=== PATIENT | female | born 1955 | race Caucasian/White ===

== ENCOUNTER 2020-05-06 18:07 | Inpatient (IN) | payer MEDICARE ==
[2020-05-06 19:34] LABS: Anisocytosis Slight; Basophils % (A) 1 %; Eosinophils # (A) 0.3 k/uL (0-0.7); Eosinophils % (A) 3 %; HCT 46.3 % (34.0-46.0); HGB 15.3 gm/dL (11.4-16.0); Hypochromasia Slight; Lymphocytes % (A) 12 %; MCH 27.1 pg (25.0-35.0); MCV 82.2 fL (80.0-100.0); Mean Platelet Volume 7.5; Monocytes # (A) 0.4 k/uL (0-1.0); Monocytes % (A) 4 %; Neutrophils # (A) 6.3 k/uL (1.3-7.7); Neutrophils % (A) 79 %; Platelet Count 266 k/uL (150-450); RBC 5.63 m/uL (3.80-5.40); RDW 16.5 % (11.5-15.5)
[2020-05-06 19:49] LABS: ALT 23 U/L (4-34); AST 33 U/L (14-36); African American GFR (CKD) >90 (>60 ml/min/1.73 sqM); Albumin 3.9 g/dL (3.5-5.0); Alkaline Phosphatase 77 U/L (38-126); Anion Gap 9 mmol/L; Blood Urea Nitrogen 16 mg/dL (7-17); Calcium 9.1 mg/dL (8.4-10.2); Carbon Dioxide 21 mmol/L (22-30); Chloride 108 mmol/L (98-107); Glucose 106 mg/dL (74-99); Non-African American GFR(CKD) 83 (>60 ml/min/1.73 sqM); Potassium 4.7 mmol/L (3.5-5.1); Sodium 138 mmol/L (137-145); Total Bilirubin 0.7 mg/dL (0.2-1.3); Total Protein 7.3 g/dL (6.3-8.2)
--- NOTE | 2020-05-06 19:50 | ED ---
General Adult HPI - General Chief complaint: Shortness of Breath Stated complaint: abn EKG Time Seen by Provider: 05/06/20 18:17 Source: patient, RN notes reviewed, old records reviewed Mode of arrival: ambulatory Limitations: no limitations - History of Present Illness Initial comments: 65-year-old female presenting for evaluation of abnormal EKG. Patient was sent from the cardiology office with abnormal EKG. She states she's had dyspnea for the past 9 months. She has history of factor V Leiden and is currently on Coumadin. Additionally she is on allopurinol for chronic lower extremity swelling. She has no history of arrhythmia, no history of CAD. Denies central chest pain. Denies abdominal pain nausea vomiting. - Related Data Home Medications Medication Instructions Recorded Confirmed Furosemide [Lasix] 20 mg PO DAILY 05/06/20 05/06/20 Warfarin [Coumadin] 2 mg PO DAILY 05/06/20 05/06/20 Warfarin [Coumadin] 5 mg PO DAILY 05/06/20 05/06/20 Allergies Allergy/AdvReac Type Severity Reaction Status Date / Time No Known Allergies Allergy Verified 05/06/20 20:11 Review of Systems ROS Statement: Those systems with pertinent positive or pertinent negative responses have been documented in the HPI. ROS Other: All systems not noted in ROS Statement are negative. Past Medical History Additional Past Medical History / Comment(s): factor 5 History of Any Multi-Drug Resistant Organisms: None Reported Past Surgical History: Appendectomy, Cholecystectomy, Tonsillectomy Additional Past Surgical History / Comment(s): hysterctomy, orthopedic, Past Psychological History: No Psychological Hx Reported Smoking Status: Never smoker Past Alcohol Use History: None Reported Past Drug Use History: None Reported General Exam Limitations: no limitations General appearance: alert, in no apparent distress Head exam: Present: atraumatic, normocephalic Eye exam: Present: normal appearance, PERRL Respiratory exam: Present: normal lung sounds bilaterally. Absent: respiratory distress, wheezes Cardiovascular Exam: Present: normal rhythm, bradycardia GI/Abdominal exam: Present: soft. Absent: distended, tenderness, guarding Extremities exam: Present: normal capillary refill, pedal edema. Absent: calf tenderness Neurological exam: Present: alert, oriented X3, CN II-XII intact. 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 Ventricular rate of 52, [place] interval 184, QRS duration 88, QTC 45, no ST segment elevation. Medical Decision Making - Medical Decision Making 65-year-old female sent for abnormal EKG. Patient is in a second-degree type II heart block. Initial blood pressure is hypertensive, she does remain somewhat hypertensive while in the emergency department. She is perfusing well with this rhythm. She is not on any calcium channel tomasz or beta tomasz. She is on Coumadin with history of factor V Leiden. Her INR is supratherapeutic at 6. Coumadin will be held. Patient has normal CBC, stable hemoglobin, normal electrolytes negative initial troponin. Case discussed with Dr. Aguilar, pacer pads will be placed on the patient bUT are not required at this time. Patient will be admitted to the ICU for pacemaker placement tomorrow. I did discuss case with the admitting team Majo Putnam covering for Dr. Shetty and Dr. Carlisle for ICU management. - Lab Data Result diagrams: 05/06/20 19:20 05/06/20 19:20 Lab Results 05/06/20 05/06/20 05/06/20 Range/Units 19:20 19:20 19:20 WBC 8.0 (3.8-10.6) k/uL RBC 5.63 H (3.80-5.40) m/uL Hgb 15.3 (11.4-16.0) gm/dL Hct 46.3 H (34.0-46.0) % MCV 82.2 (80.0-100.0) fL MCH 27.1 (25.0-35.0) pg MCHC 33.0 (31.0-37.0) g/dL RDW 16.5 H (11.5-15.5) % Plt Count 266 (150-450) k/uL Neutrophils % 79 % Lymphocytes % 12 % Monocytes % 4 % Eosinophils % 3 % Basophils % 1 % Neutrophils # 6.3 (1.3-7.7) k/uL Lymphocytes # 1.0 (1.0-4.8) k/uL Monocytes # 0.4 (0-1.0) k/uL Eosinophils # 0.3 (0-0.7) k/uL Basophils # 0.0 (0-0.2) k/uL Hypochromasia Slight Anisocytosis Slight PT 60.4 H (9.0-12.0) sec INR 6.0 H* (<1.2) APTT 42.6 H (22.0-30.0) sec Sodium 138 (137-145) mmol/L Potassium 4.7 (3.5-5.1) mmol/L Chloride 108 H (98-107) mmol/L Carbon Dioxide 21 L (22-30) mmol/L Anion Gap 9 mmol/L BUN 16 (7-17) mg/dL Creatinine 0.76 (0.52-1.04) mg/dL Est GFR (CKD-EPI)AfAm >90 (>60 ml/min/1.73 sqM) Est GFR (CKD-EPI)NonAf 83 (>60 ml/min/1.73 sqM) Glucose 106 H (74-99) mg/dL Plasma Lactic Acid Aristides (0.7-2.0) mmol/L Calcium 9.1 (8.4-10.2) mg/dL Total Bilirubin 0.7 (0.2-1.3) mg/dL AST 33 (14-36) U/L ALT 23 (4-34) U/L Alkaline Phosphatase 77 (38-126) U/L Troponin I (0.000-0.034) ng/mL Total Protein 7.3 (6.3-8.2) g/dL Albumin 3.9 (3.5-5.0) g/dL 05/06/20 05/06/20 Range/Units 19:20 19:20 WBC (3.8-10.6) k/uL RBC (3.80-5.40) m/uL Hgb (11.4-16.0) gm/dL Hct (34.0-46.0) % MCV (80.0-100.0) fL MCH (25.0-35.0) pg MCHC (31.0-37.0) g/dL RDW (11.5-15.5) % Plt Count (150-450) k/uL Neutrophils % % Lymphocytes % % Monocytes % % Eosinophils % % Basophils % % Neutrophils # (1.3-7.7) k/uL Lymphocytes # (1.0-4.8) k/uL Monocytes # (0-1.0) k/uL Eosinophils # (0-0.7) k/uL Basophils # (0-0.2) k/uL Hypochromasia Anisocytosis PT (9.0-12.0) sec INR (<1.2) APTT (22.0-30.0) sec Sodium (137-145) mmol/L Potassium (3.5-5.1) mmol/L Chloride (98-107) mmol/L Carbon Dioxide (22-30) mmol/L Anion Gap mmol/L BUN (7-17) mg/dL Creatinine (0.52-1.04) mg/dL Est GFR (CKD-EPI)AfAm (>60 ml/min/1.73 sqM) Est GFR (CKD-EPI)NonAf (>60 ml/min/1.73 sqM) Glucose (74-99) mg/dL Plasma Lactic Acid Aristides 1.5 (0.7-2.0) mmol/L Calcium (8.4-10.2) mg/dL Total Bilirubin (0.2-1.3) mg/dL AST (14-36) U/L ALT (4-34) U/L Alkaline Phosphatase (38-126) U/L Troponin I 0.025 (0.000-0.034) ng/mL Total Protein (6.3-8.2) g/dL Albumin (3.5-5.0) g/dL Critical Care Time Critical Care Time: Yes Total Critical Care Time: 35 Disposition Clinical Impression: Second degree heart block Disposition: ADMITTED IP TO THIS [facility] Condition: Serious Is patient prescribed a controlled substance at d/c from ED?: No Referrals: Mike Garcia MD [Primary Care Provider] - 1-2 days Decision to Admit Reason: Admit from [facility] Decision Date: 05/06/20 Decision Time: 20:16
[2020-05-06 19:53] LABS: Partial Thromboplastin Time 42.6 sec (22.0-30.0); Prothrombin Time 60.4 sec (9.0-12.0)
[2020-05-06] MEDS ORDERED: NALOXONE 0.4 MG/ML 1 ML VIAL IV PRN (20:12)
[2020-05-06] MEDS ORDERED: ACETAMINOPHEN TAB 325 MG TAB PO PRN (20:12)
--- NOTE | 2020-05-06 20:34 | XR ---
EXAMINATION TYPE: XR chest 2V DATE OF EXAM: 05/06/2020 COMPARISON: NONE HISTORY: Guillain-[place] breathing TECHNIQUE: 3 views FINDINGS: There is some patchy linear density in both lungs consistent with patchy subsegmental atele ctasis. Thoracic aorta is atheromatous. There is no heart failure. There is no pleural effusion. Bony thorax is intact.. IMPRESSION: Bilateral patchy subsegmental atelectasis. No heart failure seen. No pulmonary consolidat ion.
[2020-05-06 21:33] LABS: Glucose,Whole Blood 103 mg/dL (75-99)
[2020-05-06] MEDS: SODIUM CHLORIDE 0.9% 1,000 ML IV SCH (23:00)
[2020-05-07 05:30] LABS: Anisocytosis Slight; Basophils # (A) 0.1 k/uL (0-0.2); Basophils % (A) 1 %; Eosinophils # (A) 0.2 k/uL (0-0.7); Eosinophils % (A) 3 %; Hypochromasia Slight; Lymphocytes # (A) 1.3 k/uL (1.0-4.8); Lymphocytes % (A) 18 %; MCH 26.4 pg (25.0-35.0); MCHC 31.9 g/dL (31.0-37.0); MCV 82.8 fL (80.0-100.0); Monocytes # (A) 0.4 k/uL (0-1.0); Monocytes % (A) 6 %; Neutrophils # (A) 5.1 k/uL (1.3-7.7); Neutrophils % (A) 71 %; Platelet Count 266 k/uL (150-450); RBC 5.67 m/uL (3.80-5.40); RDW 16.7 % (11.5-15.5); WBC 7.3 k/uL (3.8-10.6)
[2020-05-07 05:37] LABS: INR 4.5 (<1.2); Prothrombin Time 44.6 sec (9.0-12.0)
[2020-05-07 05:42] LABS: African American GFR (CKD) >90 (>60 ml/min/1.73 sqM); Anion Gap 10 mmol/L; Blood Urea Nitrogen 14 mg/dL (7-17); Calcium 8.9 mg/dL (8.4-10.2); Carbon Dioxide 20 mmol/L (22-30); Chloride 108 mmol/L (98-107); Glucose 103 mg/dL (74-99); Non-African American GFR(CKD) 87 (>60 ml/min/1.73 sqM); Potassium 4.5 mmol/L (3.5-5.1); Sodium 138 mmol/L (137-145)
--- NOTE | 2020-05-07 07:46 | P.HPIM ---
History of Present Illness This is a pleasant 65 years old female with no significant past medical history except for factor V blade and insufficiency , presents because of dyspnea since August which get worse over the last 2 months, she recently got insurance and went to see Dr. Lopez at [place] who found her in type 2 second degree heart block, so he referred her to the hospital. She denies chest pain however she feels a little dizzy She also been hypertensive on admission. Vitals and labs are reviewed, blood pressure 163/81.INR is elevated 6.0 at 4.5, trending down. EKG shows sinus bradycardia at 52 Chest x-ray: Atelectasis, no consolidation per radiologist Review of Systems CONSTITUTIONAL: No fever, no malaise, no fatigue. HEENT: No recent visual problems or hearing problems. Denied any sore throat. CARDIOVASCULAR: No orthopnea, PND, no palpitations, no syncope. PULMONARY: No shortness of breath, no cough, no hemoptysis. GASTROINTESTINAL: No diarrhea, no nausea, no vomiting, no abdominal pain. Normoactive bowel sounds. NEUROLOGICAL: No headaches, no weakness, no numbness. HEMATOLOGICAL: Denies any bleeding or petechiae. GENITOURINARY: Denies any burning micturition, frequency, or urgency. MUSCULOSKELETAL/RHEUMATOLOGICAL: Denies any joint pain, swelling, or any muscle pain. ENDOCRINE: Denies any polyuria or polydipsia. Past Medical History Additional Past Medical History / Comment(s): factor 5 Leiden insufficiency History of Any Multi-Drug Resistant Organisms: None Reported Past Surgical History: Appendectomy, Cholecystectomy, Tonsillectomy Additional Past Surgical History / Comment(s): hysterctomy, orthopedic (ankle fracture) Past Psychological History: No Psychological Hx Reported Smoking Status: Former smoker Past Alcohol Use History: None Reported Past Drug Use History: None Reported - Past Family History Father Family Medical History: Congestive Heart Failure (CHF) Additional Family Medical History / Comment(s): congenital Mother Family Medical History: Cancer Additional Family Medical History / Comment(s): lung cancer Medications and Allergies Home Medications Medication Instructions Recorded Confirmed Type Furosemide [Lasix] 20 mg PO DAILY 05/06/20 05/06/20 History Warfarin [Coumadin] 2 mg PO DAILY 05/06/20 05/06/20 History Warfarin [Coumadin] 5 mg PO DAILY 05/06/20 05/06/20 History Allergies Allergy/AdvReac Type Severity Reaction Status Date / Time No Known Allergies Allergy Verified 05/06/20 20:11 Physical Exam Vitals: Vital Signs Temp Pulse Pulse Resp BP Pulse Ox 05/07/20 07:00 42 L 18 163/81 95 05/07/20 06:30 41 L 16 163/93 96 05/07/20 06:00 41 L 21 145/77 92 L 05/07/20 05:30 41 L 24 156/74 94 L 05/07/20 05:00 41 L 19 146/60 95 05/07/20 04:30 42 L 15 150/70 95 05/07/20 04:00 97.9 F 41 L 42 L 24 167/84 94 L 05/07/20 03:30 42 L 32 H 157/99 95 05/07/20 03:00 42 L 23 144/73 92 L 05/07/20 02:30 42 L 20 131/70 94 L 05/07/20 02:00 42 L 24 156/64 92 L 05/07/20 01:30 42 L 24 159/74 93 L 05/07/20 01:00 43 L 18 159/66 94 L 05/07/20 00:30 43 L 18 161/72 93 L 05/07/20 00:00 98 F 43 L 20 164/72 94 L 05/06/20 23:36 44 L 15 93 L 05/06/20 23:30 44 L 18 164/72 93 L 05/06/20 23:00 45 L 44 L 24 151/86 95 05/06/20 22:30 45 L 13 177/100 94 L 05/06/20 22:10 46 L 17 177/100 96 05/06/20 22:00 46 L 12 96 05/06/20 21:50 46 L 19 194/78 95 05/06/20 21:40 98.2 F 47 L 20 95 05/06/20 21:32 91 L 05/06/20 20:29 45 L 05/06/20 20:26 20 05/06/20 20:24 44 L 18 178/94 92 L 05/06/20 18:12 98.2 F 50 L 18 213/73 92 L Intake and Output 05/06/20 05/07/20 05/07/20 22:59 06:59 14:59 Intake Total 0 350 50 Output Total 0 300 0 Balance 0 50 50 Intake: IV 0 350 50 Sodium Chloride 0.9% 1, 0 350 50 000 ml @ 50 mls/hr IV . Q20H [facility] Rx#:[id number] Output: Urine 0 300 0 Other: # Voids 0 0 0 Weight 129.9 kg 129.2 kg -GENERAL: The patient is alert and oriented x3, not in any acute distress. Obese HEENT: Pupils are round and equally reacting to light. EOMI. No scleral icterus. No conjunctival pallor. Normocephalic, atraumatic. No pharyngeal erythema. No thyromegaly. CARDIOVASCULAR: S1 and S2 present. No murmurs, rubs, or gallops. PULMONARY: Chest is clear to auscultation, no wheezing or crackles. ABDOMEN: Soft, nontender, nondistended, normoactive bowel sounds. No palpable organomegaly. MUSCULOSKELETAL: No joint swelling or deformity. EXTREMITIES: No cyanosis, clubbing, or pedal edema. NEUROLOGICAL: Gross neurological examination did not reveal any focal deficits. SKIN: No rashes. No petechiae Results CBC & Chem 7: 05/07/20 04:33 05/07/20 04:33 Labs: Abnormal Lab Results - Last 24 Hours (Table) 05/06/20 05/06/20 05/06/20 Range/Units 19:20 19:20 19:20 RBC 5.63 H (3.80-5.40) m/uL Hct 46.3 H (34.0-46.0) % RDW 16.5 H (11.5-15.5) % PT 60.4 H (9.0-12.0) sec INR 6.0 H* (<1.2) APTT 42.6 H (22.0-30.0) sec Chloride 108 H (98-107) mmol/L Carbon Dioxide 21 L (22-30) mmol/L Glucose 106 H (74-99) mg/dL POC Glucose (mg/dL) (75-99) mg/dL 05/06/20 05/07/20 05/07/20 Range/Units 21:32 04:33 04:33 RBC (3.80-5.40) m/uL Hct (34.0-46.0) % RDW (11.5-15.5) % PT 44.6 H (9.0-12.0) sec INR 4.5 H (<1.2) APTT (22.0-30.0) sec Chloride 108 H (98-107) mmol/L Carbon Dioxide 20 L (22-30) mmol/L Glucose 103 H (74-99) mg/dL POC Glucose (mg/dL) 103 H (75-99) mg/dL // Range/Units 04:33 RBC 5.67 H (3.80-5.40) m/uL Hct 47.0 H (34.0-46.0) % RDW 16.7 H (11.5-15.5) % PT (9.0-12.0) sec INR (<1.2) APTT (22.0-30.0) sec Chloride (98-107) mmol/L Carbon Dioxide (22-30) mmol/L Glucose (74-99) mg/dL POC Glucose (mg/dL) (75-99) mg/dL Thrombosis Risk Factor Assmnt - Choose All That Apply Each Factor Represents 1 point: Medical pt on bed rest, Obesity (BMI >25), Swollen legs (current) Other Risk Factors: Yes Each Risk Factor Represents 2 Points: Age 61-74 years Each Risk Factor Represents 3 Points: Positive Factor V Leiden, Family history of DVT/PE, History of DVT/PE Other congenital or acquired thrombophilia - If yes, enter type in comment: No Thrombosis Risk Factor Assessment Total Risk Factor Score: 14 Thrombosis Risk Factor Assessment Level: High Risk Assessment and Plan Assessment: Arrhythmia with second-degree heart block Hypertension, essential factor V blade and insufficiency on Coumadin Coagulopathy secondary to Coumadin Obesity, BMI is 50 Plan: This is a pleasant 65 years old female who presents with second-degree heart block, keep the patient on telemetry in the ICU, cardiology consult. Hold Coumadin and follow up INR Labs and medication were reviewed.. Continue same treatment. Continue with symptomatic treatment. Resume home medication. Monitor lytes and vitals. DVT and GI prophylaxis. Further recommendations of the clinical course of the patient DVT prophylaxis: On Coumadinrin GI Prophylaxis: Pepcid
[2020-05-07] MEDS ORDERED: FAMOTIDINE 20 MG/2 ML VIAL IV SCH (09:00)
[2020-05-07] MEDS: PANTOPRAZOLE 40 MG/10 ML VIAL IV SCH (09:55)
[2020-05-07] MEDS: amLODIPine 5 MG TAB PO SCH (09:55)
[2020-05-07] MEDS: HEPARIN SODIUM,PORCINE 5,000 UNIT/ML 1 ML VIAL SQ SCH ×2 (09:56→20:04)
[2020-05-07 10:58] LABS: Appearance,Urine Cloudy (Clear); Bilirubin,Urine Negative (Negative); Blood,Urine Small (Negative); Color,Urine Yellow; Glucose,Urine (UA) Negative (Negative); Ketones,Urine Negative (Negative); Leukocyte Esterase,Urine Small (Negative); Mucus,Urine Rare /hpf; Nitrite,Urine Negative (Negative); Protein,Urine Trace (Negative); RBC,Urine 4 /hpf (0-5); Specific Gravity,Urine 1.014 (1.001-1.035); Squamous Epithelial Cell,Urine 3 /hpf (0-4); WBC,Urine 7 /hpf (0-5)
--- NOTE | 2020-05-07 11:17 | P.CNPUL ---
History of Present Illness Consult date: 05/07/20 Reason for consult: other (Second-degree AV block, patient was admitted to the ICU.) Chief complaint: Chronic shortness of breath since August. History of present illness: This is a 65-year-old female, with history of factor V Leyden deficiency. History of obesity. Possible obstructive sleep apnea syndrome based on her symptoms, patient has been complaining of shortness of breath for the last 6 months, and her shortness of breath has become more pronounced in the last 2 months. Patient was referred to see Dr. Menchaca in [place], and he saw yesterday were and she was found to have abnormal EKG with second degree AV block, and the patient was noted to be bradycardic with heart rate in the low 40s. Considering her symptoms and considering her abnormal EKG, patient was advised to go to the ER and she was admitted to the ICU for further evaluation by cardiology, and possibly pacemaker implantation. Patient is normally on Coumadin for previous history of thromboembolic disease/DVT, and her Coumadin was supratherapeutic with INR at 6.0 on admission. Considering the patient was admitted to the ICU, I was asked to see her on consultation. Patient denies any cough, denies any wheezing, denies any shortness of breath at rest, denies any chest pain, no nausea no vomiting no palpitations. Denies any dysuria frequency or urgency. Again her shortness of breath is rather chronic, patient describes symptoms of snoring, and excessive daytime sleepiness. But she never had a sleep study in the past. This should be addressed possibly on outpatient basis after discharge. Review of Systems CONSTITUTIONAL: Mostly symptoms of obstructive sleep apnea syndrome. HEENT: Denies sore throat headache blurred vision dizziness. No nasal discharge. CARDIOVASCULAR: As noted in HPI. PULMONARY: As noted in HPI. GASTROINTESTINAL: Negative NEUROLOGICAL: Negative HEMATOLOGICAL: History of factor V Leyden deficiency, maintained on Coumadin. And history of DVT. GENITOURINARY: Negative. MUSCULOSKELETAL/RHEUMATOLOGICAL: Negative. ENDOCRINE: Denies any polyuria or polydipsia. Past Medical History Additional Past Medical History / Comment(s): factor 5 Leiden insufficiency History of Any Multi-Drug Resistant Organisms: None Reported Past Surgical History: Appendectomy, Cholecystectomy, Tonsillectomy Additional Past Surgical History / Comment(s): hysterctomy, orthopedic (ankle fracture) Past Psychological History: No Psychological Hx Reported Smoking Status: Former smoker Past Alcohol Use History: None Reported Past Drug Use History: None Reported - Past Family History Father Family Medical History: Congestive Heart Failure (CHF) Additional Family Medical History / Comment(s): congenital Mother Family Medical History: Cancer Additional Family Medical History / Comment(s): lung cancer Medications and Allergies Home Medications Medication Instructions Recorded Confirmed Type Furosemide [Lasix] 20 mg PO DAILY 05/06/20 05/06/20 History Warfarin [Coumadin] 2 mg PO DAILY 05/06/20 05/06/20 History Warfarin [Coumadin] 5 mg PO DAILY 05/06/20 05/06/20 History Allergies Allergy/AdvReac Type Severity Reaction Status Date / Time No Known Allergies Allergy Verified 05/06/20 20:11 Physical Exam Vitals: Vital Signs Temp Pulse Pulse Resp BP Pulse Ox 05/07/20 10:00 44 L 11 L 174/57 94 L 05/07/20 09:00 43 L 20 179/94 96 05/07/20 08:30 43 L 14 170/85 95 05/07/20 08:00 97.8 F 43 L 16 162/83 94 L 05/07/20 07:30 42 L 22 161/82 93 L 05/07/20 07:00 42 L 18 163/81 95 05/07/20 06:30 41 L 16 163/93 96 05/07/20 06:00 41 L 21 145/77 92 L 05/07/20 05:30 41 L 24 156/74 94 L 05/07/20 05:00 41 L 19 146/60 95 05/07/20 04:30 42 L 15 150/70 95 05/07/20 04:00 97.9 F 41 L 42 L 24 167/84 94 L 05/07/20 03:30 42 L 32 H 157/99 95 05/07/20 03:00 42 L 23 144/73 92 L 05/07/20 02:30 42 L 20 131/70 94 L 05/07/20 02:00 42 L 24 156/64 92 L 05/07/20 01:30 42 L 24 159/74 93 L 05/07/20 01:00 43 L 18 159/66 94 L 05/07/20 00:30 43 L 18 161/72 93 L 05/07/20 00:00 98 F 43 L 20 164/72 94 L 05/06/20 23:36 44 L 15 93 L 05/06/20 23:30 44 L 18 164/72 93 L 05/06/20 23:00 45 L 44 L 24 151/86 95 05/06/20 22:30 45 L 13 177/100 94 L 05/06/20 22:10 46 L 17 177/100 96 05/06/20 22:00 46 L 12 96 05/06/20 21:50 46 L 19 194/78 95 05/06/20 21:40 98.2 F 47 L 20 95 05/06/20 21:32 91 L 05/06/20 20:29 45 L 05/06/20 20:26 20 05/06/20 20:24 44 L 18 178/94 92 L 05/06/20 18:12 98.2 F 50 L 18 213/73 92 L Intake and Output 05/06/20 05/07/20 05/07/20 22:59 06:59 14:59 Intake Total 0 350 200 Output Total 0 300 0 Balance 0 50 200 Intake: IV 0 350 200 Sodium Chloride 0.9% 1, 0 350 200 000 ml @ 50 mls/hr IV . Q20H [facility] Rx#:[id number] Output: Urine 0 300 0 Other: Voiding Method Toilet # Voids 0 0 1 Weight 129.9 kg 129.2 kg Physical Exam: Revealed a 65-year-old female, obese, in no distress, extremely pleasant. Head: Atraumatic, normocephalic. HEENT:[Neck is supple.] [No neck masses.] [No thyromegaly.] [No JVD.] PERRLA, EOMI, Mallampati class III. Chest: [Clear throughout, no crackles, no rhonchi, no wheezes.] Cardiac Exam: Bradycardic, [Normal S1 and S2, no S3 gallop, no murmur.] Abdomen: Obese, [Soft, nontender, no megaly, no rebound, no guarding, normal bowel sounds.] Extremities: [No clubbing, no edema, no cyanosis.] Good pulses bilaterally. Neurological Exam: [No focal neurologic deficit.] Alert oriented 3. Psychiatric: Normal mood affect and normal mental status examination. Skin: No rashes. Results - Laboratory Findings CBC and BMP: 05/07/20 04:33 05/07/20 04:33 PT/INR, D-dimer PT 44.6 sec (9.0-12.0) H 05/07/20 04:33 INR 4.5 (<1.2) H 05/07/20 04:33 Abnormal lab findings: Abnormal Labs 05/06/20 05/06/20 05/06/20 19:20 19:20 19:20 RBC 5.63 H Hct 46.3 H RDW 16.5 H PT 60.4 H INR 6.0 H* APTT 42.6 H Chloride 108 H Carbon Dioxide 21 L Glucose 106 H POC Glucose (mg/dL) Urine Appearance Urine Protein Urine Blood Ur Leukocyte Esterase Urine WBC Urine Mucus 05/06/20 05/07/20 05/07/20 21:32 04:33 04:33 RBC Hct RDW PT 44.6 H INR 4.5 H APTT Chloride 108 H Carbon Dioxide 20 L Glucose 103 H POC Glucose (mg/dL) 103 H Urine Appearance Urine Protein Urine Blood Ur Leukocyte Esterase Urine WBC Urine Mucus 05/07/20 05/07/20 04:33 10:15 RBC 5.67 H Hct 47.0 H RDW 16.7 H PT INR APTT Chloride Carbon Dioxide Glucose POC Glucose (mg/dL) Urine Appearance Cloudy H Urine Protein Trace H Urine Blood Small H Ur Leukocyte Esterase Small H Urine WBC 7 H Urine Mucus Rare H - Diagnostic Findings Chest x-ray: image reviewed (Chest x-ray showed mostly bibasilar atelectasis otherwise unremarkable) Assessment and Plan Assessment: Impression: Second-degree AV block Chronic dyspnea on exertion most likely secondary to second-degree AV block. Suspect obstructive sleep apnea syndrome. Factor V Leyden deficiency. Maintained chronically on Coumadin. Recommendation: Agree with the present treatment plan, Continue Coumadin and adjust dose accordingly based on INR. Patient to be seen by cardiology and address the a shoulder second-degree AV b lock. Patient should have a sleep study on outpatient basis. We will continue to follow while in the ICU. Time with Patient: Greater than 30
--- NOTE | 2020-05-07 15:53 | P.CRDCN ---
History of Present Illness History of present illness: This is Dr. Ma dictating a consult on this patient The patient was interviewed and examined IMPRESSION / ASSESSMENT: Third degree heart block with an escape rate in the 40s Factor V Leyden deficiency Morbid obesity Symptoms began in August but worse for the last few months Father has a history of cardio myopathy in his 50s On Coumadin, INR 6.0 initially now 4.5 PLAN: 2-D echo and Doppler study Biventricular pacemaker implantation if LV function is normal, to avoid RV pacing Hold Coumadin for now Later on workup for complete heart block, evaluate for sarcoidosis in the future HPI Since August the patient has had intermittent episodes of lightheadedness and dizziness and shortness of breath but these symptoms have been fleeting. She was treated with oral antibiotics For the last few months she's been complaining of shortness of breath and tiredness fatigue and weakness. Occasionally she does get very dizzy but she has not lost consciousness nor has she fallen or had a 2 syncopal spell ROS: No fever chills or rigors, no cough, phlegm or expectoration, no nausea, vomiting or diarrhea, no hematuria, dysuria, no musculoskeletal complaints, no strokes or seizures, no skin lesions. EXAMINATION: Ulcer rate 42, normal respirations, blood pressure 124/86. His mercury Breath sounds are clear no rhonchi no crackles Heart sounds 1 stress soft no murmurs Abdomen soft No lower extremity edema REVIEW OF LABS, ECG & MEDICAL DATA White count 7.3, hemoglobin 15, sodium 138, potassium 4.5, BUN 14, creatinine 0.73 Past Medical History Additional Past Medical History / Comment(s): factor 5 Leiden insufficiency History of Any Multi-Drug Resistant Organisms: None Reported Past Surgical History: Appendectomy, Cholecystectomy, Tonsillectomy Additional Past Surgical History / Comment(s): hysterctomy, orthopedic (ankle fracture) Past Psychological History: No Psychological Hx Reported Smoking Status: Former smoker Past Alcohol Use History: None Reported Past Drug Use History: None Reported - Past Family History Father Family Medical History: Congestive Heart Failure (CHF) Additional Family Medical History / Comment(s): congenital Mother Family Medical History: Cancer Additional Family Medical History / Comment(s): lung cancer Medications and Allergies Home Medications Medication Instructions Recorded Confirmed Type Furosemide [Lasix] 20 mg PO DAILY 07/24/20 07/24/20 History Warfarin [Coumadin] 2 mg PO DAILY 05/06/20 05/06/20 History Warfarin [Coumadin] 5 mg PO DAILY 05/06/20 05/06/20 History Allergies Allergy/AdvReac Type Severity Reaction Status Date / Time No Known Allergies Allergy Verified 05/06/20 20:11 Physical Exam Vitals: Vital Signs Temp Pulse Pulse Resp BP Pulse Ox 05/07/20 15:00 46 L 20 136/61 94 L 05/07/20 14:00 42 L 20 138/60 97 05/07/20 13:00 42 L 12 133/58 97 05/07/20 12:00 42 L 19 124/86 96 05/07/20 11:00 43 L 23 177/82 96 05/07/20 10:00 44 L 11 L 174/57 94 L 05/07/20 09:00 43 L 20 179/94 96 05/07/20 08:30 43 L 14 170/85 95 05/07/20 08:00 97.8 F 43 L 16 162/83 94 L 05/07/20 07:30 42 L 22 161/82 93 L 05/07/20 07:00 42 L 18 163/81 95 05/07/20 06:30 41 L 16 163/93 96 05/07/20 06:00 41 L 21 145/77 92 L 05/07/20 05:30 41 L 24 156/74 94 L 05/07/20 05:00 41 L 19 146/60 95 05/07/20 04:30 42 L 15 150/70 95 05/07/20 04:00 97.9 F 41 L 42 L 24 167/84 94 L 05/07/20 03:30 42 L 32 H 157/99 95 05/07/20 03:00 42 L 23 144/73 92 L 05/07/20 02:30 42 L 20 131/70 94 L 05/07/20 02:00 42 L 24 156/64 92 L 05/07/20 01:30 42 L 24 159/74 93 L 05/07/20 01:00 43 L 18 159/66 94 L 05/07/20 00:30 43 L 18 161/72 93 L 05/07/20 00:00 98 F 43 L 20 164/72 94 L 05/06/20 23:36 44 L 15 93 L 05/06/20 23:30 44 L 18 164/72 93 L 05/06/20 23:00 45 L 44 L 24 151/86 95 05/06/20 22:30 45 L 13 177/100 94 L 05/06/20 22:10 46 L 17 177/100 96 05/06/20 22:00 46 L 12 96 05/06/20 21:50 46 L 19 194/78 95 05/06/20 21:40 98.2 F 47 L 20 95 05/06/20 21:32 91 L 05/06/20 20:29 45 L 05/06/20 20:26 20 05/06/20 20:24 44 L 18 178/94 92 L 05/06/20 18:12 98.2 F 50 L 18 213/73 92 L Intake and Output 05/07/20 05/07/20 05/07/20 06:59 14:59 22:59 Intake Total 350 400 50 Output Total 300 0 600 Balance 50 400 -550 Intake: IV 350 400 50 Sodium Chloride 0.9% 1, 350 400 50 000 ml @ 50 mls/hr IV . Q20H [facility] Rx#:[id number] Output: Urine 300 0 600 Other: Voiding Method Bedside Commode Bedside Commode # Voids 0 1 Weight 129.2 kg Results 05/07/20 04:33 05/07/20 04:33 Cardiac Enzymes 05/06/20 05/06/20 Range/Units 19:20 19:20 AST 33 (14-36) U/L Troponin I 0.025 (0.000-0.034) ng/mL Coagulation 05/06/20 05/07/20 Range/Units 19:20 04:33 PT 60.4 H 44.6 H (9.0-12.0) sec APTT 42.6 H (22.0-30.0) sec CBC 05/06/20 05/07/20 Range/Units 19:20 04:33 WBC 8.0 7.3 (3.8-10.6) k/uL RBC 5.63 H 5.67 H (3.80-5.40) m/uL Hgb 15.3 15.0 (11.4-16.0) gm/dL Hct 46.3 H 47.0 H (34.0-46.0) % Plt Count 266 266 (150-450) k/uL Comprehensive Metabolic Panel 05/06/20 05/07/20 Range/Units 19:20 04:33 Sodium 138 138 (137-145) mmol/L Potassium 4.7 4.5 (3.5-5.1) mmol/L Chloride 108 H 108 H (98-107) mmol/L Carbon Dioxide 21 L 20 L (22-30) mmol/L BUN 16 14 (7-17) mg/dL Creatinine 0.76 0.73 (0.52-1.04) mg/dL Glucose 106 H 103 H (74-99) mg/dL Calcium 9.1 8.9 (8.4-10.2) mg/dL AST 33 (14-36) U/L ALT 23 (4-34) U/L Alkaline Phosphatase 77 (38-126) U/L Total Protein 7.3 (6.3-8.2) g/dL Albumin 3.9 (3.5-5.0) g/dL Current Medications Generic Name Dose Route Start Last Admin Trade Name Freq PRN Reason Stop Dose Admin Acetaminophen 650 mg 05/06/20 20:12 Tylenol Tab PO Q4HR PRN Fever and/or Mild Pain Amlodipine Besylate 5 mg 05/07/20 09:00 05/07/20 09:55 Norvasc PO 5 mg DAILY [facility] Administration Heparin Sodium (Porcine) 5,000 unit 05/07/20 09:00 05/07/20 09:56 Heparin SQ 5,000 unit Q12HR [facility]SE[facility] Administration Sodium Chloride 1,000 mls @ 50 mls/hr 05/06/20 20:15 05/06/20 23:00 Saline 0.9% IV 50 mls/hr .Q20H [facility] Administration Naloxone HCl 0.2 mg 05/06/20 20:12 Narcan IV Q2M PRN Opioid Reversal Pantoprazole Sodium 40 mg 05/07/20 09:00 05/07/20 09:55 Protonix IV 40 mg DAILY ROSELYN Administration Intake and Output 05/07/20 05/07/20 05/07/20 06:59 14:59 22:59 Intake Total 350 400 50 Output Total 300 0 600 Balance 50 400 -550 Intake: IV 350 400 50 Sodium Chloride 0.9% 1, 350 400 50 000 ml @ 50 mls/hr IV . Q20H [facility] Rx#:[id number] Output: Urine 300 0 600 Other: Voiding Method Bedside Commode Bedside Commode # Voids 0 1 Weight 129.2 kg 05/07/20 04:33 05/07/20 04:33
[2020-05-07] MEDS: SODIUM CHLORIDE 0.9% 1,000 ML IV SCH ×2 (16:20→18:36)
[2020-05-08 05:19] LABS: Anisocytosis Slight; Basophils # (A) 0.1 k/uL (0-0.2); Basophils % (A) 1 %; Eosinophils # (A) 0.2 k/uL (0-0.7); Eosinophils % (A) 2 %; HCT 46.3 % (34.0-46.0); HGB 14.2 gm/dL (11.4-16.0); Hypochromasia Moderate; Lymphocytes % (A) 12 %; MCH 25.9 pg (25.0-35.0); MCHC 30.8 g/dL (31.0-37.0); Mean Platelet Volume 7.6; Monocytes # (A) 0.5 k/uL (0-1.0); Monocytes % (A) 7 %; Neutrophils % (A) 77 %; Platelet Count 207 k/uL (150-450); RBC 5.51 m/uL (3.80-5.40); RDW 16.7 % (11.5-15.5); WBC 7.9 k/uL (3.8-10.6)
[2020-05-08 05:27] LABS: INR 3.6 (<1.2); Prothrombin Time 35.7 sec (9.0-12.0)
[2020-05-08 05:42] LABS: African American GFR (CKD) >90 (>60 ml/min/1.73 sqM); Anion Gap 8 mmol/L; Blood Urea Nitrogen 16 mg/dL (7-17); Calcium 8.3 mg/dL (8.4-10.2); Carbon Dioxide 19 mmol/L (22-30); Chloride 109 mmol/L (98-107); Glucose 99 mg/dL (74-99); Non-African American GFR(CKD) 83 (>60 ml/min/1.73 sqM); Potassium 4.5 mmol/L (3.5-5.1); Sodium 136 mmol/L (137-145)
[2020-05-08] MEDS: PANTOPRAZOLE 40 MG/10 ML VIAL IV SCH (08:21)
[2020-05-08] MEDS: amLODIPine 5 MG TAB PO SCH (08:21)
[2020-05-08] MEDS: HEPARIN SODIUM,PORCINE 5,000 UNIT/ML 1 ML VIAL SQ SCH ×2 (08:21→21:12)
--- NOTE | 2020-05-08 12:37 | P.PN ---
Subjective Progress Note Date: 05/08/20 Principal diagnosis: Third-degree AV block with escape rate in the 40s. This is a 65-year-old female, with history of factor V Leyden deficiency. History of obesity. Possible obstructive sleep apnea syndrome based on her symptoms, patient has been complaining of shortness of breath for the last 6 months, and her shortness of breath has become more pronounced in the last 2 m onths. Patient was referred to see Dr. Menchaca in [place], and he saw yesterday were and she was found to have abnormal EKG with second degree AV block, and the patient was noted to be bradycardic with heart rate in the low 40s. Considering her symptoms and considering her abnormal EKG, patient was advised to go to the ER and she was admitted to the ICU for further evaluation by cardiology, and possibly pacemaker implantation. Patient is normally on Coumadin for previous history of thromboembolic disease/DVT, and her Coumadin was supratherapeutic with INR at 6.0 on admission. Considering the patient was admitted to the ICU, I was asked to see her on consultation. Patient denies any cough, denies any wheezing, denies any shortness of breath at rest, denies any chest pain, no nausea no vomiting no palpitations. Denies any dysuria frequency or urgency. Again her shortness of breath is rather chronic, patient describes symptoms of snoring, and excessive daytime sleepiness. But she never had a sleep study in the past. This should be addressed possibly on outpatient basis after discharge. Patient was reevaluated today on 05/08/20, remains in the ICU, and now she seems what looks like a third-degree AV block with escape rate in the low 40s. Patient has no hemodynamic instability with her third-degree AV block. Denies any shortness of breath at rest, she feels generally weak, denies any chest pain, no palpitations, she is likely scheduled to undergo pacemaker implantation tomorrow. CBC is relatively normal electrolytes are normal renal profile is normal INR is 3.60 Objective - Vital Signs Vital signs: Vital Signs Temp 97.7 F 05/08/20 08:00 Pulse 42 L 05/08/20 11:00 Resp 28 H 05/08/20 11:00 BP 130/66 05/08/20 11:00 Pulse Ox 95 05/08/20 11:00 Intake & Output 05/07/20 05/08/20 05/08/20 18:59 06:59 18:59 Intake Total 600 600 250 Output Total 600 550 0 Balance 0 50 250 Weight 98.2 kg Intake: IV 600 600 250 Sodium Chloride 0.9% 1, 600 600 250 000 ml @ 50 mls/hr IV . Q20H [facility] Rx#:[id number] Output: Urine 600 550 0 Other: Voiding Method Bedside Commode Bedside Commode Bedside Commode # Voids 1 0 1 - Exam Physical Exam: Revealed a 65-year-old female, obese, in no distress, extremely pleasant. Head: Atraumatic, normocephalic. HEENT:[Neck is supple.] [No neck masses.] [No thyromegaly.] [No JVD.] PERRLA, EOMI, Mallampati class III. Chest: [Clear throughout, no crackles, no rhonchi, no wheezes.] Cardiac Exam: Bradycardic, [Normal S1 and S2, no S3 gallop, no murmur.] Abdomen: Obese, [Soft, nontender, no megaly, no rebound, no guarding, normal bowel sounds.] Extremities: [No clubbing, no edema, no cyanosis.] Good pulses bilaterally. Neurological Exam: [No focal neurologic deficit.] Alert oriented 3. Psychiatric: Normal mood affect and normal mental status examination. Skin: No rashes. - Labs CBC & Chem 7: 05/08/20 04:17 05/08/20 04:17 Labs: Abnormal Lab Results - Last 24 Hours (Table) 05/08/20 05/08/20 05/08/20 Range/Units 04:17 04:17 04:17 RBC 5.51 H (3.80-5.40) m/uL Hct 46.3 H (34.0-46.0) % MCHC 30.8 L (31.0-37.0) g/dL RDW 16.7 H (11.5-15.5) % PT 35.7 H (9.0-12.0) sec INR 3.6 H (<1.2) Sodium 136 L (137-145) mmol/L Chloride 109 H (98-107) mmol/L Carbon Dioxide 19 L (22-30) mmol/L Calcium 8.3 L (8.4-10.2) mg/dL Assessment and Plan Assessment: Impression: Third degree AV block Chronic dyspnea on exertion most likely secondary to above. Suspect obstructive sleep apnea syndrome. Factor V Leyden deficiency. Maintained chronically on Coumadin. Recommendation: Agree with the present treatment plan, Continue Coumadin and adjust dose accordingly based on INR. Possible pacemaker implantation tomorrow We will continue to follow while in the ICU. Time with Patient: Less than 30
--- NOTE | 2020-05-08 13:37 | P.PN ---
Subjective Patient is doing well. She is sitting comfortably in bed. Heart rates remained in the 40s She has third degree heart block Respirations normal Blood pressure 136/59 mmHg Breath sounds are equal lateral no rhonchi no crackles Number heart sounds no murmurs or gallops no rub Extremity is warm no edema Labs reviewed, hemoglobin 14.2 Sodium 136, potassium 4.6, BUN 16 and creatinine 0.76 Impression Third degree heart block without any incriminating factors Further workup for third degree heart block as an outpatient Permanent pacemaker implantation of biventricular pacing to avoid 100% RV pacing 2-D echo and Doppler study prior to that Procedures scheduled possibly for tomorrow late afternoon with anesthesia Orders entered Objective - Vital Signs Vital signs: Vital Signs Temp 97.6 F 05/08/20 12:00 Pulse 43 L 05/08/20 13:00 Resp 25 H 05/08/20 13:00 BP 127/112 05/08/20 13:00 Pulse Ox 95 05/08/20 13:00 Intake & Output 05/07/20 05/08/20 05/08/20 18:59 06:59 18:59 Intake Total 600 600 350 Output Total 600 550 0 Balance 0 50 350 Weight 98.2 kg Intake: IV 600 600 350 Sodium Chloride 0.9% 1, 600 600 350 000 ml @ 50 mls/hr IV . Q20H [facility] Rx#:[id number] Output: Urine 600 550 0 Other: Voiding Method Bedside Commode Bedside Commode Bedside Commode # Voids 1 0 0 - Labs CBC & Chem 7: 05/08/20 04:17 05/08/20 04:17 Labs: Abnormal Lab Results - Last 24 Hours (Table) 05/08/20 05/08/20 05/08/20 Range/Units 04:17 04:17 04:17 RBC 5.51 H (3.80-5.40) m/uL Hct 46.3 H (34.0-46.0) % MCHC 30.8 L (31.0-37.0) g/dL RDW 16.7 H (11.5-15.5) % PT 35.7 H (9.0-12.0) sec INR 3.6 H (<1.2) Sodium 136 L (137-145) mmol/L Chloride 109 H (98-107) mmol/L Carbon Dioxide 19 L (22-30) mmol/L Calcium 8.3 L (8.4-10.2) mg/dL
--- NOTE | 2020-05-09 00:02 | P.PN ---
Subjective This is a pleasant 65 years old female with no significant past medical history except for factor V blade and insufficiency , presents because of dyspnea since August which get worse over the last 2 months, she recently got insurance and went to see Dr. Lopez at [place] who found her in type 2 second degree heart block, so he referred her to the hospital. She denies chest pain however she feels a little dizzy She also been hypertensive on admission. Vitals and labs are reviewed, blood pressure 163/81.INR is elevated 6.0 at 4.5, trending down. EKG shows sinus bradycardia at 52 Chest x-ray: Atelectasis, no consolidation per radiologist 05/08/2020 Patient remains in the ICU, she is asymptomatic while she is lying in bed but she has exertional dyspnea, her heart rate is TO 40s at times Blood pressure is a stable CBC and BMP are stable INR is trending down to 3.6 Cardiology are planning for permanent pacemaker implantation an echocardiogram tomorrow Objective - Vital Signs Vital signs: Vital Signs Temp 97.6 F 05/08/20 12:00 Pulse 44 L 05/08/20 15:00 Resp 23 05/08/20 15:00 BP 152/84 05/08/20 15:00 Pulse Ox 95 05/08/20 15:00 Intake & Output 05/07/20 05/08/20 05/08/20 18:59 06:59 18:59 Intake Total 600 600 450 Output Total 600 550 0 Balance 0 50 450 Weight 98.2 kg Intake: IV 600 600 450 Sodium Chloride 0.9% 1, 600 600 450 000 ml @ 50 mls/hr IV . Q20H [facility] Rx#:[id number] Output: Urine 600 550 0 Other: Voiding Method Bedside Commode Bedside Commode Bedside Commode # Voids 1 0 0 - Exam GENERAL: The patient is alert and oriented x3, not in any acute distress. Well developed, well nourished. HEENT: Pupils are round and equally reacting to light. EOMI. No scleral icterus. No conjunctival pallor. Normocephalic, atraumatic. No pharyngeal erythema. No thyromegaly. CARDIOVASCULAR: S1 and S2 present. No murmurs, rubs, or gallops. PULMONARY: Chest is clear to auscultation, no wheezing or crackles. ABDOMEN: Soft, nontender, nondistended, normoactive bowel sounds. No palpable organomegaly. MUSCULOSKELETAL: No joint swelling or deformity. EXTREMITIES: No cyanosis, clubbing, or pedal edema. NEUROLOGICAL: Gross neurological examination did not reveal any focal deficits. SKIN: No rashes. no petechiae. 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 Hold Coumadin and follow up INR Planned for permanent pacemaker and echocardiogram on 05/09 Labs and medication were reviewed.. Continue same treatment. Continue with symptomatic treatment. Resume home medication. Monitor lytes and vitals. DVT and GI prophylaxis. Further recommendations of the clinical course of the patient DVT prophylaxis: On Coumadinrin GI Prophylaxis: Pepcid
[2020-05-09 05:05] LABS: Anisocytosis Slight; HCT 45.8 % (34.0-46.0); HGB 14.9 gm/dL (11.4-16.0); Hypochromasia Slight; MCH 26.9 pg (25.0-35.0); MCHC 32.6 g/dL (31.0-37.0); MCV 82.4 fL (80.0-100.0); Mean Platelet Volume 8.9; Platelet Count 168 k/uL (150-450); RBC 5.56 m/uL (3.80-5.40); RDW 16.3 % (11.5-15.5); WBC 7.5 k/uL (3.8-10.6)
[2020-05-09 05:36] LABS: INR 2.5 (<1.2); Prothrombin Time 24.8 sec (9.0-12.0)
[2020-05-09 05:37] LABS: African American GFR (CKD) >90 (>60 ml/min/1.73 sqM); Anion Gap 5 mmol/L; Blood Urea Nitrogen 16 mg/dL (7-17); Calcium 8.6 mg/dL (8.4-10.2); Carbon Dioxide 26 mmol/L (22-30); Chloride 108 mmol/L (98-107); Glucose 99 mg/dL (74-99); Non-African American GFR(CKD) 81 (>60 ml/min/1.73 sqM); Sodium 139 mmol/L (137-145)
[2020-05-09] MEDS ORDERED: ceFAZolin 1,000 MG in SODIUM CHLORIDE 0.9% IRRIGATIO 250 ML IRRIGATION ONE (06:00)
[2020-05-09 06:55] LABS: Potassium 4.3 mmol/L (3.5-5.1)
[2020-05-09] MEDS: HEPARIN SODIUM,PORCINE 5,000 UNIT/ML 1 ML VIAL SQ SCH ×2 (09:51→22:57)
[2020-05-09] MEDS: amLODIPine 5 MG TAB PO SCH (09:51)
[2020-05-09] MEDS: SODIUM CHLORIDE 0.9% 1,000 ML IV SCH ×3 (09:51→22:25)
[2020-05-09] MEDS: PANTOPRAZOLE 40 MG/10 ML VIAL IV SCH (09:51)
--- NOTE | 2020-05-09 10:31 | ECHOF ---
Referral Reason:heart block MEASUREMENTS -------- HEIGHT: 160.0 cm WEIGHT: 98.0 kg BP: 139/113 RVIDd: 3.5 cm (< 3.3) IVSd: 1.1 cm (0.6 - 1.1) LVIDd: 4.4 cm (3.9 - 5.3) LVPWd: 1.1 cm (0.6 - 1.1) IVSs: 1.8 cm LVIDs: 2.7 cm LVPWs: 1.8 cm LA Diam: 4.3 cm (2.7 - 3.8) LAESV Index (A-L): 27.70 ml/m Ao Diam: 3.2 cm (2.0 - 3.7) AV Cusp: 1.5 cm (1.5 - 2.6) MV EXCURSION: 6.919 mm (> 18.000) MV EF SLOPE: 30 mm/s (70 - 150) EPSS: 1.2 cm MV E Yuri: 1.70 m/s MV DecT: 276 ms MV A Yuri: 1.88 m/s MV E/A Ratio: 0.90 AV maxP.73 mmHg AV meanP.32 mmHg RAP: 5.00 mmHg RVSP: 65.90 mmHg FINDINGS -------- Resting bradycardia (HR<60bpm). This was a technically adequate study. The left ventricular size is normal. There is borderline concentric left ventricular hypertrophy. There is normal global left ventricular contractility. Overall left ventricular systolic function is normal with, an EF between 55 - 60 %. The right ventricle is mildly enlarged. Normal LA size by volume 22+/-6 ml/m2. Interatrial and interventricular septum intact. Aortic valve is trileaflet and is mildly thickened. Peak/mean gradient across the Aortic Valve is 1 5.73mmHg / 6.32mmHg. The mitral valve leaflets are moderate to severely thickened. Severe mitral annular calcification p resent. Mild mitral regurgitation is present. The peak and mean MV gradients are 40.11mmHg 7.25m mHg as measured by doppler. Moderate mitral stenosis. Mild tricuspid regurgitation present. There is severe pulmonary hypertension. The right ventricul ar systolic pressure, as measured by Doppler, is 65.90mmHg. Trace/mild (physiologic) pulmonic regurgitation. The aortic root size is normal. Normal inferior vena cava with normal inspiratory collapse consistent with estimated right atrial pre ssure of 5 mmHg. There is no pericardial effusion. CONCLUSIONS -------- 1. Resting bradycardia (HR<60bpm). 2. This was a technically adequate study. 3. The left ventricular size is normal. 4. There is borderline concentric left ventricular hypertrophy. 5. There is normal global left ventricular contractility. 6. Overall left ventricular systolic function is normal with, an EF between 55 - 60 %. 7. The right ventricle is mildly enlarged. 8. Normal LA size by volume 22+/-6 ml/m2. 9. Aortic valve is trileaflet and is mildly thickened. 10. Peak/mean gradient across the Aortic Valve is 15.73mmHg / 6.32mmHg. 11. The mitral valve leaflets are moderate to severely thickened. 12. Severe mitral annular calcification present. 13. Mild mitral regurgitation is present. 14. The peak and mean MV gradients are 40.11mmHg 7.25mmHg as measured by doppler. 15. Moderate mitral stenosis. 16. Mild tricuspid regurgitation present. 17. There is severe pulmonary hypertension. 18. The right ventricular systolic pressure, as measured by Doppler, is 65.90mmHg. 19. Trace/mild (physiologic) pulmonic regurgitation. 20. There is no pericardial effusion. CONTROL TOWER RADIO OPERATOR: SHAWNEE Alston
[2020-05-09] MEDS ORDERED: SODIUM CHLORIDE 0.9% 1,000 ML IV SCH (10:45)
--- NOTE | 2020-05-09 11:40 | PN ---
PROGRESS NOTE PULMONARY/CRITICAL CARE PROGRESS NOTE: DATE OF SERVICE: 05/09/2020 This is a lady who was admitted to the hospital on May 06. The patient has a history of factor 5 deficiency, obesity, and possible sleep apnea syndrome. Apparently for the last 6 months or so, she has been complaining of shortness of breath. It was more so in the last 2 months. She saw the engineering production worker in [place] and was found to have an abnormal EKG showing type 2 second-degree AV block. The patient was seen in the emergency room with actual third-degree heart block. The patient is going to have a permanent pacemaker placed by one of the engineering production worker today. Currently, she is on 2 L. She is getting saline at 50 mL an hour. She is doing well. She has no new complaints. She denies any pain. Denies any shortness of breath. No nausea, vomiting, diarrhea. No other complaints for that matter. Current vital signs are reviewed, and include a temperature 97.7 heart rate 45, respiratory rate 16, blood pressure 140/76 mean 97, saturations are 93% on 2 L. Appears in no acute distress. HEENT: Examination is grossly unremarkable. Nasal O2 in place. NECK: Supple, full range of motion. No adenopathy. Neck veins are flat. CARDIOVASCULAR: Examination reveals regular rhythm and rate. Heart rate about 50 beats per minute. S1, S2 normal. No S3, S4, or murmur. LUNGS: Reveal clear breath sounds. No wheezes, rhonchi, or crackles. Breath sounds equal bilaterally. ABDOMEN: Soft, bowel sounds are heard. EXTREMITIES: Intact. No cyanosis, clubbing, or edema. SKIN: Without rash. NEUROLOGIC: Examination is brief but nonfocal. LABS: Reviewed. White count 7.5, hemoglobin 14.9, hematocrit 45.8, platelet count 168,000, PT 24.8, INR 2.5. Sodium 139, potassium 4.3 chloride is 108, CO2 is 26, anion gap is 5. BUN and creatinine were 16 and 0.77. Urine shows it to be yellow and cloudy, trace protein, small blood, small leukocyte esterase, 7 WBCs. Microbiology is pending or negative. No recent x-rays to report. Medications are reviewed. She is currently on Tylenol, amlodipine, heparin subcu, Narcan, Protonix, and saline. ASSESSMENT: 1. Third-degree heart block. 2. Progressive shortness of breath, secondary to conduction disturbances including type 2 second-degree heart block as well as third-degree heart block. 3. History of factor 5 deficiency. 4. History of obesity. 5. History of possible sleep apnea syndrome. PLAN: Currently, the patient is doing reasonably well. She is very stable. There is some discussion as to her getting a permanent pacemaker today, but I do noticed that she has a PET of 24.8 and an INR 2.5. It may cause a delay. Additional recommendations and suggestions are forthcoming. Will continue to follow. MMODL / IJN: [id number] /
[2020-05-09] MEDS ORDERED: DOPamine DRIP 800 MG in DEXTROSE/WATER 1 250ML.BAG IV SCH (12:00)
[2020-05-09] MEDS ORDERED: ONDANSETRON 4 MG/2 ML VIAL IVP STA (14:31)
[2020-05-09] MEDS ORDERED: GLYCOPYRROLATE 0.2 MG/ML 2 ML VIAL ONE ×2 (16:38)
[2020-05-09] MEDS ORDERED: fentaNYL (PF) 50 MCG/ML 2 ML AMP ONE ×2 (16:38)
[2020-05-09] MEDS ORDERED: ROCURONIUM BROMIDE 10 MG/ML 5 ML VIAL IV ONE ×2 (16:38)
[2020-05-09] MEDS ORDERED: NEOSTIGMINE 1 MG/ML 10 ML VIAL ONE ×2 (16:38)
[2020-05-09] MEDS ORDERED: HYDROCORTISONE SUCCINATE 100 MG/2 ML VIAL ONE (16:38)
[2020-05-09] MEDS ORDERED: PHENYLEPHRINE-0.9% NACL SYG 1 MG/10 ML SYRINGE ONE (16:38)
[2020-05-09] MEDS ORDERED: PROPOFOL 10 MG/ML 20 ML VIAL IV ONE (16:38)
[2020-05-09] MEDS ORDERED: ETOMIDATE 2 MG/ML 10 ML VIAL ONE (16:38)
[2020-05-09] MEDS ORDERED: LIDOCAINE 1% INJ 10MG/ML (20 ML MDV) ONE ×3 (16:38→17:11)
[2020-05-09] MEDS ORDERED: hydrALAZINE HCL 20 MG/ML 1 ML VIAL ONE (16:38)
[2020-05-09] MEDS ORDERED: SUCCINYLCHOLINE CHLORIDE 100 MG/5 ML SYR IV ONE ×2 (16:38)
[2020-05-09] MEDS ORDERED: METOPROLOL TARTRATE 5 MG/5 ML VIAL IVP ONE (16:38)
[2020-05-09] MEDS ORDERED: MIDAZOLAM 2 MG/2 ML VIAL ONE ×2 (16:38)
[2020-05-09] MEDS ORDERED: IV FLUID CONTINUATION 900 ML IV ONE (16:38)
[2020-05-09] MEDS ORDERED: ONDANSETRON 4 MG/2 ML VIAL ONE (16:38)
[2020-05-09] MEDS ORDERED: HYDROmorphone (PF) 1 MG/ML ONE (16:38)
[2020-05-09] MEDS ORDERED: IOPAMIDOL-370 50ML BTL INJ ONE ×2 (17:11→19:24)
[2020-05-09] MEDS ORDERED: LIDOCAINE 1% INJ 10MG/ML (20 ML MDV) SQ ONE ×2 (17:24→17:58)
[2020-05-09] MEDS ORDERED: VANCOMYCIN 1,000 MG in SODIUM CHLORIDE 0.9% 250 ML IVPB STA (17:34)
[2020-05-09] MEDS ORDERED: LACTATED RINGERS 1,000 ML IV ONE (19:47)
--- NOTE | 2020-05-09 20:16 | P.PCN ---
Preoperative Diagnosis: Transvenous temporary pacing procedure Indication for the procedure: Severe underlying bradycardia Patient was brought to the EP lab in a fasting state. Written informed consent was obtained prior to the procedure. The right groin was prepped and draped as a protocol. A 6-Swedish sheath was placed in the right femoral vein. Via this, a temporary pacing catheter was placed in the right ventricle. Thresholds were interrogated. Temporary pacing was performed through the rest of the procedure. At the end of the entire procedure, the TVP was removed. The sheath was removed and hemostasis was assured. Patient tolerated the procedure well without any acute complications. Procedure performed Transvenous temporary pacing
--- NOTE | 2020-05-09 20:18 | P.PCN ---
Preoperative Diagnosis: Extended procedure This is a long procedure took over's Patient of complete heart block severe bradycardia First the TVP was placed Next is ALLERGIC septal pacing was attempted and despite obtaining good in clinic on his bundle signals as well as current of injury in the His bundle, the His bundle lead was not stable However fever able to get stable position on several occasions with selective capture, sometimes nonselective capture but gradually the thresholds would begin to rise Therefore this was abandoned and and LV lead was placed anterolaterally in a stable position
[2020-05-09] MEDS ORDERED: ACETAMINOPHEN TAB 325 MG TAB PO PRN (20:31)
--- NOTE | 2020-05-09 20:34 | P.PN ---
Progress Note - Text Successful biventricular pacemaker implantation Coumadin started at 2.5 mg by mouth daily Intraoperatively placed TVP removed
[2020-05-09] MEDS ORDERED: ACETAMINOPHEN IV (For NPO) 1,000 MG in EMPTY BAG 1 BAG IVPB ONE (21:00)
--- NOTE | 2020-05-09 22:06 | P.PN ---
Subjective Progress Note Date: 05/09/20 Principal diagnosis: Third-degree heart block This is a pleasant 65 years old female with no significant past medical history except for factor V blade and insufficiency , presents because of dyspnea since August which get worse over the last 2 months, she recently got insurance and went to see Dr. Lopez at [place] who found her in type 2 second degree heart block, so he referred her to the hospital. She denies chest pain however she feels a little dizzy She also been hypertensive on admission. Vitals and labs are reviewed, blood pressure 163/81.INR is elevated 6.0 at 4.5, trending down. EKG shows sinus bradycardia at 52 Chest x-ray: Atelectasis, no consolidation per radiologist 05/08/2020 Patient remains in the ICU, she is asymptomatic while she is lying in bed but she has exertional dyspnea, her heart rate is TO 40s at times Blood pressure is a stable CBC and BMP are stable INR is trending down to 3.6 Cardiology are planning for permanent pacemaker implantation an echocardiogram tomorrow 05/09/2020 Patient is currently in the ICU. Patient has been having occasional pauses in the rhythm. Patient felt dizzy and nauseous when she did have 5-second pause today. Heart rate is around 45. Cardiology is planning to place permanent pacemaker today. Patient denied any complaints of chest pain. No shortness of breath. No headache. No cough or sputum production. Current medications reviewed. Objective - Vital Signs Vital signs: Vital Signs Temp 97.6 F 05/09/20 20:47 Pulse 93 05/09/20 21:46 Resp 18 05/09/20 21:46 BP 113/57 05/09/20 21:46 Pulse Ox 94 L 05/09/20 21:46 Intake & Output 05/09/20 05/09/20 05/10/20 06:59 18:59 06:59 Intake Total 550 1700 0 Output Total 2250 1500 Balance -1700 200 0 Weight 128.8 kg Intake: IV 550 1700 0 Sodium Chloride 0.9% 1, 550 500 000 ml @ 50 mls/hr IV . Q20H [facility] Rx#:[id number] Output: Urine 2250 1500 Other: Voiding Method Bedside Commode Bedside Commode # Voids 0 1 - Exam GENERAL: The patient is alert and oriented x3, not in any acute distress. Well developed, well nourished. HEENT: Pupils are round and equally reacting to light. EOMI. No scleral icterus. No conjunctival pallor. Normocephalic, atraumatic. No pharyngeal erythema. No thyromegaly. CARDIOVASCULAR: S1 and S2 present. No murmurs, rubs, or gallops. PULMONARY: Chest is clear to auscultation, no wheezing or crackles. ABDOMEN: Soft, nontender, nondistended, normoactive bowel sounds. No palpable organomegaly. MUSCULOSKELETAL: No joint swelling or deformity. EXTREMITIES: No cyanosis, clubbing, or pedal edema. NEUROLOGICAL: Gross neurological examination did not reveal any focal deficits. SKIN: No rashes. no petechiae. 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 Hold Coumadin and follow up INR Planned for permanent pacemaker and echocardiogram on 05/09 Labs and medication were reviewed.. Continue same treatment. Continue with symptomatic treatment. Resume home medication. Monitor lytes and vitals. DVT and GI prophylaxis. Further recommendations of the clinical course of the patient DVT prophylaxis: On Coumadinrin GI Prophylaxis: Pepcid Time with Patient: Greater than 30
--- NOTE | 2020-05-10 01:10 | CE ---
CARDIAC ELECTROPHYSIOLOGY REPORT This is a 65-year-old female who has been experiencing dizzy spells since August. Her symptoms have become considerably worse in the last few months. She is tired, fatigued, short of breath. She was found to be in third-degree heart block with a narrow escape rhythm at 45 beats a minute. She was monitored in the ICU without temporary pacing, but this morning she had an episode of asystole secondary to complete heart block which was brief. IV dopamine was instituted by Dr. Lopez. She has a normal potassium. She is not on any drugs and later as an outpatient sarcoidosis should be considered in the differential and she should be evaluated for the same. She is brought in for a biventricular pacemaker implantation. The LV function is normal. No wall motion abnormalities are noted. First, a TVP was placed. Please see the dictation separately. Following that, the left pectoral area was prepped and draped as per protocol. IV antibiotics were administered. Local anesthesia was administered. An incision was made parallel to the deltopectoral groove, about 1.5 cm medial to it the incision was carried down to the level of the pectoralis muscle. A subfascial pocket was made. Hemostasis was assured. The left axillary vein was accessed at 3 separate points under fluoroscopy and via appropriately-sized introducer sheaths 3 leads were positioned. The pressure in the RV was elevated and therefore a single coil ICD lead was placed finally in the septum. It was not stable in the RV apex. This was screwed in the RV septum. R-waves were 12 mV, pacing impedance 513 ohms, pacing threshold 0.3 V at 0.4 milliseconds. Ten volt test was negative. The RV lead was a Medtronic model #6935, 58 cm length and serial #[id number]. The atrial lead was a passive lead Medtronic model #4574, 53 cm length and serial #[id number]. The pacing threshold 0.3 V at 0.4 milliseconds, pacing impedance 684 ohms, pacing threshold and P waves 3.9 mV. Ten volt test was negative. Initially physiologic septal pacing was attempted and the His lead was positioned in the His bundle area. The His signals were consistently obtained and on some occasions current of injury results were noted in association with the His signal. Stability of the His lead seemed to be an issue, but ultimately on 2 separate occasions were able to get a very stable His position with good thresholds. However, there was a delayed rise in the thresholds, rising above 3 V at 1 millisecond. Therefore, finally this approach was completely abandoned despite the fact that we had selective capture as well as non- selective capture. A 9-Azeri sheath was then placed in place of the 8-Azeri sheath and the coronary sinus catheter was placed in the coronary sinus. Coronary sinus sheath was placed. Venogram was performed. A large anterolateral vein with multiple tributaries was noted and a screw-in LV lead Medtronic, octoScopetronic was placed in a very stable position. This was a Medtronic model #4798, 88 cm in length and serial #[id number]. The pacing impedance was 665 ohms, pacing threshold was 1 V at 0.4 milliseconds. Ten volt test was negative. Excellent thresholds are noted in between leads III, IV as well as II, III. All sheaths were then removed. Leads were secured to the underlying pectoralis fascia. The leads were connected to the generator ([employer] DENTAL [employer]ER-P MRI model #W4TR02, serial #[id number]. The leads and the generator were then placed in a subfascial pocket. The wound was closed in 3 layers and dressed per protocol. The DF pin was capped and then secured to the underlying pectoralis muscle. The device was programmed to DDD mode with normal AV delay and LV, RV pacing. The patient tolerated the procedure well without any acute complications. This was a long extended procedure on account of the difficulties encountered after placement of the physiologic septal pacing lead. This has been dictated separately. MMODL / IJN: [id number] /
[2020-05-10] MEDS: HYDROcodone/APAP 5-325MG 1 EACH TAB PO PRN (02:48)
[2020-05-10 04:32] LABS: Anisocytosis Slight; Basophils % (A) 0 %; Eosinophils # (A) 0.1 k/uL (0-0.7); Eosinophils % (A) 1 %; HCT 43.4 % (34.0-46.0); HGB 14.3 gm/dL (11.4-16.0); Hypochromasia Slight; Lymphocytes # (A) 0.6 k/uL (1.0-4.8); Lymphocytes % (A) 7 %; MCH 27.1 pg (25.0-35.0); Mean Platelet Volume 8.4; Monocytes # (A) 0.5 k/uL (0-1.0); Monocytes % (A) 6 %; Neutrophils % (A) 86 %; Platelet Count 183 k/uL (150-450); RDW 16.4 % (11.5-15.5); WBC 8.2 k/uL (3.8-10.6)
[2020-05-10 04:35] LABS: Prothrombin Time 19.2 sec (9.0-12.0)
[2020-05-10 04:59] LABS: African American GFR (CKD) >90 (>60 ml/min/1.73 sqM); Anion Gap 4 mmol/L; Blood Urea Nitrogen 13 mg/dL (7-17); Calcium 7.9 mg/dL (8.4-10.2); Carbon Dioxide 22 mmol/L (22-30); Chloride 111 mmol/L (98-107); Glucose 103 mg/dL (74-99); Non-African American GFR(CKD) >90 (>60 ml/min/1.73 sqM); Potassium 4.9 mmol/L (3.5-5.1); Sodium 137 mmol/L (137-145)
--- NOTE | 2020-05-10 07:06 | PN ---
PROGRESS NOTE PULMONARY/CRITICAL CARE PROGRESS NOTE: DATE OF SERVICE: May 10, 2020 This is a 65-year-old female who was admitted back on May 06 with various rhythm disturbances including complete heart block and type 2 second-degree heart block. The patient is status post permanent pacemaker insertion yesterday by Dr. Ma. That took place on May 09. Currently, she is on 3 L nasal cannula and saline at 50 mL an hour. She has had a pretty uneventful night according to the nurses. No shortness of breath or difficulty breathing. No chest pain or chest discomfort. No pain anywhere else in her body. PHYSICAL EXAMINATION: VITAL SIGNS: Current vital signs are reviewed. Her temperature is 97.9, heart rate 90, respiratory rate 19, blood pressure 119/71, mean 87 and 3 L saturation 97%. GENERAL: She appears in no acute distress. HEENT: Examination is grossly unremarkable. Mucous membranes are moist. No oral lesions. NECK: Supple. Full range of motion. No adenopathy, thyromegaly or neck vein distention. CARDIOVASCULAR: Examination reveals regular rhythm and rate. S1, S2 normal. No S3, S4, or murmur. LUNGS: Reveal clear breath sounds. No wheezes, rhonchi, or crackles. ABDOMEN: Soft. Bowel sounds are heard. EXTREMITIES: Are intact. No cyanosis, clubbing, or edema. SKIN: Without rash. NEUROLOGIC: Examination is brief but nonfocal. LABS: Labs are reviewed. White count 8.2, hemoglobin 14.3, hematocrit 43.4, platelet count 183,000. PT, INR were 19.2 and 2.0 respectively. Sodium 137, potassium 4.9, chloride 111, CO2 of 22. Anion gap is 4. BUN and creatinine were 13 and 0.64. The rest of the labs are reviewed. Microbiology is currently negative or pending. No chest x-ray to review. ASSESSMENT: 1. Postoperative day #1, status post permanent pacemaker insertion for third-degree heart block as well as type 2 second-degree heart block. 2. Shortness of breath, progressive, secondary to heart block. 3. History of factor 5 deficiency. 4. History of obesity. 5. History of possible sleep apnea syndrome. PLAN: Currently, the patient is doing well. She appears stable. Pacemaker was placed yesterday on May 09. She remains on 3 L nasal cannula and saline at 50 mL an hour. We will continue to follow. Prognosis is guarded. MMODL / IJN: [id number] /
--- NOTE | 2020-05-10 08:27 | XR ---
EXAMINATION TYPE: XR chest 2V DATE OF EXAM: 05/10/2020 COMPARISON: 05/06/2020 HISTORY: Shortness of breath TECHNIQUE: Frontal and lateral views of the chest are obtained. FINDINGS: Scattered senescent parenchymal changes noted. Hyperinflation compatible with COPD. Dual-lead pacer is in place with distal leads within the right atrium and right ventricle respectivel y. No evidence for pneumothorax. Patchy basilar infiltrates right greater than left persists. Heart size is stable. Mediastinal structures are stable and grossly unremarkable. No evidence for hilar prominence. Degenerative changes dorsal spine. IMPRESSION: Dual-lead pacer is in place with distal leads within the right atrium and right ventricle respectivel y. No evidence for pneumothorax. Patchy basilar infiltrates right greater than left persists.
[2020-05-10] MEDS: HEPARIN SODIUM,PORCINE 5,000 UNIT/ML 1 ML VIAL SQ SCH ×2 (08:49→20:50)
[2020-05-10] MEDS: PANTOPRAZOLE 40 MG/10 ML VIAL IV SCH (08:49)
[2020-05-10] MEDS: amLODIPine 5 MG TAB PO SCH (08:49)
[2020-05-10] MEDS ORDERED: FUROSEMIDE 10 MG/ML 2 ML VIAL IV ONE (15:13)
--- NOTE | 2020-05-10 16:30 | PN ---
PROGRESS NOTE FOLLOW-UP NOTE: Sarah is a 65-year-old lady who is admitted to hospital with second-degree heart block. She developed intermittent episodes of complete heart block. She underwent pacemaker yesterday. She is doing well, had a chest x-ray that appears normal. She is on Norvasc 5 mg daily and Coumadin for factor V Leiden deficiency. Her pacemaker is functioning normally. She is short of breath with activity and has hypoxia with oxygen saturation of 92% on 3 L. Her chest exam is free of crackles or rhonchi. Heart exam reveals first and second heart sounds. No gallop. Abdomen is soft. Examination of extremities did not reveal any edema. There is no jugular venous distention. Her chest x-ray did not reveal any pulmonary congestion. Her echocardiogram on this admission revealed normal LV function. ASSESSMENT: 1. High-grade AV block, status post permanent pacemaker. 2. Moderate to severe mitral stenosis with severe pulmonary hypertension. PLAN: The patient will need evaluation for the underlying valvular heart disease. I am going to do a MARU on her when she is able to lie on her side safely. This may be done on this admission or we may discharge her home and bring her back if she is able to get around on her without becoming short of breath or hypoxic. MMODL / IJN: [id number] /
[2020-05-10] MEDS ORDERED: WARFARIN 2.5 MG TAB PO SCH (18:00)
[2020-05-10] MEDS: WARFARIN 5 MG TAB PO SCH (19:21)
--- NOTE | 2020-05-11 00:29 | P.PN ---
Subjective Progress Note Date: 05/10/20 Principal diagnosis: Third-degree heart block This is a pleasant 65 years old female with no significant past medical history except for factor V blade and insufficiency , presents because of dyspnea since August which get worse over the last 2 months, she recently got insurance and went to see Dr. Lopez at [place] who found her in type 2 second degree heart block, so he referred her to the hospital. She denies chest pain however she feels a little dizzy She also been hypertensive on admission. Vitals and labs are reviewed, blood pressure 163/81.INR is elevated 6.0 at 4.5, trending down. EKG shows sinus bradycardia at 52 Chest x-ray: Atelectasis, no consolidation per radiologist 05/08/2020 Patient remains in the ICU, she is asymptomatic while she is lying in bed but she has exertional dyspnea, her heart rate is TO 40s at times Blood pressure is a stable CBC and BMP are stable INR is trending down to 3.6 Cardiology are planning for permanent pacemaker implantation an echocardiogram tomorrow 05/09/2020 Patient is currently in the ICU. Patient has been having occasional pauses in the rhythm. Patient felt dizzy and nauseous when she did have 5-second pause today. Heart rate is around 45. Cardiology is planning to place permanent pacemaker today. Patient denied any complaints of chest pain. No shortness of breath. No headache. No cough or sputum production. 05/10/2020 Patient is status post biventricular pacemaker placement. Patient is currently sitting on the side comfortably. Denied any complaints of dizziness. No nausea vomiting. Otherwise patient is still requiring oxygen at 4 L via nasal cannula. Patient is not on home oxygen. Started back on her home dose of Lasix. Titrate down to room air. Patient has been afebrile. No chest pain. Continued on telemetry monitoring. Current medications reviewed. Objective - Vital Signs Vital signs: Vital Signs Temp 97.9 F 05/10/20 08:00 Pulse 83 05/10/20 17:00 Resp 22 05/10/20 17:00 BP 126/88 05/10/20 17:00 Pulse Ox 95 05/10/20 17:00 Intake & Output 05/10/20 05/10/20 05/11/20 06:59 18:59 06:59 Intake Total 800 300 Output Total 1200 Balance 800 -900 Weight 129 kg Intake: IV 600 50 ACETAMINOPHEN IV (For NPO 100 ) 1,000 mg In Empty Bag 1 bag @ 400 mls/hr IVPB ONCE ONE Rx#:[id number] Sodium Chloride 0.9% 1, 450 50 000 ml @ 50 mls/hr IV . Q20H [facility] Rx#:[id number] ceFAZolin 2 gm In Sodium 50 Chloride 0.9% 50 ml @ 100 mls/hr IVPB Q6HR [facility] Rx# :[id number] Oral 200 250 Output: Urine 1200 Other: # Voids 0 - Exam GENERAL: The patient is alert and oriented x3, not in any acute distress. Well developed, well nourished. HEENT: Pupils are round and equally reacting to light. EOMI. No scleral icterus. No conjunctival pallor. Normocephalic, atraumatic. No pharyngeal erythema. No thyromegaly. CARDIOVASCULAR: S1 and S2 present. No murmurs, rubs, or gallops. PULMONARY: Chest is clear to auscultation, no wheezing or crackles. ABDOMEN: Soft, nontender, nondistended, normoactive bowel sounds. No palpable organomegaly. MUSCULOSKELETAL: No joint swelling or deformity. EXTREMITIES: No cyanosis, clubbing, or pedal edema. NEUROLOGICAL: Gross neurological examination did not reveal any focal deficits. SKIN: No rashes. no petechiae. - Labs CBC & Chem 7: 05/10/20 04:14 05/10/20 04:14 Labs: Abnormal Lab Results - Last 24 Hours (Table) 05/10/20 05/10/20 05/10/20 Range/Units 04:14 04:14 04:14 RDW 16.4 H (11.5-15.5) % Lymphocytes # 0.6 L (1.0-4.8) k/uL PT 19.2 H (9.0-12.0) sec INR 2.0 H (<1.2) Chloride 111 H (98-107) mmol/L Glucose 103 H (74-99) mg/dL Calcium 7.9 L (8.4-10.2) mg/dL Assessment and Plan Assessment: Arrhythmia with Third-degree heart block and Type II second-degree AV block. 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 Status post permanent pacemaker and echocardiogram on 05/09, Labs and medication were reviewed.. Continue same treatment. Continue with symptomatic treatment. Resume home medication. Monitor lytes and vitals. DVT and GI prophylaxis. Further recommendations of the clinical course of the patient DVT prophylaxis: On Coumadinrin GI Prophylaxis: Pepcid Time with Patient: Greater than 30
[2020-05-11 04:08] LABS: Anisocytosis Slight; Basophils % (A) 1 %; Eosinophils # (A) 0.2 k/uL (0-0.7); Eosinophils % (A) 3 %; HCT 44.1 % (34.0-46.0); HGB 13.7 gm/dL (11.4-16.0); Hypochromasia Slight; Lymphocytes # (A) 0.7 k/uL (1.0-4.8); Lymphocytes % (A) 9 %; MCH 25.9 pg (25.0-35.0); MCHC 31.1 g/dL (31.0-37.0); MCV 83.3 fL (80.0-100.0); Mean Platelet Volume 7.7; Monocytes # (A) 0.4 k/uL (0-1.0); Monocytes % (A) 5 %; Neutrophils # (A) 6.2 k/uL (1.3-7.7); Neutrophils % (A) 80 %; Platelet Count 163 k/uL (150-450); RBC 5.29 m/uL (3.80-5.40); RDW 16.6 % (11.5-15.5); WBC 7.7 k/uL (3.8-10.6)
[2020-05-11 04:12] LABS: INR 1.7 (<1.2); Prothrombin Time 16.7 sec (9.0-12.0)
[2020-05-11 04:19] LABS: African American GFR (CKD) >90 (>60 ml/min/1.73 sqM); Anion Gap 8 mmol/L; Blood Urea Nitrogen 16 mg/dL (7-17); Calcium 8.1 mg/dL (8.4-10.2); Carbon Dioxide 22 mmol/L (22-30); Chloride 106 mmol/L (98-107); Glucose 99 mg/dL (74-99); Non-African American GFR(CKD) >90 (>60 ml/min/1.73 sqM); Potassium 4.1 mmol/L (3.5-5.1); Sodium 136 mmol/L (137-145)
[2020-05-11] MEDS: PANTOPRAZOLE 40 MG TABLET PO SCH (06:40)
[2020-05-11] MEDS: amLODIPine 5 MG TAB PO SCH (08:08)
[2020-05-11] MEDS: FUROSEMIDE 20 MG TAB PO SCH (08:08)
[2020-05-11] MEDS: HEPARIN SODIUM,PORCINE 5,000 UNIT/ML 1 ML VIAL SQ SCH ×2 (08:08→20:46)
--- NOTE | 2020-05-11 11:38 | PN ---
PROGRESS NOTE PULMONARY/CRITICAL CARE PROGRESS NOTE: DATE OF SERVICE: 05/11/2020 This is a very pleasant 65-year-old female who was admitted back on May 06 with a number of different rhythm disturbances including third-degree heart block and type 2 second-degree heart block. The patient is status post permanent pacemaker insertion, postop day #[address] Ma. Currently, she is on 2 L nasal cannula and no IV fluids. The patient may have underlying sleep apnea syndrome and/or Pickwickian syndrome. This should be evaluated. In addition, prior to discharge, will check a room-air resting saturation. Will also walk her up and down the hallway to see if she requires oxygen therapy on discharge. Currently, the patient is resting comfortably. She has no major complaints. Current vital signs are reviewed, temperature 98.2, heart rate 90, respiratory rate 16, blood pressure 133/80, mean 97, 2 L saturation 97%. Appears in no acute distress. HEENT: Examination is grossly unremarkable. NECK: Supple. Full range of motion. No adenopathy. Neck veins are flat. CARDIOVASCULAR: Examination reveals regular rhythm and rate. S1, S2 normal. Heart rate 90. No murmur. LUNGS: Reveal clear breath sounds. No wheezes, rhonchi, or crackles. Breath sounds equal bilaterally. ABDOMEN: Soft, bowel sounds are heard. EXTREMITIES: Intact. No cyanosis, clubbing, or edema. SKIN: Without rash. NEUROLOGIC: Examination is brief but nonfocal. CURRENT LABS: Reviewed. White count 7.7, hemoglobin 13.7, hematocrit 44.1, platelet count 163,000 PT, INR is 16.7 and 1.7. Sodium 136, potassium 4.1, chloride is 106, CO2 is 22, anion gap is 8. BUN and creatinine were 16 and 0.71. Microbiology is negative. No recent chest x-ray to report. The chest x-ray from 05/07 shows patchy bibasilar infiltrates. Medications are reviewed. ASSESSMENT: 1. Postoperative day #2 status post permanent pacemaker insertion for third-degree heart block as well as type 2 second-degree heart block. 2. Shortness of breath, progressive, secondary to heart block. 3. History of factor 5 deficiency. 4. History of obesity. 5. History of possible sleep apnea syndrome. 6. Rule out Pickwickian syndrome. PLAN: The patient is doing well. She may be discharged home today. Before that happens, though, she will need a resting room air saturation and saturation walking up and down the hallway. She should follow up with my partner. She will eventually need a sleep study as an outpatient. Additional recommendations and suggestions are forthcoming. Prognosis is guarded. ANNEL / BABSN: [id number] /
--- NOTE | 2020-05-11 15:43 | PN ---
PROGRESS NOTE A 65-year-old lady that is admitted to hospital with high-grade AV block, has had a permanent pacemaker, feeling better, she is oxygenating better, not short of breath. Patient is on Coumadin right now. INR is 1.7. I am told patient pacer lead has moved and it needs to be adjusted for which patient is here still. An echo showed significant mitral stenosis and pulmonary hypertension. She will need a MARU and the mitral valve needs to be addressed once her pacer issues have resolved. PHYSICAL EXAM: Heart rate is 90 beats per minute. Blood pressure is 133/80, respiratory rate is 18. Chest exam reveals good air entry bilaterally. Heart exam reveals first and second heart sounds. First heart sound is loud. I do not hear any diastolic murmur. Abdomen is soft. Exam of the extremities did not reveal any edema. ASSESSMENT: 1. Second-degree heart block status post permanent pacemaker. 2. Mitral stenosis. PLAN: Patient will continue current medications. Hopefully home on Saturday. MMODL / IJN: [id number] /
[2020-05-11] MEDS: WARFARIN 5 MG TAB PO SCH (17:04)
[2020-05-12 04:27] LABS: Anisocytosis Slight; Basophils % (A) 1 %; Eosinophils # (A) 0.2 k/uL (0-0.7); Eosinophils % (A) 3 %; HGB 13.2 gm/dL (11.4-16.0); Hypochromasia Slight; Lymphocytes # (A) 0.9 k/uL (1.0-4.8); Lymphocytes % (A) 13 %; MCH 25.9 pg (25.0-35.0); MCHC 31.5 g/dL (31.0-37.0); MCV 82.3 fL (80.0-100.0); Mean Platelet Volume 7.5; Monocytes # (A) 0.4 k/uL (0-1.0); Monocytes % (A) 6 %; Neutrophils # (A) 5.1 k/uL (1.3-7.7); Neutrophils % (A) 76 %; Platelet Count 160 k/uL (150-450); RDW 16.7 % (11.5-15.5); WBC 6.8 k/uL (3.8-10.6)
[2020-05-12 04:43] LABS: INR 1.3 (<1.2); Prothrombin Time 13.3 sec (9.0-12.0)
[2020-05-12 04:57] LABS: African American GFR (CKD) >90 (>60 ml/min/1.73 sqM); Anion Gap 5 mmol/L; Blood Urea Nitrogen 15 mg/dL (7-17); Calcium 8.1 mg/dL (8.4-10.2); Carbon Dioxide 25 mmol/L (22-30); Chloride 106 mmol/L (98-107); Glucose 108 mg/dL (74-99); Non-African American GFR(CKD) >90 (>60 ml/min/1.73 sqM); Potassium 4.2 mmol/L (3.5-5.1); Sodium 136 mmol/L (137-145)
[2020-05-12] MEDS: PANTOPRAZOLE 40 MG TABLET PO SCH (07:07)
[2020-05-12] MEDS: amLODIPine 5 MG TAB PO SCH (07:07)
[2020-05-12] MEDS ORDERED: ceFAZolin 1,000 MG in SODIUM CHLORIDE 0.9% IRRIGATIO 250 ML IRRIGATION ONE (08:02)
[2020-05-12] MEDS ORDERED: amLODIPine 5 MG TAB PO STA (08:40)
[2020-05-12] MEDS: HYDROcodone/APAP 5-325MG 1 EACH TAB PO PRN (09:29)
--- NOTE | 2020-05-12 09:33 | PN ---
PROGRESS NOTE Sarah is a 65-year-old lady who is admitted to the hospital with high-grade AV block and underwent a permanent pacemaker. She is on Coumadin. INR is subtherapeutic today at 1.3. The left ventricular lead needs to be reposition. On exam, heart rate is 90 beats per minute. Blood pressure is 150/90. There is no jugular venous distention. Carotid upstroke is normal. Chest exam reveals diminished air entry at the bases. Heart exam reveals first and second heart sounds. No gallop. No murmur. No rub. Abdomen is soft. Exam of the extremities did not reveal any edema. Peripheral pulses are felt. LABS: Show a hemoglobin of 13.2, platelet count is 160. Potassium is 4.2, creatinine is 0.6. INR is 1.3. ASSESSMENT: 1. High-grade AV block, status post permanent pacemaker. 2. Mitral stenosis. 3. Pulmonary hypertension. PLAN: Pacer lead will be repositioned today. Hopefully home tomorrow and evaluation for mitral stenosis down the road. MMYASHIRAL / BABSN: [id number] /
[2020-05-12] MEDS: FUROSEMIDE 20 MG TAB PO SCH (09:44)
[2020-05-12] MEDS: SODIUM CHLORIDE 0.9% 1,000 ML IV SCH ×2 (09:44→09:55)
[2020-05-12 09:49] VITALS: BMI 50.4
[2020-05-12] MEDS ORDERED: VANCOMYCIN 1,000 MG in SODIUM CHLORIDE 0.9% 250 ML IVPB ONE (11:00)
[2020-05-12] MEDS ORDERED: IV FLUID CONTINUATION 900 ML IV ONE (11:10)
[2020-05-12] MEDS ORDERED: LIDOCAINE 1% INJ 10MG/ML (20 ML MDV) ONE ×2 (11:10→11:58)
[2020-05-12] MEDS ORDERED: MIDAZOLAM 2 MG/2 ML VIAL ONE (11:10)
[2020-05-12] MEDS ORDERED: fentaNYL (PF) 50 MCG/ML 2 ML AMP ONE (11:10)
[2020-05-12] MEDS ORDERED: IV FLUID CONTINUATION 450 ML IV ONE (11:10)
[2020-05-12] MEDS ORDERED: PROPOFOL 10 MG/ML 20 ML VIAL IV ONE (11:10)
[2020-05-12] MEDS ORDERED: HYDROmorphone (PF) 1 MG/ML ONE (11:10)
[2020-05-12] MEDS ORDERED: SUCCINYLCHOLINE CHLORIDE 100 MG/5 ML SYR IV ONE (11:10)
--- NOTE | 2020-05-12 11:51 | PN ---
PROGRESS NOTE PULMONARY/CRITICAL CARE PROGRESS NOTE: DATE OF SERVICE: 05/12/2020 This is a pleasant 65-year-old female who was admitted back on May 06 with a rhythm disturbance including third-degree heart block and type 2 second-degree heart block. The patient underwent pacemaker insertion. It was done by Dr. Ma. Today is postop day #3. Unfortunately, one of her pacemaker wires have migrated and that is going to be repaired today. Currently, she otherwise is doing well. She is sitting up at the bedside. She is on 2 L nasal cannula. Most of the time though she is on room air. She is getting no IV fluids. The patient does snore loudly at night at nighttime. She stops breathing at nighttime and likely has underlying sleep apnea syndrome. Will make sure she is scheduled for a sleep study when she gets discharged from the hospital. Anyway, the patient otherwise is doing well. Current vital signs are reviewed. Temperature is 98, heart rate 100, respiratory rate 16, blood pressure 151/93 mean 112, room air saturation 94%. Appears in no acute distress. HEENT: Examination is grossly unremarkable. Mucous membranes are moist. No oral lesions. No nasal O2. NECK: Supple, full range of motion. No adenopathy, thyromegaly or neck vein distention. CARDIOVASCULAR: Examination reveals regular rhythm and rate. Heart rate about 90 beats per minute. It is regular. No murmur. Heart sounds are distant. LUNGS: Relatively clear. No wheezes, rhonchi, or crackles. Breath sounds equal. ABDOMEN: Obese. Bowel sounds are heard. EXTREMITIES: Intact. Minimal edema. SKIN: Without rash. NEUROLOGIC: Examination is brief but nonfocal. White count 6.8, hemoglobin 13.2, hematocrit 42, platelet count 160,000. PT, INR were 13.3 and 1.3 respectively. Sodium 136, potassium 4.2, chloride is 106, CO2 is 25, anion gap is 5. BUN and creatinine were 15 and 0.62. Microbiology is negative. No recent chest x-ray. Medications are reviewed. ASSESSMENT: 1. Postoperative day #3, status post permanent pacemaker insertion for third-degree heart block as well as type 2 second-degree heart block. 2. Anticipated relocalization of migrated pacemaker wire. 3. Shortness of breath, progressive, likely secondary to heart block, stable. 4. History of factor 5 deficiency. 5. History of obesity. 6. Probable sleep apnea syndrome. 7. Rule out Pickwickian syndrome. PLAN: Currently, the patient is doing well. Currently, she is not receiving any supplemental oxygen. She is not on any IV fluids. The patient will have a procedure today to properly locate and reposition the migrated pacemaker wire. This will be done by Dr. Ma. No additional recommendations are made. Will continue to follow. Prognosis is guarded. MMODL / IJN: [id number] /
[2020-05-12] MEDS ORDERED: LIDOCAINE 1% INJ 10MG/ML (20 ML MDV) SQ ONE (12:18)
[2020-05-12] MEDS ORDERED: IOPAMIDOL-370 50ML BTL INJ ONE (13:50)
[2020-05-12] MEDS ORDERED: HYDROcodone/APAP 5-325MG 1 EACH TAB PO PRN (14:24)
[2020-05-12] MEDS ORDERED: ACETAMINOPHEN IV (For NPO) 1,000 MG in EMPTY BAG 1 BAG IVPB ONE (14:24)
[2020-05-12] MEDS ORDERED: ACETAMINOPHEN TAB 325 MG TAB PO PRN (14:24)
--- NOTE | 2020-05-12 14:39 | P.PCN ---
Preoperative Diagnosis: Procedure Extraction of the current LV lead from the lateral vein (via coronary sinus body) Reimplantation of the LV lead into the lateral vein but via middle cardiac vein connection, to avoid looping of the lead heel within the right atrium Repositioning of the right atrial lead Indication Dislodgment of the well-placed LV lead from the lateral vein The heel of the lead within the right atrium was sucked into the right ventricle resulting in a pullback force on the LV lead, resulting in dislodgment Procedure details Issues brought to the EP lab in a fasting state. IV vancomycin was administered prior to the procedure General anesthesia was used Under sterile precautions an incision was made directly over the previous surg ical site and carried down to the level of the generator The generator was explanted the LV lead was disconnected and extracted completely Axillary vein access was obtained and a sheath was placed. Via this sheath a coronary sinus sheath and catheter were positioned in the coronary sinus Care was taken to avoid positioning the lead within the loop of the RA and RV This resulted in a micro-dislodgment of the right atrial lead which was later repositioned The RV lead remained stable The Tree sinus was accessed and the lead was positioned via the coronary sinus body into the anterior/lateral vein and its original position However even though we achieved a far more distal and more stable position diaphragmatic stimulation was noted at this time from multiple poles. In addition this route, where the lead entered the coronary sinuses body first would result in large heel and a loop that could potentially be sucked back into the right ventricle resulting in repeat dislodgment We also checked for positioning in the anterior vein the patient did not have an anterior vein just an anteroseptal/ greater cardiac vein Therefore using subselective sheath the middle cardiac vein was accessed. This was confirmed with venography. The lead was placed in the middle cardiac vein and then routed via a connection, into the lateral vein. This was then screwed into the vein and without test was performed and the lead was found to be very stable The subselective sheath was removed Additional done of the screw was made The lead was once again interrogated for stability and was found to be stable The main CS body sheath was then removed The lead remained stable Very careful adjustment of the lead heel in the right atrium was performed and the subclavian sheath was removed and the lead was sewn to the muscle and secured The right atrial lead was freed and repositioned in the right atrial appendage. Sensing was about 2.8 mV pacing threshold was 0.25 V at 0.4 ms The RV lead was interrogated pacing impedance 418 ohms pacing threshold 0.5 V at 0.4 ms The LV lead was interrogated impedances were stable 570 ohms pacing threshold 0.7 V at 0.4 ms distal pole No diaphragmatic stimulation This was a long procedure requiring extraction of the existing LV lead implantation of the LV lead once again. Multiple positions multiple veins and multiple routes were attempted to obtain the final excellent result. Multiple sheaths including subselective sheath was used to cannulate the various branches/tributaries of the coronary sinus Repositioning of the right atrial lead was performed The same generator was used as before Soo quadripolar model number W4 DR 0 to and serial number [id number]
[2020-05-12] MEDS: HEPARIN SODIUM,PORCINE 5,000 UNIT/ML 1 ML VIAL SQ SCH ×2 (17:25→20:55)
[2020-05-12] MEDS: ceFAZolin 3 GM in SODIUM CHLORIDE 0.9% 100 ML IVPB SCH ×2 (18:18→23:15)
[2020-05-12] MEDS: WARFARIN 5 MG TAB PO SCH (18:18)
--- NOTE | 2020-05-12 23:03 | P.PN ---
Subjective Progress Note Date: 05/11/20 Principal diagnosis: Third-degree heart block This is a pleasant 65 years old female with no significant past medical history except for factor V blade and insufficiency , presents because of dyspnea since August which get worse over the last 2 months, she recently got insurance and went to see Dr. Lopez at [facility] who found her in type 2 second degree heart block, so he referred her to the hospital. She denies chest pain however she feels a little dizzy She also been hypertensive on admission. Vitals and labs are reviewed, blood pressure 163/81.INR is elevated 6.0 at 4.5, trending down. EKG shows sinus bradycardia at 52 Chest x-ray: Atelectasis, no consolidation per radiologist 05/08/2020 Patient remains in the ICU, she is asymptomatic while she is lying in bed but she has exertional dyspnea, her heart rate is TO 40s at times Blood pressure is a stable CBC and BMP are stable INR is trending down to 3.6 Cardiology are planning for permanent pacemaker implantation an echocardiogram tomorrow 05/09/2020 Patient is currently in the ICU. Patient has been having occasional pauses in the rhythm. Patient felt dizzy and nauseous when she did have 5-second pause today. Heart rate is around 45. Cardiology is planning to place permanent pacemaker today. Patient denied any complaints of chest pain. No shortness of breath. No headache. No cough or sputum production. 05/10/2020 Patient is status post biventricular pacemaker placement. Patient is currently sitting on the side comfortably. Denied any complaints of dizziness. No nausea vomiting. Otherwise patient is still requiring oxygen at 4 L via nasal cannula. Patient is not on home oxygen. Started back on her home dose of Lasix. Titrate down to room air. Patient has been afebrile. No chest pain. Continued on telemetry monitoring. 05/11/2020 Patient is currently lying in the bed comfortably. Denied any complaints of dizziness or lightheadedness. Still requiring oxygen at 2 L via nasal cannula. Possible obesity hypoventilation and restrictive lung disease suspected. No chest pain or shortness of breath. No leg swelling. Patient is scheduled for procedure tomorrow due to discharge ventricular lead. Cardiology and pulmonary is following. Current medications reviewed. Objective - Vital Signs Vital signs: Vital Signs Temp 98.4 F 05/11/20 16:00 Pulse 91 05/11/20 16:00 Resp 16 05/11/20 16:00 BP 133/86 05/11/20 16:00 Pulse Ox 93 L 05/11/20 16:00 Intake & Output 05/11/20 05/11/20 05/12/20 06:59 18:59 06:59 Intake Total 240 600 Output Total 2049 1550 400 Balance -1810 -950 -400 Weight 129 kg Intake: Oral 240 600 Output: Urine 2049 155 400 Other: Voiding Method Toilet # Voids 1 # Bowel Movements 1 - Exam GENERAL: The patient is alert and oriented x3, not in any acute distress. Well developed, well nourished. HEENT: Pupils are round and equally reacting to light. EOMI. No scleral icterus. No conjunctival pallor. Normocephalic, atraumatic. No pharyngeal erythema. No thyromegaly. CARDIOVASCULAR: S1 and S2 present. No murmurs, rubs, or gallops. PULMONARY: Chest is clear to auscultation, no wheezing or crackles. ABDOMEN: Soft, nontender, nondistended, normoactive bowel sounds. No palpable organomegaly. MUSCULOSKELETAL: No joint swelling or deformity. EXTREMITIES: No cyanosis, clubbing, or pedal edema. NEUROLOGICAL: Gross neurological examination did not reveal any focal deficits. SKIN: No rashes. no petechiae. - Labs CBC & Chem 7: 05/12/20 04:17 05/12/20 04:17 Labs: Abnormal Lab Results - Last 24 Hours (Table) 05/11/20 05/11/20 05/11/20 Range/Units 03:53 03:53 03:53 RDW 16.6 H (11.5-15.5) % Lymphocytes # 0.7 L (1.0-4.8) k/uL PT 16.7 H (9.0-12.0) sec INR 1.7 H (<1.2) Sodium 136 L (137-145) mmol/L Calcium 8.1 L (8.4-10.2) mg/dL Assessment and Plan Assessment: Arrhythmia with Third-degree heart block and Type II second-degree AV block. Hypertension, essential Possible obesity hypoventilation/pickwickian syndrome factor V blade and insufficiency on Coumadin Coagulopathy secondary to Coumadin Obesity, BMI is 50 Plan: Patient is currently being monitored in the MICU. Status post permanent pacemaker and echocardiogram on 05/09, Labs and medication were reviewed.. Continue same treatment. Continue with symptomatic treatment. Resume home medication. Monitor lytes and vitals. DVT and GI prophylaxis. Further recommendations of the clinical course of the patient DVT prophylaxis: On Coumadinrin GI Prophylaxis: Pepcid Time with Patient: Greater than 30
--- NOTE | 2020-05-12 23:05 | P.PN ---
Subjective Progress Note Date: 05/12/20 Principal diagnosis: Third-degree heart block This is a pleasant 65 years old female with no significant past medical history except for factor V blade and insufficiency , presents because of dyspnea since August which get worse over the last 2 months, she recently got insurance and went to see Dr. Lopez at [place] who found her in type 2 second degree heart block, so he referred her to the hospital. She denies chest pain however she feels a little dizzy She also been hypertensive on admission. Vitals and labs are reviewed, blood pressure 163/81.INR is elevated 6.0 at 4.5, trending down. EKG shows sinus bradycardia at 52 Chest x-ray: Atelectasis, no consolidation per radiologist 05/08/2020 Patient remains in the ICU, she is asymptomatic while she is lying in bed but she has exertional dyspnea, her heart rate is TO 40s at times Blood pressure is a stable CBC and BMP are stable INR is trending down to 3.6 Cardiology are planning for permanent pacemaker implantation an echocardiogram tomorrow 05/09/2020 Patient is currently in the ICU. Patient has been having occasional pauses in the rhythm. Patient felt dizzy and nauseous when she did have 5-second pause today. Heart rate is around 45. Cardiology is planning to place permanent pacemaker today. Patient denied any complaints of chest pain. No shortness of breath. No headache. No cough or sputum production. 05/10/2020 Patient is status post biventricular pacemaker placement. Patient is currently sitting on the side comfortably. Denied any complaints of dizziness. No nausea vomiting. Otherwise patient is still requiring oxygen at 4 L via nasal cannula. Patient is not on home oxygen. Started back on her home dose of Lasix. Titrate down to room air. Patient has been afebrile. No chest pain. Continued on telemetry monitoring. 05/11/2020 Patient is currently lying in the bed comfortably. Denied any complaints of dizziness or lightheadedness. Still requiring oxygen at 2 L via nasal cannula. Possible obesity hypoventilation and restrictive lung disease suspected. No chest pain or shortness of breath. No leg swelling. Patient is scheduled for procedure tomorrow due to discharge ventricular lead. Cardiology and pulmonary is following. 05/12/2020 Patient is currently lying in the bed comfortably. No complaints of dizziness or lightheadedness. Patient is scheduled for left ventricular lead replacement due to dislodgment. Currently saturating well on 2 L nasal cannula. No nausea vomiting or abdominal pain or diarrhea. Current medications reviewed. Objective - Vital Signs Vital signs: Vital Signs Temp 97.6 F 05/12/20 16:00 Pulse 98 05/12/20 16:00 Resp 20 05/12/20 16:00 BP 149/85 05/12/20 16:00 Pulse Ox 94 L 05/12/20 16:00 Intake & Output 05/12/20 05/12/20 05/13/20 06:59 18:59 06:59 Intake Total 700 Output Total 400 Balance -400 700 Weight 129.2 kg 129.2 kg Intake: IV 700 Output: Urine 400 Other: Voiding Method Toilet Toilet - Exam GENERAL: The patient is alert and oriented x3, not in any acute distress. Well developed, well nourished. HEENT: Pupils are round and equally reacting to light. EOMI. No scleral icterus. No conjunctival pallor. Normocephalic, atraumatic. No pharyngeal erythema. No thyromegaly. CARDIOVASCULAR: S1 and S2 present. No murmurs, rubs, or gallops. PULMONARY: Chest is clear to auscultation, no wheezing or crackles. ABDOMEN: Soft, nontender, nondistended, normoactive bowel sounds. No palpable organomegaly. MUSCULOSKELETAL: No joint swelling or deformity. EXTREMITIES: No cyanosis, clubbing, or pedal edema. NEUROLOGICAL: Gross neurological examination did not reveal any focal deficits. SKIN: No rashes. no petechiae. - Labs CBC & Chem 7: 05/12/20 04:17 05/12/20 04:17 Labs: Abnormal Lab Results - Last 24 Hours (Table) 05/12/20 05/12/20 05/12/20 Range/Units 04:17 04:17 04:17 RDW 16.7 H (11.5-15.5) % Lymphocytes # 0.9 L (1.0-4.8) k/uL PT 13.3 H (9.0-12.0) sec INR 1.3 H (<1.2) Sodium 136 L (137-145) mmol/L Glucose 108 H (74-99) mg/dL Calcium 8.1 L (8.4-10.2) mg/dL Assessment and Plan Assessment: Arrhythmia with Third-degree heart block and Type II second-degree AV block.Status post biventricular pacemaker placement Hypertension, essential Possible obesity hypoventilation/pickwickian syndrome factor V blade and insufficiency on Coumadin Coagulopathy secondary to Coumadin Obesity, BMI is 50 Plan: Patient is currently being monitored in the MICU. Status post permanent pacemaker and echocardiogram on 05/09, Labs and medication were reviewed.. Continue same treatment. Continue with sym ptomatic treatment. Resume home medication. Monitor lytes and vitals. DVT and GI prophylaxis. Further recommendations of the clinical course of the patient DVT prophylaxis: On Coumadinrin GI Prophylaxis: Pepcid Time with Patient: Greater than 30
[2020-05-13 06:30] LABS: Anisocytosis Slight; Basophils % (A) 0 %; Eosinophils # (A) 0.2 k/uL (0-0.7); Eosinophils % (A) 3 %; HCT 42.1 % (34.0-46.0); HGB 13.4 gm/dL (11.4-16.0); Hypochromasia Slight; Lymphocytes # (A) 0.7 k/uL (1.0-4.8); Lymphocytes % (A) 11 %; MCH 26.2 pg (25.0-35.0); MCHC 31.8 g/dL (31.0-37.0); MCV 82.3 fL (80.0-100.0); Mean Platelet Volume 8.2; Monocytes # (A) 0.4 k/uL (0-1.0); Monocytes % (A) 6 %; Neutrophils # (A) 5.1 k/uL (1.3-7.7); Neutrophils % (A) 79 %; Platelet Count 137 k/uL (150-450); RBC 5.11 m/uL (3.80-5.40); RDW 16.4 % (11.5-15.5); WBC 6.5 k/uL (3.8-10.6)
[2020-05-13 06:36] LABS: INR 1.4 (<1.2); Prothrombin Time 14.3 sec (9.0-12.0)
[2020-05-13 06:40] LABS: African American GFR (CKD) >90 (>60 ml/min/1.73 sqM); Anion Gap 5 mmol/L; Blood Urea Nitrogen 12 mg/dL (7-17); Carbon Dioxide 24 mmol/L (22-30); Chloride 107 mmol/L (98-107); Glucose 99 mg/dL (74-99); Non-African American GFR(CKD) >90 (>60 ml/min/1.73 sqM); Potassium 4.5 mmol/L (3.5-5.1); Sodium 136 mmol/L (137-145)
[2020-05-13] MEDS: SODIUM CHLORIDE 0.9% 1,000 ML IV SCH ×2 (06:46→07:00)
[2020-05-13] MEDS: ceFAZolin 3 GM in SODIUM CHLORIDE 0.9% 100 ML IVPB SCH (06:59)
[2020-05-13] MEDS: PANTOPRAZOLE 40 MG TABLET PO SCH (07:00)
--- NOTE | 2020-05-13 07:07 | XR ---
EXAMINATION TYPE: XR chest 2V DATE OF EXAM: 05/13/2020 COMPARISON: 05/10/2020 HISTORY: Shortness of breath TECHNIQUE: Frontal and lateral views of the chest are obtained. FINDINGS: Scattered senescent parenchymal changes noted. Hyperinflation compatible with COPD. Right infrahilar infiltrate is noted and appears to have progressed. Correlate for pneumonia. Pacer device is in place with distal leads in the right atrium and right ventricle respectively. Heart size is stable. Mediastinal structures are stable and grossly unremarkable. No evidence for hilar prominence. Degenerative changes dorsal spine. IMPRESSION: Right infrahilar infiltrate is noted and appears to have progressed. Correlate for pneumonia. Pacer device is in place with distal leads in the right atrium and right ventricle respectively.
[2020-05-13] MEDS: HEPARIN SODIUM,PORCINE 5,000 UNIT/ML 1 ML VIAL SQ SCH (08:44)
[2020-05-13] MEDS: FUROSEMIDE 20 MG TAB PO SCH (08:44)
[2020-05-13] MEDS ORDERED: amLODIPine 10 MG TAB PO SCH (09:00)
--- NOTE | 2020-05-13 10:27 | PN ---
PROGRESS NOTE PULMONARY/CRITICAL CARE PROGRESS NOTE: DATE OF SERVICE: 05/13/2020 A pleasant 65-year-old female who was admitted back on May 06 with a rhythm disturbance including third-degree heart block and type 2 second-degree heart block. The patient underwent pacemaker insertion a couple of days ago. One of the pacemaker wires has migrated and it was repaired yesterday by Dr. Ma. Currently, she is on room air. Though, her saturations when she exerts herself dropped down to 84%. She is getting saline at 50 mL an hour. This is a chance the patient could be discharged home today. If she does get discharged, the patient will need home O2. Also, it appears that she may have underlying Pickwickian syndrome as well as sleep apnea syndrome. Will need an outpatient sleep study. Currently, she is not complaining of any pain. Her followup chest x-ray shows good positions of the pacemaker wires. Current vital signs are reviewed. Temperature is 98.2, heart rate 82, respiratory rate 16, blood pressure 155/90 mean 111, 3 L saturation 94%. She appears in no acute distress. HEENT: Examination is grossly unremarkable. NECK: Supple. Full range of motion. CARDIOVASCULAR: Examination reveals regular rhythm and rate. S1, S2 normal. Heart rate about 90. S1, S2 normal. No murmur. LUNGS: Reveal mostly clear breath sounds. A few scattered crackles. No wheezes or rhonchi. ABDOMEN: Soft, but obese. EXTREMITIES: Intact. No cyanosis, clubbing, or edema. SKIN: Without rash. NEUROLOGIC: Examination is brief but nonfocal. LABS: Reviewed. White count 6.5, hemoglobin 13.4, hematocrit 42.1, platelet count 137,000, PT, INR was 14.3 and 1.4. Sodium 136, potassium 4.5, chloride 107, CO2 is 24, anion gap is 5. BUN and creatinine were 12 and 0.54. Microbiology is currently negative. ASSESSMENT: 1. Postoperative day #4, status post permanent pacemaker insertion for third-degree heart block as well as type 2 second-degree heart block. 2. Postoperative day #1, status post relocalization of migrated pacemaker wire. 3. Shortness of breath, secondary to heart block. 4. History of factor 5 deficiency. 5. Obesity. 6. Probable sleep apnea syndrome. 7. Rule out Pickwickian syndrome. PLAN: The patient potentially could be discharged today or tomorrow. I do not know for sure. The patient will need follow up in my office. She could see either myself or my partner. The patient will likely need a complete PFT, 6 minute walk distance and also a sleep study. Additional recommendations and suggestions are forthcoming. Prognosis is guarded. MMODL / BABSN: [id number] /
[2020-05-13 13:52] VITALS: BP 137/80; RESP 10; TEMP 98.7
[2020-05-13 15:14] VITALS: PULSE 109
--- NOTE | 2020-05-13 15:41 | PN ---
PROGRESS NOTE FOLLOW-UP NOTE: This patient is a 65-year-old lady who is admitted to hospital with second-degree heart block, status post permanent pacemaker. Her pacemaker lead was dislodged and had to be repositioned. She is doing better. Blood pressure is elevated. I am adding Toprol-XL 25 mg daily. She is on a small dose of Lasix. She is on Coumadin. INR is subtherapeutic. I am going to give her 7.5 mg of Coumadin today. On exam, comfortable at rest. Vital signs are stable. Chest exam reveals good air entry bilaterally. Heart exam reveals first and second heart sounds. No gallop. Examination of extremities did not reveal any edema. Peripheral pulses are felt. ASSESSMENT: 1. Second-degree heart block, status post permanent pacemaker. 2. Pulmonary hypertension. 3. Mitral stenosis. PLAN: Patient will be discharged home. Follow up with me in a week's time and, once pacemaker issues settle down, she will undergo transesophageal echo and cardiac catheterization. MMODL / IJN: [id number] /
[2020-05-13] MEDS ORDERED: WARFARIN 3 MG TAB PO ONE (18:00)
[2020-05-13] MEDS ORDERED: WARFARIN 7.5 MG TAB PO ONE (18:00)
[2020-05-14] MEDS ORDERED: METOPROLOL TARTRATE 25 MG TAB PO SCH (09:00)
--- NOTE | 2020-05-15 08:33 | CDI ---
Documentation Clarification Form Date: 05/15/20 From: Kellen Guy CCS Phone: If you have a question about this query, please contact Francesca Pritchard, Air Traffic Control Specialist at [phone] between 8am and 5pm. Admit Date: 05/06/20 Discharge Date:05/13/20 Patient Name: Sarah Bridges Visit Number: [id number] ATTENTION: The Clinical Documentation Specialists (CDI) and [facility] Coding Staff appreciate your assistance in clarifying documentation. Please respond to the clarification below the line at the bottom and electronically sign. The CDI & [facility] Coding staff will review the response and follow-up if needed. Please note: Queries are made part of the Legal Health Record. If you have any questions, please contact the author of this message via ITS. Dear Dr. Villa, ED Note documents: O2 Sat by Pulse 92 L 92 L PN 05/10 documents: She is short of breath with activity and has hypoxia with oxygen saturation of 92% on 3 L. Her chest exam is free of crackles or rhonchi. PN 05/12, 05/13 document: Possible COPD with hx of smoking. c/w Oxygen. eval home o2 CM discharge notes document: CM discussed with physician and note placed regarding home O2. Pt will dc on home O2 due to COPD dx and decreased oxygen saturations without oxygen. History/Risk Factors: AV block, Morbid obesity w/ BMI 50.4, COPD, HTN, Hypoxia Clinical Indicators: Hypoxia, Decreased O2 Sat Vital Signs: BP 178/94, RR 20, AK 44, O2 Sat 92 Treatment: Oxygen admin nasal cannula 2 lpm Consults: Maylin In your professional opinion, can you please clarify hypoxia with decreased O2 Sats? Acute on chronic hypoxic respiratory failure Chronic respiratory failure Hypoxia Other, please specify Unable to determine Chronic hypoxic respiratory failure secondary to COPD MTDD
== END 2020-05-13 16:45 | disposition home or self-care (01) | DRG 243 ==
LOC: EC 18:07 → 2SICU 20:12
PROVIDERS: ADMIT Hospitalist; ATTEND Hospitalist
PROC: 5A1223Z Performance of Cardiac Pacing, Continuous (ICD-10-PCS; principal; 2020-05-09 10:55)
PROC: 0JH607Z Insertion of Cardiac Resynchronization Pacemaker Pulse Generator into Chest Subcutaneous Tissue and Fascia, Open Approach (ICD-10-PCS; principal; 2020-05-09 10:55)
PROC: 02HL3JZ Insertion of Pacemaker Lead into Left Ventricle, Percutaneous Approach (ICD-10-PCS; principal; 2020-05-09 10:55)
PROC: 02H63JZ Insertion of Pacemaker Lead into Right Atrium, Percutaneous Approach (ICD-10-PCS; principal; 2020-05-09 10:55)
PROC: 02HK3JZ Insertion of Pacemaker Lead into Right Ventricle, Percutaneous Approach (ICD-10-PCS; principal; 2020-05-09 10:55)
PROC: 02HL3JZ Insertion of Pacemaker Lead into Left Ventricle, Percutaneous Approach (ICD-10-PCS; 2020-05-12)
PROC: 02WA3MZ Revision of Cardiac Lead in Heart, Percutaneous Approach (ICD-10-PCS; 2020-05-12)
DX: I44.1 Atrioventricular block, second degree (principal); D68.51 Activated protein C resistance; D68.4 Acquired coagulation factor deficiency; Z68.43 Body mass index [BMI] 50.0-59.9, adult; E66.2 Morbid (severe) obesity with alveolar hypoventilation; J96.11 Chronic respiratory failure with hypoxia; Z11.59 Encounter for screening for other viral diseases; I27.20 Pulmonary hypertension, unspecified; I44.2 Atrioventricular block, complete; J44.9 Chronic obstructive pulmonary disease, unspecified; R00.1 Bradycardia, unspecified; I10 Essential (primary) hypertension; I05.0 Rheumatic mitral stenosis; T45.515A Adverse effect of anticoagulants, initial encounter; Z71.3 Dietary counseling and surveillance; Z79.01 Long term (current) use of anticoagulants; Z79.899 Other long term (current) drug therapy; Z90.49 Acquired absence of other specified parts of digestive tract; Z98.890 Other specified postprocedural states; Z90.710 Acquired absence of both cervix and uterus; Z87.81 Personal history of (healed) traumatic fracture; Z87.891 Personal history of nicotine dependence; Z86.718 Personal history of other venous thrombosis and embolism; Z82.49 Family history of ischemic heart disease and other diseases of the circulatory system; Z80.1 Family history of malignant neoplasm of trachea, bronchus and lung; Z83.2 Family history of diseases of the blood and blood-forming organs and certain disorders involving the immune mechanism
CPT/HCPCS: 33208; 33225; 33226; 36415; 71046; 80048; 80053; 81001; 83605; 83735; 84484; 85025; 85027; 85610; 85730; 93005; 93306; 99291

== ENCOUNTER 2020-06-21 07:42 | Day surgery (SDC) | payer MEDICARE ==
[2020-06-15 16:01] VITALS: BMI 49.6
[2020-06-21] MEDS ORDERED: SODIUM CHLORIDE 0.9% 500 ML 500 ML IV ONE (08:10)
[2020-06-21 08:31] VITALS: TEMP 98.3
[2020-06-21 08:39] LABS: INR 4.3 (<1.2); Prothrombin Time 42.5 sec (9.0-12.0)
[2020-06-21] MEDS ORDERED: fentaNYL (PF) 50 MCG/ML 2 ML AMP ONE (08:41)
[2020-06-21] MEDS ORDERED: BENZOCAINE SPRAY 1 CAN MUCOUS MEM ONE ×2 (08:55→09:00)
[2020-06-21] MEDS ORDERED: fentaNYL (PF) 50 MCG/ML 2 ML AMP IVP ONE (09:06)
[2020-06-21] MEDS ORDERED: MIDAZOLAM 2 MG/2 ML VIAL IVP ONE (09:06)
[2020-06-21] MEDS ORDERED: SODIUM CHLORIDE 0.9% 1,000 ML IV SCH (09:30)
[2020-06-21 17:00] VITALS: BP 130/65; PULSE 83; RESP 18
--- NOTE | 2020-07-15 11:20 | ECHOT ---
TRANSESOPHAGEAL ECHOCARDIOGRAM INDICATION: Mitral stenosis. PROCEDURE NOTE: After obtaining informed consent, transesophageal echocardiogram is performed in left lateral position using an Omni plane probe. Local and IV sedation were obtained using Xylocaine spray, intravenous Versed and fentanyl. Patient received moderate conscious sedation. Total sedation time was 7 minutes. We performed color Doppler and 2D evaluation on this study and agitated saline contrast study was performed. FINDINGS: 1. Mitral valve shows mild tiny calcification with severely restricted leaflet mobility. The peak gradient across the mitral valve was 25 mm while the mean gradient was 13 mm. There was mild mitral regurgitation noted. There is aortic sclerosis without any stenosis. There is mild tricuspid regurgitation noted. Pacemaker leads are noted in the right side of the heart. Left atrium appears mildly enlarged. Right atrium and right ventricle appear enlarged. Left ventricle has normal size and systolic function. 2. Aortic valve is a 3-leaflet valve, shows aortic sclerosis without significant stenosis. 3. Interatrial septum: There is no evidence of [id number] shunt by color-flow Doppler, but uhqbi-kq-patb shunt was noted with agitated saline contrast study. Aorta shows [id number] atherosclerotic changes. CONCLUSION: Severe mitral stenosis with calcified and restricted mitral leaflet, probably due to rheumatic heart disease. There is aortic sclerosis without significant stenosis. There is mild mitral and tricuspid regurgitation noted. MMODL / IJN: [id number] /
== END 2020-06-21 10:55 | disposition home or self-care (01) ==
LOC: CATHCVL 07:42
PROVIDERS: ATTEND Internal Medicine Cardiovascular Disease
DX: I05.0 Rheumatic mitral stenosis (principal); I44.2 Atrioventricular block, complete; I50.9 Heart failure, unspecified; R09.02 Hypoxemia; I70.0 Atherosclerosis of aorta; J44.9 Chronic obstructive pulmonary disease, unspecified; I27.20 Pulmonary hypertension, unspecified; D68.9 Coagulation defect, unspecified; Z95.0 Presence of cardiac pacemaker; Z79.01 Long term (current) use of anticoagulants; Z79.899 Other long term (current) drug therapy; Z90.710 Acquired absence of both cervix and uterus; Z90.49 Acquired absence of other specified parts of digestive tract; Z90.89 Acquired absence of other organs; Z82.49 Family history of ischemic heart disease and other diseases of the circulatory system; Z87.891 Personal history of nicotine dependence
CPT/HCPCS: 93312; 93320; 93325; 85610; J2250; J3010

== ENCOUNTER → 2020-07-11 | Outpatient (CLI) | payer MEDICARE ==
[2020-07-11 14:40] LABS: Anisocytosis Slight; HCT 40.8 % (34.0-46.0); HGB 12.8 gm/dL (11.4-16.0); MCH 25.3 pg (25.0-35.0); MCHC 31.4 g/dL (31.0-37.0); MCV 80.7 fL (80.0-100.0); Mean Platelet Volume 7.4; Microcytosis Slight; Platelet Count 230 k/uL (150-450); RBC 5.06 m/uL (3.80-5.40); RDW 17.4 % (11.5-15.5); WBC 8.3 k/uL (3.8-10.6)
[2020-07-11 15:19] LABS: African American GFR (CKD) >90 (>60 ml/min/1.73 sqM); Blood Urea Nitrogen 20 mg/dL (7-17); Magnesium 2.1 mg/dL (1.6-2.3); Non-African American GFR(CKD) 86 (>60 ml/min/1.73 sqM)
== END | disposition home or self-care (01) ==
LOC: LABPAT 13:05
PROVIDERS: ATTEND Internal Medicine Cardiovascular Disease
DX: Z01.818 Encounter for other preprocedural examination (principal); I05.0 Rheumatic mitral stenosis
CPT/HCPCS: 82565; 83735; 84520; 85027

== ENCOUNTER 2020-07-18 06:20 | Day surgery (SDC) | payer MEDICARE ==
[2020-07-14 09:28] VITALS: BMI 49.0
[~2020-07-18 06:20] MED LIST: ALPRAZolam 0.25 MG TAB PO PRN; ALPRAZolam 0.5 MG TAB PO PRN; NITROGLYCERIN SL TABS 0.4 MG TAB SUBLINGUAL PRN; SODIUM CHLORIDE 0.9% 1,000 ML in EMPTY BAG 1 BAG IV ONE
[2020-07-18] MEDS ORDERED: ATORVASTATIN 80 MG TAB PO ONE (07:00)
[2020-07-18] MEDS ORDERED: ASPIRIN 325 MG TAB PO ONE (07:00)
[2020-07-18] MEDS ORDERED: SODIUM CHLORIDE 0.9% 1,000 ML IV ONE (07:10)
[2020-07-18 07:11] VITALS: RESP 16; TEMP 98
[2020-07-18] MEDS ORDERED: LIDOCAINE 1% INJ 10MG/ML (20 ML MDV) ONE (07:15)
[2020-07-18] MEDS ORDERED: fentaNYL (PF) 50 MCG/ML 2 ML AMP ONE (07:35)
[2020-07-18] MEDS ORDERED: fentaNYL (PF) 50 MCG/ML 2 ML AMP IV ONE (07:41)
[2020-07-18] MEDS ORDERED: MIDAZOLAM 2 MG/2 ML VIAL IV ONE (07:41)
[2020-07-18] MEDS ORDERED: LIDOCAINE 1% INJ 10MG/ML (20 ML MDV) SQ ONE (07:42)
[2020-07-18] MEDS ORDERED: IOPAMIDOL-370 125ML BTL INJ ONE (07:58)
[2020-07-18 08:00] LABS: INR 1.1 (<1.2)
[2020-07-18 08:04] LABS: African American GFR (CKD) >90 (>60 ml/min/1.73 sqM); Anion Gap 4 mmol/L; Blood Urea Nitrogen 20 mg/dL (7-17); Calcium 7.7 mg/dL (8.4-10.2); Carbon Dioxide 22 mmol/L (22-30); Chloride 113 mmol/L (98-107); Glucose 95 mg/dL (74-99); Non-African American GFR(CKD) >90 (>60 ml/min/1.73 sqM); Sodium 139 mmol/L (137-145)
[2020-07-18] MEDS ORDERED: RX INFO: IV CONTRAST WAS GIVEN 1 EACH MISC MISCELLANE PRN (08:04)
[2020-07-18 08:07] LABS: Potassium 4.6 mmol/L (3.5-5.1)
[2020-07-18] MEDS ORDERED: SODIUM CHLORIDE 0.9% 1,000 ML IV SCH (08:15)
--- NOTE | 2020-07-18 08:54 | CC ---
CARDIAC CATHETERIZATION REPORT PROCEDURE: Cardiac catheterization. INDICATION: Mitral stenosis. PROCEDURE NOTE: After obtaining informed consent, left heart catheterization and coronary angiogram were performed via the right femoral artery using standard Quentin catheters. The patient tolerated the procedure well without any obvious immediate complications. A femoral angiogram was performed and Angio-Seal was deployed for hemostasis. Patient received moderate conscious sedation. Total sedation time was 15 minutes. FINDINGS: HEMODYNAMICS: Left ventricular end-diastolic pressure is 24 mm. There is no significant gradient across the aortic valve. LEFT VENTRICULOGRAM: Not performed. ANGIOGRAPHIC DATA: The left main coronary artery is a normal-sized vessel and is free of stenosis. Divides into left anterior descending coronary artery and circumflex coronary artery. LAD and its branches, circumflex coronary artery and its branches are free of significant stenosis. Right coronary artery is a large dominant vessel and is free of significant disease. CONCLUSIONS: 1. Normal coronary arteries. 2. Severe mitral stenosis based on MARU. PLAN: I will refer the patient to Dr. Price for mitral valve replacement. The patient had a MARU and it did show a peak gradient of 25 mm and a mean gradient of 13 mm across the valve. MMODL / IJN: [id number] /
[2020-07-18 12:18] VITALS: BP 133/69; PULSE 58
== END 2020-07-18 13:12 | disposition home or self-care (01) ==
LOC: CATHCVL 06:20
PROVIDERS: ATTEND Internal Medicine Cardiovascular Disease
DX: I05.0 Rheumatic mitral stenosis (principal); I44.2 Atrioventricular block, complete; Z79.01 Long term (current) use of anticoagulants; Z79.51 Long term (current) use of inhaled steroids; Z79.899 Other long term (current) drug therapy; Z82.49 Family history of ischemic heart disease and other diseases of the circulatory system
CPT/HCPCS: 93458; 80048; 85610; C1769 ×2; C1760; C1894; J2250; J2001; J3010; Q9967

== ENCOUNTER 2021-01-12 18:30 | Inpatient (IN) | payer MEDICARE ==
--- NOTE | 2021-01-12 18:59 | ED ---
General Adult HPI <JillianNicolás quigley - Last Filed: 01/12/21 18:54> <Kevin Mesa - Last Filed: 01/12/21 21:55> <Nely Mckeon - Last Filed: 01/20/21 20:03> - General Stated complaint: SOB - History of Present Illness Initial comments: 65-year-old female with history of DVT, factor V Leiden, with 3 L of oxygen- dependent COPD presents to the emergency department with chief complaint of shortness of breath. Patient reports she spoke with the primary care physician who advised her to be evaluated for a possible PE. Patient is currently on Coumadin. Denies chest pain. Completed course Boxed vaccinations. (Nicolás Curry) Patient is a 65-year-old female with a past medical history of COPD, hypertension, factor V Leiden on Coumadin resents to the emergency room for shortness of breath. Patient reports that she has been short of breath for about a year now however it worsened significantly in the past month. States th at she has been following with her primary care doctor for this who told her to come to the emergency room as she has a history of factor V Leiden and make sure she does not have a blood clot in her lungs. Patient reports she has also been retaining fluid. States her legs and face have been more swollen than normal. Patient states that the end of her pants makes an indent in her skin. Patient states she feels fine and she is sitting but feels more short of breath with movement. Patient does wear 3 L of oxygen at home.Patient has no other complaints at this time including chest pain, abdominal pain, nausea or vomiting, headache, or visual changes. (Kevin Mesa) - Related Data Home Medications Medication Instructions Recorded Confirmed Albuterol Inhaler [Ventolin Hfa 2 puff INHALATION RT-QID PRN 06/15/20 01/12/21 Inhaler] Budesonide-Formot 160-4.5 Mcg 2 puff INHALATION RT-BID 06/15/20 01/12/21 [Symbicort 160-4.5 Mcg Inhaler] Warfarin Sodium 4 mg PO DAILY 01/12/21 01/12/21 Warfarin Sodium 5 mg PO DAILY 01/12/21 01/12/21 Previous Rx's Medication Instructions Recorded Metoprolol Tartrate [Lopressor] 25 mg PO DAILY #30 tab 05/13/20 amLODIPine [Norvasc] 10 mg PO DAILY #30 tab 05/13/20 Furosemide [Lasix] 40 mg PO DAILY #90 tablet 01/14/21 Allergies Allergy/AdvReac Type Severity Reaction Status Date / Time No Known Allergies Allergy Verified 01/12/21 20:31 Review of Systems ROS Other: All systems not noted in ROS Statement are negative. <Nicolás Curry - Last Filed: 01/12/21 18:54> ROS Other: All systems not noted in ROS Statement are negative. <Kevin Mesa - Last Filed: 01/12/21 21:55> ROS Other: All systems not noted in ROS Statement are negative. <Nely Mckeon - Last Filed: 01/20/21 20:03> ROS Statement: Those systems with pertinent positive or pertinent negative responses have been documented in the HPI. Past Medical History Past Medical History: Blood Disorder, COPD, Deep Vein Thrombosis (DVT), Hyperten afia Additional Past Medical History / Comment(s): factor 5 Leiden insufficiency, DVT left leg 5 yrs. ago, uses oxygen @3l cont. since pacemaker inserted during recent hospital stay, mitral valve problem per pt. History of Any Multi-Drug Resistant Organisms: None Reported Past Surgical History: Appendectomy, Cholecystectomy, Hysterectomy, Orthopedic Surgery, Pacemaker, Tonsillectomy Additional Past Surgical History / Comment(s): D & C, left ankle ORIF Past Anesthesia/Blood Transfusion Reactions: No Reported Reaction Type of Cardiac Device: Permanent Pacemaker Device Placement Date:: April 2020 Additional Past Alcohol Use History / Comment(s): quit smoking 7-8 yrs. ago, smoked on & off since teens 1ppd - Past Family History Father Family Medical History: Congestive Heart Failure (CHF) Additional Family Medical History / Comment(s): congenital , CARDOIOMYAPTHY Mother Family Medical History: Cancer, Deep Vein Thrombosis (DVT) Additional Family Medical History / Comment(s): lung cancer <Nicolás Curry - Last Filed: 01/12/21 18:54> General Exam General appearance: alert, in no apparent distress Head exam: Present: atraumatic, normocephalic, normal inspection Eye exam: Present: normal appearance, PERRL, EOMI. Absent: scleral icterus, conjunctival injection, periorbital swelling ENT exam: Present: normal exam, mucous membranes moist Neck exam: Present: normal inspection, full ROM. Absent: tenderness, meningismus, lymphadenopathy Respiratory exam: Present: normal lung sounds bilaterally. Absent: respiratory distress, wheezes, rales, rhonchi, stridor Cardiovascular Exam: Present: regular rate, normal rhythm, normal heart sounds. Absent: systolic murmur, diastolic murmur, rubs, gallop, clicks GI/Abdominal exam: Present: soft, normal bowel sounds. Absent: distended, tenderness, guarding, rebound, rigid <Kevin Mesa P - Last Filed: 01/12/21 21:55> Course Vital Signs 01/12/21 01/12/21 01/12/21 18:53 20:01 20:57 Temperature 98.4 F Pulse Rate 105 H 96 92 Pulse Rate [ Pulse Oximetery ] Respiratory 18 18 18 Rate Blood Pressure 178/87 134/88 150/97 Blood Pressure [Right Arm] O2 Sat by Pulse 97 98 99 Oximetry 01/12/21 01/12/21 01/12/21 22:15 22:49 23:31 Temperature 98.0 F Pulse Rate 90 Pulse Rate [ 96 Pulse Oximetery ] Respiratory 18 20 20 Rate Blood Pressure 140/68 Blood Pressure 145/80 [Right Arm] O2 Sat by Pulse 100 98 Oximetry 01/13/21 01/13/21 01/13/21 06:28 10:00 12:00 Temperature 98.6 F Pulse Rate 86 87 80 Pulse Rate [ Pulse Oximetery ] Respiratory 20 18 20 Rate Blood Pressure 111/60 118/94 134/68 Blood Pressure [Right Arm] O2 Sat by Pulse 97 96 97 Oximetry 01/13/21 16:00 Temperature Pulse Rate 98 Pulse Rate [ Pulse Oximetery ] Respiratory 20 Rate Blood Pressure 144/91 Blood Pressure [Right Arm] O2 Sat by Pulse 92 L Oximetry EKG Findings - EKG Comments: EKG Findings:: Electronic ventricular pacemaker, ventricular rate 103, AZ interval 138, QTC 476 <Kevin Mesa P - Last Filed: 01/12/21 21:55> Medical Decision Making - Lab Data Result diagrams: 01/12/21 20:01 01/12/21 20:01 <Kevin Mesa P - Last Filed: 01/12/21 21:55> - Lab Data Result diagrams: 01/12/21 20:01 01/14/21 07:14 <Nely Mckeon - Last Filed: 01/20/21 20:03> - Medical Decision Making Vitals are stable. Patient is on 3 L which she wears at home. However on induration to the bathroom she did desat down to the 70s. CBC CMP unremarkable. Patient does take Coumadin, INR is mildly supratherapeutic 3.3. D-dimer negative. Chest x-ray shows radiographic findings consistent with moderate to marked interstitial phase pulmonary edema. As is clinically consistent with patient's presentation of bilateral lower extremity edema as well as orthopnea and exertional dyspnea. Case discussed with Dr. Milner of [facility] as patient's primary care is actually out of [place], is not Dr. Gillis. She does accept this admission. Requests cardiology consultation. (eKvin Mesa) I was available for consultation in the emergency department. The history and physical exam were done by the midlevel provider. I was consulted for this patients care. I reviewed the case with the midlevel provider and based on their presentation of the patient, I agree with the assessment, medical decision making and plan of care as documented. Chart was dictated using [employer] dictation software. Attempts were made to correct any dictation errors however some typographical errors may persist. Patient was seen during a national state of emergency due to the Covid-19 pandemic. (Nely Mckeon) - Lab Data Lab Results 01/12/21 01/12/21 01/12/21 Range/Units 18:59 20:01 20:01 WBC 10.5 (3.8-10.6) k/uL RBC 5.38 (3.80-5.40) m/uL Hgb 13.9 (11.4-16.0) gm/dL Hct 42.3 (34.0-46.0) % MCV 78.7 L (80.0-100.0) fL MCH 25.8 (25.0-35.0) pg MCHC 32.7 (31.0-37.0) g/dL RDW 17.3 H (11.5-15.5) % Plt Count 261 (150-450) k/uL MPV 7.1 Neutrophils % 87 % Lymphocytes % 7 % Monocytes % 3 % Eosinophils % 2 % Basophils % 0 % Neutrophils # 9.2 H (1.3-7.7) k/uL Lymphocytes # 0.7 L (1.0-4.8) k/uL Monocytes # 0.3 (0-1.0) k/uL Eosinophils # 0.2 (0-0.7) k/uL Basophils # 0.0 (0-0.2) k/uL Anisocytosis Slight Microcytosis Slight PT 32.2 H (9.0-12.0) sec INR 3.3 H (<1.2) APTT 35.1 H (22.0-30.0) sec D-Dimer 0.44 (<0.60) mg/L FEU Sodium (137-145) mmol/L Potassium (3.5-5.1) mmol/L Chloride (98-107) mmol/L Carbon Dioxide (22-30) mmol/L Anion Gap mmol/L BUN (7-17) mg/dL Creatinine (0.52-1.04) mg/dL Est GFR (CKD-EPI)AfAm (>60 ml/min/1.73 sqM) Est GFR (CKD-EPI)NonAf (>60 ml/min/1.73 sqM) Glucose (74-99) mg/dL Calcium (8.4-10.2) mg/dL Total Bilirubin (0.2-1.3) mg/dL AST (14-36) U/L ALT (4-34) U/L Alkaline Phosphatase (38-126) U/L Troponin I (0.000-0.034) ng/mL NT-Pro-B Natriuret Pep pg/mL Total Protein (6.3-8.2) g/dL Albumin (3.5-5.0) g/dL Coronavirus (PCR) Not Detected (Not Detectd) 01/12/21 01/12/21 01/12/21 Range/Units 20:01 20:01 20:01 WBC (3.8-10.6) k/uL RBC (3.80-5.40) m/uL Hgb (11.4-16.0) gm/dL Hct (34.0-46.0) % MCV (80.0-100.0) fL MCH (25.0-35.0) pg MCHC (31.0-37.0) g/dL RDW (11.5-15.5) % Plt Count (150-450) k/uL MPV Neutrophils % % Lymphocytes % % Monocytes % % Eosinophils % % Basophils % % Neutrophils # (1.3-7.7) k/uL Lymphocytes # (1.0-4.8) k/uL Monocytes # (0-1.0) k/uL Eosinophils # (0-0.7) k/uL Basophils # (0-0.2) k/uL Anisocytosis Microcytosis PT (9.0-12.0) sec INR (<1.2) APTT (22.0-30.0) sec D-Dimer (<0.60) mg/L FEU Sodium 141 (137-145) mmol/L Potassium 4.7 (3.5-5.1) mmol/L Chloride 110 H (98-107) mmol/L Carbon Dioxide 21 L (22-30) mmol/L Anion Gap 10 mmol/L BUN 19 H (7-17) mg/dL Creatinine 0.71 (0.52-1.04) mg/dL Est GFR (CKD-EPI)AfAm >90 (>60 ml/min/1.73 sqM) Est GFR (CKD-EPI)NonAf >90 (>60 ml/min/1.73 sqM) Glucose 124 H (74-99) mg/dL Calcium 9.2 (8.4-10.2) mg/dL Total Bilirubin 0.8 (0.2-1.3) mg/dL AST 29 (14-36) U/L ALT 18 (4-34) U/L Alkaline Phosphatase 104 (38-126) U/L Troponin I <0.012 (0.000-0.034) ng/mL NT-Pro-B Natriuret Pep 688 pg/mL Total Protein 8.5 H (6.3-8.2) g/dL Albumin 4.5 (3.5-5.0) g/dL Coronavirus (PCR) (Not Detectd) Disposition <Nicolás Curry - Last Filed: 01/12/21 18:54> Is patient prescribed a controlled substance at d/c from ED?: No Time of Disposition: 21:56 <Moshe,Kevin P - Last Filed: 01/12/21 21:55> <Nely Mckeon - Last Filed: 01/20/21 20:03> Clinical Impression: Congestive heart failure, Pulmonary edema, Shortness of breath, Peripheral edema Disposition: ADMITTED IP TO THIS HOSP
--- NOTE | 2021-01-12 19:37 | XR ---
EXAMINATION: XR chest 2V DATE AND TIME: 01/12/2021 7:25 PM CLINICAL INDICATION: PHH; Chest Pain TECHNIQUE: Departmental protocol COMPARISON: 05/13/2020 FINDINGS: Cardiac pacemaker redemonstrated. There is a fine reticular pattern of increased attenuation throughout the lungs bilaterally, reaching the periphery as several septal lines bilaterally, consistent with moderate marked interstitial phas e pulmonary edema. The pleural spaces are negative. The cardiac silhouette is moderately enlarged, similar to the prior study. The remainder of the media stinal silhouette is unremarkable. The skeletal structures and soft tissues are negative for acute findings. IMPRESSION: Radiographic findings consistent with moderate-marked interstitial phase pulmonary edema.
[2021-01-12 20:13] LABS: Anisocytosis Slight; Basophils % (A) 0 %; Eosinophils # (A) 0.2 k/uL (0-0.7); Eosinophils % (A) 2 %; HCT 42.3 % (34.0-46.0); HGB 13.9 gm/dL (11.4-16.0); Lymphocytes # (A) 0.7 k/uL (1.0-4.8); Lymphocytes % (A) 7 %; MCH 25.8 pg (25.0-35.0); MCHC 32.7 g/dL (31.0-37.0); MCV 78.7 fL (80.0-100.0); Mean Platelet Volume 7.1; Microcytosis Slight; Monocytes # (A) 0.3 k/uL (0-1.0); Monocytes % (A) 3 %; Neutrophils # (A) 9.2 k/uL (1.3-7.7); Neutrophils % (A) 87 %; Platelet Count 261 k/uL (150-450); RBC 5.38 m/uL (3.80-5.40); RDW 17.3 % (11.5-15.5); WBC 10.5 k/uL (3.8-10.6)
[2021-01-12 20:21] LABS: ALT 18 U/L (4-34); AST 29 U/L (14-36); African American GFR (CKD) >90 (>60 ml/min/1.73 sqM); Albumin 4.5 g/dL (3.5-5.0); Alkaline Phosphatase 104 U/L (38-126); Anion Gap 10 mmol/L; Blood Urea Nitrogen 19 mg/dL (7-17); Calcium 9.2 mg/dL (8.4-10.2); Carbon Dioxide 21 mmol/L (22-30); Chloride 110 mmol/L (98-107); Glucose 124 mg/dL (74-99); Non-African American GFR(CKD) >90 (>60 ml/min/1.73 sqM); Sodium 141 mmol/L (137-145); Total Bilirubin 0.8 mg/dL (0.2-1.3); Total Protein 8.5 g/dL (6.3-8.2)
[2021-01-12 20:24] LABS: Potassium 4.7 mmol/L (3.5-5.1)
[2021-01-12 20:30] LABS: D-Dimer 0.44 mg/L FEU (<0.60); INR 3.3 (<1.2); Partial Thromboplastin Time 35.1 sec (22.0-30.0); Prothrombin Time 32.2 sec (9.0-12.0)
[2021-01-12] MEDS ORDERED: FUROSEMIDE 10 MG/ML 4 ML VIAL IV STA (20:30)
[2021-01-12] MEDS: FUROSEMIDE 10 MG/ML 4 ML VIAL IV SCH (22:28)
--- NOTE | 2021-01-13 09:07 | CONS ---
CONSULTATION CHIEF COMPLAINT: Shortness of breath. Sarah is a 65-year-old lady with history of atrial fibrillation, high-grade AV block status post permanent pacemaker, and history of severe mitral stenosis, who presented to hospital complaining of shortness of breath. The patient recently received a COVID vaccine and was concerned when she had shortness of breath. When she presented to the emergency room, her INR was therapeutic, but she was found to be in acute left-sided heart failure. The patient has acute exacerbation of chronic diastolic heart failure. I am going to treat her with IV Lasix, beta blockers and continue rest of her medication. She has history of Factor V Leiden deficiency. Also has COPD and is currently on home O2. She had been evaluated at [facility] for her mitral stenosis for mitral valvuloplasty and it was felt that the mitral stenosis is not severe enough for her to benefit from valvuloplasty at this time and it was also thought to be technically challenging. She had also seen a cardiothoracic surgeon here, who felt it would be a high risk mitral valve replacement as she has extensive calcification of the mitral valve. PAST MEDICAL HISTORY: Significant for atrial fibrillation, Factor V Leiden deficiency, high-grade AV block, status post permanent pacemaker and rheumatic mitral stenosis. MEDICATIONS: Medications at home included Coumadin, Norvasc 5 daily, Lopressor 25 mg daily, Lasix, Symbicort, and Ventolin. ALLERGIES: There are no known drug allergies. FAMILY HISTORY: Negative for premature coronary artery disease. SOCIAL HISTORY: Negative for current smoking, EtOH abuse, or drug abuse. REVIEW OF SYSTEMS: HEENT is unremarkable. CARDIAC: As described above. RESPIRATORY: As described above. GI: Negative. GENITOURINARY: Negative. ALLERGIES/IMMUNOLOGY: Negative. SKIN: Negative. MUSCULOSKELETAL: Significant for arthritis. PSYCHOSOCIAL: Negative. ENDOCRINE: Negative. DERM: Negative. CONSTITUTIONAL: Negative. ONCOLOGICAL: Negative. QUALITY ASSURANCE ANALYST: Negative. Rest of the system review is not relevant. PHYSICAL EXAMINATION: Patient is comfortable at rest. Heart rate is 86 beats per minute. Blood pressure is 111/60. Respiratory rate is 18. O2 saturation is 97% on 3 L. There is no jugular venous distention. Carotid upstroke is normal. There is no bruit. Chest exam reveals good air entry bilaterally with occasional crackles. Heart exam reveals first and second heart sounds, a mid diastolic murmur at the apex. Abdomen is soft. Examination of extremities revealed mild edema. Peripheral pulses are felt. LABS: Labs show a hemoglobin of 13.9, platelet count is 260. INR is therapeutic at 3.3. Potassium is 4.7. Creatinine is 0.7. Troponin is negative. BNP 688. Coronavirus is negative. A chest x-ray showed bilateral interstitial edema. EKG shows paced rhythm. ASSESSMENT: 1. Acute onset diastolic heart failure. 2. History of severe mitral stenosis evaluated by both cardiothoracic surgeon and the Structural Heart Disease team at [facility]. 3. History of chronic obstructive pulmonary disease. 4. History of sleep apnea. PLAN: I will treat the patient with IV Lasix, beta blockers, optimal control of blood pressure. I am going to review records from [facility] and consider referral to the cardiothoracic surgeon again in the outpatient setting. KRUNAL / BROOKLYNN: [id number] /
[2021-01-13] MEDS ORDERED: ALBUTEROL HFA INHALER INHALATION PRN (09:50)
[2021-01-13] MEDS: FUROSEMIDE 10 MG/ML 4 ML VIAL IV SCH ×2 (10:40→20:41)
[2021-01-13 11:37] LABS: INR 2.5 (<1.2)
[2021-01-13 11:38] LABS: Prothrombin Time 24.3 sec (9.0-12.0)
--- NOTE | 2021-01-13 15:07 | P.HPIM ---
History of Present Illness H&P Date: 01/13/21 Chief Complaint: Shortness of breath 65-year-old female with a past medical history of COPD, hypertension, factor V Leiden on Coumadin resents to the emergency room for shortness of breath. Patient reports that she has been short of breath for about a year now however it worsened significantly in the past month. States that she has been following with her primary care doctor for this who told her to come to the emergency room as she has a history of factor V Leiden and make sure she does not have a blood clot in her lungs. Patient reports she has also been retaining fluid. States her legs and face have been more swollen than normal. Patient states that the end of her pants makes an indent in her skin. Patient states she feels fine and she is sitting but feels more short of breath with movement. Patient does wear 3 L of oxygen at home.Patient has no other complaints at this time including chest pain, abdominal pain, nausea or vomiting, headache, or visual changes. Patient is on 3 L which she wears at home. However on ambulation to the bathroom she did desat down to the 70s. CBC CMP unremarkable. Patient does take Coumadin, INR is mildly supratherapeutic 3.3. D-dimer negative. Chest x- ray shows radiographic findings consistent with moderate to marked interstitial phase pulmonary edema. Review of Systems REVIEW OF SYSTEMS: CONSTITUTIONAL: No fever, no malaise, no fatigue. HEENT: No recent visual problems or hearing problems. Denied any sore throat. CARDIOVASCULAR: No chest pain, orthopnea, PND, no palpitations, no syncope. PULMONARY: No shortness of breath, no cough, no hemoptysis. GASTROINTESTINAL: No diarrhea, no nausea, no vomiting, no abdominal pain. NEUROLOGICAL: No headaches, no weakness, no numbness. HEMATOLOGICAL: Denies any bleeding or petechiae. GENITOURINARY: Denies any burning micturition, frequency, or urgency. MUSCULOSKELETAL/RHEUMATOLOGICAL: Denies any joint pain, swelling, or any muscle pain. ENDOCRINE: Denies any polyuria or polydipsia. The rest of the 14-point review of systems is negative. Past Medical History Past Medical History: Blood Disorder, COPD, Deep Vein Thrombosis (DVT), Hypertension Additional Past Medical History / Comment(s): factor 5 Leiden insufficiency, DVT left leg 5 yrs. ago, uses oxygen @3l cont. since pacemaker inserted during recent hospital stay, mitral valve problem per pt. History of Any Multi-Drug Resistant Organisms: None Reported Past Surgical History: Appendectomy, Cholecystectomy, Hysterectomy, Orthopedic Surgery, Pacemaker, Tonsillectomy Additional Past Surgical History / Comment(s): D & C, left ankle ORIF Past Anesthesia/Blood Transfusion Reactions: No Reported Reaction Type of Cardiac Device: Permanent Pacemaker Device Placement Date:: April 2020 Additional Past Alcohol Use History / Comment(s): quit smoking 7-8 yrs. ago, smoked on & off since teens 1ppd - Past Family History Father Family Medical History: Congestive Heart Failure (CHF) Additional Family Medical History / Comment(s): congenital , CARDOIOMYAPTHY Mother Family Medical History: Cancer, Deep Vein Thrombosis (DVT) Additional Family Medical History / Comment(s): lung cancer Medications and Allergies Home Medications Medication Instructions Recorded Confirmed Type Furosemide [Lasix] 20 mg PO DAILY 05/06/20 01/12/21 History Metoprolol Tartrate [Lopressor] 25 mg PO DAILY #30 tab 05/13/20 01/12/21 Rx amLODIPine [Norvasc] 10 mg PO DAILY #30 tab 05/13/20 01/12/21 Rx Albuterol Inhaler [Ventolin Hfa 2 puff INHALATION RT-QID PRN 06/15/20 01/12/21 History Inhaler] Budesonide-Formot 160-4.5 Mcg 2 puff INHALATION RT-BID 06/15/20 01/12/21 History [Symbicort 160-4.5 Mcg Inhaler] Warfarin Sodium 4 mg PO DAILY 01/12/21 01/12/21 History Warfarin Sodium 5 mg PO DAILY 01/12/21 01/12/21 History Allergies Allergy/AdvReac Type Severity Reaction Status Date / Time No Known Allergies Allergy Verified 01/12/21 20:31 Physical Exam Vitals: Vital Signs Temp Pulse Resp BP Pulse Ox 01/13/21 06:28 86 20 111/60 97 01/12/21 23:31 20 01/12/21 22:15 90 18 140/68 100 01/12/21 20:57 92 18 150/97 99 01/12/21 20:01 96 18 134/88 98 01/12/21 18:53 98.4 F 105 H 18 178/87 97 Intake and Output 01/12/21 01/13/21 01/13/21 22:59 06:59 14:59 Other: Weight 122.47 kg General appearance: alert, in no apparent distress Head exam: Present: atraumatic, normocephalic, normal inspection Eye exam: Present: normal appearance, PERRL, EOMI. Absent: scleral icterus, conjunctival injection, periorbital swelling ENT exam: Present: normal exam, mucous membranes moist Neck exam: Present: normal inspection, full ROM. Absent: tenderness, meningismus, lymphadenopathy Respiratory exam: Present: normal lung sounds bilaterally. Absent: respiratory distress, wheezes, rales, rhonchi, stridor Cardiovascular Exam: Present: regular rate, normal rhythm, normal heart sounds. Absent: systolic murmur, diastolic murmur, rubs, gallop, clicks GI/Abdominal exam: Present: soft, normal bowel sounds. Absent: distended, tenderness, guarding, rebound, rigid Results CBC & Chem 7: 01/12/21 20:01 01/12/21 20:01 Labs: Abnormal Lab Results - Last 24 Hours (Table) 01/12/21 01/12/21 01/12/21 Range/Units 20:01 20:01 20:01 MCV 78.7 L (80.0-100.0) fL RDW 17.3 H (11.5-15.5) % Neutrophils # 9.2 H (1.3-7.7) k/uL Lymphocytes # 0.7 L (1.0-4.8) k/uL PT 32.2 H (9.0-12.0) sec INR 3.3 H (<1.2) APTT 35.1 H (22.0-30.0) sec Chloride 110 H (98-107) mmol/L Carbon Dioxide 21 L (22-30) mmol/L BUN 19 H (7-17) mg/dL Glucose 124 H (74-99) mg/dL Total Protein 8.5 H (6.3-8.2) g/dL Assessment and Plan Assessment: 1. Acute diastolic CHF; patient remains on O2 per nasal cannula with plan to keep O2 saturation above 92; we will start patient on IV Lasix 40 mg every 12 hours; monitor strict RENZO's, daily weights, renal function and electrolytes; continue with low-salt and fluid restricted diet; we will recommend 2-D echo and cardiology consultation 2. COPD not in exacerbation; continue with home inhalers in form of Ventolin 2 puffs 4 times a day and Symbicort 160 3. Hypertension; stable on home dose of amlodipine 10 mg daily, metoprolol 25 mg daily and Lasix 20 mg daily 4. Factor V Leiden; patient takes Coumadin 4 mg by mouth daily at bedtime 5. Coagulopathy secondary to Coumadin; INR is slightly supratherapeutic; we will hold Coumadin until INR is below 2.5 DVT prophylaxis; SCDs/Coumadin CODE STATUS; full code
[2021-01-13] MEDS ORDERED: WARFARIN 3 MG TAB PO SCH (18:00)
[2021-01-13] MEDS: SYMBICORT 160-4.5 MCG INHALER INHALATION SCH (20:31)
[2021-01-14 04:15] VITALS: RESP 20
[2021-01-14] MEDS: SYMBICORT 160-4.5 MCG INHALER INHALATION SCH (08:06)
[2021-01-14] MEDS ORDERED: amLODIPine 10 MG TAB PO SCH (09:00)
[2021-01-14] MEDS ORDERED: METOPROLOL TARTRATE 25 MG TAB PO SCH (09:00)
[2021-01-14] MEDS: FUROSEMIDE 10 MG/ML 4 ML VIAL IV SCH (09:14)
[2021-01-14 09:35] LABS: INR 2.2 (<1.2); Prothrombin Time 21.4 sec (9.0-12.0)
[2021-01-14 10:54] LABS: Calcium 9.2 mg/dL (8.4-10.2)
[2021-01-14 10:55] LABS: Potassium 4.3 mmol/L (3.5-5.1)
[2021-01-14 11:16] VITALS: PULSE 104; TEMP 98.4
[2021-01-14 11:49] VITALS: BMI 47.0
--- NOTE | 2021-01-14 12:58 | P.PN ---
Subjective Progress Note Date: 01/14/21 HISTORY OF PRESENT ILLNESS: Patient examined this morning at the bedside. Patient denies chest pain or pressure. She states her shortness of breath has returned back to her baseline. She reports improvement in her lower extremity edema. Discussion was held with the patient regarding her mitral stenosis and possible reevaluation by cardiothoracic surgery. Patient states she is not interested in undergoing surgery at this time. INR 2.2. PHYSICAL EXAM: VITAL SIGNS: Reviewed. GENERAL: Well-developed in no acute distress. NECK: Supple. No JVD or thyromegaly LUNGS: Respirations even and unlabored. Lungs diminished bilaterally. HEART: Telemetry reveals paced rhythm. Regular rate and rhythm. S1 and S2 heard. Diastolic murmur noted. EXTREMITIES: Normal range of motion. No clubbing or cyanosis. Peripheral pulses intact. Trace bilateral lower extremity edema ASSESSMENT: Acute exacerbation of chronic diastolic heart failure Severe mitral stenosis Paroxysmal atrial fibrillation, on anticoagulation with Coumadin COPD PLAN: Discontinue IV Lasix. Transition patient to oral Lasix 40 mg daily Continue Coumadin. Monitor INR Patient to be discharged home today from a cardiac standpoint. She is to follow up in the office with Dr. Lopez Nurse practitioner note has been reviewed by physician. Signing provider agrees with the documented findings, assessment, and plan of care. Objective - Vital Signs Vital signs: Vital Signs Temp 98.4 F 01/14/21 08:00 Pulse 104 H 01/14/21 08:00 Resp 20 01/14/21 08:00 BP 147/73 01/14/21 08:00 Pulse Ox 95 01/14/21 08:00 Intake & Output 01/13/21 01/14/21 01/14/21 18:59 06:59 18:59 Intake Total 480 300 Balance 480 300 Weight 120.3 kg 120.3 kg Intake: Oral 480 300 Other: # Voids 2 - Labs CBC & Chem 7: 01/12/21 20:01 01/14/21 07:14 Labs: Abnormal Lab Results - Last 24 Hours (Table) 01/14/21 01/14/21 Range/Units 07:12 07:14 PT 21.4 H (9.0-12.0) sec INR 2.2 H (<1.2) BUN 23 H (7-17) mg/dL
[2021-01-14 15:25] VITALS: BP 127/66
--- NOTE | 2021-01-14 16:03 | P.DS ---
Providers Date of admission: 01/12/21 22:30 Expected date of discharge: 01/14/21 Attending physician: Yara Milner MD Consults: 01/12/21 21:56 Consult Physician Routine Consulting Provider: [facility] Consult Reason/Comments: SOB, CHF Do you want consulting provider notified?: Yes Primary care physician: [facility] Course: 65-year-old female with a past medical history of COPD, hypertension, factor V Leiden on Coumadin resents to the emergency room for shortness of breath. Patient reports that she has been short of breath for about a year now however it worsened significantly in the past month. States that she has been following with her primary care doctor for this who told her to come to the emergency room as she has a history of factor V Leiden and make sure she does not have a blood clot in her lungs. Patient reports she has also been retaining fluid. States her legs and face have been more swollen than normal. Patient states that the end of her pants makes an indent in her skin. Patient states she feels fine and she is sitting but feels more short of breath with movement. Patient does wear 3 L of oxygen at home.Patient has no other complaints at this time including chest pain, abdominal pain, nausea or vomiting, headache, or visual changes. Patient is on 3 L which she wears at home. However on ambulation to the bathroom she did desat down to the 70s. CBC CMP unremarkable. Patient does take Coumadin, INR is mildly supratherapeutic 3.3. D-dimer negative. Chest x- ray shows radiographic findings consistent with moderate to marked interstitial phase pulmonary edema Assessment: 1. Acute diastolic CHF; patient remains on O2 per nasal cannula with plan to keep O2 saturation above 92; we will start patient on IV Lasix 40 mg every 12 hours; monitor strict RENZO's, daily weights, renal function and electrolytes; continue with low-salt and fluid restricted diet; we will recommend 2-D echo and cardiology consultation 2. COPD not in exacerbation; continue with home inhalers in form of Ventolin 2 puffs 4 times a day and Symbicort 160 3. Hypertension; stable on home dose of amlodipine 10 mg daily, metoprolol 25 mg daily and Lasix 20 mg daily 4. Factor V Leiden; patient takes Coumadin 4 mg by mouth daily at bedtime 5. Coagulopathy secondary to Coumadin; INR is slightly supratherapeutic; we will hold Coumadin until INR is below 2.5 Patient did respond to above mentioned treatment; cardiology evaluated patient and patient was transitioned to oral Lasix without any complications; patient is recommended discharge with follow-up with primary mysql database developer with a plan to CHANGE home dose of Lasix 40 mg daily Plan - Discharge Summary Discharge Rx Participant: No New Discharge Prescriptions: New Furosemide [Lasix] 40 mg PO DAILY #90 tablet Continue Metoprolol Tartrate [Lopressor] 25 mg PO DAILY #30 tab amLODIPine [Norvasc] 10 mg PO DAILY #30 tab Budesonide-Formot 160-4.5 Mcg [Symbicort 160-4.5 Mcg Inhaler] 2 puff INHALATION RT-BID Albuterol Inhaler [Ventolin Hfa Inhaler] 2 puff INHALATION RT-QID PRN PRN Reason: Shortness Of Breath Warfarin Sodium 5 mg PO DAILY Warfarin Sodium 4 mg PO DAILY Discontinued Furosemide [Lasix] 20 mg PO DAILY Discharge Medication List Metoprolol Tartrate [Lopressor] 25 mg PO DAILY #30 tab 05/13/20 [Rx] amLODIPine [Norvasc] 10 mg PO DAILY #30 tab 05/13/20 [Rx] Albuterol Inhaler [Ventolin Hfa Inhaler] 2 puff INHALATION RT-QID PRN 06/15/20 [History] Budesonide-Formot 160-4.5 Mcg [Symbicort 160-4.5 Mcg Inhaler] 2 puff INHALATION RT-BID 06/15/20 [History] Warfarin Sodium 4 mg PO DAILY 01/12/21 [History] Warfarin Sodium 5 mg PO DAILY 01/12/21 [History] Furosemide [Lasix] 40 mg PO DAILY #90 tablet 01/14/21 [Rx] Follow up Appointment(s)/Referral(s): Romi Gillis MD [STAFF PHYSICIAN] - 1-2 days Patrick Lopez MD [STAFF PHYSICIAN] - 2 Weeks Discharge Disposition: HOME SELF-CARE
[2021-01-15] MEDS ORDERED: FUROSEMIDE 40 MG TAB PO SCH (09:00)
--- NOTE | 2021-01-24 16:06 | ECHOF ---
Referral Reason:shortness of breath. MEASUREMENTS -------- HEIGHT: 165.1 cm WEIGHT: 117.9 kg BP: RVIDd: 4.0 cm (< 3.3) IVSd: 1.0 cm (0.6 - 1.1) LVIDd: 4.4 cm (3.9 - 5.3) LVPWd: 1.4 cm (0.6 - 1.1) IVSs: 1.3 cm LVIDs: 2.5 cm LVPWs: 1.8 cm LA Diam: 5.0 cm (2.7 - 3.8) Ao Diam: 3.1 cm (2.0 - 3.7) AV Cusp: 1.1 cm (1.5 - 2.6) MV E Yuri: 0.87 m/s MV DecT: 288 ms MV A Yuri: 1.89 m/s MV E/A Ratio: 0.46 RAP: 10.00 mmHg RVSP: 66.90 mmHg FINDINGS -------- Pacerwire seen in RV and RA. This was a technically adequate study. LV size, wall thickness and systolic function are normal, with an EF greater than 55%. The left angelia tricular size is normal. The right ventricle is severely enlarged. The left atrium is markedly dilated. The right atrium is markedly enlarged. There is mild to moderate aortic valve sclerosis. Mild mitral regurgitation is present. Mitral valve area by PHT is 2.09 cm/sq. Mild tricuspid regurgitation present. There is moderate to severe pulmonary hypertension. The rig ht ventricular systolic pressure, as measured by Doppler, is 66.90mmHg. Trace/mild (physiologic) pulmonic regurgitation. The aortic root size is normal. There is no pericardial effusion. CONCLUSIONS -------- 1. Pacerwire seen in RV and RA. 2. This was a technically adequate study. 3. LV size, wall thickness and systolic function are normal, with an EF greater than 55%. 4. The left ventricular size is normal. 5. The right ventricle is severely enlarged. 6. The left atrium is markedly dilated. 7. The right atrium is markedly enlarged. 8. There is mild to moderate aortic valve sclerosis. 9. Mild mitral regurgitation is present. 10. Mitral valve area by PHT is 2.09 cm/sq. 11. Mild tricuspid regurgitation present. 12. There is moderate to severe pulmonary hypertension. 13. The right ventricular systolic pressure, as measured by Doppler, is 66.90mmHg. 14. Trace/mild (physiologic) pulmonic regurgitation. 15. The aortic root size is normal. 16. There is no pericardial effusion. OPTICAL ASSISTANT: Latoya Salcedo RDCS
--- NOTE | 2021-01-25 07:18 | CDI ---
Documentation Clarification Form Date: 01/25/21 From: Sondra Kuhn Phone: Admit Date: 01/12/2021 10:30:00 PM Patient Name: Sarah Bridges Visit Number: [id number] Discharge Date: 01/14/2021 04:30:00 PM ATTENTION: The Clinical Documentation Specialists (CDI) and [facility] Coding Staff appreciate your assistance in clarifying documentation. Please respond to the clarification below the line at the bottom and electronically sign. The CDI & [facility] Coding staff will review the response and follow-up if needed. Please note: Queries are made part of the Legal Health Record. If you have any questions, please contact the author of this message via ITS. Dr. Yara Milner, Your patient is with 3L of oxygen-dependent . Based on this information and the findings below, is there an additional diagnosis that is clinically appropriate for this patient? History/Risk Factors: stable COPD, Acute on chronic diastolic CHF w HTN Tobacco use: history of Home oxygen: 3L at home Clinical Indicators: Patient reports that she has been short of breath for about a year now however it worsened significantly in the past month. Vital signs: T-98.4, P-105, R-18, BP-178/87, o2-97 Pulse oximetry: On 3L -97, 98, 99, 100, 98, 97, 96, 97, 92,On 2L-96, 99, 97, 95, 94 Treatment: Albuterol inhaler & Symbicort inhaler Continuous Pulse ox O2/CPAP Is there an additional diagnosis that is clinically appropriate for this patient? [ ] Chronic Respiratory Failure [ ] Chronic hypoxic Respiratory Failure [ ] Chronic hypercapnic Respiratory Failure [ ] Other Diagnosis, please specify [ ] Unable to determine Chronic hypoxic Respiratory Failure MTDD
== END 2021-01-14 16:30 | disposition home or self-care (01) | DRG 292 ==
LOC: EC 18:30 → 3SCARD 22:30
PROVIDERS: ADMIT Internal Medicine; ATTEND Internal Medicine
DX: I11.0 Hypertensive heart disease with heart failure (principal); D68.51 Activated protein C resistance; J96.11 Chronic respiratory failure with hypoxia; I50.33 Acute on chronic diastolic (congestive) heart failure; J44.9 Chronic obstructive pulmonary disease, unspecified; I48.0 Paroxysmal atrial fibrillation; Z20.822 Contact with and (suspected) exposure to COVID-19; I05.0 Rheumatic mitral stenosis; T45.515A Adverse effect of anticoagulants, initial encounter; I44.30 Unspecified atrioventricular block; G47.30 Sleep apnea, unspecified; Z99.81 Dependence on supplemental oxygen; Z79.51 Long term (current) use of inhaled steroids; Z79.01 Long term (current) use of anticoagulants; Z79.899 Other long term (current) drug therapy; Z87.891 Personal history of nicotine dependence; Z86.718 Personal history of other venous thrombosis and embolism; Z95.0 Presence of cardiac pacemaker; Z90.49 Acquired absence of other specified parts of digestive tract; Z90.710 Acquired absence of both cervix and uterus; Z90.89 Acquired absence of other organs; Z87.19 Personal history of other diseases of the digestive system; Z87.42 Personal history of other diseases of the female genital tract; Z87.81 Personal history of (healed) traumatic fracture; Z98.890 Other specified postprocedural states; Z82.49 Family history of ischemic heart disease and other diseases of the circulatory system; Z82.79 Family history of other congenital malformations, deformations and chromosomal abnormalities; Z80.1 Family history of malignant neoplasm of trachea, bronchus and lung; Z83.2 Family history of diseases of the blood and blood-forming organs and certain disorders involving the immune mechanism
CPT/HCPCS: 36415; 71046; 80048; 80053; 83880; 84484; 85025; 85379; 85610; 85730; 87635; 93005; 93306; 94640; 96374; 99285

== ENCOUNTER 2022-03-13 16:32 | Inpatient (IN) | payer MEDICARE ==
--- NOTE | 2022-03-13 18:05 | ED ---
General Adult HPI - General Chief complaint: Recheck/Abnormal Lab/Rx Stated complaint: Weakness,SOB,extremity swelling Time Seen by Provider: 03/13/22 17:40 Source: patient Mode of arrival: wheelchair Limitations: no limitations - History of Present Illness Initial comments: Dictation was produced using [employer] dictation software. please excuse any grammatical, word or spelling errors. Chief Complaint: Patient is a 66-year-old female who left AGAINST MEDICAL ADVICE from [facility] come to emergency department for further workup. History of Present Illness: Patient is a 66-year-old female she called her doctor this morning for epistaxis. She was directed by her primary care doctor to go to the emergency room to have her nosebleed evaluated. She had a nosebleed evaluated at [place] emergency department. She also requested to the ER doctor there that she wanted a metabolic panel. Patient ended up having a metabolic panel that showed significant derangement. She was offered admission at [facility] however refused and instead wanted to be discharged and leave AGAINST MEDICAL ADVICE. She took a private vehicle him to our emergency department she does present with some documentation. Metabolic panel at [facility] showed INR 6.3, sodium 124, potassium 3.2, BUN of 61 and creatinine of 1.4. She was treated with 2.5 mg of vitamin K. Patient states that over the last 3 weeks she's been having worsening shortness of breath. She does not go to the emergency department or call her primary care doctor regarding this however she was told that her shortness of breath is worrisome and would require further treatment and care. Patient states that there is swelling to her legs. She has had dose adjustments done on her Lasix. The ROS documented in this emergency department record has been reviewed and confirmed by me. Those systems with pertinent positive or negative responses have been documented in the HPI. All other systems are other negative and/or noncontributory. PHYSICAL EXAM: General Impression: Alert and oriented x3, dyspneic HEENT: Normocephalic atraumatic, extra-ocular movements intact, pupils equal and reactive to light bilaterally, mucous membranes moist. Cardiovascular: Heart regular rate and rhythm Chest: 5 word sentences, diffuse crackles, Abdomen: abdomen soft, non-tender, non-distended, no organomegaly Musculoskeletal: Pulses present and equal in all extremities, 2+ pitting edema Motor: no focal deficits noted Neurological: CN II-XII grossly intact, no focal motor or sensory deficits noted Skin: Intact with no visualized rashes Psych: Normal affect and mood ED course: 66-year-old male presents to the emergency department for further workup and care for shortness of breath and metabolic derangement. Should a brief workup done at [facility] however left AGAINST MEDICAL ADVICE vital signs upon arrival shows 90% on 6 L nasal cannula. Patient wears home oxygen at home at 45 chronically. Rest of vital signs within acceptable limits. Patient only had a metabolic panel at [facility]. She also was given 2.5 mg of oral vitamin K. Patient left AGAINST MEDICAL ADVICE and came to our facility for further care. Patient is worked up. Emergency department. CBC within acceptable limits. There is mild stress leukocytosis. Coag panel shows INR 4.2. Metabolic panel shows an 124, potassium 3.2. Elevated renal markers. Troponin is 0.025 prematurity peptide of 8570. Patient reevaluated at bedside at 8:45 PM found to be in stable medical condition. At this point likely diagnosis is congestive heart failure exacerbation. However looking back and patient discharged she was diagnosed with right ventricular dilatation concerning for pulmonary hypertension. Patient given Lasix. Patient be admitted with consultation to cardiology and pulmonology. EKG interpretation: Ventricular rate 70, electronic pacemaker,. 146, care is 166, QTC 471. No VT prolongation, no QTC prolongation, no ST or T-wave changes noted. EKG compared to 01/12/2021 showing no changes. Overall, this EKG is unremarkable - Related Data Home Medications Medication Instructions Recorded Confirmed Albuterol Inhaler [Ventolin Hfa 2 puff INHALATION RT-QID PRN 06/15/20 03/13/22 Inhaler] Budesonide-Formot 160-4.5 Mcg 2 puff INHALATION RT-BID 06/15/20 03/13/22 [Symbicort 160-4.5 Mcg Inhaler] Warfarin Sodium 4 mg PO DAILY@1800 01/12/21 03/13/22 Escitalopram [Lexapro] 10 mg PO DAILY 03/13/22 03/13/22 Furosemide [Lasix] 40 mg PO BID@0900,1600 03/13/22 03/13/22 Nystatin 100,000 Unit/ml Susp 5 ml PO QID 03/13/22 03/13/22 [Mycostatin Oral Susp] Spironolactone 25 mg PO DAILY 03/13/22 03/13/22 Warfarin Sodium 2 mg PO DAILY@1600 03/13/22 03/13/22 metOLazone [Zaroxolyn] 5 mg PO DAILY 03/13/22 03/13/22 Previous Rx's Medication Instructions Recorded Metoprolol Tartrate [Lopressor] 25 mg PO DAILY #30 tab 05/13/20 amLODIPine [Norvasc] 10 mg PO DAILY #30 tab 05/13/20 Allergies Allergy/AdvReac Type Severity Reaction Status Date / Time No Known Allergies Allergy Verified 03/13/22 18:48 Review of Systems ROS Statement: Those systems with pertinent positive or pertinent negative responses have been documented in the HPI. ROS Other: All systems not noted in ROS Statement are negative. Past Medical History Past Medical History: Blood Disorder, COPD, Deep Vein Thrombosis (DVT), Hypertension Additional Past Medical History / Comment(s): factor 5 Leiden insufficiency, DVT left leg 5 yrs. ago, uses oxygen @3l cont. since pacemaker inserted during recent hospital stay, mitral valve problem per pt. History of Any Multi-Drug Resistant Organisms: None Reported Past Surgical History: Appendectomy, Cholecystectomy, Hysterectomy, Orthopedic Surgery, Pacemaker, Tonsillectomy Additional Past Surgical History / Comment(s): D & C, left ankle ORIF Past Anesthesia/Blood Transfusion Reactions: No Reported Reaction Type of Cardiac Device: Permanent Pacemaker Device Placement Date:: April 2020 Past Psychological History: No Psychological Hx Reported Smoking Status: Former smoker Past Alcohol Use History: None Reported Past Drug Use History: None Reported - Past Family History Father Family Medical History: Congestive Heart Failure (CHF) Additional Family Medical History / Comment(s): congenital , CARDOIOMYAPTHY Mother Family Medical History: Cancer, Deep Vein Thrombosis (DVT) Additional Family Medical History / Comment(s): lung cancer General Exam Limitations: no limitations Course Vital Signs 03/13/22 03/13/22 03/13/22 17:25 17:45 18:00 Temperature 97.8 F Pulse Rate 79 77 Respiratory 24 30 H 12 Rate Blood Pressure 121/64 116/59 O2 Sat by Pulse 90 L 93 L Oximetry 03/13/22 19:59 Temperature Pulse Rate 79 Respiratory 16 Rate Blood Pressure 117/75 O2 Sat by Pulse 93 L Oximetry Medical Decision Making - Lab Data Result diagrams: 03/13/22 19:17 03/13/22 19:17 Lab Results 03/13/22 03/13/22 03/13/22 Range/Units 19:17 19:17 19:17 WBC 14.9 H (3.8-10.6) k/uL RBC 5.97 H (3.80-5.40) m/uL Hgb 15.1 (11.4-16.0) gm/dL Hct 47.1 H (34.0-46.0) % MCV 78.9 L (80.0-100.0) fL MCH 25.2 (25.0-35.0) pg MCHC 32.0 (31.0-37.0) g/dL RDW 18.2 H (11.5-15.5) % Plt Count 427 (150-450) k/uL MPV 6.7 Neutrophils % 87 % Lymphocytes % 4 % Monocytes % 6 % Eosinophils % 1 % Basophils % 1 % Neutrophils # 12.9 H (1.3-7.7) k/uL Lymphocytes # 0.6 L (1.0-4.8) k/uL Monocytes # 0.9 (0-1.0) k/uL Eosinophils # 0.2 (0-0.7) k/uL Basophils # 0.1 (0-0.2) k/uL Hypochromasia Slight Poikilocytosis Slight Anisocytosis Slight Microcytosis Slight PT 41.5 H (9.0-12.0) sec INR 4.2 H (<1.2) APTT 39.4 H (22.0-30.0) sec Sodium 124 L (137-145) mmol/L Potassium 3.2 L (3.5-5.1) mmol/L Chloride 86 L (98-107) mmol/L Carbon Dioxide 26 (22-30) mmol/L Anion Gap 12 mmol/L BUN 65 H (7-17) mg/dL Creatinine 1.47 H (0.52-1.04) mg/dL Est GFR (CKD-EPI)AfAm 43 (>60 ml/min/1.73 sqM) Est GFR (CKD-EPI)NonAf 37 (>60 ml/min/1.73 sqM) Glucose 111 H (74-99) mg/dL Plasma Lactic Acid Aristides (0.7-2.0) mmol/L Calcium 8.5 (8.4-10.2) mg/dL Magnesium 2.2 (1.6-2.3) mg/dL Total Bilirubin 1.2 (0.2-1.3) mg/dL AST 18 (14-36) U/L ALT 11 (4-34) U/L Alkaline Phosphatase 106 (38-126) U/L Troponin I (0.000-0.034) ng/mL NT-Pro-B Natriuret Pep pg/mL Total Protein 7.0 (6.3-8.2) g/dL Albumin 3.8 (3.5-5.0) g/dL 03/13/22 03/13/22 03/13/22 Range/Units 19:17 19:17 19:41 WBC (3.8-10.6) k/uL RBC (3.80-5.40) m/uL Hgb (11.4-16.0) gm/dL Hct (34.0-46.0) % MCV (80.0-100.0) fL MCH (25.0-35.0) pg MCHC (31.0-37.0) g/dL RDW (11.5-15.5) % Plt Count (150-450) k/uL MPV Neutrophils % % Lymphocytes % % Monocytes % % Eosinophils % % Basophils % % Neutrophils # (1.3-7.7) k/uL Lymphocytes # (1.0-4.8) k/uL Monocytes # (0-1.0) k/uL Eosinophils # (0-0.7) k/uL Basophils # (0-0.2) k/uL Hypochromasia Poikilocytosis Anisocytosis Microcytosis PT (9.0-12.0) sec INR (<1.2) APTT (22.0-30.0) sec Sodium (137-145) mmol/L Potassium (3.5-5.1) mmol/L Chloride (98-107) mmol/L Carbon Dioxide (22-30) mmol/L Anion Gap mmol/L BUN (7-17) mg/dL Creatinine (0.52-1.04) mg/dL Est GFR (CKD-EPI)AfAm (>60 ml/min/1.73 sqM) Est GFR (CKD-EPI)NonAf (>60 ml/min/1.73 sqM) Glucose (74-99) mg/dL Plasma Lactic Acid Aristides 1.4 (0.7-2.0) mmol/L Calcium (8.4-10.2) mg/dL Magnesium (1.6-2.3) mg/dL Total Bilirubin (0.2-1.3) mg/dL AST (14-36) U/L ALT (4-34) U/L Alkaline Phosphatase (38-126) U/L Troponin I 0.025 (0.000-0.034) ng/mL NT-Pro-B Natriuret Pep 8570 pg/mL Total Protein (6.3-8.2) g/dL Albumin (3.5-5.0) g/dL Disposition Clinical Impression: Dyspnea Disposition: ADMITTED IP TO THIS [facility] Condition: Serious Decision Time: 20:43
--- NOTE | 2022-03-13 18:57 | XR ---
EXAMINATION TYPE: XR chest 1V portable DATE OF EXAM: 03/13/2022 6:42 PM COMPARISON: Chest radiographs from 01/12/2021 TECHNIQUE: XR chest 1V portable Frontal view of the chest. CLINICAL INDICATION:Female, 66 years old with history of dyspnea; FINDINGS: Lungs/Pleura: No evidence of focal consolidation or pneumothorax. Blunting of the costophrenic angles is present more pronounced on the left. Pulmonary vascularity: Mild pulmonary vascular congestion. Heart/mediastinum: Cardiomediastinal silhouette is enlarged and stable. Atherosclerotic calcificatio ns are seen in the aorta. Three lead cardiac conduction device overlying the left hemithorax with jeet d tips projecting over the right ventricle, right atrium and coronary sinus. Musculoskeletal: No acute osseous pathology. IMPRESSION: Cardiomegaly, pulmonary vascular congestion and left pleural effusion. Correlate with BNP for congest shonna heart failure.
[2022-03-13] MEDS ORDERED: FUROSEMIDE 10 MG/ML 4 ML VIAL IV STA (19:01)
[2022-03-13 19:26] LABS: Anisocytosis Slight; Basophils # (A) 0.1 k/uL (0-0.2); Basophils % (A) 1 %; Eosinophils # (A) 0.2 k/uL (0-0.7); Eosinophils % (A) 1 %; HCT 47.1 % (34.0-46.0); HGB 15.1 gm/dL (11.4-16.0); Hypochromasia Slight; Lymphocytes # (A) 0.6 k/uL (1.0-4.8); Lymphocytes % (A) 4 %; MCH 25.2 pg (25.0-35.0); MCV 78.9 fL (80.0-100.0); Mean Platelet Volume 6.7; Microcytosis Slight; Monocytes # (A) 0.9 k/uL (0-1.0); Monocytes % (A) 6 %; Neutrophils # (A) 12.9 k/uL (1.3-7.7); Neutrophils % (A) 87 %; Platelet Count 427 k/uL (150-450); Poikilocytosis Slight; RBC 5.97 m/uL (3.80-5.40); RDW 18.2 % (11.5-15.5); WBC 14.9 k/uL (3.8-10.6)
[2022-03-13 19:33] LABS: Albumin 3.8 g/dL (3.5-5.0); Calcium 8.5 mg/dL (8.4-10.2); Magnesium 2.2 mg/dL (1.6-2.3); Potassium 3.2 mmol/L (3.5-5.1); Total Bilirubin 1.2 mg/dL (0.2-1.3)
[2022-03-13 19:37] LABS: INR 4.2 (<1.2); Partial Thromboplastin Time 39.4 sec (22.0-30.0); Prothrombin Time 41.5 sec (9.0-12.0)
[2022-03-13] MEDS: FUROSEMIDE 10 MG/ML 4 ML VIAL IV SCH (19:56)
[2022-03-13] MEDS ORDERED: ALBUTEROL NEBULIZED 2.5 MG/3 ML INHALATION PRN (20:13)
[2022-03-13] MEDS ORDERED: POTASSIUM CHLORIDE ER 20 MEQ TAB.ER PO STA (20:20)
[2022-03-14 04:03] LABS: Potassium 3.4 mmol/L (3.5-5.1)
[2022-03-14 04:04] LABS: Albumin 3.6 g/dL (3.5-5.0); Calcium 8.5 mg/dL (8.4-10.2); Total Bilirubin 1.3 mg/dL (0.2-1.3); Total Protein 6.7 g/dL (6.3-8.2)
[2022-03-14] MEDS: FUROSEMIDE 10 MG/ML 4 ML VIAL IV SCH ×2 (08:17→08:50)
[2022-03-14] MEDS ORDERED: Potassium Replacement Protocol 1 EACH MISC MISCELLANE PRN (08:41)
[2022-03-14] MEDS: SYMBICORT 160-4.5 MCG INHALER INHALATION SCH ×2 (08:58→21:30)
[2022-03-14] MEDS ORDERED: amLODIPine 10 MG TAB PO SCH (09:00)
[2022-03-14] MEDS ORDERED: metOLazone 5 MG TAB PO SCH (09:00)
[2022-03-14 10:25] LABS: Albumin 3.7 g/dL (3.5-5.0); Calcium 8.4 mg/dL (8.4-10.2); Potassium 3.4 mmol/L (3.5-5.1); Total Bilirubin 1.7 mg/dL (0.2-1.3); Total Protein 6.8 g/dL (6.3-8.2)
--- NOTE | 2022-03-14 10:32 | P.CRDCN ---
"History of Present Illness History of present illness: HISTORY OF PRESENTING ILLNESS This is a pleasant 66-year-old female past medical history significant for complete heart block status post permanent pacemaker implantation 04/2020, chronic heart failure with preserved ejection fraction, mitral stenosis, hypertension, factor V Leiden, morbid obesity, COPD, severe pulmonary hypertension, DVT on coumadin. She follows in the office with Dr. Lopez. We have been asked to see in consultation for congestive heart failure. Patient presents emergency department with worsening shortness of breath, bilateral lower extremity edema, 40 pound weight gain within 2 months. She did have her Lasix increased to 40mg BID. She initially presented to [facility], [facility], and then presented to [facility]. She does have symptoms of orthopnea. She denies any chest pain, lightheadedness, dizziness, syncope or near syncope. She did undergo workup for her mitral stenosis at [facility] 10/2020. She underwent right heart cath which revealed severely elevated RA pressures, severely elevated RV pressure. Severely elevated PA pressure. Moderately elevated PCWP pressure. Severe Pulmonary hypertension present. (PVR 6.55, LVEDP 18mmHg) Normal cardiac output. Moderate mitral valve stenosis. DIAGNOSTICS EKG reveals ventricular paced rhythm, heart rate 78 Recent echocardiogram in the office 12/2021 revealed EF 55%, severely dilated right ventricle, mild mitral regurgitation, severe tricuspid regurgitation, severe increased pulmonary artery systolic pressure 92 mmHg, mild to moderate pulmonic regurgitation Cardiac catheterization 07/2020 revealed normal coronary arteries Chest xray cardiomegaly, pulmonary vascular congestion, left pleural effusion. Laboratory reviproBNP 8570, troponin negative, sodium 124, potassium 2.5, BUN 64 , serum creatinine 1.34, magnesium 2.2, WBC 14.9, hemoglobin 15, platelets 427, INR 4.2 Current home cardiac medications include Lasix 40 mg twice a day, Coumadin 2 mg to 4 mg daily, metolazone 5 mg daily, spironolactone 25 mg daily, metoprolol titrate 25 mg daily, amlodipine 10 mg daily REVIEW OF SYSTEMS At the time of my exam: CONSTITUTIONAL: Denies fever or chills. CARDIOVASCULAR: Denies chest pain, +shortness of breath, +orthopnea, Denies PND or palpitations. +|edema RESPIRATORY: + cough. GASTROINTESTINAL: Denies abdominal pain, diarrhea, constipation, nausea or vomiting. MUSCULOSKELETAL: Denies myalgias. NEUROLOGIC: Denies numbness, tingling, headacbe or weakness. ENDOCRINE: Denies fatigue, weight change, polydipsia or polyurina. GENITOURINARY: Denies burning, hematuria or urgency with micturation. HEMATOLOGIC: Denies history of anemia or bleeding. PHYSICAL EXAMINATION Blood pressure 124/79, heart 89, afebrile, saturations 91% on 14 L high flow CONSTITUTIONAL: Short of breath HEENT: Head is normocephalic. Pupils are equal, round. Sclerae anicteric. Mucous membranes of the mouth are moist. + JVD present . No carotid bruit. CHEST EXAMINATION: Lungs are crackles bilaterally to auscultation. No chest wall tenderness is noted on palpation or with deep breathing. HEART EXAMINATION: Regular rate and rhythm. S1, S2 heard. Murmur noted at apex. ABDOMEN: Soft, nontender. Positive bowel sounds. EXTREMITIES: 3+ bilateral lower extremity edema NEUROLOGIC EXAMINATION: Patient is awake, alert and oriented x3. ASSESSMENT Acute on chronic heart failure with preserved ejection fraction, EF on echo 12/2021 55% Severe pulmonary hypertension Supratherapeutic INR Hypokalemia Hyponatremia Acute kidney injury Complete heart block status post permanent pacemaker implantation 04/2020 Mitral stenosis Hypertension Factor V Leiden Morbid obesity COPD History of DVT on coumadin PLAN Start IV Lasix Drip Monitor I/Os, daily weights renal function and electrolytes Coumadin on hold secondary to supratherapeutic INR, check INR daily Metoprolol succinate 50mg daily Replace potassium per protocol Recommend Nephrology consult Further recommendations based on clinical course Nurse practitioner note has been reviewed by physician. Signing provider agrees with the documented findings, assessment, and plan of care. Past Medical History Past Medical History: Blood Disorder, COPD, Deep Vein Thrombosis (DVT), Hypertension Additional Past Medical History / Comment(s): factor 5 Leiden insufficiency, DVT left leg 5 yrs. ago, uses oxygen @3l cont. since pacemaker inserted during recent hospital stay, mitral valve problem per pt. History of Any Multi-Drug Resistant Organisms: None Reported Past Surgical History: Appendectomy, Cholecystectomy, Hysterectomy, Orthopedic Surgery, Pacemaker, Tonsillectomy Additional Past Surgical History / Comment(s): D & C, left ankle ORIF Past Anesthesia/Blood Transfusion Reactions: No Reported Reaction Type of Cardiac Device: Permanent Pacemaker Device Placement Date:: April 2020 Past Psychological History: No Psychological Hx Reported Smoking Status: Former smoker Past Alcohol Use History: None Reported Additional Past Alcohol Use History / Comment(s): quit smoking 7-8 yrs. ago, smoked on & off since teens 1ppd Past Drug Use History: None Reported - Past Family History Father Family Medical History: Congestive Heart Failure (CHF) Additional Family Medical History / Comment(s): congenital , CARDOIOMYAPTHY Mother Family Medical History: Cancer, Deep Vein Thrombosis (DVT) Additional Family Medical History / Comment(s): lung cancer Medications and Allergies Home Medications Medication Instructions Recorded Confirmed Type Metoprolol Tartrate [Lopressor] 25 mg PO DAILY #30 tab 05/13/20 03/13/22 Rx amLODIPine [Norvasc] 10 mg PO DAILY #30 tab 05/13/20 03/13/22 Rx Albuterol Inhaler [Ventolin Hfa 2 puff INHALATION RT-QID PRN 06/15/20 03/13/22 History Inhaler] Budesonide-Formot 160-4.5 Mcg 2 puff INHALATION RT-BID 06/15/20 03/13/22 History [Symbicort 160-4.5 Mcg Inhaler] Warfarin Sodium 4 mg PO DAILY@1800 01/12/21 03/13/22 History Escitalopram [Lexapro] 10 mg PO DAILY 03/13/22 03/13/22 History Furosemide [Lasix] 40 mg PO BID@0900,1600 03/13/22 03/13/22 History Nystatin 100,000 Unit/ml Susp 5 ml PO QID 03/13/22 03/13/22 History [Mycostatin Oral Susp] Spironolactone 25 mg PO DAILY 03/13/22 03/13/22 History Warfarin Sodium 2 mg PO DAILY@1600 03/13/22 03/13/22 History metOLazone [Zaroxolyn] 5 mg PO DAILY 03/13/22 03/13/22 History Allergies Allergy/AdvReac Type Severity Reaction Status Date / Time No Known Allergies Allergy Verified 03/13/22 18:48 Physical Exam Vitals: Vital Signs Temp Pulse Pulse Resp BP BP Pulse Ox 03/14/22 04:00 97.7 F 84 14 94/66 90 L 03/14/22 00:12 92 L 03/13/22 23:31 97.4 F L 80 14 124/72 90 L 03/13/22 23:19 97.5 F L 83 14 125/63 93 L 03/13/22 21:45 75 19 91 L 03/13/22 21:41 97.5 F L 82 18 125/63 93 L 03/13/22 21:28 85 24 118/72 86 L 03/13/22 19:59 79 16 117/75 93 L 03/13/22 18:00 77 12 116/59 93 L 03/13/22 17:45 30 H 03/13/22 17:25 97.8 F 79 24 121/64 90 L Intake and Output 03/13/22 03/14/22 03/14/22 22:59 06:59 14:59 Output Total 750 Balance -750 Output: Urine 750 Other: Voiding Method External Catheter Weight 129.727 kg Results 03/13/22 19:17 03/14/22 02:51 Cardiac Enzymes 03/13/22 03/13/22 03/14/22 Range/Units 19:17 19:17 02:51 AST 18 19 (14-36) U/L Troponin I 0.025 (0.000-0.034) ng/mL Coagulation 03/13/22 Range/Units 19:17 PT 41.5 H (9.0-12.0) sec APTT 39.4 H (22.0-30.0) sec CBC 03/13/22 Range/Units 19:17 WBC 14.9 H (3.8-10.6) k/uL RBC 5.97 H (3.80-5.40) m/uL Hgb 15.1 (11.4-16.0) gm/dL Hct 47.1 H (34.0-46.0) % Plt Count 427 (150-450) k/uL Comprehensive Metabolic Panel 03/13/22 03/14/22 Range/Units 19:17 02:51 Sodium 124 L 124 L (137-145) mmol/L Potassium 3.2 L 3.4 L (3.5-5.1) mmol/L Chloride 86 L 86 L (98-107) mmol/L Carbon Dioxide 26 25 (22-30) mmol/L BUN 65 H 64 H (7-17) mg/dL Creatinine 1.47 H 1.34 H (0.52-1.04) mg/dL Glucose 111 H 99 (74-99) mg/dL Calcium 8.5 8.5 (8.4-10.2) mg/dL AST 18 19 (14-36) U/L ALT 11 11 (4-34) U/L Alkaline Phosphatase 106 100 (38-126) U/L Total Protein 7.0 6.7 (6.3-8.2) g/dL Albumin 3.8 3.6 (3.5-5.0) g/dL Current Medications Generic Name Dose Route Start Last Admin Trade Name Freq PRN Reason Stop Dose Admin Albuterol Sulfate 2.5 mg 03/13/22 20:13 Albuterol Nebulized 2.5 Mg/3 Ml INHALATION RT-QID PRN Shortness Of Breath Budesonide/Formoterol Fumarate 2 puff 03/14/22 08:00 Symbicort 160-4.5 Mcg Inhaler INHALATION RT-BID ROSELYN Furosemide 40 mg 03/13/22 20:00 03/13/22 19:56 Furosemide 10 Mg/Ml 4 Ml Vial IV 40 mg Q12H ROSELYN Administration Intake and Output 03/13/22 03/14/22 03/14/22 22:59 06:59 14:59 Output Total 750 Balance -750 Output: Urine 750 Other: Voiding Method External Catheter Weight 129.727 kg 03/13/22 19:17 03/14/22 02:51"
[2022-03-14] MEDS ORDERED: IPRATROPIUM-ALBUTEROL 3 ML NEB INHALATION PRN (11:21)
--- NOTE | 2022-03-14 11:22 | P.CNPUL ---
History of Present Illness Consult date: 03/14/22 Requesting physician: William Conde Reason for consult: dyspnea, COPD, hypoxemia, pulmonary hypertension, abnormal CXR/CT, obstructive sleep apnea, other Chief complaint: Hypoxemia, pulmonary hypertension. History of present illness: Pulmonary consult dated 03/14/2022. 66-year-old female seen in the emergency department, on March 13. She apparently went to the ER, his of abnormal laboratory data, weakness, shortness of breath, and lower extremity edema. She was seen in the emergency room, by Dr. Thomas. She apparently was at the [facility], and left AGAINST MEDICAL ADVICE, to come to the [facility] ER. Apparently, according to the ER sonia, the patient went to the outside hospital initially because of epistaxis, and some abnormal laboratory data. The patient then took her private vehicle to the emergency department here, and apparently had a sodium of 124, potassium 3.2, INR of 6.3, BUN of 61, and creatinine 1.4. We saw the patient in room 358. The patient was on high flow nasal O2 at about 10-11 L. She typically uses oxygen at home at 5 L. She also has severe sleep apnea syndrome, and uses CPAP, which he uses every night, except she did not use it last night. The patient was mildly short of breath, with mild conversational dyspnea. She was in bed. She has significant lower extremity edema. She apparently has COPD, DVT, hypertension, factor V deficiency, pacemaker implantation, valvular heart disease, obesity, and sleep apnea syndrome. She does use CPAP for her sleep apnea. She sees my partner for that. She was a former smoker in the past. Her most recent pulmonary function tests, from our office, shows a mixed pattern of both obstruction and rest riction. 0.9, hemoglobin 15, hematocrit 47.1, and platelet count 427,000. Sodium 125, potassium 3.4, chlorides 87, CO2 26, anion gap 12, BUN 62, and creatinine 1.27. Troponin was 0.025. N-terminal proBNP was elevated at 8570. Chest x-ray was consistent with fluid overload, and cardiomegaly. Review of Systems REVIEW OF SYSTEMS: CONSTITUTIONAL: Weakness. NEUROLOGIC: [ Negative.] HEENT: Epistaxis. CARDIAC: Shortness of breath, and lower extremity edema. PULMONARY: Shortness of breath. GI: [Negative.] : [Negative.] RHEUMATOLOGIC: [ Negative.] IMMUNOLOGIC: [ Negative.] ENDOCRINE: [Negative. ] DERMATOLOGIC: [Negative.] Past Medical History Past Medical History: Blood Disorder, COPD, Deep Vein Thrombosis (DVT), Hypertension Additional Past Medical History / Comment(s): factor 5 Leiden insufficiency, DVT left leg 5 yrs. ago, uses oxygen @3l cont. since pacemaker inserted during recent hospital stay, mitral valve problem per pt. History of Any Multi-Drug Resistant Organisms: None Reported Past Surgical History: Appendectomy, Cholecystectomy, Hysterectomy, Orthopedic Surgery, Pacemaker, Tonsillectomy Additional Past Surgical History / Comment(s): D & C, left ankle ORIF Past Anesthesia/Blood Transfusion Reactions: No Reported Reaction Type of Cardiac Device: Permanent Pacemaker Device Placement Date:: April 2020 Past Psychological History: No Psychological Hx Reported Smoking Status: Former smoker Past Alcohol Use History: None Reported Additional Past Alcohol Use History / Comment(s): quit smoking 7-8 yrs. ago, smoked on & off since teens 1ppd Past Drug Use History: None Reported - Past Family History Father Family Medical History: Congestive Heart Failure (CHF) Additional Family Medical History / Comment(s): congenital , CARDOIOMYAPTHY Mother Family Medical History: Cancer, Deep Vein Thrombosis (DVT) Additional Family Medical History / Comment(s): lung cancer Medications and Allergies Home Medications Medication Instructions Recorded Confirmed Type Metoprolol Tartrate [Lopressor] 25 mg PO DAILY #30 tab 05/13/20 03/13/22 Rx amLODIPine [Norvasc] 10 mg PO DAILY #30 tab 05/13/20 03/13/22 Rx Albuterol Inhaler [Ventolin Hfa 2 puff INHALATION RT-QID PRN 06/15/20 03/13/22 History Inhaler] Budesonide-Formot 160-4.5 Mcg 2 puff INHALATION RT-BID 06/15/20 03/13/22 History [Symbicort 160-4.5 Mcg Inhaler] Warfarin Sodium 4 mg PO DAILY@1800 01/12/21 03/13/22 History Escitalopram [Lexapro] 10 mg PO DAILY 03/13/22 03/13/22 History Furosemide [Lasix] 40 mg PO BID@0900,1600 03/13/22 03/13/22 History Nystatin 100,000 Unit/ml Susp 5 ml PO QID 03/13/22 03/13/22 History [Mycostatin Oral Susp] Spironolactone 25 mg PO DAILY 03/13/22 03/13/22 History Warfarin Sodium 2 mg PO DAILY@1600 03/13/22 03/13/22 History metOLazone [Zaroxolyn] 5 mg PO DAILY 03/13/22 03/13/22 History Allergies Allergy/AdvReac Type Severity Reaction Status Date / Time No Known Allergies Allergy Verified 03/13/22 18:48 Physical Exam Osteopathic Statement: *. No significant issues noted on an osteopathic structural exam other than those noted in the History and Physical/Consult. Vitals: Vital Signs Temp Pulse Pulse Resp BP BP Pulse Ox 03/14/22 09:16 92 L 03/14/22 09:05 89 L 03/14/22 08:02 97.6 F 89 18 124/79 91 L 03/14/22 04:00 97.7 F 84 14 94/66 90 L 03/14/22 00:12 92 L 03/13/22 23:31 97.4 F L 80 14 124/72 90 L 03/13/22 23:19 97.5 F L 83 14 125/63 93 L 03/13/22 21:45 75 19 91 L 03/13/22 21:41 97.5 F L 82 18 125/63 93 L 03/13/22 21:28 85 24 118/72 86 L 03/13/22 19:59 79 16 117/75 93 L 03/13/22 18:00 77 12 116/59 93 L 03/13/22 17:45 30 H 03/13/22 17:25 97.8 F 79 24 121/64 90 L Intake and Output 03/13/22 03/14/22 03/14/22 22:59 06:59 14:59 Intake Total 180 Output Total 750 Balance -750 180 Intake: Oral 180 Output: Urine 750 Other: Voiding Method External Catheter Weight 129.727 kg No acute distress, oriented 3. Currently on high flow nasal cannula, at 11 L. Saturations are 92%. HEENT examination is grossly unremarkable. Neck supple. Full range of motion. No adenopathy thyromegaly or neck vein distention. Cardiovascular examination reveals regular rhythm rate. S1-S2 normal. No S3 or S4. No discernible murmur noted. Heart sounds are distant. Heart rate 89 bpm. Lungs reveal mild scattered rhonchi. No wheezes. Mild bibasilar crackles. Breath sounds equal bilaterally. Abdomen obese, soft, with bowel sounds. Extremities reveals significant bilateral lower extremity edema, at least 2+. No cyanosis or clubbing. Skin is without rash or lesion. Neurologic examination is brief but nonfocal. Results - Laboratory Findings CBC and BMP: 03/13/22 19:17 03/14/22 09:06 PT/INR, D-dimer PT 41.5 sec (9.0-12.0) H 03/13/22 19:17 INR 4.2 (<1.2) H 03/13/22 19:17 Abnormal lab findings: Abnormal Labs 03/13/22 03/13/22 03/13/22 19:17 19:17 19:17 WBC 14.9 H RBC 5.97 H Hct 47.1 H MCV 78.9 L RDW 18.2 H Neutrophils # 12.9 H Lymphocytes # 0.6 L PT 41.5 H INR 4.2 H APTT 39.4 H Sodium 124 L Potassium 3.2 L Chloride 86 L BUN 65 H Creatinine 1.47 H Glucose 111 H Total Bilirubin 03/14/22 03/14/22 02:51 09:06 WBC RBC Hct MCV RDW Neutrophils # Lymphocytes # PT INR APTT Sodium 124 L 125 L Potassium 3.4 L 3.4 L Chloride 86 L 87 L BUN 64 H 62 H Creatinine 1.34 H 1.27 H Glucose 114 H Total Bilirubin 1.7 H - Diagnostic Findings Chest x-ray: image reviewed Assessment and Plan Assessment: Shortness of breath, likely related to underlying CHF, with a small component COPD. Obstructive sleep apnea syndrome, CPAP dependent. Secondary pulmonary hypertension, multifactorial, secondary to chronic heart and lung disease, sleep apnea syndrome, and restrictive lung disease, secondary to obesity. COPD, secondary to previous tobacco use. Restrictive lung disease secondary to obesity. Morbid obesity. Chronic hypoxemic respiratory failure. History of factor V deficiency. Prior history of DVT. History of hypertension. Status post pacemaker implantation. History of mitral valve disease. Plan: Plan dated 03/14/2022. The patient's labs, x-rays, and medications are reviewed. The patient's currently on Lasix and Zaroxolyn. The patient will also be placed on updrafts, and Symbicort. The patient's overall prognosis remains guarded. Patient will need to be on a low-sodium diet. The patient should have daily weights. The patient should use her CPAP device at nighttime. Additional recommendations and suggestions are forthcoming. Prognosis is guarded. Time with Patient: Greater than 30
[2022-03-14] MEDS ORDERED: TOLVAPTAN 15 MG 1/2 TABLET PO ONE (11:30)
[2022-03-14 11:41] VITALS: BMI 50.6
[2022-03-14] MEDS: ESCITALOPRAM 10 MG TAB PO SCH (11:50)
[2022-03-14] MEDS: POTASSIUM CHLORIDE ER 20 MEQ TAB.ER PO SCH ×3 (11:51→18:10)
[2022-03-14] MEDS: SPIRONOLACTONE 25 MG TAB PO SCH (11:51)
[2022-03-14] MEDS: METOPROLOL SUCCINATE (ER) 50 MG TAB.ER.24H PO SCH (11:52)
[2022-03-14] MEDS: FUROSEMIDE 100 MG in SODIUM CHLORIDE 0.9% 90 ML IV SCH ×2 (11:53→19:56)
[2022-03-14] MEDS: IPRATROPIUM-ALBUTEROL 3 ML NEB INHALATION SCH ×3 (12:13→21:30)
[2022-03-14 14:23] LABS: Albumin 3.7 g/dL (3.5-5.0); Calcium 8.4 mg/dL (8.4-10.2); Potassium 3.5 mmol/L (3.5-5.1); Total Bilirubin 1.5 mg/dL (0.2-1.3); Total Protein 6.9 g/dL (6.3-8.2)
--- NOTE | 2022-03-14 14:29 | CONS ---
CONSULTATION REASON FOR CONSULT: Acute kidney injury and hyponatremia. HISTORY OF PRESENT ILLNESS: Patient is a 66-year-old female who was admitted to the hospital on 03/13/2022 with complaints of shortness of breath and increasing lower extremity edema. The patient states that recently her diuretics were increased as outpatient. However, her shortness of breath continued to worsen. The lower extremity edema has worsened over the last 2-3 weeks prior to admission. No history of fevers or chills. The patient denies any nausea, vomiting, abdominal pain or diarrhea. The patient had initially presented for epistaxis to the ER at [facility]. Labs show sodium of 124, serum creatinine 1.47, potassium of 3.2. Review of previous labs shows a serum creatinine of 0.8 on 01/14/2021. Blood pressure has been around 94-124 mmHg systolic. Chest x-ray showed evidence of pulmonary vascular congestion. Patient has been started on IV diuretics. In fact, the Lasix drip has been ordered. She denies any significant urinary symptoms. PAST MEDICAL HISTORY: Significant for morbid obesity, COPD, history of DVT, hypertension, factor V Leiden deficiency, valvular heart disease. PAST SURGICAL HISTORY: Appendectomy, cholecystectomy, hysterectomy, tonsillectomy, pacemaker placement. SOCIAL HISTORY: The patient is a former smoker. No history of drug abuse or alcohol abuse. MEDICATIONS: Medications at home prior to admission included: Metoprolol, Coumadin, Lexapro, Lasix, sodium, spironolactone, Zaroxolyn. ALLERGIES: None. REVIEW OF SYSTEMS: As per HPI. Other systems negative. EXAMINATION: Comfortable, awake, alert, oriented x3. She has mild shortness of breath, not in acute distress. Blood pressure this morning 124/79, heart rate 89 per minute. She is afebrile. Examination of the heart S1, S2. Examination of the lungs, bilateral breath sounds are heard. Abdomen is soft, nontender. Examination of the lower extremities shows chronic edema with chronic skin changes. 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 LAB: Show sodium of 125, potassium 3.4, BUN 62, serum creatinine 1.27, hemoglobin of 15.1 g/dL. UA is not available. Coronavirus PCR is negative. ASSESSMENT: 1. Hypervolemic hyponatremia, continue to diurese patient. I will give one dose of tolvaptan as well. Check urine osmolality and random urine sodium. Agree with Lasix drip. 2. Acute kidney injury, mostly cardiorenal. Rule out urine retention. Patient has an external catheter. We will check a bladder scan. Check urinalysis and check ultrasound of the kidneys. 3. Volume overload, currently being diuresed. 4. Acute diastolic heart failure. Ejection fraction greater than 55% on echocardiogram done in January of 2021. 5. Moderate to severe pulmonary hypertension. 6. Acute hypoxic respiratory failure secondary to congestive heart failure and volume overload, currently being diuresed. 7. Chronic obstructive pulmonary disease. 8. Morbid obesity. PLAN: Diurese patient. Tolvaptan x1. Check urine osmolality and urine sodium. Maintain salt and fluid restriction. Repeat sodium this evening. Check cortisol level as well and repeat labs in a.m. Thank you for this consultation. We will continue to follow the patient with you during her hospitalization. MMODL / IJN: [id number] /
[2022-03-14 18:50] LABS: Appearance,Urine Clear (Clear); Bacteria,Urine Occasional /hpf; Bilirubin,Urine Negative (Negative); Blood,Urine Trace (Negative); Color,Urine Light Yellow; Glucose,Urine (UA) Negative (Negative); Ketones,Urine Negative (Negative); Leukocyte Esterase,Urine Large (Negative); Nitrite,Urine Negative (Negative); Protein,Urine Negative (Negative); RBC,Urine 4 /hpf (0-5); Specific Gravity,Urine 1.007 (1.001-1.035); Squamous Epithelial Cell,Urine 6 /hpf (0-4); Urobilinogen,Urine <2.0 mg/dL (<2.0); WBC,Urine 23 /hpf (0-5)
--- NOTE | 2022-03-14 19:07 | US ---
EXAMINATION TYPE: US kidneys/renal and bladder DATE OF EXAM: 03/14/2022 COMPARISON: NONE CLINICAL HISTORY: tom. TOM, heart failure EXAM MEASUREMENTS: Right Kidney: 11.2 x 4.2 x 5.4 cm Left Kidney: 11.3 x 4.5 x 5.0 cm Right Kidney: No hydronephrosis or masses seen Left Kidney: No hydronephrosis or masses seen Bladder: wnl No evidence of obstructive uropathy, calculus or acute process. Parenchyma is within normal limits. Difficult exam due to large patient body habitus. IMPRESSION: Limited exam without evidence for obstructive uropathy.
--- NOTE | 2022-03-14 22:15 | P.HPIM ---
History of Present Illness H&P Date: 03/14/22 Chief Complaint: Epistaxis This is a pleasant 66-year-old patient, follows with Dr. Mike Garcia. Chronic stable medical conditions include COPD, hypertension, factor V Leyden insufficiency, DVT in the left leg 5 years ago, home oxygen 5 L, pacemaker,. Patient visits her . Recently has been using walker. For about 4 days patient been having some intermittent epistaxis. Patient then became short of breath. Shaky weak. Normally has a bowel movement every other day. Last bowel movement was 4 days ago. No fever no chills. A slight cough. Patient rundown of the [facility]. Patient left AMA from there and decided to him to our ER. Patient's INR at the other hospital was 6.3. Sodium was low at 124. In abnormal renal function. Patient did give 2.5 mg vitamin K. Review of systems: GEN.: Tired EYES: None HEENT: None NECK: None RESPIRATORY: As above CARDIOVASCULAR: None GASTROINTESTINAL: None GENITOURINARY: None MUSCULOSKELETAL: Joint pains LYMPHATICS: None HEMATOLOGICAL: None PSYCHIATRY: None NEUROLOGICAL: Recently using walker Past medical history to include: COPD, DVT, factor V Leyden insufficiency, home oxygen 5 L. A sneaker. Mitral valve issues. Social history: Patient smoked off and on for about 25 years stopped about 9 years ago. Averaged a pack a day. No alcohol. . Family history: Congestive heart failure. Physical examination: VITAL SIGNS: 97.8, 79, 24, 121/64, 90% on 6 L GENERAL: BMI 51.5, reclining in bed, awake tired. EYES: Pupils equal. Conjunctiva normal. HEENT: External appearance of nose and ears normal, oral cavity grossly normal. NECK: JVD not raised; masses not palpable. HEART: First and second heart sounds are normal; some edema. LUNGS: Respiratory rate increased; diminished breath sounds. ABDOMEN: Soft, nontender, liver spleen not palpable, no masses palpable. PSYCH: Alert and oriented x3; mood and affect normal. MUSCULOSKELETAL:No Clubbing/cyanosis;muscles-grossly intact. Evidence of OA NEUROLOGICAL: Cranial nerves grossly intact; no facial asymmetry, power and sensation grossly intact. LYMPHATICS: No lymph nodes palpable in the axilla and neck INVESTIGATIONS, reviewed in the clinical context: March 14: Sodium 125 potassium 3.4 BUN 62 creatinine 1.27 Admission labs: White count 14.9 hemoglobin 15.1 platelets 427 INR 4.2 sodium 124 potassium 3.2 BUN 65 creatinine 1.47 proBNP 8570 troponin I 0.025 EKG tracing personally reviewed by me-ventricle paced rhythm Chest x-ray film personally reviewed by me-pacemaker. Hyperinflation. Assessment and plan: -Coumadin toxicity with bleeding Patient received vitamin K 2.5 mg. Follow INR -Acute COPD exacerbation in the previous smoker DuoNeb 4 times a day. Symbicort 03/14/1960/.52 puffs twice a day - acute congestive heart failure exacerbation Lasix drip. Follow I's and O's. -Depression otherwise specified Lexapro 10 mg a day -Essential hypertension Norvasc 10 mg daily, Lopressor, -Morbid obesity BMI 51.5 Weight loss measures DuoNeb. IV Lasix drip. RENZO. Consultation to pulmonary and cardiology. Resume Lexapro. Received a vitamin K. Follow INR. Discussed with the patient. Given the complexity and severity of patient's condition expect the patient to be in the hospital at least for 2 overnights Past Medical History Past Medical History: Blood Disorder, COPD, Deep Vein Thrombosis (DVT), Hypertension Additional Past Medical History / Comment(s): factor 5 Leiden insufficiency, DVT left leg 5 yrs. ago, uses oxygen @3l cont. since pacemaker inserted during recent hospital stay, mitral valve problem per pt. History of Any Multi-Drug Resistant Organisms: None Reported Past Surgical History: Appendectomy, Cholecystectomy, Hysterectomy, Orthopedic Surgery, Pacemaker, Tonsillectomy Additional Past Surgical History / Comment(s): D & C, left ankle ORIF Past Anesthesia/Blood Transfusion Reactions: No Reported Reaction Type of Cardiac Device: Permanent Pacemaker Device Placement Date:: April 2020 Past Psychological History: No Psychological Hx Reported Smoking Status: Former smoker Past Alcohol Use History: None Reported Additional Past Alcohol Use History / Comment(s): quit smoking 7-8 yrs. ago, smoked on & off since teens 1ppd Past Drug Use History: None Reported - Past Family History Father Family Medical History: Congestive Heart Failure (CHF) Additional Family Medical History / Comment(s): congenital , CARDOIOMYAPTHY Mother Family Medical History: Cancer, Deep Vein Thrombosis (DVT) Additional Family Medical History / Comment(s): lung cancer Medications and Allergies Home Medications Medication Instructions Recorded Confirmed Type Metoprolol Tartrate [Lopressor] 25 mg PO DAILY #30 tab 05/13/20 03/13/22 Rx amLODIPine [Norvasc] 10 mg PO DAILY #30 tab 05/13/20 03/13/22 Rx Albuterol Inhaler [Ventolin Hfa 2 puff INHALATION RT-QID PRN 06/15/20 03/13/22 History Inhaler] Budesonide-Formot 160-4.5 Mcg 2 puff INHALATION RT-BID 06/15/20 03/13/22 History [Symbicort 160-4.5 Mcg Inhaler] Warfarin Sodium 4 mg PO DAILY@1800 01/12/21 03/13/22 History Escitalopram [Lexapro] 10 mg PO DAILY 03/13/22 03/13/22 History Furosemide [Lasix] 40 mg PO BID@0900,1600 03/13/22 03/13/22 History Nystatin 100,000 Unit/ml Susp 5 ml PO QID 03/13/22 03/13/22 History [Mycostatin Oral Susp] Spironolactone 25 mg PO DAILY 03/13/22 03/13/22 History Warfarin Sodium 2 mg PO DAILY@1600 03/13/22 03/13/22 History metOLazone [Zaroxolyn] 5 mg PO DAILY 03/13/22 03/13/22 History Allergies Allergy/AdvReac Type Severity Reaction Status Date / Time No Known Allergies Allergy Verified 03/13/22 18:48 Physical Exam Vitals: Vital Signs Temp Pulse Pulse Resp BP BP Pulse Ox 03/14/22 09:16 92 L 03/14/22 09:05 89 L 03/14/22 08:02 97.6 F 89 18 124/79 91 L 03/14/22 04:00 97.7 F 84 14 94/66 90 L 03/14/22 00:12 92 L 03/13/22 23:31 97.4 F L 80 14 124/72 90 L 03/13/22 23:19 97.5 F L 83 14 125/63 93 L 03/13/22 21:45 75 19 91 L 03/13/22 21:41 97.5 F L 82 18 125/63 93 L 03/13/22 21:28 85 24 118/72 86 L 03/13/22 19:59 79 16 117/75 93 L 03/13/22 18:00 77 12 116/59 93 L 03/13/22 17:45 30 H 03/13/22 17:25 97.8 F 79 24 121/64 90 L Intake and Output 03/13/22 03/14/22 03/14/22 22:59 06:59 14:59 Intake Total 180 Output Total 750 Balance -750 180 Intake: Oral 180 Output: Urine 750 Other: Voiding Method External Catheter Weight 129.727 kg Results CBC & Chem 7: 03/13/22 19:17 03/14/22 16:22 Labs: Abnormal Lab Results - Last 24 Hours (Table) 03/13/22 03/13/22 03/13/22 Range/Units 19:17 19:17 19:17 WBC 14.9 H (3.8-10.6) k/uL RBC 5.97 H (3.80-5.40) m/uL Hct 47.1 H (34.0-46.0) % MCV 78.9 L (80.0-100.0) fL RDW 18.2 H (11.5-15.5) % Neutrophils # 12.9 H (1.3-7.7) k/uL Lymphocytes # 0.6 L (1.0-4.8) k/uL PT 41.5 H (9.0-12.0) sec INR 4.2 H (<1.2) APTT 39.4 H (22.0-30.0) sec Sodium 124 L (137-145) mmol/L Potassium 3.2 L (3.5-5.1) mmol/L Chloride 86 L (98-107) mmol/L BUN 65 H (7-17) mg/dL Creatinine 1.47 H (0.52-1.04) mg/dL Glucose 111 H (74-99) mg/dL Total Bilirubin (0.2-1.3) mg/dL 03/14/22 03/14/22 Range/Units 02:51 09:06 WBC (3.8-10.6) k/uL RBC (3.80-5.40) m/uL Hct (34.0-46.0) % MCV (80.0-100.0) fL RDW (11.5-15.5) % Neutrophils # (1.3-7.7) k/uL Lymphocytes # (1.0-4.8) k/uL PT (9.0-12.0) sec INR (<1.2) APTT (22.0-30.0) sec Sodium 124 L 125 L (137-145) mmol/L Potassium 3.4 L 3.4 L (3.5-5.1) mmol/L Chloride 86 L 87 L (98-107) mmol/L BUN 64 H 62 H (7-17) mg/dL Creatinine 1.34 H 1.27 H (0.52-1.04) mg/dL Glucose 114 H (74-99) mg/dL Total Bilirubin 1.7 H (0.2-1.3) mg/dL Thrombosis Risk Factor Assmnt - Choose All That Apply Any of the Below Risk Factors Present?: Yes Each Factor Represents 1 point: Heart failure (<1month), Obesity (BMI >25), Serious lung disease incl. pneumonia (< 1month) Other Risk Factors: Yes Each Risk Factor Represents 2 Points: Age 61-74 years Each Risk Factor Represents 3 Points: History of DVT/PE Other congenital or acquired thrombophilia - If yes, enter type in comment: No Thrombosis Risk Factor Assessment Total Risk Factor Score: 8 Thrombosis Risk Factor Assessment Level: High Risk
[2022-03-15] MEDS: FUROSEMIDE 100 MG in SODIUM CHLORIDE 0.9% 90 ML IV SCH ×2 (05:06→15:50)
--- NOTE | 2022-03-15 07:37 | CA ---
Transthoracic Echo Report Name: Sarah Bridges Age: 66 Gender: F : 1955 Exam Date: 03/14/2022 13:26 Exam Location: [facility] Ht (in): 63 Wt (lb): 284 Ordering Physician: William Conde MD Attending/Referring Phys: Retail Analytics Manager Paula Coon RDCS Procedure CPT: Indications: sob Cardiac Hx: Technical Quality: Contrast 1: Total Dose (mL): Contrast 2: Total Dose (mL): MEASUREMENTS (Male / Female) Normal Values 2D ECHO LV Diastolic Diameter PLAX 3.7 cm 4.2 - 5.9 / 3.9 - 5.3 cm LV Systolic Diameter PLAX 2.7 cm IVS Diastolic Thickness 1.4 cm 0.6 - 1.0 / 0.6 - 0.9 cm LVPW Diastolic Thickness 1.6 cm 0.6 - 1.0 / 0.6 - 0.9 cm LV Relative Wall Thickness 0.8 M-MODE Aortic Root Diameter MM 2.5 cm DOPPLER MV Peak Velocity 170.5 cm/s MV Peak Gradient 11.6 mmHg MV Mean Velocity 98.5 cm/s MV Mean Gradient 4.6 mmHg MV Velocity Time Integral 33.8 cm MV Area PHT 2.9 cm??? TR Peak Velocity 384.9 cm/s TR Peak Gradient 59.3 mmHg Right Atrial Pressure 5.0 mmHg Pulmonary Artery Systolic Pressu 64.3 mmHg Right Ventricular Systolic Press 64.3 mmHg FINDINGS Left Ventricle Moderately increased left ventricular wall thickness. Normal left ventricular systolic function with no obvious regional wall motion abnormalities. Left ventricular ejection fraction is estimated at 55-60 %. Right Ventricle Severe right ventricular dilatation. Severe pulmonary hypertension. There is right ventricular enlargement consistent with right ventricular volume overload. Right Atrium Severe right atrial dilatation. Catheter/pacemaker wire in the right atrial cavity. Left Atrium Normal left atrial size. No evidence for an atrial septal defect. Mitral Valve Moderate to severe mitral annular calcification Grade 1 diastolic dysfunction Aortic Valve Moderate aortic sclerosis. Mild aortic stenosis, may be underestimated by paradoxical low-flow low gradient with small cavity noted. Tricuspid Valve Mild to moderate tricuspid regurgitation. Pulmonic Valve Trace pulmonic regurgitation. Pericardium No pericardial effusion. Aorta Normal size aortic root and proximal ascending aorta. CONCLUSIONS Moderate left ventricular hypertrophy Normal left ventricular ejection fraction 55-60% Severely dilated right ventricle with right ventricular hypokinesis Severe pulmonary hypertension, RVSP 64 Pacemaker noted in right ventricle Moderate to severe mitral annular calcification Mild aortic stenosis, may be underestimated by paradoxical low-flow low gradient with small cavity noted. Grade 1 diastolic dysfunction No pericardial effusion Previewed by: Dr. Oniel Cano DO (Electronically Signed) Final Date: 15 March 2022 07:37
[2022-03-15] MEDS: SYMBICORT 160-4.5 MCG INHALER INHALATION SCH (07:46)
[2022-03-15] MEDS: IPRATROPIUM-ALBUTEROL 3 ML NEB INHALATION SCH ×4 (07:47→19:27)
[2022-03-15 09:15] LABS: INR 1.8 (<1.2); Prothrombin Time 17.8 sec (9.0-12.0)
[2022-03-15 09:27] LABS: Calcium 8.2 mg/dL (8.4-10.2); Potassium 3.2 mmol/L (3.5-5.1)
[2022-03-15] MEDS: ESCITALOPRAM 10 MG TAB PO SCH (09:51)
[2022-03-15] MEDS: SPIRONOLACTONE 25 MG TAB PO SCH (09:51)
[2022-03-15] MEDS: METOPROLOL SUCCINATE (ER) 50 MG TAB.ER.24H PO SCH (09:51)
[2022-03-15] MEDS ORDERED: TOLVAPTAN 15 MG 1/2 TABLET PO ONE (10:00)
--- NOTE | 2022-03-15 10:57 | P.PN ---
Subjective Patient is seen for follow-up for acute kidney injury and severe volume overload and hyponatremia. She is currently maintained on Lasix drip. Patient has had good urine output. No urine retention noted Respiratory status has improved. And patient states overall she is feeling much better. Sodium remains at 124. Serum creatinine down to 1.23. Status post Samsca asking milligrams by mouth yesterday. Will repeat today Objective - Vital Signs Vital signs: Vital Signs Temp 98.0 F 03/14/22 23:37 Pulse 84 03/15/22 08:08 Resp 16 03/15/22 04:00 BP 106/75 03/15/22 04:00 Pulse Ox 91 L 03/15/22 07:47 FiO2 Intake & Output 03/14/22 03/15/22 03/15/22 18:59 06:59 18:59 Intake Total 540 172.167 Output Total 700 2200 Balance -160 .833 Weight 132 kg Intake: Intake, IV Titration 172.167 Amount Furosemide 100 mg In 172.167 Sodium Chloride 0.9% 90 ml @ 10 MG/HR 10 mls/hr IV .Q10H [facility] Rx#: [id number] Oral 540 Output: Urine 700 2200 Other: Voiding Method External Catheter External Catheter - Exam Awake, alert oriented 3 Comfortable not in any acute distress Examination of the heart S1 and S2 Examination lungs bilateral breath sounds are heard Abdomen is soft morbidly obese Examination of lower extremity shows 3-4+ edema bilaterally with chronic skin changes ACUPRESSURE THERAPIST exam grossly intact - Labs CBC & Chem 7: 03/13/22 19:17 03/15/22 08:31 Labs: Abnormal Lab Results - Last 24 Hours (Table) 03/14/22 03/14/22 03/14/22 Range/Units 13:55 16:22 17:14 PT (9.0-12.0) sec INR (<1.2) Sodium 125 L 124 L (137-145) mmol/L Potassium (3.5-5.1) mmol/L Chloride 85 L (98-107) mmol/L BUN 62 H (7-17) mg/dL Creatinine 1.33 H (0.52-1.04) mg/dL Glucose 126 H (74-99) mg/dL Calcium (8.4-10.2) mg/dL Total Bilirubin 1.5 H (0.2-1.3) mg/dL Urine Blood Trace H (Negative) Ur Leukocyte Esterase Large H (Negative) Urine WBC 23 H (0-5) /hpf Ur Squamous Epith Cells 6 H (0-4) /hpf Urine Bacteria Occasional H (None) /hpf 03/15/22 03/15/22 Range/Units 08:31 08:31 PT 17.8 H (9.0-12.0) sec INR 1.8 H (<1.2) Sodium 124 L (137-145) mmol/L Potassium 3.2 L (3.5-5.1) mmol/L Chloride 86 L (98-107) mmol/L BUN 58 H (7-17) mg/dL Creatinine 1.23 H (0.52-1.04) mg/dL Glucose 143 H (74-99) mg/dL Calcium 8.2 L (8.4-10.2) mg/dL Total Bilirubin (0.2-1.3) mg/dL Urine Blood (Negative) Ur Leukocyte Esterase (Negative) Urine WBC (0-5) /hpf Ur Squamous Epith Cells (0-4) /hpf Urine Bacteria (None) /hpf Assessment and Plan Assessment: 1. Hypervolemic hyponatremia status post Samsca and currently being diuresed. Will continue with the Lasix drip. Hold Zaroxolyn as it can potentiate the hyponatremia 2. Acute kidney injury mostly cardiorenal. No evidence of urine retention. UA is benign. Ultrasound shows no evidence of hydronephrosis 3. Volume overload, currently being diuresed next and 4. Acute diastolic CHF EF greater than 55% on echocardiogram done in January 2021 5. Moderate to severe pulmonary hypertension 6. Acute hypoxic respiratory failure secondary to CHF and volume overload, currently being diuresed and improved 7. COPD 8. Morbid obesity Plan: Continue with the Lasix drip Hold Zaroxolyn as it can potentiate the hyponatremia Repeat tolvaptan Maintain salt and fluid restriction. [place] repeat labs in a.m.
--- NOTE | 2022-03-15 10:58 | P.PN ---
Subjective Progress Note Date: 03/15/22 Principal diagnosis: Fluid overload. Pulmonary consult dated 03/14/2022. 66-year-old female seen in the emergency department, on March 13. She apparently went to the ER, his of abnormal laboratory data, weakness, shortness of breath, and lower extremity edema. She was seen in the emergency room, by Dr. Thomas. She apparently was at the [facility], and left AGAINST MEDICAL ADVICE, to come to the [facility] ER. Apparently, according to the ER sonia, the patient went to the outside hospital initially because of epistaxis, and some abnormal laboratory data. The patient then took her private vehicle to the emergency department here, and apparently had a sodium of 124, potassium 3.2, INR of 6.3, BUN of 61, and creatinine 1.4. We saw the patient in room 358. The patient was on high flow nasal O2 at about 10-11 L. She typically uses oxygen at home at 5 L. She also has severe sleep apnea syndrome, and uses CPAP, which he uses every night, except she did not use it last night. The patient was mildly short of breath, with mild conversational dyspnea. She was in bed. She has significant lower extremity edema. She apparently has COPD, DVT, hypertension, factor V deficiency, pacemaker implantation, valvular heart disease, obesity, and sleep apnea syndrome. She does use CPAP for her sleep apnea. She sees my partner for that. She was a former smoker in the past. Her most recent pulmonary function tests, from our office, shows a mixed pattern of both obstruction and restriction. 0.9, hemoglobin 15, hematocrit 47.1, and platelet count 427,000. Sodium 125, potassium 3.4, chlorides 87, CO2 26, anion gap 12, BUN 62, and creatinine 1.27. Troponin was 0.025. N-terminal proBNP was elevated at 8570. Chest x-ray was consistent with fluid overload, and cardiomegaly. Progress note dated 03/15/2022. The patient feels better today. The patient is diuresing well. She's on Lasix drip at 10 mg an hour. She's getting oxygen at 10 L/m, via high flow nasal cannula. Clinically, the patient's breathing is improved. Her lower extremity edema is improved. 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 Today's labs include a PT of 17.8, INR 1.8, sodium 124, potassium 3.2, chlorides 86, CO2 27, E1 58, creatinine 1.23. Abdominal ultrasound showed a limited examination without evidence for obstructive uropathy. Objective - Vital Signs Vital signs: Vital Signs Temp 98.0 F 03/14/22 23:37 Pulse 84 03/15/22 08:08 Resp 16 03/15/22 04:00 BP 106/75 03/15/22 04:00 Pulse Ox 91 L 03/15/22 07:47 FiO2 Intake & Output 03/14/22 03/15/22 03/15/22 18:59 06:59 18:59 Intake Total 540 172.167 Output Total 700 2200 Balance -160 -2026.833 Weight 132 kg Intake: Intake, IV Titration 172.167 Amount Furosemide 100 mg In 172.167 Sodium Chloride 0.9% 90 ml @ 10 MG/HR 10 mls/hr IV .Q10H [facility] Rx#: [id number] Oral 540 Output: Urine 700 2200 Other: Voiding Method External Catheter External Catheter - Exam No acute distress, oriented 3. Currently on high flow nasal cannula, at 10 L. Saturations are 91%. HEENT examination is grossly unremarkable. Neck supple. Full range of motion. No adenopathy thyromegaly or neck vein distention. Cardiovascular examination reveals regular rhythm rate. S1-S2 normal. No S3 or S4. No discernible murmur noted. Heart sounds are distant. Heart rate 84 bpm. Lungs reveal mild scattered rhonchi. No wheezes. Mild bibasilar crackles. Rachele ath sounds equal bilaterally. Abdomen obese, soft, with bowel sounds. Extremities reveals significant bilateral lower extremity edema, at least 2+. No cyanosis or clubbing. Edema is improved. Skin is without rash or lesion. Neurologic examination is brief but nonfocal. - Labs CBC & Chem 7: 03/13/22 19:17 03/15/22 08:31 Labs: Abnormal Lab Results - Last 24 Hours (Table) 03/14/22 03/14/22 03/14/22 Range/Units 13:55 16:22 17:14 PT (9.0-12.0) sec INR (<1.2) Sodium 125 L 124 L (137-145) mmol/L Potassium (3.5-5.1) mmol/L Chloride 85 L (98-107) mmol/L BUN 62 H (7-17) mg/dL Creatinine 1.33 H (0.52-1.04) mg/dL Glucose 126 H (74-99) mg/dL Calcium (8.4-10.2) mg/dL Total Bilirubin 1.5 H (0.2-1.3) mg/dL Urine Blood Trace H (Negative) Ur Leukocyte Esterase Large H (Negative) Urine WBC 23 H (0-5) /hpf Ur Squamous Epith Cells 6 H (0-4) /hpf Urine Bacteria Occasional H (None) /hpf 03/15/22 03/15/22 Range/Units 08:31 08:31 PT 17.8 H (9.0-12.0) sec INR 1.8 H (<1.2) Sodium 124 L (137-145) mmol/L Potassium 3.2 L (3.5-5.1) mmol/L Chloride 86 L (98-107) mmol/L BUN 58 H (7-17) mg/dL Creatinine 1.23 H (0.52-1.04) mg/dL Glucose 143 H (74-99) mg/dL Calcium 8.2 L (8.4-10.2) mg/dL Total Bilirubin (0.2-1.3) mg/dL Urine Blood (Negative) Ur Leukocyte Esterase (Negative) Urine WBC (0-5) /hpf Ur Squamous Epith Cells (0-4) /hpf Urine Bacteria (None) /hpf Assessment and Plan Assessment: Shortness of breath with acute hypoxemic respiratory failure, likely related to underlying CHF, with a small component COPD. Obstructive sleep apnea syndrome, CPAP dependent. Secondary pulmonary hypertension, multifactorial, secondary to chronic heart and lung disease, sleep apnea syndrome, and restrictive lung disease, secondary to obesity. COPD, secondary to previous tobacco use. Restrictive lung disease secondary to obesity. Morbid obesity. Chronic hypoxemic respiratory failure. History of factor V deficiency. Prior history of DVT. History of hypertension. Status post pacemaker implantation. History of mitral valve disease. Plan: Plan dated 03/14/2022. The patient's labs, x-rays, and medications are reviewed. The patient's curren tly on Lasix and Zaroxolyn. The patient will also be placed on updrafts, and Symbicort. The patient's overall prognosis remains guarded. Patient will need to be on a low-sodium diet. The patient should have daily weights. The patient should use her CPAP device at nighttime. Additional recommendations and suggestions are forthcoming. Prognosis is guarded. Plan dated 03/15/2022. The patient continues on Lasix drip at 10 mg an hour. The patient's on 10 L high flow nasal O2. Labs, medications, and x-rays, are all reviewed. Additional recommendations and suggestions are forthcoming. The patient is negative about 2 L in the last 24 hours. Prognosis is certainly guarded. The patient continues on updrafts and Symbicort. Her lung disease appears to be relatively stable. We'll continue to follow make recommendations where appropriate. Prognosis is guarded. Time with Patient: Less than 30
--- NOTE | 2022-03-15 11:51 | P.PN ---
Subjective This is a pleasant 66-year-old female past medical history significant for complete heart block status post permanent pacemaker implantation 04/2020, chronic heart failure with preserved ejection fraction, mitral stenosis, hypertension, factor V Leiden, morbid obesity, COPD, severe pulmonary hypertension, DVT on coumadin. She follows in the office with Dr. Lopez. We have been asked to see in consultation for congestive heart failure. Patient pr esents emergency department with worsening shortness of breath, bilateral lower extremity edema, 40 pound weight gain within 2 months. Patient started on IV Lasix drip. Echocardiogram revealed EF 55-60%, moderate LVH, severe pulmonary hypertension, RVSP 64mmHg, moderate severe MR, mild aortic stenosis may be underestimated by paradoxical low flow low gradient. 03/15/22 Patient seen and examined at bedside, she states her breathing has improved. Her edema has slightly improved. Patient given Tolvaptan yesterday per nephrology. Patient with 2.9L urine output over 24 hours. She's currently maintained on IV Lasix drip, metoprolol succinate 50 mg daily, spironolactone 25 mg daily Sodium 124, potassium 3.2, BUN 58, serum creatinine 1.2. INR 1.8 PHYSICAL EXAMINATION Vitals: BP 15/66, heart rate 86, afebrile, oxygen saturations 91% on 9L high flow nasal cannula CONSTITUTIONAL: Short of breath HEENT: Head is normocephalic. Pupils are equal, round. Sclerae anicteric. Mucous membranes of the mouth are moist. + JVD present . No carotid bruit. CHEST EXAMINATION: Lungs are crackles bilaterally to auscultation. No chest wall tenderness is noted on palpation or with deep breathing. HEART EXAMINATION: Regular rate and rhythm. S1, S2 heard. Murmur noted at apex. ABDOMEN: Soft, nontender. Positive bowel sounds. EXTREMITIES: 3+ bilateral lower extremity edema NEUROLOGIC EXAMINATION: Patient is awake, alert and oriented x3. ASSESSMENT Acute on chronic heart failure with preserved ejection fraction, EF on echo 12/2021 55% Severe pulmonary hypertension Supratherapeutic INR, improved Hypokalemia Hyponatremia Acute kidney injury Complete heart block status post permanent pacemaker implantation 04/2020 Mitral stenosis Hypertension Factor V Leiden Morbid obesity COPD History of DVT on coumadin PLAN Continue IV Lasix Drip Monitor I/Os, daily weights renal function and electrolytes Restart coumadin given INR 1.8. Metoprolol succinate 50mg daily Nephrology following, appreciate recommendations Further recommendations based on clinical course Nurse practitioner note has been reviewed by physician. Signing provider agrees with the documented findings, assessment, and plan of care. Objective - Vital Signs Vital signs: Vital Signs Temp 98.0 F 03/14/22 23:37 Pulse 84 03/15/22 08:08 Resp 16 03/15/22 04:00 BP 106/75 03/15/22 04:00 Pulse Ox 91 L 03/15/22 07:47 FiO2 Intake & Output 03/14/22 03/15/22 03/15/22 18:59 06:59 18:59 Intake Total 540 172.167 Output Total 700 2200 Balance -160 -2026.833 Weight 132 kg Intake: Intake, IV Titration 172.167 Amount Furosemide 100 mg In 172.167 Sodium Chloride 0.9% 90 ml @ 10 MG/HR 10 mls/hr IV .Q10H [facility] Rx#: [id number] Oral 540 Output: Urine 700 2200 Other: Voiding Method External Catheter External Catheter - Labs CBC & Chem 7: 03/13/22 19:17 03/15/22 08:31 Labs: Abnormal Lab Results - Last 24 Hours (Table) 03/14/22 03/14/22 03/14/22 Range/Units 09:06 13:55 16:22 Sodium 125 L 125 L 124 L (137-145) mmol/L Potassium 3.4 L (3.5-5.1) mmol/L Chloride 87 L 85 L (98-107) mmol/L BUN 62 H 62 H (7-17) mg/dL Creatinine 1.27 H 1.33 H (0.52-1.04) mg/dL Glucose 114 H 126 H (74-99) mg/dL Total Bilirubin 1.7 H 1.5 H (0.2-1.3) mg/dL Urine Blood (Negative) Ur Leukocyte Esterase (Negative) Urine WBC (0-5) /hpf Ur Squamous Epith Cells (0-4) /hpf Urine Bacteria (None) /hpf 03/14/22 Range/Units 17:14 Sodium (137-145) mmol/L Potassium (3.5-5.1) mmol/L Chloride (98-107) mmol/L BUN (7-17) mg/dL Creatinine (0.52-1.04) mg/dL Glucose (74-99) mg/dL Total Bilirubin (0.2-1.3) mg/dL Urine Blood Trace H (Negative) Ur Leukocyte Esterase Large H (Negative) Urine WBC 23 H (0-5) /hpf Ur Squamous Epith Cells 6 H (0-4) /hpf Urine Bacteria Occasional H (None) /hpf
[2022-03-15] MEDS: POTASSIUM CHLORIDE ER 20 MEQ TAB.ER PO SCH ×3 (12:14→17:17)
[2022-03-15] MEDS ORDERED: WARFARIN 5 MG TAB PO ONE (18:00)
--- NOTE | 2022-03-15 18:14 | P.PN ---
Progress Note - Text Progress Note Date: 03/15/22 Chief Complaint: Epistaxis This is a pleasant 66-year-old patient, follows with Dr. Mike Garcia. Chronic stable medical conditions include COPD, hypertension, factor V Leyden insufficiency, DVT in the left leg 5 years ago, home oxygen 5 L, pacemaker,. Patient visits her . Recently has been using walker. For about 4 days patient been having some intermittent epistaxis. Patient then became short of breath. Shaky weak. Normally has a bowel movement every other day. Last bowel movement was 4 days ago. No fever no chills. A slight cough. Patient rundown of the [facility] [facility]. Patient left AMA from there and decided to him to our ER. Patient's INR at the other hospital was 6.3. Sodium was low at 124. In abnormal renal function. Patient did give 2.5 mg vitamin K. Admitted with Coumadin toxicity. Received vitamin K. Acute COPD exacerbation, acute CHF exacerbation. Started on bronchodilators. IV Lasix drip. March 15: Laying in bed. GERD urine output. Breathing a bit better. Eating some. Over 2 L negative fluid balance Active Medications Albuterol/Ipratropium (Ipratropium-Albuterol 3 Ml Neb) 3 ml INHALATION RT-QID [facility] Last Admin: 03/15/22 15:18 Dose: 3 ml Albuterol/Ipratropium (Ipratropium-Albuterol 3 Ml Neb) 3 ml INHALATION RT-Q2H PRN PRN Reason: Shortness Of Breath Or Wheezing Budesonide/Formoterol Fumarate (Symbicort 160-4.5 Mcg Inhaler) 2 puff INHALATION RT-BID [facility] Last Admin: 03/15/22 07:46 Dose: 2 puff Escitalopram Oxalate (Escitalopram 10 Mg Tab) 10 mg PO DAILY [facility] Last Admin: 03/15/22 09:51 Dose: 10 mg Furosemide 100 mg/ Sodium (Chloride) 100 mls @ 10 mls/hr IV .Q10H [facility] Last Admin: 03/15/22 15:50 Dose: 10 mg/hr, 10 mls/hr Metoprolol Succinate (Metoprolol Succinate (Er) 50 Mg Tab.Er.24h) 50 mg PO DAILY [facility] Last Admin: 03/15/22 09:51 Dose: 50 mg Miscellaneous Information (Potassium Replacement Protocol 1 Each Misc) 1 each MISCELLANE DAILY PRN; Protocol PRN Reason: Per Protocol Miscellaneous Information (Warfarin Per Pharmacy) 1 each MISCELLANE DIRECTED PRN; Protocol PRN Reason: Per Protocol Spironolactone (Spironolactone 25 Mg Tab) 25 mg PO DAILY [facility] Last Admin: 03/15/22 09:51 Dose: 25 mg Past medical history to include: COPD, DVT, factor V Leyden insufficiency, home oxygen 5 L. A sneaker. Mitral valve issues. Social history: Patient smoked off and on for about 25 years stopped about 9 years ago. Averaged a pack a day. No alcohol. . Family history: Congestive heart failure. Physical examination: VITAL SIGNS: 98.6, 86, 16, 105/66, 91% on 9 L GENERAL: reclining in bed, awake tired. EYES: Pupils equal. Conjunctiva normal. HEENT: External appearance of nose and ears normal, oral cavity grossly normal. NECK: JVD not raised; masses not palpable. HEART: First and second heart sounds are normal; some edema. LUNGS: Respiratory rate increased; diminished breath sounds. ABDOMEN: Soft, nontender, liver spleen not palpable, no masses palpable. PSYCH: Alert and oriented x3; mood and affect normal. MUSCULOSKELETAL:No Clubbing/cyanosis;muscles-grossly intact. Evidence of OA INVESTIGATIONS, reviewed in the clinical context: March 15: Sodium 124 potassium 3.2 BUN 58 creatinine 1.23 March 14: Sodium 125 potassium 3.4 BUN 62 creatinine 1.27 Admission labs: White count 14.9 hemoglobin 15.1 platelets 427 INR 4.2 sodium 124 potassium 3.2 BUN 65 creatinine 1.47 proBNP 8570 troponin I 0.025 EKG tracing personally reviewed by me-ventricle paced rhythm Chest x-ray film personally reviewed by me-pacemaker. Hyperinflation. Assessment and plan: -Coumadin toxicity with bleeding Patient received vitamin K 2.5 mg. Follow INR -Acute COPD exacerbation in the previous smoker: Slow to respond DuoNeb 4 times a day. Symbicort 03/14/1960/4.52 puffs twice a day - acute congestive heart failure exacerbation: Slow to respond Lasix drip. Follow I's and O's. -Depression otherwise specified Lexapro 10 mg a day -Essential hypertension Norvasc 10 mg daily, Lopressor, -Morbid obesity BMI 51.5 Weight loss measures -Severe hyponatremia: Slow to respond Fluid restriction. Check serum osmolality. -Suspect underlying [facility] Consulting nephrology. Renal ultrasound. Continue Lasix drip. Bronchodilators. Discussed with patient. Follow electrolytes closely. Serum osmolality. Consult nephrology
[2022-03-15] MEDS: BUDESONIDE 1 MG/2 ML NEBU INHALATION SCH (19:27)
[2022-03-15] MEDS: FORMOTEROL FUMARATE 20 MCG/2 ML NEBU INHALATION SCH (19:27)
[2022-03-16] MEDS: FUROSEMIDE 100 MG in SODIUM CHLORIDE 0.9% 90 ML IV SCH (00:53)
[2022-03-16 07:06] LABS: INR 1.6 (<1.2); Prothrombin Time 16.5 sec (9.0-12.0)
[2022-03-16 07:12] LABS: Calcium 8.7 mg/dL (8.4-10.2); Magnesium 2.1 mg/dL (1.6-2.3); Potassium 3.5 mmol/L (3.5-5.1)
[2022-03-16] MEDS: IPRATROPIUM-ALBUTEROL 3 ML NEB INHALATION SCH ×4 (08:07→19:59)
[2022-03-16] MEDS: BUDESONIDE 1 MG/2 ML NEBU INHALATION SCH ×2 (08:07→19:59)
[2022-03-16] MEDS: FORMOTEROL FUMARATE 20 MCG/2 ML NEBU INHALATION SCH ×2 (08:07→19:59)
[2022-03-16] MEDS: ESCITALOPRAM 10 MG TAB PO SCH (09:20)
[2022-03-16] MEDS: SPIRONOLACTONE 25 MG TAB PO SCH (09:20)
[2022-03-16] MEDS: METOPROLOL SUCCINATE (ER) 50 MG TAB.ER.24H PO SCH (09:20)
--- NOTE | 2022-03-16 10:09 | P.PN ---
Subjective Patient is seen for follow-up for acute kidney injury and severe volume overload and hyponatremia. She is currently maintained on Lasix drip. Patient has had good urine output. No urine retention noted Respiratory status has improved. And patient states overall she is feeling much better. Sodium improved to 126 post Samsca Serum creatinine down to 1.17 today Objective - Vital Signs Vital signs: Vital Signs Temp 98.2 F 03/16/22 08:00 Pulse 90 03/16/22 08:41 Resp 18 03/16/22 08:00 BP 112/76 03/16/22 08:00 Pulse Ox 91 L 03/16/22 08:09 FiO2 Intake & Output 03/15/22 03/16/22 03/16/22 18:59 06:59 18:59 Intake Total 280 90.5 120 Output Total 800 1700 900 Balance -520 -1609.5 -780 Intake: Intake, IV Titration 100 90.5 Amount Furosemide 100 mg In 100 90.5 Sodium Chloride 0.9% 90 ml @ 10 MG/HR 10 mls/hr IV .Q10H [facility] Rx#: [id number] Oral 180 120 Output: Urine 800 1700 900 Other: Voiding Method External Catheter External Catheter - Exam Awake, alert oriented 3 Comfortable not in any acute distress Examination of the heart S1 and S2 Examination lungs bilateral breath sounds are heard Abdomen is soft morbidly obese Examination of lower extremity shows 3-4+ edema bilaterally with chronic skin changes TOP FORMER exam grossly intact - Labs CBC & Chem 7: 03/13/22 19:17 03/16/22 06:45 Labs: Abnormal Lab Results - Last 24 Hours (Table) 03/15/22 03/16/22 03/16/22 Range/Units 14:54 06:45 06:45 PT 16.5 H (9.0-12.0) sec INR 1.6 H (<1.2) Sodium 125 L 126 L (137-145) mmol/L Chloride 87 L (98-107) mmol/L BUN 57 H (7-17) mg/dL Creatinine 1.17 H (0.52-1.04) mg/dL Glucose 105 H (74-99) mg/dL Osmolality 277 L (280-301) mosm/kg Assessment and Plan Assessment: 1. Hypervolemic hyponatremia status post Samsca and currently being diuresed. Will continue with the Lasix drip. Hold Zaroxolyn as it can potentiate the hyponatremia. Receiving Samsca almost daily. 2. Acute kidney injury mostly cardiorenal. No evidence of urine retention. UA is benign. Ultrasound shows no evidence of hydronephrosis 3. Volume overload, currently being diuresed next and 4. Acute diastolic CHF EF greater than 55% on echocardiogram done in January 2021 5. Moderate to severe pulmonary hypertension 6. Acute hypoxic respiratory failure secondary to CHF and volume overload, currently being diuresed and improved 7. COPD 8. Morbid obesity Plan: Repeat Samsca today DC Lasix drip and switch to IV push Lasix Repeat labs in a.m.
[2022-03-16] MEDS ORDERED: TOLVAPTAN 15 MG 1/2 TABLET PO ONE (10:30)
--- NOTE | 2022-03-16 13:02 | P.PN ---
Subjective This is a pleasant 66-year-old female past medical history significant for complete heart block status post permanent pacemaker implantation 04/2020, chronic heart failure with preserved ejection fraction, mitral stenosis, hypertension, factor V Leiden, morbid obesity, COPD, severe pulmonary hypertension, DVT on coumadin. She follows in the office with Dr. Loepz. We have been asked to see in consultation for congestive heart failure. Patient pr esents emergency department with worsening shortness of breath, bilateral lower extremity edema, 40 pound weight gain within 2 months. Patient started on IV Lasix drip. Echocardiogram revealed EF 55-60%, moderate LVH, severe pulmonary hypertension, RVSP 64mmHg, moderate severe MR, mild aortic stenosis may be underestimated by paradoxical low flow low gradient. 03/16/22 Patient seen and examined at bedside, she states her breathing has improved. Her edema has slightly improved. Patient given Tolvaptan 03/14 per nephrology. Patient with 2.5L urine output over 24 hours. She's currently transitioned to IV Lasix 60mg Q8hr per nephrology, metoprolol succinate 50 mg daily, spironolactone 25 mg daily, Coumadin Sodium 126, potassium 3.5, BUN 57, serum creatinine 1.17. INR 1.6 PHYSICAL EXAMINATION Vitals Reviewed CONSTITUTIONAL: No acute distress HEENT: Head is normocephalic. Pupils are equal, round. Sclerae anicteric. Mucous membranes of the mouth are moist. + JVD present . No carotid bruit. CHEST EXAMINATION: Lungs are crackles bilaterally to auscultation. No chest wall tenderness is noted on palpation or with deep breathing. HEART EXAMINATION: Regular rate and rhythm. S1, S2 heard. Murmur noted at apex. ABDOMEN: Soft, nontender. Positive bowel sounds. EXTREMITIES: 2+ bilateral lower extremity edema NEUROLOGIC EXAMINATION: Patient is awake, alert and oriented x3. ASSESSMENT Acute on chronic heart failure with preserved ejection fraction, EF on echo 12/2021 55% Severe pulmonary hypertension Supratherapeutic INR, improved Hypokalemia Hyponatremia Acute kidney injury Complete heart block status post permanent pacemaker implantation 04/2020 Mitral stenosis Hypertension Factor V Leiden Morbid obesity COPD History of DVT on coumadin PLAN Continue Diuresis, transitioned to IV 60mg Q8hr per nephrology Monitor I/Os, daily weights renal function and electrolytes Continue coumadin Metoprolol succinate 50mg daily Nephrology following, appreciate recommendations Further recommendations based on clinical course Nurse practitioner note has been reviewed by physician. Signing provider agrees with the documented findings, assessment, and plan of care. Objective - Vital Signs Vital signs: Vital Signs Temp 98.2 F 03/16/22 08:00 Pulse 74 03/16/22 12:16 Resp 18 03/16/22 08:00 BP 112/76 03/16/22 08:00 Pulse Ox 91 L 03/16/22 08:09 FiO2 Intake & Output 03/15/22 03/16/22 03/16/22 18:59 06:59 18:59 Intake Total 280 90.5 120 Output Total 800 1700 900 Balance -520 -1609.5 -780 Intake: Intake, IV Titration 100 90.5 Amount Furosemide 100 mg In 100 90.5 Sodium Chloride 0.9% 90 ml @ 10 MG/HR 10 mls/hr IV .Q10H [facility] Rx#: [id number] Oral 180 120 Output: Urine 800 1700 900 Other: Voiding Method External Catheter External Catheter - Labs CBC & Chem 7: 03/13/22 19:17 03/16/22 06:45 Labs: Abnormal Lab Results - Last 24 Hours (Table) 03/15/22 03/16/22 03/16/22 Range/Units 14:54 06:45 06:45 PT 16.5 H (9.0-12.0) sec INR 1.6 H (<1.2) Sodium 125 L 126 L (137-145) mmol/L Chloride 87 L (98-107) mmol/L BUN 57 H (7-17) mg/dL Creatinine 1.17 H (0.52-1.04) mg/dL Glucose 105 H (74-99) mg/dL Osmolality 277 L (280-301) mosm/kg
--- NOTE | 2022-03-16 13:15 | P.PN ---
Subjective Progress Note Date: 03/16/22 Principal diagnosis: Fluid overload. Pulmonary consult dated 03/14/2022. 66-year-old female seen in the emergency department, on March 13. She apparently went to the ER, his of abnormal laboratory data, weakness, shortness of breath, and lower extremity edema. She was seen in the emergency room, by Dr. Thomas. She apparently was at the [facility], and left AGAINST MEDICAL ADVICE, to come to the [facility] ER. Apparently, according to the ER sonia, the patient went to the outside hospital initially because of epistaxis, and some abnormal laboratory data. The patient then took her private vehicle to the emergency department here, and apparently had a sodium of 124, potassium 3.2, INR of 6.3, BUN of 61, and creatinine 1.4. We saw the patient in room 358. The patient was on high flow nasal O2 at about 10-11 L. She typically uses oxygen at home at 5 L. She also has severe sleep apnea syndrome, and uses CPAP, which he uses every night, except she did not use it last night. The patient was mildly short of breath, with mild conversational dyspnea. She was in bed. She has significant lower extremity edema. She apparently has COPD, DVT, hypertension, factor V deficiency, pacemaker implantation, valvular heart disease, obesity, and sleep apnea syndrome. She does use CPAP for her sleep apnea. She sees my partner for that. She was a former smoker in the past. Her most recent pulmonary function tests, from our office, shows a mixed pattern of both obstruction and restriction. 0.9, hemoglobin 15, hematocrit 47.1, and platelet count 427,000. Sodium 125, potassium 3.4, chlorides 87, CO2 26, anion gap 12, BUN 62, and creatinine 1.27. Troponin was 0.025. N-terminal proBNP was elevated at 8570. Chest x-ray was consistent with fluid overload, and cardiomegaly. Progress note dated 03/15/2022. The patient feels better today. The patient is diuresing well. She's on Lasix drip at 10 mg an hour. She's getting oxygen at 10 L/m, via high flow nasal cannula. Clinically, the patient's breathing is improved. Her lower extremity edema is improved. 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 Today's labs include a PT of 17.8, INR 1.8, sodium 124, potassium 3.2, chlorides 86, CO2 27, E1 58, creatinine 1.23. Abdominal ultrasound showed a limited examination without evidence for obstructive uropathy. Progress note dated 03/16/2022. The patient is again doing better today than she did yesterday. She continues on a Lasix drip at 10 mg an hour. She is receiving oxygen at 10 L/m, via high flow nasal cannula. Her saturations are in the low 90s. Clinically she feels better. She is in good spirits. PT 16.5, INR 1.6. Sodium 126, potassium 3.5, chloride 87, CO2 29, BUN 57, with creatinine 1.17. Objective - Vital Signs Vital signs: Vital Signs Temp 98.2 F 03/16/22 08:00 Pulse 74 03/16/22 12:16 Resp 18 03/16/22 08:00 BP 112/76 03/16/22 08:00 Pulse Ox 91 L 03/16/22 08:09 FiO2 Intake & Output 03/15/22 03/16/22 03/16/22 18:59 06:59 18:59 Intake Total 280 90.5 120 Output Total 800 1700 900 Balance -520 -1609.5 -780 Intake: Intake, IV Titration 100 90.5 Amount Furosemide 100 mg In 100 90.5 Sodium Chloride 0.9% 90 ml @ 10 MG/HR 10 mls/hr IV .Q10H [facility] Rx#: [id number] Oral 180 120 Output: Urine 800 1700 900 Other: Voiding Method External Catheter External Catheter - Exam No acute distress, oriented 3. Currently on high flow nasal cannula, at 10 L. Saturations are 92%. HEENT examination is grossly unremarkable. Neck supple. Full range of motion. No adenopathy thyromegaly or neck vein distention. Cardiovascular examination reveals regular rhythm rate. S1-S2 normal. No S3 or S4. No discernible murmur noted. Heart sounds are distant. Heart rate 74 bpm. Lungs reveal mild scattered rhonchi. No wheezes. Mild bibasilar crackles. Breath sounds equal bilaterally. Abdomen obese, soft, with bowel sounds. Extremities reveals significant bilateral lower extremity edema, at least 2+. No cyanosis or clubbing. Edema is improved. Skin is without rash or lesion. Neurologic examination is brief but nonfocal. - Labs CBC & Chem 7: 03/13/22 19:17 03/16/22 06:45 Labs: Abnormal Lab Results - Last 24 Hours (Table) 03/15/22 03/16/22 03/16/22 Range/Units 14:54 06:45 06:45 PT 16.5 H (9.0-12.0) sec INR 1.6 H (<1.2) Sodium 125 L 126 L (137-145) mmol/L Chloride 87 L (98-107) mmol/L BUN 57 H (7-17) mg/dL Creatinine 1.17 H (0.52-1.04) mg/dL Glucose 105 H (74-99) mg/dL Osmolality 277 L (280-301) mosm/kg Assessment and Plan Assessment: Shortness of breath with acute hypoxemic respiratory failure, likely related to underlying CHF, with a small component COPD. Obstructive sleep apnea syndrome, CPAP dependent. Secondary pulmonary hypertension, multifactorial, secondary to chronic heart and lung disease, sleep apnea syndrome, and restrictive lung disease, secondary to obesity. COPD, secondary to previous tobacco use. Restrictive lung disease secondary to obesity. Morbid obesity. Chronic hypoxemic respiratory failure. History of factor V deficiency. Prior history of DVT. History of hypertension. Status post pacemaker implantation. History of mitral valve disease. Plan: Plan dated 03/14/2022. The patient's labs, x-rays, and medications are reviewed. The patient's currently on Lasix and Zaroxolyn. The patient will also be placed on updrafts, and Symbicort. The patient's overall prognosis remains guarded. Patient will need to be on a low-sodium diet. The patient should have daily weights. The patient should use her CPAP device at nighttime. Additional recommendations and suggestions are forthcoming. Prognosis is guarded. Plan dated 03/15/2022. The patient continues on Lasix drip at 10 mg an hour. The patient's on 10 L high flow nasal O2. Labs, medications, and x-rays, are all reviewed. Additi onal recommendations and suggestions are forthcoming. The patient is negative about 2 L in the last 24 hours. Prognosis is certainly guarded. The patient continues on updrafts and Symbicort. Her lung disease appears to be relatively stable. We'll continue to follow make recommendations where appropriate. Prognosis is guarded. Plan dated 03/16/2022. The patient continues to improve, though improvement has been slow. Clinically, she looks much better. Her lower extremity edema is much improved. She continues on Lasix drip. She's receiving oxygen at 10 L/m via high flow nasal cannula. Typically, she uses 5 L at home. Labs, x-rays, and medications are reviewed. Prognosis is guarded. We will continue to follow the patient and make recommendations where appropriate. Time with Patient: Less than 30
[2022-03-16] MEDS: FUROSEMIDE 10 MG/ML 10 ML VIAL IV SCH ×2 (14:07→20:19)
--- NOTE | 2022-03-16 16:54 | P.PN ---
Progress Note - Text Progress Note Date: 03/16/22 Chief Complaint: Epistaxis This is a pleasant 66-year-old patient, follows with Dr. Mike Garcia. Chronic stable medical conditions include COPD, hypertension, factor V Leyden insufficiency, DVT in the left leg 5 years ago, home oxygen 5 L, pacemaker,. Patient visits her . Recently has been using walker. For about 4 days patient been having some intermittent epistaxis. Patient then became short of breath. Shaky weak. Normally has a bowel movement every other day. Last bowel movement was 4 days ago. No fever no chills. A slight cough. Patient rundown of the [facility]. Patient left AMA from there and decided to him to our ER. Patient's INR at the other hospital was 6.3. Sodium was low at 124. In abnormal renal function. Patient did give 2.5 mg vitamin K. Admitted with Coumadin toxicity. Received vitamin K. Acute COPD exacerbation, acute CHF exacerbation. Started on bronchodilators. IV Lasix drip. March 15: Laying in bed. GERD urine output. Breathing a bit better. Eating some. Over 2 L negative fluid balance March 16: Patient on IV Lasix 60 mg every 8.. Edema coming down. On 10L of nasal cannula. Home oxygen 5 L. Breathing a bit better. Active Medications Albuterol/Ipratropium (Ipratropium-Albuterol 3 Ml Neb) 3 ml INHALATION RT-QID [facility] Last Admin: 03/16/22 16:36 Dose: 3 ml Albuterol/Ipratropium (Ipratropium-Albuterol 3 Ml Neb) 3 ml INHALATION RT-Q2H PRN PRN Reason: Shortness Of Breath Or Wheezing Budesonide (Budesonide 1 Mg/2 Ml Nebu) 1 mg INHALATION RT-BID [facility] Last Admin: 03/16/22 08:07 Dose: 1 mg Escitalopram Oxalate (Escitalopram 10 Mg Tab) 10 mg PO DAILY [facility] Last Admin: 03/16/22 09:20 Dose: 10 mg Formoterol Fumarate (Formoterol Fumarate 20 Mcg/2 Ml Nebu) 20 mcg INHALATION RT-BID [facility] Last Admin: 03/16/22 08:07 Dose: 20 mcg Furosemide (Furosemide 10 Mg/Ml 10 Ml Vial) 60 mg IV Q8HR [facility] Last Admin: 03/16/22 14:07 Dose: 60 mg Metoprolol Succinate (Metoprolol Succinate (Er) 50 Mg Tab.Er.24h) 50 mg PO DAILY [facility] Last Admin: 03/16/22 09:20 Dose: 50 mg Miscellaneous Information (Potassium Replacement Protocol 1 Each Misc) 1 each MISCELLANE DAILY PRN; Protocol PRN Reason: Per Protocol Miscellaneous Information (Warfarin Per Pharmacy) 1 each MISCELLANE DIRECTED PRN; Protocol PRN Reason: Per Protocol Spironolactone (Spironolactone 25 Mg Tab) 25 mg PO DAILY [facility] Last Admin: 03/16/22 09:20 Dose: 25 mg Warfarin Sodium (Warfarin 5 Mg Tab) 5 mg PO ONCE@1800 ONE Stop: 03/16/22 18:01 Past medical history to include: COPD, DVT, factor V Leyden insufficiency, home oxygen 5 L. A sneaker. Mitral valve issues. Social history: Patient smoked off and on for about 25 years stopped about 9 years ago. Averaged a pack a day. No alcohol. . Family history: Congestive heart failure. Physical examination: VITAL SIGNS: 98, 73, 18, 1 27 x 72, 92% on 10 L GENERAL: reclining in bed, awake EYES: Pupils equal. Conjunctiva normal. HEENT: External appearance of nose and ears normal, oral cavity grossly normal. NECK: JVD not raised; masses not palpable. HEART: First and second heart sounds are normal; decreased edema. LUNGS: Respiratory rate increased; diminished breath sounds. ABDOMEN: Soft, nontender, liver spleen not palpable, no masses palpable. PSYCH: Alert and oriented x3; mood and affect normal. MUSCULOSKELETAL:No Clubbing/cyanosis;muscles-grossly intact. Evidence of OA INVESTIGATIONS, reviewed in the clinical context: March 16: Sodium 126 potassium 3.5 creatinine 1.17 serum osmolality 277 March 15: Sodium 124 potassium 3.2 BUN 58 creatinine 1.23 March 14: Sodium 125 potassium 3.4 BUN 62 creatinine 1.27 Admission labs: White count 14.9 hemoglobin 15.1 platelets 427 INR 4.2 sodium 124 potassium 3.2 BUN 65 creatinine 1.47 proBNP 8570 troponin I 0.025 EKG tracing personally reviewed by me-ventricle paced rhythm Chest x-ray film personally reviewed by me-pacemaker. Hyperinflation. Assessment and plan: -Coumadin toxicity with bleeding Patient received vitamin K 2.5 mg. Follow INR -Acute hypoxic respiratory failure from COPD exacerbation and pulmonary edema Currently on 10 L nasal cannula -Chronic hypoxic is pending failure from underlying COPD On 5 L of oxygen at home -Acute COPD exacerbation in the previous smoker: Slow to respond DuoNeb 4 times a day. Nebulized Pulmicort and Perforomist. - acute congestive heart failure exacerbation: Slow to respond Lasix drip changed to 60 mg every 8. Follow I's and O's. -Depression otherwise specified Lexapro 10 mg a day -Essential hypertension Norvasc 10 mg daily, Lopressor, -Morbid obesity BMI 51.5 Weight loss measures -Severe hyponatremia, hypoosmolar: Slow to respond Fluid restriction increased to 1500 mL a day. Given Samsca -Acute kidney injury mostly cardiorenal. Follow with nephrology On IV Lasix 60 mg every 8. Increase fluid restriction to 1500 mL a day. Discussed with patient. Received Samsca. Continue bronchodilators and Pulmicort and Perforomist.
[2022-03-16] MEDS ORDERED: WARFARIN 5 MG TAB PO ONE (18:00)
[2022-03-17] MEDS: FORMOTEROL FUMARATE 20 MCG/2 ML NEBU INHALATION SCH ×2 (07:40→20:36)
[2022-03-17] MEDS: IPRATROPIUM-ALBUTEROL 3 ML NEB INHALATION SCH ×4 (07:40→20:36)
[2022-03-17] MEDS: BUDESONIDE 1 MG/2 ML NEBU INHALATION SCH ×2 (07:48→20:36)
[2022-03-17] MEDS: ESCITALOPRAM 10 MG TAB PO SCH (09:05)
[2022-03-17] MEDS: METOPROLOL SUCCINATE (ER) 50 MG TAB.ER.24H PO SCH (09:05)
[2022-03-17] MEDS: SPIRONOLACTONE 25 MG TAB PO SCH (09:05)
[2022-03-17] MEDS: FUROSEMIDE 10 MG/ML 10 ML VIAL IV SCH ×3 (09:05→23:37)
[2022-03-17 09:39] LABS: INR 2.1 (<1.2); Prothrombin Time 20.6 sec (9.0-12.0)
[2022-03-17 09:55] LABS: Calcium 8.6 mg/dL (8.4-10.2); Magnesium 2.2 mg/dL (1.6-2.3)
--- NOTE | 2022-03-17 10:32 | P.PN ---
Subjective Patient is seen in follow-up for acute kidney injury. Renal function is stable. Nonoliguric. On IV Lasix. On 9 L high flow cannula. Blood pressure stable. No vomiting or diarrhea. Oral intake fair. Vital signs are stable. General: Awake. No acute distress. HEENT: Head exam is unremarkable. On nasal cannula. LUNGS: Breath sounds decreased. HEART: Rate and Rhythm are regular. ABDOMEN: Soft, no distention. EXTREMITITES: 1+ edema. Objective - Vital Signs Vital signs: Vital Signs Temp 97.5 F L 03/17/22 09:00 Pulse 76 03/17/22 09:00 Resp 18 03/17/22 09:00 BP 107/70 03/17/22 09:00 Pulse Ox 98 03/17/22 09:00 FiO2 Intake & Output 03/16/22 03/17/22 03/17/22 18:59 06:59 18:59 Intake Total 120 100 236 Output Total 1750 750 Balance -1630 -650 236 Intake: Oral 120 100 236 Output: Urine 1750 750 Other: Voiding Method External Catheter # Voids 2 - Labs CBC & Chem 7: 03/13/22 19:17 03/17/22 09:08 Labs: Abnormal Lab Results - Last 24 Hours (Table) 03/17/22 03/17/22 Range/Units 09:08 09:08 PT 20.6 H (9.0-12.0) sec INR 2.1 H (<1.2) Sodium 128 L (137-145) mmol/L Potassium 3.0 L (3.5-5.1) mmol/L Chloride 84 L (98-107) mmol/L Carbon Dioxide 33 H (22-30) mmol/L BUN 58 H (7-17) mg/dL Creatinine 1.17 H (0.52-1.04) mg/dL Glucose 102 H (74-99) mg/dL Assessment and Plan Plan: Assessment: 1. Acute kidney injury mostly prerenal secondary to cardiorenal syndrome. UA benign. No hydronephrosis noted on kidney ultrasound. Renal function stable. Creatinine 1.17 today. 2. Volume overload. 3. Acute on chronic diastolic CHF with mild to moderate tricuspid regurgitation and severe pulmonary hypertension. 4. Hypervolemic hyponatremia. Has received Samsca this admission. Better. 5. Obesity. 6. Acute hypoxic respiratory failure secondary to volume overload. 7. Hypokalemia from diuresis. Magnesium normal. Plan: Maintain IV Lasix. Replace potassium. Maintain low-salt diet and fluid restriction. Avoid nephrotoxins. Repeat Samsca today. Repeat labs in the morning.
--- NOTE | 2022-03-17 11:06 | P.PN ---
Subjective Progress Note Date: 03/17/22 This is a pleasant 66-year-old female past medical history significant for complete heart block status post permanent pacemaker implantation 04/2020, chronic heart failure with preserved ejection fraction, mitral stenosis, hypertension, factor V Leiden, morbid obesity, COPD, severe pulmonary hypertension, DVT on coumadin. She follows in the office with Dr. Lopez. We have been asked to see in consultation for congestive heart failure. Patient presents emergency department with worsening shortness of breath, bilateral lower extremity edema, 40 pound weight gain within 2 months. Patient started on IV Lasix drip. Echocardiogram revealed EF 55-60%, moderate LVH, severe pulmonary hypertension, RVSP 64mmHg, moderate severe MR, mild aortic stenosis may be underestimated by paradoxical low flow low gradient. 03/16/22 Patient seen and examined at bedside, she states her breathing has improved. Her edema has slightly improved. Patient given Tolvaptan 03/14 per nephrology. Patient with 2.5L urine output over 24 hours. She's currently transitioned to IV Lasix 60mg Q8hr per nephrology, metoprolol succinate 50 mg daily, spironolactone 25 mg daily, Coumadin Sodium 126, potassium 3.5, BUN 57, serum creatinine 1.17. INR 1.6 03/17/2022 Patient seen and examined this morning. Patient is sitting up in the chair. She denies chest pain or pressure. She reports improvement in her breathing. She also reports slight improvement in her lower extremity edema. She has been evaluated by nephrology this morning who is recommending to continue with the current dose of IV Lasix. Vital signs are stable. Blood pressure 107/70. She is on 9 L nasal cannula with oxygen saturations greater than 92%. PHYSICAL EXAMINATION Vitals Reviewed CONSTITUTIONAL: No acute distress HEENT: Head is normocephalic. Pupils are equal, round. Sclerae anicteric. Mucous membranes of the mouth are moist. + JVD present . No carotid bruit. CHEST EXAMINATION: Lungs with expiratory wheezing noted on auscultation. No chest wall tenderness is noted on palpation or with deep breathing. HEART EXAMINATION: Regular rate and rhythm. S1, S2 heard. Murmur noted at apex. ABDOMEN: Soft, nontender. Positive bowel sounds. EXTREMITIES: 2+ bilateral lower extremity edema NEUROLOGIC EXAMINATION: Patient is awake, alert and oriented x3. ASSESSMENT Acute on chronic heart failure with preserved ejection fraction, EF on echo 12/2021 55% Severe pulmonary hypertension Supratherapeutic INR, improved Hypokalemia Hyponatremia Acute kidney injury Complete heart block status post permanent pacemaker implantation 04/2020 Mitral stenosis Hypertension Factor V Leiden Morbid obesity COPD History of DVT on coumadin PLAN Continue current cardiac medications Wean oxygen as tolerated Continue IV diuresis. Will defer dosing to nephrology Repeat chest x-ray today Further recommendations pending patient course Nurse practitioner note has been reviewed by physician. Signing provider agrees with the documented findings, assessment, and plan of care. Objective - Vital Signs Vital signs: Vital Signs Temp 97.5 F L 03/17/22 09:00 Pulse 76 03/17/22 09:00 Resp 18 03/17/22 09:00 BP 107/70 03/17/22 09:00 Pulse Ox 98 03/17/22 09:00 FiO2 Intake & Output 03/16/22 03/17/22 03/17/22 18:59 06:59 18:59 Intake Total 120 100 236 Output Total 1750 750 Balance -1630 -650 236 Intake: Oral 120 100 236 Output: Urine 1750 750 Other: Voiding Method External Catheter # Voids 2 - Labs CBC & Chem 7: 03/13/22 19:17 03/17/22 09:08 Labs: Abnormal Lab Results - Last 24 Hours (Table) 03/17/22 03/17/22 Range/Units 09:08 09:08 PT 20.6 H (9.0-12.0) sec INR 2.1 H (<1.2) Sodium 128 L (137-145) mmol/L Potassium 3.0 L (3.5-5.1) mmol/L Chloride 84 L (98-107) mmol/L Carbon Dioxide 33 H (22-30) mmol/L BUN 58 H (7-17) mg/dL Creatinine 1.17 H (0.52-1.04) mg/dL Glucose 102 H (74-99) mg/dL
--- NOTE | 2022-03-17 11:09 | XR ---
EXAMINATION TYPE: XR chest 2V DATE OF EXAM: 03/17/2022 10:33 AM COMPARISON: Chest radiographs from 05/23/2020 TECHNIQUE: XR chest 2V Frontal and lateral views of the chest. CLINICAL INDICATION:Female, 66 years old with history of SOB, CHF, COPD; FINDINGS: Lungs/Pleura: Bibasilar atelectasis. No evidence for pneumothorax pleural effusion or focal consolida tion. Pulmonary vascularity: Pulmonary vascular congestion. Heart/mediastinum: Cardiomediastinal silhouette is enlarged and stable. Musculoskeletal: No acute osseous pathology. IMPRESSION: Cardiomegaly and mild pulmonary vascular congestion. Correlate with BNP for congestive heart failure.
--- NOTE | 2022-03-17 11:35 | P.PN ---
Subjective Progress Note Date: 03/17/22 Principal diagnosis: Fluid overload. Pulmonary consult dated 03/14/2022. 66-year-old female seen in the emergency department, on March 13. She apparently went to the ER, his of abnormal laboratory data, weakness, shortness of breath, and lower extremity edema. She was seen in the emergency room, by Dr. Thomas. She apparently was at the [facility], and left AGAINST MEDICAL ADVICE, to come to the [facility] ER. Apparently, according to the ER sonia, the patient went to the outside hospital initially because of epistaxis, and some abnormal laboratory data. The patient then took her private vehicle to the emergency department here, and apparently had a sodium of 124, potassium 3.2, INR of 6.3, BUN of 61, and creatinine 1.4. We saw the patient in room 358. The patient was on high flow nasal O2 at about 10-11 L. She typically uses oxygen at home at 5 L. She also has severe sleep apnea syndrome, and uses CPAP, which he uses every night, except she did not use it last night. The patient was mildly short of breath, with mild conversational dyspnea. She was in bed. She has significant lower extremity edema. She apparently has COPD, DVT, hypertension, factor V deficiency, pacemaker implantation, valvular heart disease, obesity, and sleep apnea syndrome. She does use CPAP for her sleep apnea. She sees my partner for that. She was a former smoker in the past. Her most recent pulmonary function tests, from our office, shows a mixed pattern of both obstruction and restriction. 0.9, hemoglobin 15, hematocrit 47.1, and platelet count 427,000. Sodium 125, potassium 3.4, chlorides 87, CO2 26, anion gap 12, BUN 62, and creatinine 1.27. Troponin was 0.025. N-terminal proBNP was elevated at 8570. Chest x-ray was consistent with fluid overload, and cardiomegaly. Progress note dated 03/15/2022. The patient feels better today. The patient is diuresing well. She's on Lasix drip at 10 mg an hour. She's getting oxygen at 10 L/m, via high flow nasal cannula. Clinically, the patient's breathing is improved. Her lower extremity edema is improved. The patient does feel better, appears to be very turkey picker and optimistic. Today's labs include a PT of 17.8, INR 1.8, sodium 124, potassium 3.2, chlorides 86, CO2 27, E1 58, creatinine 1.23. Abdominal ultrasound showed a limited examination without evidence for obstructive uropathy. Progress note dated 03/16/2022. The patient is again doing better today than she did yesterday. She continues on a Lasix drip at 10 mg an hour. She is receiving oxygen at 10 L/m, via high flow nasal cannula. Her saturations are in the low 90s. Clinically she feels better. She is in good spirits. PT 16.5, INR 1.6. Sodium 126, potassium 3.5, chloride 87, CO2 29, BUN 57, with creatinine 1.17. Progress note dated 03/17/2022. The patient is again seen and examined. She was seen in room 358. She remains on Lasix drip at 10 mg an hour. She's getting oxygen at 10 L/m. Typically she uses 5 at home. Labs, x-rays, medications are all. PT 20.6, INR 2.1. Sodium 128, potassium 3, chlorides 84, CO2 33, BUN 58, and creatinine 1.17. Microbiologic studies are thus far negative. Objective - Vital Signs Vital signs: Vital Signs Temp 97.5 F L 03/17/22 09:00 Pulse 84 03/17/22 11:13 Resp 18 03/17/22 09:00 BP 107/70 03/17/22 09:00 Pulse Ox 98 03/17/22 09:00 FiO2 Intake & Output 03/16/22 03/17/22 03/17/22 18:59 06:59 18:59 Intake Total 120 100 236 Output Total 1750 750 Balance -1630 -650 236 Intake: Oral 120 100 236 Output: Urine 1750 750 Other: Voiding Method External Catheter External Catheter # Voids 2 - Exam No acute distress, oriented 3. Currently on high flow nasal cannula, at 10 L. Saturations are 98%. HEENT examination is grossly unremarkable. Neck supple. Full range of motion. No adenopathy thyromegaly or neck vein distention. Cardiovascular examination reveals regular rhythm rate. S1-S2 normal. No S3 or S4. No discernible murmur noted. Heart sounds are distant. Heart rate 79 bpm. Lungs reveal mild scattered rhonchi. No wheezes. Mild bibasilar crackles. Breath sounds equal bilaterally. Breath sounds are improved. Abdomen obese, soft, with bowel sounds. Extremities reveals significant bilateral lower extremity edema, at least 2+. No cyanosis or clubbing. Edema is improved. Skin is without rash or lesion. Neurologic examination is brief but nonfocal. - Labs CBC & Chem 7: 03/13/22 19:17 03/17/22 09:08 Labs: Abnormal Lab Results - Last 24 Hours (Table) 03/17/22 03/17/22 Range/Units 09:08 09:08 PT 20.6 H (9.0-12.0) sec INR 2.1 H (<1.2) Sodium 128 L (137-145) mmol/L Potassium 3.0 L (3.5-5.1) mmol/L Chloride 84 L (98-107) mmol/L Carbon Dioxide 33 H (22-30) mmol/L BUN 58 H (7-17) mg/dL Creatinine 1.17 H (0.52-1.04) mg/dL Glucose 102 H (74-99) mg/dL Assessment and Plan Assessment: Shortness of breath with acute hypoxemic respiratory failure, likely related to underlying CHF, with a small component COPD. Obstructive sleep apnea syndrome, CPAP dependent. Secondary pulmonary hypertension, multifactorial, secondary to chronic heart and lung disease, sleep apnea syndrome, and restrictive lung disease, secondary to obesity. COPD, secondary to previous tobacco use. Restrictive lung disease secondary to obesity. Morbid obesity. Chronic hypoxemic respiratory failure. History of factor V deficiency. Prior history of DVT. History of hypertension. Status post pacemaker implantation. History of mitral valve disease. Plan: Plan dated 03/14/2022. The patient's labs, x-rays, and medications are reviewed. The patient's currently on Lasix and Zaroxolyn. The patient will also be placed on updrafts, and Symbicort. The patient's overall prognosis remains guarded. Patient will need to be on a low-sodium diet. The patient should have daily weights. The patient should use her CPAP device at nighttime. Additional recommendations and suggestions are forthcoming. Prognosis is guarded. Plan dated 03/15/2022. The patient continues on Lasix drip at 10 mg an hour. The patient's on 10 L high flow nasal O2. Labs, medications, and x-rays, are all reviewed. Additional recommendations and suggestions are forthcoming. The patient is negative about 2 L in the last 24 hours. Prognosis is certainly guarded. The patient continues on updrafts and Symbicort. Her lung disease appears to be relatively stable. We'll continue to follow make recommendations where appropriate. Prognosis is guarded. Plan dated 03/16/2022. The patient continues to improve, though improvement has been slow. Clinically, she looks much better. Her lower extremity edema is much improved. She continues on Lasix drip. She's receiving oxygen at 10 L/m via high flow nasal cannula. Typically, she uses 5 L at home. Labs, x-rays, and medications are reviewed. Prognosis is guarded. We will continue to follow the patient and make recommendations where appropriate. Plan dated 03/17/2022. The patient continues to do well. We will continue to wean down the FiO2. The patient's on home O2 at 5 L. We would like to get her back to her normal dose of oxygen. Labs, x-rays, and medications are all reviewed. The patient's overall assessment, plan, and medical decision making were determined. We will continue to follow the patient make recommendations where appropriate. Time with Patient: Less than 30
[2022-03-17] MEDS ORDERED: TOLVAPTAN 15 MG 1/2 TABLET PO ONE (12:00)
[2022-03-17] MEDS: POTASSIUM CHLORIDE ER 20 MEQ TAB.ER PO SCH ×3 (12:38→18:22)
--- NOTE | 2022-03-17 13:22 | P.PN ---
Progress Note - Text Progress Note Date: 03/17/22 Chief Complaint: Epistaxis This is a pleasant 66-year-old patient, follows with Dr. Mike Garcia. Chronic stable medical conditions include COPD, hypertension, factor V Leyden insufficiency, DVT in the left leg 5 years ago, home oxygen 5 L, pacemaker,. Patient visits her . Recently has been using walker. For about 4 days patient been having some intermittent epistaxis. Patient then became short of breath. Shaky weak. Normally has a bowel movement every other day. Last bowel movement was 4 days ago. No fever no chills. A slight cough. Patient rundown of the [facility]. Patient left AMA from there and decided to him to our ER. Patient's INR at the other hospital was 6.3. Sodium was low at 124. In abnormal renal function. Patient did give 2.5 mg vitamin K. Admitted with Coumadin toxicity. Received vitamin K. Acute COPD exacerbation, acute CHF exacerbation. Started on bronchodilators. IV Lasix drip. March 15: Laying in bed. GERD urine output. Breathing a bit better. Eating some. Over 2 L negative fluid balance March 16: Patient on IV Lasix 60 mg every 8.. Edema coming down. On 10L of nasal cannula. Home oxygen 5 L. Breathing a bit better. March 17: About 7 L and negative fluid balance. Decrease FiO2 to 10 L. Incentive spirometry. Breathing slightly better. Up in a recliner some decrease in edema Active Medications Albuterol/Ipratropium (Ipratropium-Albuterol 3 Ml Neb) 3 ml INHALATION RT-QID [facility] Last Admin: 03/17/22 11:13 Dose: 3 ml Albuterol/Ipratropium (Ipratropium-Albuterol 3 Ml Neb) 3 ml INHALATION RT-Q2H PRN PRN Reason: Shortness Of Breath Or Wheezing Budesonide (Budesonide 1 Mg/2 Ml Nebu) 1 mg INHALATION RT-BID [facility] Last Admin: 03/17/22 07:48 Dose: 1 mg Escitalopram Oxalate (Escitalopram 10 Mg Tab) 10 mg PO DAILY [facility] Last Admin: 03/17/22 09:05 Dose: 10 mg Formoterol Fumarate (Formoterol Fumarate 20 Mcg/2 Ml Nebu) 20 mcg INHALATION RT-BID [facility] Last Admin: 03/17/22 07:40 Dose: 20 mcg Furosemide (Furosemide 10 Mg/Ml 10 Ml Vial) 60 mg IV Q8HR [facility] Last Admin: 03/17/22 09:05 Dose: 60 mg Metoprolol Succinate (Metoprolol Succinate (Er) 50 Mg Tab.Er.24h) 50 mg PO DAILY [facility] Last Admin: 03/17/22 09:05 Dose: 50 mg Miscellaneous Information (Potassium Replacement Protocol 1 Each Misc) 1 each MISCELLANE DAILY PRN; Protocol PRN Reason: Per Protocol Miscellaneous Information (Warfarin Per Pharmacy) 1 each MISCELLANE DIRECTED PRN; Protocol PRN Reason: Per Protocol Spironolactone (Spironolactone 25 Mg Tab) 25 mg PO DAILY [facility] Last Admin: 03/17/22 09:05 Dose: 25 mg Warfarin Sodium (Warfarin 5 Mg Tab) 5 mg PO ONCE@1800 ONE Stop: 03/17/22 18:01 Past medical history to include: COPD, DVT, factor V Leyden insufficiency, home oxygen 5 L. A sneaker. Mitral valve issues. Social history: Patient smoked off and on for about 25 years stopped about 9 years ago. Averaged a pack a day. No alcohol. . Family history: Congestive heart failure. Physical examination: VITAL SIGNS: 97.5, 76, 18, 10 7 x 70, 98% on 9 L GENERAL: reclining in bed, awake EYES: Pupils equal. Conjunctiva normal. HEENT: External appearance of nose and ears normal, oral cavity grossly normal. NECK: JVD not raised; masses not palpable. HEART: First and second heart sounds are normal; decreased edema. LUNGS: Respiratory rate increased; diminished breath sounds. ABDOMEN: Soft, nontender, liver spleen not palpable, no masses palpable. PSYCH: Alert and oriented x3; mood and affect normal. MUSCULOSKELETAL:No Clubbing/cyanosis;muscles-grossly intact. Evidence of OA INVESTIGATIONS, reviewed in the clinical context: March 17: Sodium 128 potassium 3 creatinine 1.7 INR 2.1 March 16: Sodium 126 potassium 3.5 creatinine 1.17 serum osmolality 277 March 15: Sodium 124 potassium 3.2 BUN 58 creatinine 1.23 March 14: Sodium 125 potassium 3.4 BUN 62 creatinine 1.27 Admission labs: White count 14.9 hemoglobin 15.1 platelets 427 INR 4.2 sodium 124 potassium 3.2 BUN 65 creatinine 1.47 proBNP 8570 troponin I 0.025 EKG tracing personally reviewed by me-ventricle paced rhythm Chest x-ray film personally reviewed by me-pacemaker. Hyperinflation. Assessment and plan: -Coumadin toxicity with bleeding Patient received vitamin K 2.5 mg. Follow INR -Acute hypoxic respiratory failure from COPD exacerbation and pulmonary edema: Slow to respond Currently on 9 L nasal cannula -Chronic hypoxic is pending failure from underlying COPD On 5 L of oxygen at home -Acute COPD exacerbation in the previous smoker: Slow to respond DuoNeb 4 times a day. Nebulized Pulmicort and Perforomist. - acute congestive heart failure exacerbation: Slow to respond Lasix drip changed to 60 mg every 8. Follow I's and O's. -Depression otherwise specified Lexapro 10 mg a day -Essential hypertension Norvasc 10 mg daily, Lopressor, -Morbid obesity BMI 51.5 Weight loss measures -Severe hyponatremia, hypoosmolar: Slow to respond Fluid restriction increased to 1500 mL a day. Given Samsca -Acute kidney injury mostly cardiorenal. Follow with nephrology IV Lasix 60 mg every 8. fluid restriction to 1500 mL a day. Incentive spirometry. Continue bronchodilators and Pulmicort and Perforomist. Discussed with patient
[2022-03-17] MEDS ORDERED: WARFARIN 5 MG TAB PO ONE (18:00)
[2022-03-18 04:59] LABS: INR 2.4 (<1.2); Prothrombin Time 23.9 sec (9.0-12.0)
[2022-03-18 05:33] LABS: Calcium 8.7 mg/dL (8.4-10.2); Magnesium 2.2 mg/dL (1.6-2.3); Potassium 3.6 mmol/L (3.5-5.1)
[2022-03-18] MEDS: BUDESONIDE 1 MG/2 ML NEBU INHALATION SCH ×2 (07:29→20:10)
[2022-03-18] MEDS: FORMOTEROL FUMARATE 20 MCG/2 ML NEBU INHALATION SCH ×2 (07:29→20:10)
[2022-03-18] MEDS: IPRATROPIUM-ALBUTEROL 3 ML NEB INHALATION SCH ×4 (07:29→20:10)
[2022-03-18] MEDS ORDERED: POTASSIUM CHLORIDE ER 20 MEQ TAB.ER PO STA (08:55)
--- NOTE | 2022-03-18 09:22 | P.PN ---
Subjective Patient is seen in follow-up for acute kidney injury. Renal function is stable. Nonoliguric. On IV Lasix. On 6 L high flow cannula. Blood pressure stable. No vomiting or diarrhea. Oral intake fair. Vital signs are stable. General: Awake. No acute distress. HEENT: Head exam is unremarkable. On nasal cannula. LUNGS: Breath sounds decreased. HEART: Rate and Rhythm are regular. ABDOMEN: Soft, no distention. EXTREMITITES: 1+ edema. Objective - Vital Signs Vital signs: Vital Signs Temp 97.9 F 03/18/22 03:34 Pulse 87 03/18/22 07:55 Resp 20 03/18/22 03:34 BP 106/75 03/18/22 03:34 Pulse Ox 92 L 03/18/22 07:30 FiO2 Intake & Output 03/17/22 03/18/22 03/18/22 18:59 06:59 18:59 Intake Total 474 80 Output Total 1050 850 Balance -576 80 -850 Weight 130 kg Intake: Oral 474 80 Output: Urine 1050 850 Other: Voiding Method External Catheter External Catheter # Bowel Movements 1 - Labs CBC & Chem 7: 03/13/22 19:17 03/18/22 04:19 Labs: Abnormal Lab Results - Last 24 Hours (Table) 03/17/22 03/17/22 03/18/22 Range/Units 09:08 09:08 04:12 PT 20.6 H 23.9 H (9.0-12.0) sec INR 2.1 H 2.4 H (<1.2) Sodium 128 L (137-145) mmol/L Potassium 3.0 L (3.5-5.1) mmol/L Chloride 84 L (98-107) mmol/L Carbon Dioxide 33 H (22-30) mmol/L BUN 58 H (7-17) mg/dL Creatinine 1.17 H (0.52-1.04) mg/dL Glucose 102 H (74-99) mg/dL 03/18/22 Range/Units 04:19 PT (9.0-12.0) sec INR (<1.2) Sodium 127 L (137-145) mmol/L Potassium (3.5-5.1) mmol/L Chloride 85 L (98-107) mmol/L Carbon Dioxide 31 H (22-30) mmol/L BUN 59 H (7-17) mg/dL Creatinine 1.13 H (0.52-1.04) mg/dL Glucose (74-99) mg/dL Assessment and Plan Plan: Assessment: 1. Acute kidney injury mostly prerenal secondary to cardiorenal syndrome. No proteinuria on UA. No hydronephrosis noted on kidney ultrasound. Renal function stable. Creatinine 1.13 today. 2. Volume overload. Improving with diuresis. 3. Acute on chronic diastolic CHF with mild to moderate tricuspid regurgitation and severe pulmonary hypertension. 4. Hypervolemic hyponatremia. Has received Samsca this admission. Urine sodium 65 and urine osmolality 303. Cortisol level not low. 5. Obesity. 6. Acute hypoxic respiratory failure secondary to volume overload. 7. Hypokalemia from diuresis. Magnesium normal. Replaced. Better. Plan: Maintain IV Lasix. Replace potassium. Maintain low-salt diet and fluid restriction. Avoid nephrotoxins. Repeat Samsca today. Repeat labs in the morning. Check TSH.
[2022-03-18] MEDS: METOPROLOL SUCCINATE (ER) 50 MG TAB.ER.24H PO SCH (09:49)
[2022-03-18] MEDS: SPIRONOLACTONE 25 MG TAB PO SCH (09:49)
[2022-03-18] MEDS: FUROSEMIDE 10 MG/ML 10 ML VIAL IV SCH ×3 (09:49→23:37)
[2022-03-18] MEDS: ESCITALOPRAM 10 MG TAB PO SCH (09:49)
[2022-03-18] MEDS ORDERED: TOLVAPTAN 15 MG 1/2 TABLET PO ONE (11:00)
--- NOTE | 2022-03-18 12:44 | P.PN ---
Subjective Progress Note Date: 03/18/22 This is a pleasant 66-year-old female past medical history significant for complete heart block status post permanent pacemaker implantation 04/2020, chronic heart failure with preserved ejection fraction, mitral stenosis, hypertension, factor V Leiden, morbid obesity, COPD, severe pulmonary hypertension, DVT on coumadin. She follows in the office with Dr. Lopez. We have been asked to see in consultation for congestive heart failure. Patient presents emergency department with worsening shortness of breath, bilateral lower extremity edema, 40 pound weight gain within 2 months. Patient started on IV Lasix drip. Echocardiogram revealed EF 55-60%, moderate LVH, severe pulmonary hypertension, RVSP 64mmHg, moderate severe MR, mild aortic stenosis may be underestimated by paradoxical low flow low gradient. 03/16/22 Patient seen and examined at bedside, she states her breathing has improved. Her edema has slightly improved. Patient given Tolvaptan 03/14 per nephrology. Patient with 2.5L urine output over 24 hours. She's currently transitioned to IV Lasix 60mg Q8hr per nephrology, metoprolol succinate 50 mg daily, spironolactone 25 mg daily, Coumadin Sodium 126, potassium 3.5, BUN 57, serum creatinine 1.17. INR 1.6 03/17/2022 Patient seen and examined this morning. Patient is sitting up in the chair. She denies chest pain or pressure. She reports improvement in her breathing. She also reports slight improvement in her lower extremity edema. She has been evaluated by nephrology this morning who is recommending to continue with the current dose of IV Lasix. Vital signs are stable. Blood pressure 107/70. She is on 9 L nasal cannula with oxygen saturations greater than 92%. 03/18: Patient states that she is feeling better today. She was able to walk to t he window in the hallway. She remains with Hugo catheter in place with good urine output. She is currently on O2 at 5 L nasal cannula. Repeat sodium 127 and Samsca ordered for today. BUN 59 and creatinine 1.13. Chest x-ray from yesterday reveals cardiomegaly with mild pulmonary vascular congestion. Correlate with BNP for congestive heart failure. PHYSICAL EXAMINATION Vitals Reviewed CONSTITUTIONAL: No acute distress HEENT: Head is normocephalic. Pupils are equal, round. Sclerae anicteric. Mucous membranes of the mouth are moist. + JVD present . No carotid bruit. CHEST EXAMINATION: Lungs with expiratory wheezing noted on auscultation. No chest wall tenderness is noted on palpation or with deep breathing. HEART EXAMINATION: Regular rate and rhythm. S1, S2 heard. Murmur noted at apex. ABDOMEN: Soft, nontender. Positive bowel sounds. EXTREMITIES: 1+ bilateral lower extremity edema NEUROLOGIC EXAMINATION: Patient is awake, alert and oriented x3. ASSESSMENT Acute on chronic heart failure with preserved ejection fraction, EF on echo 12/2021 55% Severe pulmonary hypertension Supratherapeutic INR, improved Hypokalemia Hyponatremia Acute kidney injury Complete heart block status post permanent pacemaker implantation 04/2020 Mitral stenosis Hypertension Factor V Leiden Morbid obesity COPD History of DVT on coumadin PLAN Continue current cardiac medications Wean oxygen as tolerated Continue IV diuresis. Will defer dosing to nephrology Repeat chest x-ray today Further recommendations pending patient course Nurse practitioner note has been reviewed by physician. Signing provider agrees with the documented findings, assessment, and plan of care. Objective - Vital Signs Vital signs: Vital Signs Temp 97.9 F 03/18/22 03:34 Pulse 87 03/18/22 07:55 Resp 20 03/18/22 03:34 BP 106/75 03/18/22 03:34 Pulse Ox 92 L 03/18/22 07:30 FiO2 Intake & Output 03/17/22 03/18/22 03/18/22 18:59 06:59 18:59 Intake Total 474 80 Output Total 1050 850 Balance -576 80 -850 Weight 130 kg Intake: Oral 474 80 Output: Urine 1050 850 Other: Voiding Method External Catheter External Catheter # Bowel Movements 1 - Labs CBC & Chem 7: 03/13/22 19:17 03/18/22 04:19 Labs: Abnormal Lab Results - Last 24 Hours (Table) 03/17/22 03/18/22 03/18/22 Range/Units 09:08 04:12 04:19 PT 23.9 H (9.0-12.0) sec INR 2.4 H (<1.2) Sodium 128 L 127 L (137-145) mmol/L Potassium 3.0 L (3.5-5.1) mmol/L Chloride 84 L 85 L (98-107) mmol/L Carbon Dioxide 33 H 31 H (22-30) mmol/L BUN 58 H 59 H (7-17) mg/dL Creatinine 1.17 H 1.13 H (0.52-1.04) mg/dL Glucose 102 H (74-99) mg/dL
--- NOTE | 2022-03-18 13:34 | P.PN ---
Subjective Progress Note Date: 03/18/22 Principal diagnosis: Fluid overload. Pulmonary consult dated 03/14/2022. 66-year-old female seen in the emergency department, on March 13. She apparently went to the ER, his of abnormal laboratory data, weakness, shortness of breath, and lower extremity edema. She was seen in the emergency room, by Dr. Thomas. She apparently was at the [facility], and left AGAINST MEDICAL ADVICE, to come to the [facility] ER. Apparently, according to the ER sonia, the patient went to the outside hospital initially because of epistaxis, and some abnormal laboratory data. The patient then took her private vehicle to the emergency department here, and apparently had a sodium of 124, potassium 3.2, INR of 6.3, BUN of 61, and creatinine 1.4. We saw the patient in room 358. The patient was on high flow nasal O2 at about 10-11 L. She typically uses oxygen at home at 5 L. She also has severe sleep apnea syndrome, and uses CPAP, which he uses every night, except she did not use it last night. The patient was mildly short of breath, with mild conversational dyspnea. She was in bed. She has significant lower extremity edema. She apparently has COPD, DVT, hypertension, factor V deficiency, pacemaker implantation, valvular heart disease, obesity, and sleep apnea syndrome. She does use CPAP for her sleep apnea. She sees my partner for that. She was a former smoker in the past. Her most recent pulmonary function tests, from our office, shows a mixed pattern of both obstruction and restriction. 0.9, hemoglobin 15, hematocrit 47.1, and platelet count 427,000. Sodium 125, potassium 3.4, chlorides 87, CO2 26, anion gap 12, BUN 62, and creatinine 1.27. Troponin was 0.025. N-terminal proBNP was elevated at 8570. Chest x-ray was consistent with fluid overload, and cardiomegaly. Progress note dated 03/15/2022. The patient feels better today. The patient is diuresing well. She's on Lasix drip at 10 mg an hour. She's getting oxygen at 10 L/m, via high flow nasal cannula. Clinically, the patient's breathing is improved. Her lower extremity edema is improved. 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 Today's labs include a PT of 17.8, INR 1.8, sodium 124, potassium 3.2, chlorides 86, CO2 27, E1 58, creatinine 1.23. Abdominal ultrasound showed a limited examination without evidence for obstructive uropathy. Progress note dated 03/16/2022. The patient is again doing better today than she did yesterday. She continues on a Lasix drip at 10 mg an hour. She is receiving oxygen at 10 L/m, via high flow nasal cannula. Her saturations are in the low 90s. Clinically she feels better. She is in good spirits. PT 16.5, INR 1.6. Sodium 126, potassium 3.5, chloride 87, CO2 29, BUN 57, with creatinine 1.17. Progress note dated 03/17/2022. The patient is again seen and examined. She was seen in room 358. She remains on Lasix drip at 10 mg an hour. She's getting oxygen at 10 L/m. Typically she uses 5 at home. Labs, x-rays, medications are all. PT 20.6, INR 2.1. Sodium 128, potassium 3, chlorides 84, CO2 33, BUN 58, and creatinine 1.17. Microbiologic studies are thus far negative. Progress note dated 03/18/2022. The patient is seen and examined, in room 358. She's down to 6 L nasal cannula. She typically uses 5 L at home. She's no longer on the Lasix drip. Clinically she's feeling much better. She is hoping to be discharged home the next 24-48 hours. Today's labs include a PT of 23.9 and INR 2.4. Sodium 127, potassium 3.6, chlorides 85, CO2 31, BUN 59, and creatinine 1.13. Objective - Vital Signs Vital signs: Vital Signs Temp 97.7 F 03/18/22 09:49 Pulse 79 03/18/22 11:19 Resp 20 03/18/22 09:49 BP 109/70 03/18/22 09:49 Pulse Ox 88 L 03/18/22 09:49 FiO2 Intake & Output 03/17/22 03/18/22 03/18/22 18:59 06:59 18:59 Intake Total 474 80 118 Output Total 1050 850 Balance -576 80 -732 Weight 130 kg Intake: Oral 474 80 118 Output: Urine 1050 850 Other: Voiding Method External Catheter External Catheter External Catheter # Bowel Movements 1 - Exam No acute distress, oriented 3. Currently on high flow nasal cannula, at 6 L. Saturations are 94%. HEENT examination is grossly unremarkable. Neck supple. Full range of motion. No adenopathy thyromegaly or neck vein distention. Cardiovascular examination reveals regular rhythm rate. S1-S2 normal. No S3 or S4. No discernible murmur noted. Heart sounds are distant. Heart rate 79 bpm. Lungs reveal mild scattered rhonchi. No wheezes. Mild bibasilar crackles. Breath sounds equal bilaterally. Breath sounds are improved. Abdomen obese, soft, with bowel sounds. Extremities reveals significant bilateral lower extremity edema, which is improved. No cyanosis or clubbing. Edema is improved. Skin is without rash or lesion. Neurologic examination is brief but nonfocal. - Labs CBC & Chem 7: 03/13/22 19:17 03/18/22 04:19 Labs: Abnormal Lab Results - Last 24 Hours (Table) 03/18/22 03/18/22 Range/Units 04:12 04:19 PT 23.9 H (9.0-12.0) sec INR 2.4 H (<1.2) Sodium 127 L (137-145) mmol/L Chloride 85 L (98-107) mmol/L Carbon Dioxide 31 H (22-30) mmol/L BUN 59 H (7-17) mg/dL Creatinine 1.13 H (0.52-1.04) mg/dL Assessment and Plan Assessment: Shortness of breath with acute hypoxemic respiratory failure, likely related to underlying CHF, with a small component COPD. Obstructive sleep apnea syndrome, CPAP dependent. Secondary pulmonary hypertension, multifactorial, secondary to chronic heart and lung disease, sleep apnea syndrome, and restrictive lung disease, secondary to obesity. COPD, secondary to previous tobacco use. Restrictive lung disease secondary to obesity. Morbid obesity. Chronic hypoxemic respiratory failure. History of factor V deficiency. Prior history of DVT. History of hypertension. Status post pacemaker implantation. History of mitral valve disease. Plan: Plan dated 03/14/2022. The patient's labs, x-rays, and medications are reviewed. The patient's currently on Lasix and Zaroxolyn. The patient will also be placed on updrafts, and Symbicort. The patient's overall prognosis remains guarded. Patient will need to be on a low-sodium diet. The patient should have daily weights. The patient should use her CPAP device at nighttime. Additional recommendations and suggestions are forthcoming. Prognosis is guarded. Plan dated 03/15/2022. The patient continues on Lasix drip at 10 mg an hour. The patient's on 10 L high flow nasal O2. Labs, medications, and x-rays, are all reviewed. Additional recommendations and suggestions are forthcoming. The patient is negative about 2 L in the last 24 hours. Prognosis is certainly guarded. The patient continues on updrafts and Symbicort. Her lung disease appears to be relatively stable. We'll continue to follow make recommendations where appropriate. Prognosis is guarded. Plan dated 03/16/2022. The patient continues to improve, though improvement has been slow. Clinically, she looks much better. Her lower extremity edema is much improved. She continues on Lasix drip. She's receiving oxygen at 10 L/m via high flow nasal cannula. Typically, she uses 5 L at home. Labs, x-rays, and medications are reviewed. Prognosis is guarded. We will continue to follow the patient and make recommendations where appropriate. Plan dated 03/17/2022. The patient continues to do well. We will continue to wean down the FiO2. The patient's on home O2 at 5 L. We would like to get her back to her normal dose of oxygen. Labs, x-rays, and medications are all reviewed. The patient's overall assessment, plan, and medical decision making were determined. We will continue to follow the patient make recommendations where appropriate. Plan dated 03/18/2022. The patient's labs, x-rays, and medications are reviewed. The patient is no longer on a Lasix drip. The patient's oxygen has been weaned down to 6 L by n todd cannula. She typically uses 5 L at home. We will continue to follow and make recommendations where appropriate. The patient's hoping for discharge in the next 24-48 hours. She is much improved. Time with Patient: Less than 30
--- NOTE | 2022-03-18 16:47 | P.PN ---
Progress Note - Text Progress Note Date: 03/18/22 Chief Complaint: Epistaxis This is a pleasant 66-year-old patient, follows with Dr. Mike Garcia. Chronic stable medical conditions include COPD, hypertension, factor V Leyden insufficiency, DVT in the left leg 5 years ago, home oxygen 5 L, pacemaker,. Patient visits her . Recently has been using walker. For about 4 days patient been having some intermittent epistaxis. Patient then became short of breath. Shaky weak. Normally has a bowel movement every other day. Last bowel movement was 4 days ago. No fever no chills. A slight cough. Patient rundown of the [place] [facility]. Patient left AMA from there and decided to him to our ER. Patient's INR at the other hospital was 6.3. Sodium was low at 124. In abnormal renal function. Patient did give 2.5 mg vitamin K. Admitted with Coumadin toxicity. Received vitamin K. Acute COPD exacerbation, acute CHF exacerbation. Started on bronchodilators. IV Lasix drip. March 15: Laying in bed. GERD urine output. Breathing a bit better. Eating some. Over 2 L negative fluid balance March 3: Patient on IV Lasix 60 mg every 8.. Edema coming down. On 10L of nasal cannula. Home oxygen 5 L. Breathing a bit better. March 17: About 7 L and negative fluid balance. Decrease FiO2 to 10 L. Incentive spirometry. Breathing slightly better. Up in a recliner some decrease in edema March 18: About close to 9 L and negative fluid balance. On IV Lasix. Breathing better. FiO2 down to 6 L. Active Medications Albuterol/Ipratropium (Ipratropium-Albuterol 3 Ml Neb) 3 ml INHALATION RT-QID COUNT INCLUDES THE [facility] Last Admin: 03/18/22 15:48 Dose: 3 ml Albuterol/Ipratropium (Ipratropium-Albuterol 3 Ml Neb) 3 ml INHALATION RT-Q2H PRN PRN Reason: Shortness Of Breath Or Wheezing Budesonide (Budesonide 1 Mg/2 Ml Nebu) 1 mg INHALATION RT-BID COUNT INCLUDES THE [facility] Last Admin: 03/18/22 07:29 Dose: 1 mg Escitalopram Oxalate (Escitalopram 10 Mg Tab) 10 mg PO DAILY COUNT INCLUDES THE [facility] Last Admin: 03/18/22 09:49 Dose: 10 mg Formoterol Fumarate (Formoterol Fumarate 20 Mcg/2 Ml Nebu) 20 mcg INHALATION RT-BID COUNT INCLUDES THE [facility] Last Admin: 03/18/22 07:29 Dose: 20 mcg Furosemide (Furosemide 10 Mg/Ml 10 Ml Vial) 60 mg IV Q8HR COUNT INCLUDES THE [facility] Last Admin: 03/18/22 09:49 Dose: 60 mg Metoprolol Succinate (Metoprolol Succinate (Er) 50 Mg Tab.Er.24h) 50 mg PO DAILY COUNT INCLUDES THE [facility] Last Admin: 03/18/22 09:49 Dose: 50 mg Miscellaneous Information (Potassium Replacement Protocol 1 Each Misc) 1 each MISCELLANE DAILY PRN; Protocol PRN Reason: Per Protocol Miscellaneous Information (Warfarin Per Pharmacy) 1 each MISCELLANE DIRECTED PRN; Protocol PRN Reason: Per Protocol Spironolactone (Spironolactone 25 Mg Tab) 25 mg PO DAILY COUNT INCLUDES THE [facility] Last Admin: 03/18/22 09:49 Dose: 25 mg Warfarin Sodium (Warfarin 2 Mg Tab) 4 mg PO ONCE@1800 ONE Stop: 03/18/22 18:01 Past medical history to include: COPD, DVT, factor V Leyden insufficiency, home oxygen 5 L. A sneaker. Mitral valve issues. Social history: Patient smoked off and on for about 25 years stopped about 9 years ago. Averaged a pack a day. No alcohol. . Family history: Congestive heart failure. Physical examination: VITAL SIGNS: 97.1, 77, 18, 98.76, 91% on 6 L GENERAL: reclining in bed, awake EYES: Pupils equal. Conjunctiva normal. HEENT: External appearance of nose and ears normal, oral cavity grossly normal. NECK: JVD not raised; masses not palpable. HEART: First and second heart sounds are normal; decreased edema. LUNGS: Respiratory rate increased; diminished breath sounds. ABDOMEN: Soft, nontender, liver spleen not palpable, no masses palpable. PSYCH: Alert and oriented x3; mood and affect normal. MUSCULOSKELETAL:No Clubbing/cyanosis;muscles-grossly intact. Evidence of OA INVESTIGATIONS, reviewed in the clinical context: March 18: INR 2.4 BUN 59 creatinine 1.13 March 17: Sodium 128 potassium 3 creatinine 1.7 INR 2.1 March 16: Sodium 126 potassium 3.5 creatinine 1.17 serum osmolality 277 March 15: Sodium 124 potassium 3.2 BUN 58 creatinine 1.23 March 14: Sodium 125 potassium 3.4 BUN 62 creatinine 1.27 Admission labs: White count 14.9 hemoglobin 15.1 platelets 427 INR 4.2 sodium 124 potassium 3.2 BUN 65 creatinine 1.47 proBNP 8570 troponin I 0.025 EKG tracing personally reviewed by me-ventricle paced rhythm Chest x-ray film personally reviewed by me-pacemaker. Hyperinflation. Assessment and plan: -Coumadin toxicity with bleeding Patient received vitamin K 2.5 mg. Follow INR -Acute hypoxic respiratory failure from COPD exacerbation and pulmonary edema: Improving Currently on 6 L nasal cannula -Chronic hypoxic is pending failure from underlying COPD On 5 L of oxygen at home -Acute COPD exacerbation in the previous smoker: Better DuoNeb 4 times a day. Nebulized Pulmicort and Perforomist. - acute congestive heart failure exacerbation: Slow to respond Lasix drip changed to 60 mg every 8. Follow I's and O's. -Depression otherwise specified Lexapro 10 mg a day -Essential hypertension Norvasc 10 mg daily, Lopressor, -Morbid obesity BMI 51.5 Weight loss measures -Severe hyponatremia, hypoosmolar: Slow to respond Fluid restriction increased to 1500 mL a day. Given Samsca -Acute kidney injury mostly cardiorenal. Follow with nephrology IV Lasix 60 mg every 8. fluid restriction to 1500 mL a day. Incentive sp irometry. Continue bronchodilators and Pulmicort and Perforomist. Discussed with patient. Hopefully DC tomorrow.
[2022-03-18] MEDS ORDERED: WARFARIN 2 MG TAB PO ONE (18:00)
[2022-03-19] MEDS: IPRATROPIUM-ALBUTEROL 3 ML NEB INHALATION SCH ×4 (07:38→20:07)
[2022-03-19] MEDS: FORMOTEROL FUMARATE 20 MCG/2 ML NEBU INHALATION SCH ×2 (07:38→20:17)
[2022-03-19] MEDS: BUDESONIDE 1 MG/2 ML NEBU INHALATION SCH ×2 (07:38→20:07)
[2022-03-19] MEDS: FUROSEMIDE 10 MG/ML 10 ML VIAL IV SCH (08:27)
[2022-03-19] MEDS: ESCITALOPRAM 10 MG TAB PO SCH (08:27)
[2022-03-19] MEDS: METOPROLOL SUCCINATE (ER) 50 MG TAB.ER.24H PO SCH (08:27)
[2022-03-19] MEDS: SPIRONOLACTONE 25 MG TAB PO SCH (08:27)
[2022-03-19 09:20] LABS: INR 2.7 (<1.2); Prothrombin Time 27.4 sec (9.0-12.0)
[2022-03-19 09:34] LABS: Albumin 3.8 g/dL (3.5-5.0); Calcium 8.8 mg/dL (8.4-10.2); Magnesium 2.1 mg/dL (1.6-2.3); Potassium 3.6 mmol/L (3.5-5.1); Total Bilirubin 1.2 mg/dL (0.2-1.3); Total Protein 7.3 g/dL (6.3-8.2)
[2022-03-19] MEDS ORDERED: POTASSIUM CHLORIDE ER 20 MEQ TAB.ER PO STA (09:44)
--- NOTE | 2022-03-19 09:45 | P.PN ---
Subjective Patient is seen in follow-up for acute kidney injury. Renal function better. Nonoliguric. On IV Lasix. On 6 L high flow cannula. Blood pressure stable. No vomiting or diarrhea. Oral intake fair. Vital signs are stable. General: Awake. No acute distress. HEENT: Head exam is unremarkable. On nasal cannula. LUNGS: Breath sounds decreased. HEART: Rate and Rhythm are regular. ABDOMEN: Soft, no distention. EXTREMITITES: 1+ edema. Objective - Vital Signs Vital signs: Vital Signs Temp 97.8 F 03/19/22 08:26 Pulse 89 03/19/22 08:26 Resp 18 03/19/22 08:26 BP 122/87 03/19/22 08:26 Pulse Ox 90 L 03/19/22 08:26 FiO2 Intake & Output 03/18/22 03/19/22 03/19/22 18:59 06:59 18:59 Intake Total 340 240 Output Total 1700 1300 Balance -1360 -1060 Weight 128 kg Intake: Oral 340 240 Output: Urine 1700 1300 Other: Voiding Method External Catheter External Catheter External Catheter - Labs CBC & Chem 7: 03/13/22 19:17 03/19/22 08:31 Labs: Abnormal Lab Results - Last 24 Hours (Table) 03/19/22 03/19/22 Range/Units 08:31 08:31 PT 27.4 H (9.0-12.0) sec INR 2.7 H (<1.2) Sodium 130 L (137-145) mmol/L Chloride 85 L (98-107) mmol/L BUN 59 H (7-17) mg/dL Glucose 114 H (74-99) mg/dL Assessment and Plan Plan: Assessment: 1. Acute kidney injury mostly prerenal secondary to cardiorenal syndrome. No proteinuria on UA. No hydronephrosis noted on kidney ultrasound. Renal function stable. Creatinine 1.04 today. 2. Volume overload. Improving with diuresis. 3. Acute on chronic diastolic CHF with mild to moderate tricuspid regurgitation and severe pulmonary hypertension. 4. Hypervolemic hyponatremia. Has received Samsca this admission. Urine sodium 65 and urine osmolality 303. Cortisol level not low. 5. Obesity. 6. Acute hypoxic respiratory failure secondary to volume overload. 7. Hypokalemia from diuresis. Magnesium normal. Replaced. Plan: Stop IV Lasix. Add torsemide 40 mg once daily. Replace potassium. Maintain low-salt diet and fluid restriction. Avoid nephrotoxins. Repeat labs in the morning. Follow-up TSH.
--- NOTE | 2022-03-19 11:06 | P.PN ---
Subjective Progress Note Date: 03/19/22 On today's evaluation of [id number], the patient is awake and alert and she is resting comfortably on the recliner. She is very comfortable at this point in time. She has had a CPAP at the bedside and this is at the pressure of 13 cm of water as the patient is known to have severe BLACK with an AHI of 98. She also has right-sided heart failure, severe pulmonary hypertension as noted on her previous echocardiogram an extensive volume overload and increased lower extremity edema. Overall, she is improved. She is currently on oxygen at 6 L which is very close to her baseline as the patient is on 5 L at home. She is morbidly obese. Her echo was noted. Her chest x-ray showed cardiomegaly and interstitial edema and small bilateral pleural effusion in addition to a pacemaker on the left. BUN is a 59 with a creatinine of 1 and the sodium level is at 1:30 with a potassium level of 3.6. The patient's INR today is at 2.7. The medication list was reviewed. The patient is currently on Aldactone 25 mg by mouth daily. She is on Demadex 40 mg by mouth daily. She is on Coumadin 4 mg by mouth daily. She is on DuoNeb nebulized treatments around the clock. She is also on metoprolol. She was taken a combination of Zaroxolyn Lasix and Aldactone outpatient basis and this was switched to Demadex. Objective - Vital Signs Vital signs: Vital Signs Temp 97.8 F 03/19/22 08:26 Pulse 89 03/19/22 08:26 Resp 18 03/19/22 08:26 BP 122/87 03/19/22 08:26 Pulse Ox 90 L 03/19/22 08:26 FiO2 Intake & Output 03/18/22 03/19/22 03/19/22 18:59 06:59 18:59 Intake Total 340 240 Output Total 1700 1300 Balance -1360 -1060 Weight 128 kg Intake: Oral 340 240 Output: Urine 1700 1300 Other: Voiding Method External Catheter External Catheter External Catheter - Exam No acute distress, oriented 3. Currently on high flow nasal cannula, at 6 L. Saturations are 94%. HEENT examination is grossly unremarkable. Neck supple. Full range of motion. No adenopathy thyromegaly or neck vein distention. Cardiovascular examination reveals regular rhythm rate. S1-S2 normal. No S3 or S4. No discernible murmur noted. Heart sounds are distant. Heart rate 79 bpm. Lungs reveal mild scattered rhonchi. No wheezes. Mild bibasilar crackles. Breath sounds equal bilaterally. Breath sounds are improved. Abdomen obese, soft, with bowel sounds. Extremities reveals significant bilateral lower extremity edema, which is improved. No cyanosis or clubbing. Edema is improved. Skin is without rash or lesion. Neurologic examination is brief but nonfocal. - Labs CBC & Chem 7: 03/13/22 19:17 03/19/22 08:31 Labs: Abnormal Lab Results - Last 24 Hours (Table) 03/19/22 03/19/22 03/19/22 Range/Units 08:31 08:31 08:31 PT 27.4 H (9.0-12.0) sec INR 2.7 H (<1.2) Sodium 130 L (137-145) mmol/L Chloride 85 L (98-107) mmol/L BUN 59 H (7-17) mg/dL Glucose 114 H (74-99) mg/dL TSH 4.890 H (0.465-4.680) mIU/L Assessment and Plan Plan: Acute on top of chronic hypoxic/hypercapnic respiratory failure, so she is secondary to fluid overload/decompensated heart failure. The patient is improving and currently she is on 6 L of O2 nasal cannula Shortness of breath with acute hypoxemic respiratory failure, likely related to underlying CHF, with a small component COPD. Obstructive sleep apnea syndrome, CPAP dependent. The patient has an AHI of 98 and the patient has been on a CPAP pressure of 13 cm of water and on outpatient basis and she has demonstrated excellent compliancy. She follows up with me and obvious regarding her state. Extensive volume overload and lower extremity edema maintained on a combination of Zaroxolyn Lasix and Aldactone outpatient basis currently on a combination of Demadex and Aldactone. Overall fluid balance has been -2 L over the past 24 hours Secondary pulmonary hypertension, multifactorial, secondary to chronic heart and lung disease, sleep apnea syndrome, and restrictive lung disease, secondary to obesity. COPD, secondary to previous tobacco use. Restrictive lung disease secondary to obesity. Morbid obesity. Chronic hypoxemic respiratory failure. The patient has been maintained on oxygen at 5 L on outpatient basis History of factor V deficiency. Prior history of DVT. History of hypertension. Status post pacemaker implantation. History of mitral valve disease. 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 We'll continue to follow.
[2022-03-19 11:48] LABS: T4, Free (Free Thyroxine) 1.67 ng/dL (0.78-2.19)
--- NOTE | 2022-03-19 11:53 | P.PN ---
Subjective This is a pleasant 66-year-old female past medical history significant for complete heart block status post permanent pacemaker implantation 04/2020, chronic heart failure with preserved ejection fraction, mitral stenosis, hypertension, factor V Leiden, morbid obesity, COPD, severe pulmonary hypertension, DVT on coumadin. She follows in the office with Dr. Lopez. We have been asked to see in consultation for congestive heart failure. Patient pr esents emergency department with worsening shortness of breath, bilateral lower extremity edema, 40 pound weight gain within 2 months. Patient started on IV Lasix drip. Echocardiogram revealed EF 55-60%, moderate LVH, severe pulmonary hypertension, RVSP 64mmHg, moderate severe MR, mild aortic stenosis may be underestimated by paradoxical low flow low gradient. 03/19/22 Patient seen and examined at bedside, she states her breathing has improved. Her edema has improved. Patient with 3000mL urine output over 24 hours. She's currently transitioned to IV Lasix 60mg Q8hr per nephrology, metoprolol succinate 50 mg daily, spironolactone 25 mg daily, Coumadin Sodium 130, potassium 3.6, BUN 59, serum creatinine 1.04, magnesium 2.1, INR 2.7 PHYSICAL EXAMINATION Vitals Reviewed CONSTITUTIONAL: No acute distress HEENT: Mucous membranes of the mouth are moist. no JVD present . No carotid bruit. CHEST EXAMINATION: Lungs are diminished bilaterally to auscultation. No chest wall tenderness is noted on palpation or with deep breathing. HEART EXAMINATION: Regular rate and rhythm. S1, S2 heard. Murmur noted at apex. ABDOMEN: Soft, nontender. Positive bowel sounds. EXTREMITIES: 2+ bilateral lower extremity edema NEUROLOGIC EXAMINATION: Patient is awake, alert and oriented x3. ASSESSMENT Acute on chronic heart failure with preserved ejection fraction, EF on echo 12/2021 55% Severe pulmonary hypertension Supratherapeutic INR, improved Hypokalemia Hyponatremia Acute kidney injury Complete heart block status post permanent pacemaker implantation 04/2020 Mitral stenosis Hypertension Factor V Leiden Morbid obesity COPD History of DVT on coumadin PLAN Agree with transitioning to PO, transitioned to Torsemide 40mg daily per nephrology Monitor I/Os, daily weights renal function and electrolytes Continue coumadin Metoprolol succinate 50mg daily Hopefully discharge in the next 24-48 hours Further recommendations based on clinical course Nurse practitioner note has been reviewed by physician. Signing provider agrees with the documented findings, assessment, and plan of care. Objective - Vital Signs Vital signs: Vital Signs Temp 97.8 F 03/19/22 08:26 Pulse 78 03/19/22 11:15 Resp 18 03/19/22 08:26 BP 122/87 03/19/22 08:26 Pulse Ox 92 L 03/19/22 11:07 FiO2 Intake & Output 03/18/22 03/19/22 03/19/22 18:59 06:59 18:59 Intake Total 340 240 Output Total 1700 1300 Balance -1360 -1060 Weight 128 kg Intake: Oral 340 240 Output: Urine 1700 1300 Other: Voiding Method External Catheter External Catheter External Catheter - Labs CBC & Chem 7: 03/13/22 19:17 03/19/22 08:31 Labs: Abnormal Lab Results - Last 24 Hours (Table) 03/19/22 03/19/22 03/19/22 Range/Units 08:31 08:31 08:31 PT 27.4 H (9.0-12.0) sec INR 2.7 H (<1.2) Sodium 130 L (137-145) mmol/L Chloride 85 L (98-107) mmol/L BUN 59 H (7-17) mg/dL Glucose 114 H (74-99) mg/dL TSH 4.890 H (0.465-4.680) mIU/L
[2022-03-19] MEDS ORDERED: WARFARIN 2 MG TAB PO ONE (18:00)
--- NOTE | 2022-03-19 21:08 | P.PN ---
Progress Note - Text Progress Note Date: 03/19/22 Chief Complaint: Epistaxis This is a pleasant 66-year-old patient, follows with Dr. Mike Garcia. Chronic stable medical conditions include COPD, hypertension, factor V Leyden insufficiency, DVT in the left leg 5 years ago, home oxygen 5 L, pacemaker,. Patient visits her . Recently has been using walker. For about 4 days patient been having some intermittent epistaxis. Patient then became short of breath. Shaky weak. Normally has a bowel movement every other day. Last bowel movement was 4 days ago. No fever no chills. A slight cough. Patient rundown of the [place] [facility]. Patient left AMA from there and decided to him to our ER. Patient's INR at the other hospital was 6.3. Sodium was low at 124. In abnormal renal function. Patient did give 2.5 mg vitamin K. Admitted with Coumadin toxicity. Received vitamin K. Acute COPD exacerbation, acute CHF exacerbation. Started on bronchodilators. IV Lasix drip. March 15: Laying in bed. GERD urine output. Breathing a bit better. Eating some. Over 2 L negative fluid balance March 3: Patient on IV Lasix 60 mg every 8.. Edema coming down. On 10L of nasal cannula. Home oxygen 5 L. Breathing a bit better. March 17: About 7 L and negative fluid balance. Decrease FiO2 to 10 L. Incentive spirometry. Breathing slightly better. Up in a recliner some decrease in edema March 18: About close to 9 L and negative fluid balance. On IV Lasix. Breathing better. FiO2 down to 6 L. March 19: Patient EKG ordered Demadex today. 40 mg. 6 L of nasal cannula. Oral intake fair. Enoch wrap on it. Hopefully can be discharged tomorrow. Discussed with patient. Active Medications Albuterol/Ipratropium (Ipratropium-Albuterol 3 Ml Neb) 3 ml INHALATION RT-QID [facility] Last Admin: 03/19/22 20:07 Dose: 3 ml Albuterol/Ipratropium (Ipratropium-Albuterol 3 Ml Neb) 3 ml INHALATION RT-Q2H PRN PRN Reason: Shortness Of Breath Or Wheezing Budesonide (Budesonide 1 Mg/2 Ml Nebu) 1 mg INHALATION RT-BID [facility] Last Admin: 03/19/22 20:07 Dose: 1 mg Escitalopram Oxalate (Escitalopram 10 Mg Tab) 10 mg PO DAILY [facility] Last Admin: 03/19/22 08:27 Dose: 10 mg Formoterol Fumarate (Formoterol Fumarate 20 Mcg/2 Ml Nebu) 20 mcg INHALATION RT-BID [facility] Last Admin: 03/19/22 20:17 Dose: 20 mcg Metoprolol Succinate (Metoprolol Succinate (Er) 50 Mg Tab.Er.24h) 50 mg PO DAILY [facility] Last Admin: 03/19/22 08:27 Dose: 50 mg Miscellaneous Information (Potassium Replacement Protocol 1 Each Misc) 1 each MISCELLANE DAILY PRN; Protocol PRN Reason: Per Protocol Miscellaneous Information (Warfarin Per Pharmacy) 1 each MISCELLANE DIRECTED PRN; Protocol PRN Reason: Per Protocol Potassium Chloride (Potassium Chloride Er 20 Meq Tab.Er) 20 meq PO DAILY [facility] Spironolactone (Spironolactone 25 Mg Tab) 25 mg PO DAILY [facility] Last Admin: 03/19/22 08:27 Dose: 25 mg Torsemide (Torsemide 20 Mg Tab) 40 mg PO DAILY [facility] Past medical history to include: COPD, DVT, factor V Leyden insufficiency, home oxygen 5 L. A sneaker. Mitral valve issues. Social history: Patient smoked off and on for about 25 years stopped about 9 years ago. Averaged a pack a day. No alcohol. . Family history: Congestive heart failure. Physical examination: VITAL SIGNS: 97.8, 80, 18, 104/64, 92% on 6 L GENERAL: reclining in chair, awake EYES: Pupils equal. Conjunctiva normal. HEENT: External appearance of nose and ears normal, oral cavity grossly normal. NECK: JVD not raised; masses not palpable. HEART: First and second heart sounds are normal; decreased edema. LUNGS: Respiratory rate increased; diminished breath sounds. ABDOMEN: Soft, nontender, liver spleen not palpable, no masses palpable. PSYCH: Alert and oriented x3; mood and affect normal. MUSCULOSKELETAL:No Clubbing/cyanosis;muscles-grossly intact. Evidence of OA INVESTIGATIONS, reviewed in the clinical context: March 19: INR 2.7 potassium 3.6 creatinine 1.04 TSH 4.8. T4 1 0.6 March 18: INR 2.4 BUN 59 creatinine 1.13 March 17: Sodium 128 potassium 3 creatinine 1.7 INR 2.1 March 16: Sodium 126 potassium 3.5 creatinine 1.17 serum osmolality 277 March 15: Sodium 124 potassium 3.2 BUN 58 creatinine 1.23 March 14: Sodium 125 potassium 3.4 BUN 62 creatinine 1.27 Admission labs: White count 14.9 hemoglobin 15.1 platelets 427 INR 4.2 sodium 124 potassium 3.2 BUN 65 creatinine 1.47 proBNP 8570 troponin I 0.025 EKG tracing personally reviewed by me-ventricle paced rhythm Chest x-ray film personally reviewed by me-pacemaker. Hyperinflation. Assessment and plan: -Coumadin toxicity with bleeding Patient received vitamin K 2.5 mg. Follow INR -Acute hypoxic respiratory failure from COPD exacerbation and pulmonary edema: Improving Currently on 6 L nasal cannula -Chronic hypoxic is pending failure from underlying COPD On 5 L of oxygen at home -Acute COPD exacerbation in the previous smoker: Better DuoNeb 4 times a day. Nebulized Pulmicort and Perforomist. - acute congestive heart failure exacerbation: Better Lasix drip changed to 60 mg every 8-discontinued. Follow I's and O's. Demadex 40 mg daily started -Depression otherwise specified Lexapro 10 mg a day -Essential hypertension Norvasc 10 mg daily, Lopressor, -Morbid obesity BMI 51.5 Weight loss measures -Severe hyponatremia, hypoosmolar: Better Fluid restriction increased to 1500 mL a day. Given Samsca -Acute kidney injury mostly cardiorenal.: Better Follow with nephrology IV Lasix discontinued. Demadex 40 mg daily started.. fluid restriction to 1500 mL a day. Incentive spirometry. Continue bronchodilators and Pulmicort and Perforomist. Discussed with patient. Probably discharge tomorrow
[2022-03-20] MEDS: BUDESONIDE 1 MG/2 ML NEBU INHALATION SCH ×2 (07:48→20:49)
[2022-03-20] MEDS: IPRATROPIUM-ALBUTEROL 3 ML NEB INHALATION SCH ×4 (07:48→20:49)
[2022-03-20] MEDS: FORMOTEROL FUMARATE 20 MCG/2 ML NEBU INHALATION SCH ×2 (07:48→20:49)
[2022-03-20 08:03] LABS: INR 3.1 (<1.2); Prothrombin Time 30.5 sec (9.0-12.0)
[2022-03-20 08:07] LABS: Calcium 8.4 mg/dL (8.4-10.2); Magnesium 2.1 mg/dL (1.6-2.3); Potassium 4.1 mmol/L (3.5-5.1)
[2022-03-20] MEDS: ESCITALOPRAM 10 MG TAB PO SCH (08:50)
[2022-03-20] MEDS: SPIRONOLACTONE 25 MG TAB PO SCH (08:50)
[2022-03-20] MEDS: METOPROLOL SUCCINATE (ER) 50 MG TAB.ER.24H PO SCH (08:50)
[2022-03-20] MEDS: POTASSIUM CHLORIDE ER 20 MEQ TAB.ER PO SCH (08:50)
[2022-03-20] MEDS ORDERED: TORSEMIDE 20 MG TAB PO SCH (09:00)
--- NOTE | 2022-03-20 10:41 | P.PN ---
Subjective Progress Note Date: 03/20/22 On today's evaluation of [id number], the patient is awake and alert and she is resting comfortably on the recliner. She is very comfortable at this point in time. She has had a CPAP at the bedside and this is at the pressure of 13 cm of water as the patient is known to have severe BLACK with an AHI of 98. She also has right-sided heart failure, severe pulmonary hypertension as noted on her previous echocardiogram an extensive volume overload and increased lower extremity edema. Overall, she is improved. She is currently on oxygen at 6 L which is very close to her baseline as the patient is on 5 L at home. She is morbidly obese. Her echo was noted. Her chest x-ray showed cardiomegaly and interstitial edema and small bilateral pleural effusion in addition to a pacemaker on the left. BUN is a 59 with a creatinine of 1 and the sodium level is at 1:30 with a potassium level of 3.6. The patient's INR today is at 2.7. The medication list was reviewed. The patient is currently on Aldactone 25 mg by mouth daily. She is on Demadex 40 mg by mouth daily. She is on Coumadin 4 mg by mouth daily. She is on DuoNeb nebulized treatments around the clock. She is also on metoprolol. She was taken a combination of Zaroxolyn Lasix and Aldactone outpatient basis and this was switched to Demadex. 03/20/2022, the patient is being seen for a follow-up. Since yesterday, the patient was diuresed another 3 L and her net fluid balance is -2.4 L over the past 24 hours. She is currently on a combination of Demadex and 0.3 Aldactone. Her blood work on today's evaluation is showing an INR of 3.4 which is essentially therapeutic. Sodium level is at 127. BUN is a 61 with a creatinine of 1.1. Potassium level is at 4.1. Serum bicarbs at 28. The patient remains on oxygen at 6 L per minute nasal cannula. No angina. No palpitation. No other new complaints otherwise for now. She has her own CPAP and she is utilizing her CPAP overnight. This is set at a pressure of 13 cm of water as the patient has severe BLACK. Objective - Vital Signs Vital signs: Vital Signs Temp 98.0 F 03/20/22 08:55 Pulse 78 06/07/22 08:55 Resp 18 03/20/22 08:55 BP 124/79 03/20/22 08:55 Pulse Ox 90 L 03/20/22 08:55 FiO2 Intake & Output 03/19/22 03/20/22 03/20/22 18:59 06:59 18:59 Intake Total 1138 Output Total 801 Balance 337 Weight 127.7 kg Intake: Oral 1138 Output: Urine 800 Stool 1 Other: Voiding Method External Catheter Toilet Toilet # Voids 1 - Exam No acute distress, oriented 3. Currently on high flow nasal cannula, at 6 L. Saturations are 94%. HEENT examination is grossly unremarkable. Neck supple. Full range of motion. No adenopathy thyromegaly or neck vein distention. Cardiovascular examination reveals regular rhythm rate. S1-S2 normal. No S3 or S4. No discernible murmur noted. Heart sounds are distant. Heart rate 79 bpm. Lungs reveal mild scattered rhonchi. No wheezes. Mild bibasilar crackles. Breath sounds equal bilaterally. Breath sounds are improved. Abdomen obese, soft, with bowel sounds. Extremities reveals significant bilateral lower extremity edema, which is improved. No cyanosis or clubbing. Edema is improved. Skin is without rash or lesion. Neurologic examination is brief but nonfocal. - Labs CBC & Chem 7: 03/13/22 19:17 03/20/22 07:00 Labs: Abnormal Lab Results - Last 24 Hours (Table) 03/20/22 03/20/22 Range/Units 07:00 07:00 PT 30.5 H (9.0-12.0) sec INR 3.1 H (<1.2) Sodium 127 L (137-145) mmol/L Chloride 87 L (98-107) mmol/L BUN 61 H (7-17) mg/dL Creatinine 1.10 H (0.52-1.04) mg/dL Assessment and Plan Plan: Acute on top of chronic hypoxic/hypercapnic respiratory failure, so she is secondary to fluid overload/decompensated heart failure. The patient is improving and currently she is on 6 L of O2 nasal cannula Shortness of breath with acute hypoxemic respiratory failure, likely related to underlying CHF, with a small component COPD. Obstructive sleep apnea syndrome, CPAP dependent. The patient has an AHI of 98 and the patient has been on a CPAP pressure of 13 cm of water and on outpatient basis and she has demonstrated excellent compliancy. She follows up with me and obvious regarding her state. Extensive volume overload and lower extremity edema maintained on a combination of Zaroxolyn Lasix and Aldactone outpatient basis currently on a combination of Demadex and Aldactone. Overall fluid balance has been -2 L over the past 24 hours Secondary pulmonary hypertension, multifactorial, secondary to chronic heart and lung disease, sleep apnea syndrome, and restrictive lung disease, secondary to obesity. COPD, secondary to previous tobacco use. Restrictive lung disease secondary to obesity. Morbid obesity. Chronic hypoxemic respiratory failure. The patient has been maintained on oxygen at 5 L on outpatient basis History of factor V deficiency. Prior history of DVT. History of hypertension. Status post pacemaker implantation. History of mitral valve disease. Plan Continue weaning the FiO2 currently on 6 L and the patient is typically on 5 L at home Continue using CPAP overnight at a pressure of 13 cm Continue to diurese adequately for now with the current diuretic regimen. She is losing weight and her fluid losses also improving. continue Demadex and Aldactone for now Continue anticoagulation with warfarin and the patient's PT/INR is therapeutic Discharge planning is in progress Renal function and sodium levels are adequate for now. We'll continue to del marinelli. She wants to go home. I would like to consult with other physicians pressure from nephrology to make sure that she is stable for discharge specially with her ongoing electrolyte imbalance and the sodium level of 127 and ongoing need for diuresis. We'll continue to follow. Overall, condition is stable and she is still on 6 L for now. Chest x-ray still showing poorly vascular congestion and small effusion.
--- NOTE | 2022-03-20 11:27 | P.PN ---
Subjective Patient is seen in follow-up for acute kidney injury. Renal function stable. Nonoliguric. On IV Lasix. On 6 L high flow cannula. Blood pressure stable. No vomiting or diarrhea. Oral intake fair. Wants to go home. Vital signs are stable. General: Awake. No acute distress. HEENT: Head exam is unremarkable. On nasal cannula. LUNGS: Breath sounds decreased. HEART: Rate and Rhythm are regular. ABDOMEN: Soft, no distention. EXTREMITITES: 1+ edema. Objective - Vital Signs Vital signs: Vital Signs Temp 98.0 F 03/20/22 08:55 Pulse 76 03/20/22 11:16 Resp 18 03/20/22 08:55 BP 124/79 03/20/22 08:55 Pulse Ox 90 L 03/20/22 08:55 FiO2 Intake & Output 03/19/22 03/20/22 03/20/22 18:59 06:59 18:59 Intake Total 1138 Output Total 801 Balance 337 Weight 127.7 kg Intake: Oral 1138 Output: Urine 800 Stool 1 Other: Voiding Method External Catheter Toilet Toilet # Voids 1 - Labs CBC & Chem 7: 03/13/22 19:17 03/20/22 07:00 Labs: Abnormal Lab Results - Last 24 Hours (Table) 03/20/22 03/20/22 Range/Units 07:00 07:00 PT 30.5 H (9.0-12.0) sec INR 3.1 H (<1.2) Sodium 127 L (137-145) mmol/L Chloride 87 L (98-107) mmol/L BUN 61 H (7-17) mg/dL Creatinine 1.10 H (0.52-1.04) mg/dL Assessment and Plan Plan: Assessment: 1. Acute kidney injury mostly prerenal secondary to cardiorenal syndrome. No proteinuria on UA. No hydronephrosis noted on kidney ultrasound. Renal function stable. Creatinine 1.1 today. 2. Volume overload. Improving with diuresis. 3. Acute on chronic diastolic CHF with mild to moderate tricuspid regurgitation and severe pulmonary hypertension. 4. Hypervolemic hyponatremia. Has received Samsca this admission. Urine sodium 65 and urine osmolality 303. Cortisol level not low. TSH mildly high at 4.89. 5. Obesity. 6. Acute hypoxic respiratory failure secondary to volume overload. 7. Hypokalemia from diuresis. Magnesium normal. Replaced. Plan: Maintain torsemide. Maintain low-salt diet and fluid restriction. Avoid nephrotoxins. Repeat labs in the morning. Samsca 15 mg once today. Check PTH related peptide.
[2022-03-20] MEDS ORDERED: TOLVAPTAN 15 MG 1/2 TABLET PO ONE (11:30)
--- NOTE | 2022-03-20 11:31 | P.PN ---
Subjective This is a pleasant 66-year-old female past medical history significant for complete heart block status post permanent pacemaker implantation 04/2020, chronic heart failure with preserved ejection fraction, mitral stenosis, hypertension, factor V Leiden, morbid obesity, COPD, severe pulmonary hypertension, DVT on coumadin. She follows in the office with Dr. Lopez. We have been asked to see in consultation for congestive heart failure. Patient pr esents emergency department with worsening shortness of breath, bilateral lower extremity edema, 40 pound weight gain within 2 months. Patient started on IV Lasix drip. Echocardiogram revealed EF 55-60%, moderate LVH, severe pulmonary hypertension, RVSP 64mmHg, moderate severe MR, mild aortic stenosis may be underestimated by paradoxical low flow low gradient. 03/20/22 Patient seen and examined at bedside, she states her breathing has improved. Her edema has improved. Patient with 3000mL urine output over 24 hours. She's currently transitioned to Torsemide 40mg daily per nephrology, metoprolol succinate 50 mg daily, spironolactone 25 mg daily, Coumadin Sodium 127, K 4.1, BUN 61, SCr 1.10, Mag 2.1. INR 3.1. PHYSICAL EXAMINATION Vitals Reviewed CONSTITUTIONAL: No acute distress HEENT: Mucous membranes of the mouth are moist. no JVD present . No carotid bru it. CHEST EXAMINATION: Lungs are diminished bilaterally to auscultation. No chest wall tenderness is noted on palpation or with deep breathing. HEART EXAMINATION: Regular rate and rhythm. S1, S2 heard. Murmur noted at apex. ABDOMEN: Soft, nontender. Positive bowel sounds. EXTREMITIES: 1-2+ bilateral lower extremity edema NEUROLOGIC EXAMINATION: Patient is awake, alert and oriented x3. ASSESSMENT Acute on chronic heart failure with preserved ejection fraction, EF on echo 12/2021 55% Severe pulmonary hypertension Supratherapeutic INR, improved Hypokalemia Hyponatremia Acute kidney injury Complete heart block status post permanent pacemaker implantation 04/2020 Mitral stenosis Hypertension Factor V Leiden Morbid obesity COPD History of DVT on coumadin PLAN Continue Torsemide 40mg daily per nephrology Continue coumadin Continue spironolactone, Metoprolol succinate 50mg daily From a cardiology perspective, patient is stable for discharge. Follow up with Dr. Lopez in 1 week. Nurse practitioner note has been reviewed by physician. Signing provider agrees with the documented findings, assessment, and plan of care. Objective - Vital Signs Vital signs: Vital Signs Temp 98.0 F 03/20/22 08:55 Pulse 76 03/20/22 11:16 Resp 18 03/20/22 08:55 BP 124/79 03/20/22 08:55 Pulse Ox 90 L 03/20/22 08:55 FiO2 Intake & Output 03/19/22 03/20/22 03/20/22 18:59 06:59 18:59 Intake Total 1138 Output Total 801 Balance 337 Weight 127.7 kg Intake: Oral 1138 Output: Urine 800 Stool 1 Other: Voiding Method External Catheter Toilet Toilet # Voids 1 - Labs CBC & Chem 7: 03/13/22 19:17 03/20/22 07:00 Labs: Abnormal Lab Results - Last 24 Hours (Table) 03/20/22 03/20/22 Range/Units 07:00 07:00 PT 30.5 H (9.0-12.0) sec INR 3.1 H (<1.2) Sodium 127 L (137-145) mmol/L Chloride 87 L (98-107) mmol/L BUN 61 H (7-17) mg/dL Creatinine 1.10 H (0.52-1.04) mg/dL
[2022-03-20] MEDS: FUROSEMIDE 100 MG in SODIUM CHLORIDE 0.9% 90 ML IV SCH ×2 (12:16→21:51)
[2022-03-20] MEDS ORDERED: WARFARIN 0.5 MG TAB PO ONE (18:00)
--- NOTE | 2022-03-20 18:21 | P.PN ---
Progress Note - Text Progress Note Date: 03/20/22 Chief Complaint: Epistaxis This is a pleasant 66-year-old patient, follows with Dr. Mike Garcia. Chronic stable medical conditions include COPD, hypertension, factor V Leyden insufficiency, DVT in the left leg 5 years ago, home oxygen 5 L, pacemaker,. Patient visits her . Recently has been using walker. For about 4 days patient been having some intermittent epistaxis. Patient then became short of breath. Shaky weak. Normally has a bowel movement every other day. Last bowel movement was 4 days ago. No fever no chills. A slight cough. Patient rundown of the [facility] [facility]. Patient left AMA from there and decided to him to our ER. Patient's INR at the other hospital was 6.3. Sodium was low at 124. In abnormal renal function. Patient did give 2.5 mg vitamin K. Admitted with Coumadin toxicity. Received vitamin K. Acute COPD exacerbation, acute CHF exacerbation. Started on bronchodilators. IV Lasix drip. March 15: Laying in bed. GERD urine output. Breathing a bit better. Eating some. Over 2 L negative fluid balance March 3: Patient on IV Lasix 60 mg every 8.. Edema coming down. On 10L of nasal cannula. Home oxygen 5 L. Breathing a bit better. March 17: About 7 L and negative fluid balance. Decrease FiO2 to 10 L. Incentive spirometry. Breathing slightly better. Up in a recliner some decrease in edema March 18: About close to 9 L and negative fluid balance. On IV Lasix. Breathing better. FiO2 down to 6 L. March 19: Patient EKG ordered Demadex today. 40 mg. 6 L of nasal cannula. Oral intake fair. Enoch wrap on it. Hopefully can be discharged tomorrow. Discussed with patient. March 20: Patient having still significant edema. The breathing is better. Discussed with Dr. Mora from nephrology. We decided to proceed with Lasix drip and his overnight 10 mg an hour. Discussed with the patient. Fluid restriction to continue. Patient also received a dose of Samsca Active Medications Albuterol/Ipratropium (Ipratropium-Albuterol 3 Ml Neb) 3 ml INHALATION RT-QID [facility] Last Admin: 03/20/22 15:11 Dose: 3 ml Albuterol/Ipratropium (Ipratropium-Albuterol 3 Ml Neb) 3 ml INHALATION RT-Q2H PRN PRN Reason: Shortness Of Breath Or Wheezing Budesonide (Budesonide 1 Mg/2 Ml Nebu) 1 mg INHALATION RT-BID [facility] Last Admin: 03/20/22 07:48 Dose: 1 mg Escitalopram Oxalate (Escitalopram 10 Mg Tab) 10 mg PO DAILY [facility] Last Admin: 03/20/22 08:50 Dose: 10 mg Formoterol Fumarate (Formoterol Fumarate 20 Mcg/2 Ml Nebu) 20 mcg INHALATION RT-BID [facility] Last Admin: 03/20/22 07:48 Dose: 20 mcg Furosemide 100 mg/ Sodium (Chloride) 100 mls @ 10 mls/hr IV .Q10H [facility] Last Admin: 03/20/22 12:16 Dose: 10 mg/hr, 10 mls/hr Metoprolol Succinate (Metoprolol Succinate (Er) 50 Mg Tab.Er.24h) 50 mg PO DAILY [facility] Last Admin: 03/20/22 08:50 Dose: 50 mg Miscellaneous Information (Potassium Replacement Protocol 1 Each Misc) 1 each MISCELLANE DAILY PRN; Protocol PRN Reason: Per Protocol Miscellaneous Information (Warfarin Per Pharmacy) 1 each MISCELLANE DIRECTED PRN; Protocol PRN Reason: Per Protocol Potassium Chloride (Potassium Chloride Er 20 Meq Tab.Er) 20 meq PO DAILY [facility] Last Admin: 03/20/22 08:50 Dose: 20 meq Spironolactone (Spironolactone 25 Mg Tab) 25 mg PO DAILY [facility] Last Admin: 03/20/22 08:50 Dose: 25 mg Past medical history to include: COPD, DVT, factor V Leyden insufficiency, home oxygen 5 L. A sneaker. Mitral valve issues. Social history: Patient smoked off and on for about 25 years stopped about 9 years ago. Averaged a pack a day. No alcohol. . Family history: Congestive heart failure. Physical examination: VITAL SIGNS: 98, 81, 18, 133 with 77, 90% on 6 L GENERAL: reclining in chair, awake EYES: Pupils equal. Conjunctiva normal. HEENT: External appearance of nose and ears normal, oral cavity grossly normal. NECK: JVD not raised; masses not palpable. HEART: First and second heart sounds are normal; decreased breath significant edema. LUNGS: Respiratory rate increased; diminished breath sounds. ABDOMEN: Soft, nontender, liver spleen not palpable, no masses palpable. PSYCH: Alert and oriented x3; mood and affect normal. MUSCULOSKELETAL:No Clubbing/cyanosis;muscles-grossly intact. Evidence of OA INVESTIGATIONS, reviewed in the clinical context: March 20: INR 3.1 sodium 127 potassium 4.1 March 19: INR 2.7 potassium 3.6 creatinine 1.04 TSH 4.8. T4 1 0.6 March 18: INR 2.4 BUN 59 creatinine 1.13 March 17: Sodium 128 potassium 3 creatinine 1.7 INR 2.1 March 16: Sodium 126 potassium 3.5 creatinine 1.17 serum osmolality 277 March 15: Sodium 124 potassium 3.2 BUN 58 creatinine 1.23 March 14: Sodium 125 potassium 3.4 BUN 62 creatinine 1.27 Admission labs: White count 14.9 hemoglobin 15.1 platelets 427 INR 4.2 sodium 124 potassium 3.2 BUN 65 creatinine 1.47 proBNP 8570 troponin I 0.025 EKG tracing personally reviewed by me-ventricle paced rhythm Chest x-ray film personally reviewed by me-pacemaker. Hyperinflation. Assessment and plan: -Coumadin toxicity with bleeding with epistaxis on presentation Patient received vitamin K 2.5 mg. Follow INR -Acute hypoxic respiratory failure from COPD exacerbation and pulmonary edema: Improving Currently on 6 L nasal cannula -Chronic hypoxic is pending failure from underlying COPD On 5 L of oxygen at home -Acute COPD exacerbation in the previous smoker: Better DuoNeb 4 times a day. Nebulized Pulmicort and Perforomist. - acute congestive heart failure exacerbation: Slow to respond Lasix drip changed to 60 mg every 8-discontinued. Follow I's and O's. Will put patient back on IV Lasix drip today. -Depression otherwise specified Lexapro 10 mg a day -Essential hypertension Norvasc 10 mg daily, Lopressor, -Morbid obesity BMI 51.5 Weight loss measures -Severe hyponatremia, hypoosmolar: Better Fluid restriction increased to 1500 mL a day. Given Samsca -Acute kidney injury mostly cardiorenal.: Better Follow with nephrology Patient be put back on IV Lasix drip today. After discussion with nephrology. Follow I's and O's. Other medications to continue. Enoch wrap.
[2022-03-21] MEDS: FORMOTEROL FUMARATE 20 MCG/2 ML NEBU INHALATION SCH ×4 (08:03→21:27)
[2022-03-21] MEDS: BUDESONIDE 1 MG/2 ML NEBU INHALATION SCH ×4 (08:03→21:27)
[2022-03-21] MEDS: IPRATROPIUM-ALBUTEROL 3 ML NEB INHALATION SCH ×6 (08:03→21:27)
[2022-03-21] MEDS: POTASSIUM CHLORIDE ER 20 MEQ TAB.ER PO SCH (08:16)
[2022-03-21] MEDS: ESCITALOPRAM 10 MG TAB PO SCH (08:16)
[2022-03-21] MEDS: METOPROLOL SUCCINATE (ER) 50 MG TAB.ER.24H PO SCH (08:16)
[2022-03-21] MEDS: SPIRONOLACTONE 25 MG TAB PO SCH (08:16)
[2022-03-21] MEDS: FUROSEMIDE 100 MG in SODIUM CHLORIDE 0.9% 90 ML IV SCH ×2 (08:16→16:53)
[2022-03-21 09:47] LABS: Prothrombin Time 29.7 sec (9.0-12.0)
[2022-03-21 10:03] LABS: Calcium 8.7 mg/dL (8.4-10.2); Potassium 4.2 mmol/L (3.5-5.1)
--- NOTE | 2022-03-21 10:16 | P.PN ---
Subjective Patient is seen in follow-up for acute kidney injury. Renal function slightly worse from diuresis. Nonoliguric. On Lasix drip. On 6 L high flow cannula. Blood pressure stable. No vomiting or diarrhea. Oral intake fair. No changes overnight. Vital signs are stable. General: Awake. No acute distress. HEENT: Head exam is unremarkable. On nasal cannula. LUNGS: Breath sounds decreased. HEART: Rate and Rhythm are regular. ABDOMEN: Soft, no distention. EXTREMITITES: 1+ edema. Objective - Vital Signs Vital signs: Vital Signs Temp 97.9 F 03/21/22 03:45 Pulse 82 03/21/22 03:45 Resp 18 03/21/22 03:45 BP 111/73 03/21/22 03:45 Pulse Ox 89 L 03/21/22 03:45 FiO2 Intake & Output 03/20/22 03/21/22 03/21/22 18:59 06:59 18:59 Intake Total 1075.833 218 Output Total 1201 250 Balance -125.167 -32 Weight 127.5 kg Intake: Intake, IV Titration 95.833 100 Amount Furosemide 100 mg In 95.833 100 Sodium Chloride 0.9% 90 ml @ 10 MG/HR 10 mls/hr IV .Q10H [facility] Rx#: [id number] Oral 980 118 Output: Urine 1200 250 Stool 1 Other: Voiding Method Toilet Toilet # Voids 1 - Labs CBC & Chem 7: 03/13/22 19:17 03/21/22 08:41 Labs: Abnormal Lab Results - Last 24 Hours (Table) 03/21/22 03/21/22 Range/Units 08:41 08:41 PT 29.7 H (9.0-12.0) sec INR 3.0 H (<1.2) Sodium 130 L (137-145) mmol/L Chloride 87 L (98-107) mmol/L BUN 61 H (7-17) mg/dL Creatinine 1.22 H (0.52-1.04) mg/dL Glucose 106 H (74-99) mg/dL Assessment and Plan Plan: Assessment: 1. Acute kidney injury mostly prerenal secondary to cardiorenal syndrome. No proteinuria on UA. No hydronephrosis noted on kidney ultrasound. Renal function worse from diuresis - creatinine 1.2 to today. 2. Volume overload. Improving with diuresis. 3. Acute on chronic diastolic CHF with mild to moderate tricuspid regurgitation and severe pulmonary hypertension. 4. Hypervolemic hyponatremia. Has received Samsca this admission. Urine sodium 65 and urine osmolality 303. Cortisol level not low. TSH mildly high at 4.89. Sodium level 130 today. 5. Obesity. 6. Acute hypoxic respiratory failure secondary to volume overload. 7. Hypokalemia from diuresis. Magnesium normal. Replaced. Plan: Maintain Lasix drip for now - changed to oral Demadex 40 mg twice daily upon discharge. Maintain low-salt diet and fluid restriction. Avoid nephrotoxins. Repeat Samsca 15 mg once today. Follow-up PTH related peptide. Patient was advised to monitor her weight closely at home and to notify physician if edema worsens or gains more than 3 pounds in 1 week duration. Repeat BMP and magnesium level 2-3 days postdischarge. Follow up outpatient in 1 week.
--- NOTE | 2022-03-21 10:55 | P.PN ---
Subjective Progress Note Date: 03/21/22 On today's evaluation of 62,022, the patient is awake and alert and she is resting comfortably on the recliner. She is very comfortable at this point in time. She has had a CPAP at the bedside and this is at the pressure of 13 cm of water as the patient is known to have severe BLACK with an AHI of 98. She also has right-sided heart failure, severe pulmonary hypertension as noted on her previous echocardiogram an extensive volume overload and increased lower extremity edema. Overall, she is improved. She is currently on oxygen at 6 L which is very close to her baseline as the patient is on 5 L at home. She is morbidly obese. Her echo was noted. Her chest x-ray showed cardiomegaly and interstitial edema and small bilateral pleural effusion in addition to a pacemaker on the left. BUN is a 59 with a creatinine of 1 and the sodium level is at 1:30 with a potassium level of 3.6. The patient's INR today is at 2.7. The medication list was reviewed. The patient is currently on Aldactone 25 mg by mouth daily. She is on Demadex 40 mg by mouth daily. She is on Coumadin 4 mg by mouth daily. She is on DuoNeb nebulized treatments around the clock. She is also on metoprolol. She was taken a combination of Zaroxolyn Lasix and Aldactone outpatient basis and this was switched to Demadex. 03/20/2022, the patient is being seen for a follow-up. Since yesterday, the patient was diuresed another 3 L and her net fluid balance is -2.4 L over the past 24 hours. She is currently on a combination of Demadex and 0.3 Aldactone. Her blood work on today's evaluation is showing an INR of 3.4 which is essentially therapeutic. Sodium level is at 127. BUN is a 61 with a creatinine of 1.1. Potassium level is at 4.1. Serum bicarbs at 28. The patient remains on oxygen at 6 L per minute nasal cannula. No angina. No palpitation. No other new complaints otherwise for now. She has her own CPAP and she is utilizing her CPAP overnight. This is set at a pressure of 13 cm of water as the patient has severe BLACK. 03/21/2022, the patient is doing well. She is down to 3 L of oxygen nasal ca nnula. She is on Lasix drip at 15 mg an hour. She is also on Aldactone 25 mg by mouth daily. Her INR is therapeutic. No new complaints. Lower extremity edema is improving. The blood work shows a sodium of 130, BUN of 61 with a creatinine of 1.2. INR is at 3.0. She is awake and alert and communicating. The findings on the case and managing the diuretics. The patient is also on CPAP at a pressure of 13 cm of water and she is wearing it overnight. No altered mentation. No chest pain. No worsening shortness of breath. Objective - Vital Signs Vital signs: Vital Signs Temp 98.0 F 03/21/22 07:58 Pulse 80 03/21/22 07:58 Resp 18 03/21/22 07:58 BP 117/63 03/21/22 07:58 Pulse Ox 90 L 03/21/22 07:58 FiO2 Intake & Output 03/20/22 03/21/22 03/21/22 18:59 06:59 18:59 Intake Total 1075.833 218 Output Total 1201 250 Balance -125.167 -32 Weight 127.5 kg Intake: Intake, IV Titration 95.833 100 Amount Furosemide 100 mg In 95.833 100 Sodium Chloride 0.9% 90 ml @ 10 MG/HR 10 mls/hr IV .Q10H [facility] Rx#: [id number] Oral 980 118 Output: Urine 1200 250 Stool 1 Other: Voiding Method Toilet Toilet Toilet # Voids 1 - Exam No acute distress, oriented 3. Currently on high flow nasal cannula, at 3 L. Saturations are 94%. HEENT examination is grossly unremarkable. Neck supple. Full range of motion. No adenopathy thyromegaly or neck vein distention. Cardiovascular examination reveals regular rhythm rate. S1-S2 normal. No S3 or S4. No discernible murmur noted. Heart sounds are distant. Heart rate 79 bpm. Lungs reveal mild scattered rhonchi. No wheezes. Mild bibasilar crackles. Breath sounds equal bilaterally. Breath sounds are improved. Abdomen obese, soft, with bowel sounds. Extremities reveals significant bilateral lower extremity edema, which is improved. No cyanosis or clubbing. Edema is improved. Skin is without rash or lesion. Neurologic examination is brief but nonfocal. - Labs CBC & Chem 7: 03/13/22 19:17 03/21/22 08:41 Labs: Abnormal Lab Results - Last 24 Hours (Table) 03/21/22 03/21/22 Range/Units 08:41 08:41 PT 29.7 H (9.0-12.0) sec INR 3.0 H (<1.2) Sodium 130 L (137-145) mmol/L Chloride 87 L (98-107) mmol/L BUN 61 H (7-17) mg/dL Creatinine 1.22 H (0.52-1.04) mg/dL Glucose 106 H (74-99) mg/dL Assessment and Plan Plan: Acute on top of chronic hypoxic/hypercapnic respiratory failure, so she is secondary to fluid overload/decompensated heart failure. The patient is improving and currently she is on 3L of O2 nasal cannula Shortness of breath with acute hypoxemic respiratory failure, likely related to underlying CHF, with a small component COPD. Obstructive sleep apnea syndrome, CPAP dependent. The patient has an AHI of 98 and the patient has been on a CPAP pressure of 13 cm of water and on outpatient basis and she has demonstrated excellent compliancy. She follows up with me and obvious regarding her state. Extensive volume overload and lower extremity edema maintained on a combination of Zaroxolyn Lasix and Aldactone outpatient basis currently on a combination of Lasix drip at 15mmg an hour and Aldactone. Overall fluid balance has been negative for now Secondary pulmonary hypertension, multifactorial, secondary to chronic heart and lung disease, sleep apnea syndrome, and restrictive lung disease, secondary to obesity. COPD, secondary to previous tobacco use. Restrictive lung disease secondary to obesity. Morbid obesity. Chronic hypoxemic respiratory failure. The patient has been maintained on ox ygen at 5 L on outpatient basis History of factor V deficiency. Prior history of DVT. History of hypertension. Status post pacemaker implantation. History of mitral valve disease. Plan Continue weaning the FiO2 currently on 3 L Continue using CPAP overnight at a pressure of 13 cm Continue to diurese adequately for now with the current diuretic regimen. She is losing weight and her fluid losses also improving. continue lasix drip continue Aldactone Continue anticoagulation with warfarin and the patient's PT/INR is therapeutic Discharge planning is in progress Renal function and sodium levels are adequate for now. We'll continue to follow. Possible discharge home today along with home nurses.
[2022-03-21] MEDS ORDERED: TOLVAPTAN 15 MG TABLET PO ONE (11:00)
--- NOTE | 2022-03-21 17:50 | P.PN ---
Progress Note - Text Progress Note Date: 03/21/22 Chief Complaint: Epistaxis This is a pleasant 66-year-old patient, follows with Dr. Mike Garcia. Chronic stable medical conditions include COPD, hypertension, factor V Leyden insufficiency, DVT in the left leg 5 years ago, home oxygen 5 L, pacemaker,. Patient visits her . Recently has been using walker. For about 4 days patient been having some intermittent epistaxis. Patient then became short of breath. Shaky weak. Normally has a bowel movement every other day. Last bowel movement was 4 days ago. No fever no chills. A slight cough. Patient rundown of the [facility]. Patient left AMA from there and decided to him to our ER. Patient's INR at the other hospital was 6.3. Sodium was low at 124. In abnormal renal function. Patient did give 2.5 mg vitamin K. Admitted with Coumadin toxicity. Received vitamin K. Acute COPD exacerbation, acute CHF exacerbation. Started on bronchodilators. IV Lasix drip. March 15: Laying in bed. GERD urine output. Breathing a bit better. Eating some. Over 2 L negative fluid balance March 3: Patient on IV Lasix 60 mg every 8.. Edema coming down. On 10L of nasal cannula. Home oxygen 5 L. Breathing a bit better. March 17: About 7 L and negative fluid balance. Decrease FiO2 to 10 L. Incentive spirometry. Breathing slightly better. Up in a recliner some decrease in edema March 18: About close to 9 L and negative fluid balance. On IV Lasix. Breathing better. FiO2 down to 6 L. March 19: Patient EKG ordered Demadex today. 40 mg. 6 L of nasal cannula. Oral intake fair. Enoch wrap on it. Hopefully can be discharged tomorrow. Discussed with patient. March 20: Patient having still significant edema. The breathing is better. Discussed with Dr. Mora from nephrology. We decided to proceed with Lasix drip and his overnight 10 mg an hour. Discussed with the patient. Fluid restriction to continue. Patient also received a dose of Samsca March 21: Patient started on Lasix drip yesterday. Sitting at the edge of the bed. Making urine. Given Samsca. Fluid restriction. Discussed with patient and . Active Medications Albuterol/Ipratropium (Ipratropium-Albuterol 3 Ml Neb) 3 ml INHALATION RT-QID [facility] Last Admin: 03/21/22 15:33 Dose: Not Given Albuterol/Ipratropium (Ipratropium-Albuterol 3 Ml Neb) 3 ml INHALATION RT-Q2H PRN PRN Reason: Shortness Of Breath Or Wheezing Budesonide (Budesonide 1 Mg/2 Ml Nebu) 1 mg INHALATION RT-BID [facility] Last Admin: 03/21/22 08:03 Dose: Not Given Escitalopram Oxalate (Escitalopram 10 Mg Tab) 10 mg PO DAILY [facility] Last Admin: 03/21/22 08:16 Dose: 10 mg Formoterol Fumarate (Formoterol Fumarate 20 Mcg/2 Ml Nebu) 20 mcg INHALATION RT-BID [facility] Last Admin: 03/21/22 08:03 Dose: Not Given Furosemide 100 mg/ Sodium (Chloride) 100 mls @ 15 mls/hr IV .Q6H40M [facility] Last Admin: 03/21/22 16:53 Dose: 15 mg/hr, 15 mls/hr Metoprolol Succinate (Metoprolol Succinate (Er) 50 Mg Tab.Er.24h) 50 mg PO DAILY [facility] Last Admin: 03/21/22 08:16 Dose: 50 mg Miscellaneous Information (Potassium Replacement Protocol 1 Each Misc) 1 each MISCELLANE DAILY PRN; Protocol PRN Reason: Per Protocol Miscellaneous Information (Warfarin Per Pharmacy) 1 each MISCELLANE DIRECTED PRN; Protocol PRN Reason: Per Protocol Potassium Chloride (Potassium Chloride Er 20 Meq Tab.Er) 20 meq PO DAILY [facility] Last Admin: 03/21/22 08:16 Dose: 20 meq Spironolactone (Spironolactone 25 Mg Tab) 25 mg PO DAILY [facility] Last Admin: 03/21/22 08:16 Dose: 25 mg Warfarin Sodium (Warfarin 2 Mg Tab) 2 mg PO ONCE@1800 ONE Stop: 03/21/22 18:01 Last Admin: 03/21/22 16:52 Dose: 2 mg Past medical history to include: COPD, DVT, factor V Leyden insufficiency, home oxygen 5 L. A sneaker. Mitral valve issues. Social history: Patient smoked off and on for about 25 years stopped about 9 years ago. Averaged a pack a day. No alcohol. . Family history: Congestive heart failure. Physical examination: VITAL SIGNS: 99, 18, 1 34 x 62, 90% on 5 L GENERAL: Sitting of the edge of the bed comfortable EYES: Pupils equal. Conjunctiva normal. HEENT: External appearance of nose and ears normal, oral cavity grossly normal. NECK: JVD not raised; masses not palpable. HEART: First and second heart sounds are normal; decreased edema. LUNGS: Respiratory rate increased; diminished breath sounds. ABDOMEN: Soft, nontender, liver spleen not palpable, no masses palpable. PSYCH: Alert and oriented x3; mood and affect normal. MUSCULOSKELETAL:No Clubbing/cyanosis;muscles-grossly intact. Evidence of OA INVESTIGATIONS, reviewed in the clinical context: March 21: INR 3 sodium 1:30 potassium 4.2 BUN 61 creatinine 1.2 to March 20: INR 3.1 sodium 127 potassium 4.1 March 19: INR 2.7 potassium 3.6 creatinine 1.04 TSH 4.8. T4 1 0.6 March 18: INR 2.4 BUN 59 creatinine 1.13 March 17: Sodium 128 potassium 3 creatinine 1.7 INR 2.1 March 16: Sodium 126 potassium 3.5 creatinine 1.17 serum osmolality 277 March 15: Sodium 124 potassium 3.2 BUN 58 creatinine 1.23 March 14: Sodium 125 potassium 3.4 BUN 62 creatinine 1.27 Admission labs: White count 14.9 hemoglobin 15.1 platelets 427 INR 4.2 sodium 124 potassium 3.2 BUN 65 creatinine 1.47 proBNP 8570 troponin I 0.025 EKG tracing personally reviewed by me-ventricle paced rhythm Chest x-ray film personally reviewed by me-pacemaker. Hyperinflation. Assessment and plan: -Coumadin toxicity with bleeding with epistaxis on presentation Patient received vitamin K 2.5 mg. Follow INR -Acute hypoxic respiratory failure from COPD exacerbation and pulmonary edema: Better Currently on 5 L nasal cannula -Chronic hypoxic is pending failure from underlying COPD On 5 L of oxygen at home -Acute COPD exacerbation in the previous smoker: Better DuoNeb 4 times a day. Nebulized Pulmicort and Perforomist. - acute congestive heart failure exacerbation: Slow to respond Lasix drip changed to 60 mg every 8-discontinued. Follow I's and O's. back on IV Lasix drip yesterday -Depression otherwise specified Lexapro 10 mg a day -Essential hypertension Norvasc 10 mg daily, Lopressor, -Morbid obesity BMI 51.5 Weight loss measures -Severe hyponatremia, hypoosmolar: Better Fluid restriction increased to 1500 mL a day. Given Samsca -Acute kidney injury mostly cardiorenal.: Better Follow with nephrology IV Lasix drip to continue from yesterday. Discussed with the patient has been. Follow I's and O's. Other medications to continue.
[2022-03-21] MEDS ORDERED: WARFARIN 2 MG TAB PO ONE (18:00)
[2022-03-22] MEDS: FUROSEMIDE 100 MG in SODIUM CHLORIDE 0.9% 90 ML IV SCH ×3 (00:07→09:24)
[2022-03-22] MEDS: FORMOTEROL FUMARATE 20 MCG/2 ML NEBU INHALATION SCH (08:21)
[2022-03-22] MEDS: IPRATROPIUM-ALBUTEROL 3 ML NEB INHALATION SCH ×2 (08:21→11:35)
[2022-03-22] MEDS: BUDESONIDE 1 MG/2 ML NEBU INHALATION SCH (08:21)
[2022-03-22] MEDS: METOPROLOL SUCCINATE (ER) 50 MG TAB.ER.24H PO SCH (09:25)
[2022-03-22] MEDS: POTASSIUM CHLORIDE ER 20 MEQ TAB.ER PO SCH (09:25)
[2022-03-22] MEDS: SPIRONOLACTONE 25 MG TAB PO SCH (09:25)
[2022-03-22] MEDS: ESCITALOPRAM 10 MG TAB PO SCH (09:25)
--- NOTE | 2022-03-22 09:54 | P.PN ---
Subjective Patient is seen in follow-up for acute kidney injury. Morning labs pending. Nonoliguric. On Lasix drip. On 5 L high flow cannula. Blood pressure stable. No vomiting or diarrhea. Oral intake fair. No changes overnight. Vital signs are stable. General: Awake. No acute distress. HEENT: Head exam is unremarkable. On nasal cannula. LUNGS: Breath sounds decreased. HEART: Rate and Rhythm are regular. ABDOMEN: Soft, no distention. EXTREMITITES: 1+ edema. Objective - Vital Signs Vital signs: Vital Signs Temp 98.1 F 03/22/22 04:00 Pulse 68 03/22/22 04:00 Resp 21 03/22/22 04:00 BP 124/80 03/22/22 04:00 Pulse Ox 90 L 03/22/22 04:00 FiO2 Intake & Output 03/21/22 03/22/22 03/22/22 18:59 06:59 18:59 Intake Total 1038.000 100 118 Output Total 850 252 401 Balance 188.000 -152 -283 Weight 127.6 kg Intake: Intake, IV Titration 200.000 100 Amount Furosemide 100 mg In 200.000 100 Sodium Chloride 0.9% 90 ml @ 15 MG/HR 15 mls/hr IV .Q6H40M [facility] Rx#: [id number] Oral 838 118 Output: Urine 850 250 400 Stool 2 1 Other: Voiding Method Toilet Toilet - Labs CBC & Chem 7: 03/13/22 19:17 03/21/22 08:41 Labs: Abnormal Lab Results - Last 24 Hours (Table) 03/21/22 Range/Units 08:41 Sodium 130 L (137-145) mmol/L Chloride 87 L (98-107) mmol/L BUN 61 H (7-17) mg/dL Creatinine 1.22 H (0.52-1.04) mg/dL Glucose 106 H (74-99) mg/dL Assessment and Plan Plan: Assessment: 1. Acute kidney injury mostly prerenal secondary to cardiorenal syndrome. No proteinuria on UA. No hydronephrosis noted on kidney ultrasound. Renal function worse from diuresis - creatinine 1.22 yesterday. 2. Volume overload. Improving with diuresis. 3. Acute on chronic diastolic CHF with mild to moderate tricuspid regurgitation and severe pulmonary hypertension. 4. Hypervolemic hyponatremia. Has received Samsca this admission. Urine sodium 65 and urine osmolality 303. Cortisol level not low. TSH mildly high at 4.89. Sodium level 130 today. 5. Obesity. 6. Acute hypoxic respiratory failure secondary to volume overload. 7. Hypokalemia from diuresis. Magnesium normal. Replaced. Plan: Stop Lasix drip. Start Demadex 40 mg twice daily. Maintain low-salt diet and fluid restriction. Avoid nephrotoxins. Follow-up PTH related peptide. Patient was advised to monitor her weight closely at home and to notify physi marie if edema worsens or gains more than 3 pounds in 1 week duration. Repeat BMP and magnesium level 2-3 days postdischarge. Follow up outpatient in 1 week. Morning labs pending.
[2022-03-22] MEDS ORDERED: TORSEMIDE 20 MG TAB PO SCH (10:00)
--- NOTE | 2022-03-22 10:30 | P.PN ---
Subjective Progress Note Date: 03/22/22 On today's evaluation of 62,022, the patient is awake and alert and she is resting comfortably on the recliner. She is very comfortable at this point in time. She has had a CPAP at the bedside and this is at the pressure of 13 cm of water as the patient is known to have severe BLACK with an AHI of 98. She also has right-sided heart failure, severe pulmonary hypertension as noted on her previous echocardiogram an extensive volume overload and increased lower extremity edema. Overall, she is improved. She is currently on oxygen at 6 L which is very close to her baseline as the patient is on 5 L at home. She is morbidly obese. Her echo was noted. Her chest x-ray showed cardiomegaly and interstitial edema and small bilateral pleural effusion in addition to a pacemaker on the left. BUN is a 59 with a creatinine of 1 and the sodium level is at 1:30 with a potassium level of 3.6. The patient's INR today is at 2.7. The medication list was reviewed. The patient is currently on Aldactone 25 mg by mouth daily. She is on Demadex 40 mg by mouth daily. She is on Coumadin 4 mg by mouth daily. She is on DuoNeb nebulized treatments around the clock. She is also on metoprolol. She was taken a combination of Zaroxolyn Lasix and Aldactone outpatient basis and this was switched to Demadex. 03/20/2022, the patient is being seen for a follow-up. Since yesterday, the patient was diuresed another 3 L and her net fluid balance is -2.4 L over the past 24 hours. She is currently on a combination of Demadex and 0.3 Aldactone. Her blood work on today's evaluation is showing an INR of 3.4 which is essentially therapeutic. Sodium level is at 127. BUN is a 61 with a creatinine of 1.1. Potassium level is at 4.1. Serum bicarbs at 28. The patient remains on oxygen at 6 L per minute nasal cannula. No angina. No palpitation. No other new complaints otherwise for now. She has her own CPAP and she is utilizing her CPAP overnight. This is set at a pressure of 13 cm of water as the patient has severe BLACK. 03/21/2022, the patient is doing well. She is down to 3 L of oxygen nasal ca nnula. She is on Lasix drip at 15 mg an hour. She is also on Aldactone 25 mg by mouth daily. Her INR is therapeutic. No new complaints. Lower extremity edema is improving. The blood work shows a sodium of 130, BUN of 61 with a creatinine of 1.2. INR is at 3.0. She is awake and alert and communicating. The findings on the case and managing the diuretics. The patient is also on CPAP at a pressure of 13 cm of water and she is wearing it overnight. No altered mentation. No chest pain. No worsening shortness of breath. 03/22 2022, the patient is on out to and she is at 5 L and her saturations are at 91%. The patient was on Lasix drip at 15 mg an hour and the patient is also on Aldactone 25 mg by mouth daily. Lasix drip has been discontinued and the patient was switched to Demadex 40 mg twice a day. In terms of lower extremity edema, the patient was noted to have improvement in the swelling in lower extremities. Overall fluid balance over the past 24 hours has been in the order of slightly positive probably in the order of 30 mL positive. Nevertheless, the blood work from today is still pending and this will be crucial to monitor her electrolytes knowing that her BUN was up to 61 with a creatinine of 1.2. INR from today is also pending. She is also received talvaptan 10 and she received 1 dose yesterday. Objective - Vital Signs Vital signs: Vital Signs Temp 98.1 F 03/22/22 04:00 Pulse 68 03/22/22 04:00 Resp 21 03/22/22 04:00 BP 124/80 03/22/22 04:00 Pulse Ox 90 L 03/22/22 04:00 FiO2 Intake & Output 03/21/22 03/22/22 03/22/22 18:59 06:59 18:59 Intake Total 1038.000 100 118 Output Total 850 252 401 Balance 188.000 -152 -283 Weight 127.6 kg Intake: Intake, IV Titration 200.000 100 Amount Furosemide 100 mg In 200.000 100 Sodium Chloride 0.9% 90 ml @ 15 MG/HR 15 mls/hr IV .Q6H40M [facility] Rx#: [id number] Oral 838 [id number] Output: Urine 850 250 400 Stool 2 1 Other: Voiding Method Toilet Toilet - Exam No acute distress, oriented 3. Currently on high flow nasal cannula, at 5 L. Saturations are 94%. HEENT examination is grossly unremarkable. Neck supple. Full range of motion. No adenopathy thyromegaly or neck vein distention. Cardiovascular examination reveals regular rhythm rate. S1-S2 normal. No S3 or S4. No discernible murmur noted. Heart sounds are distant. Heart rate 79 bpm. Lungs reveal mild scattered rhonchi. No wheezes. Mild bibasilar crackles. Breath sounds equal bilaterally. Breath sounds are improved. Abdomen obese, soft, with bowel sounds. Extremities reveals significant bilateral lower extremity edema, which is improved. No cyanosis or clubbing. Edema is improved. Skin is without rash or lesion. Neurologic examination is brief but nonfocal. - Labs CBC & Chem 7: 03/13/22 19:17 03/21/22 08:41 Assessment and Plan Plan: Acute on top of chronic hypoxic/hypercapnic respiratory failure, so she is secondary to fluid overload/decompensated heart failure. The patient is improving and currently she is on 5L of O2 nasal cannula him a the patient continues to diurese and the patient's oxygen requirements have been ranging between 3 and 5 L per minute nasal cannula. Shortness of breath with acute hypoxemic respiratory failure, likely related to underlying CHF, with a small component COPD. Obstructive sleep apnea syndrome, CPAP dependent. The patient has an AHI of 98 and the patient has been on a CPAP pressure of 13 cm of water and on outpatient basis and she has demonstrated excellent compliancy. She follows up with me and obvious regarding her state. Extensive volume overload and lower extremity edema maintained on a combination of Zaroxolyn Lasix and Aldactone outpatient basis currently on a combination of Lasix drip at 15 milligrams an hour and Aldactone. Overall fluid balance has been negative for now. The patient will be taken off Lasix drip and the patient will be started on Demadex. Secondary pulmonary hypertension, multifactorial, secondary to chronic heart and lung disease, sleep apnea syndrome, and restrictive lung disease, secondary to obesity. COPD, secondary to previous tobacco use. Restrictive lung disease secondary to obesity. Morbid obesity. Chronic hypoxemic respiratory failure. The patient has been maintained on oxygen at 5 L on outpatient basis History of factor V deficiency. Prior history of DVT. History of hypertension. Status post pacemaker implantation. History of mitral valve disease. Plan Continue weaning the FiO2 currently on 3 -5 L Continue using CPAP overnight at a pressure of 13 cm Continue Demadex continue Aldactone Continue anticoagulation with warfarin and the patient's PT/INR is therapeutic him yesterday Repeat electrolytes and renal function from today Discharge planning is in progress R We'll continue to follow. Possible discharge home today along with home nurses.
[2022-03-22 11:32] VITALS: RESP 18
[2022-03-22 11:44] LABS: Calcium 8.4 mg/dL (8.4-10.2); Magnesium 2.1 mg/dL (1.6-2.3); Potassium 4.1 mmol/L (3.5-5.1)
[2022-03-22 12:26] VITALS: BP 92/71; TEMP 98
[2022-03-22 12:47] LABS: INR 2.8 (<1.2); Prothrombin Time 28.3 sec (9.0-12.0)
[2022-03-22 15:07] VITALS: PULSE 63
--- NOTE | 2022-03-22 17:15 | P.DS ---
Providers Date of admission: 03/13/22 19:48 Expected date of discharge: 03/22/22 Attending physician: William Conde Consults: 03/13/22 19:48 Consult Physician Routine Consulting Provider: Patrick Lopez Consult Reason/Comments: heart failure exacerbation Do you want consulting provider notified?: Yes 03/13/22 19:59 Consult Physician Routine Consulting Provider: Dayne Neff Consult Reason/Comments: pulmonary hypertension Do you want consulting provider notified?: Yes 03/14/22 08:43 Consult Physician Routine Consulting Provider: Sonja Rivera Consult Reason/Comments: TOM, cardiorenal syndrome Do you want consulting provider notified?: Yes 03/15/22 18:11 Consult Physician Routine Consulting Provider: Sonja Rivera Consult Reason/Comments: Possible CK D Do you want consulting provider notified?: Yes Primary care physician: Mike Garcia [facility] Course: Chief Complaint: Epistaxis This is a pleasant 66-year-old patient, follows with Dr. Mike Garcia. Chronic stable medical conditions include COPD, hypertension, factor V Leyden insufficiency, DVT in the left leg 5 years ago, home oxygen 5 L, pacemaker,. Patient visits her . Recently has been using walker. For about 4 days patient been having some intermittent epistaxis. Patient then became short of breath. Shaky weak. Normally has a bowel movement every other day. Last bowel movement was 4 days ago. No fever no chills. A slight cough. Patient rundown of the [facility]. Patient left AMA from there and decided to him to our ER. Patient's INR at the other hospital was 6.3. Sodium was low at 124. In abnormal renal function. Patient did give 2.5 mg vitamin K. Admitted with Coumadin toxicity. Received vitamin K. Acute COPD exacerbation, acute CHF exacerbation. Started on bronchodilators. IV Lasix drip. March 15: Laying in bed. GERD urine output. Breathing a bit better. Eating some. Over 2 L negative fluid balance March 3: Patient on IV Lasix 60 mg every 8.. Edema coming down. On 10L of nasal cannula. Home oxygen 5 L. Breathing a bit better. March 17: About 7 L and negative fluid balance. Decrease FiO2 to 10 L. Incentive spirometry. Breathing slightly better. Up in a recliner some decrease in edema March 18: About close to 9 L and negative fluid balance. On IV Lasix. Breathing better. FiO2 down to 6 L. March 19: Patient EKG ordered Demadex today. 40 mg. 6 L of nasal cannula. Oral intake fair. Enoch wrap on it. Hopefully can be discharged tomorrow. Discussed with patient. March 20: Patient having still significant edema. The breathing is better. Discussed with Dr. Mora from nephrology. We decided to proceed with Lasix drip and his overnight 10 mg an hour. Discussed with the patient. Fluid restriction to continue. Patient also received a dose of Samsca March 21: Patient started on Lasix drip yesterday. Sitting at the edge of the bed. Making urine. Given Samsca. Fluid restriction. Discussed with patient and . March 22: Patient was taken off the Lasix drip. Placed on Demadex 40 mg twice a day. Care was discussed with the patient. Be going home. Questions answered. Fluid restriction reinforced. Patient to follow-up with cardiology and nephrology. Discussion and discharge planning more than 35 minutes Past medical history to include: COPD, DVT, factor V Leyden insufficiency, home oxygen 5 L. A sneaker. Mitral valve issues. Social history: Patient smoked off and on for about 25 years stopped about 9 years ago. Averaged a pack a day. No alcohol. . Family history: Congestive heart failure. Physical examination: VITAL SIGNS: 98, 77, 18, 92/71, 96% on 5 L GENERAL: Sitting of the edge of the bed comfortable EYES: Pupils equal. Conjunctiva normal. HEENT: External appearance of nose and ears normal, oral cavity grossly normal. NECK: JVD not raised; masses not palpable. HEART: First and second heart sounds are normal; decreased edema. LUNGS: Respiratory rate increased; diminished breath sounds. ABDOMEN: Soft, nontender, liver spleen not palpable, no masses palpable. PSYCH: Alert and oriented x3; mood and affect normal. MUSCULOSKELETAL:No Clubbing/cyanosis;muscles-grossly intact. Evidence of OA INVESTIGATIONS, reviewed in the clinical context: March 22: INR 2.8 creatinine 1.05 Admission labs: White count 14.9 hemoglobin 15.1 platelets 427 INR 4.2 sodium 124 potassium 3.2 BUN 65 creatinine 1.47 proBNP 8570 troponin I 0.025 EKG tracing personally reviewed by ny-ventricle paced rhythm Chest x-ray film personally reviewed by me-pacemaker. Hyperinflation. Assessment and plan: -Coumadin toxicity with bleeding with epistaxis on presentation Patient received vitamin K 2.5 mg. Follow INR -Acute hypoxic respiratory failure from COPD exacerbation and pulmonary edema: Better Currently on 5 L nasal cannula -Chronic hypoxic is pending failure from underlying COPD On 5 L of oxygen at home -Acute COPD exacerbation in the previous smoker: Better DuoNeb 4 times a day. Nebulized Pulmicort and Perforomist. - acute congestive heart failure exacerbation: Slow to respond Lasix drip changed to 60 mg every 8-discontinued. Follow I's and O's. Lasix drip discontinued. Changed to Demadex 40 mg twice a day -Depression otherwise specified Lexapro 10 mg a day -Essential hypertension Norvasc 10 mg daily, Lopressor, -Morbid obesity BMI 51.5 Weight loss measures -Severe hyponatremia, hypoosmolar: Better Fluid restriction increased to 1500 mL a day. Given Samsca -Acute kidney injury mostly cardiorenal.: Better Follow with nephrology Disposition: Home Plan - Discharge Summary Discharge Rx Participant: No New Discharge Prescriptions: New Torsemide [Demadex] 40 mg PO BID@0900,1600 #60 tab Budesonide 1 mg INHALATION BID #60 each Ipratropium-Albuterol Nebulize [Duoneb 0.5 mg-3 mg/3 ml Soln] 3 ml INHALATION TID #90 ml Metoprolol Succinate (ER) [Toprol Xl] 50 mg PO DAILY #30 tab Potassium Chloride ER [K-Dur 20] 20 meq PO DAILY #30 tab Continue Budesonide-Formot 160-4.5 Mcg [Symbicort 160-4.5 Mcg Inhaler] 2 puff INHALATION RT-BID Albuterol Inhaler [Ventolin Hfa Inhaler] 2 puff INHALATION RT-QID PRN PRN Reason: Shortness Of Breath Warfarin Sodium 2 mg PO DAILY@1600 Spironolactone 25 mg PO DAILY Escitalopram [Lexapro] 10 mg PO DAILY Discontinued Metoprolol Tartrate [Lopressor] 25 mg PO DAILY #30 tab amLODIPine [Norvasc] 10 mg PO DAILY #30 tab Warfarin Sodium 4 mg PO DAILY@1800 metOLazone [Zaroxolyn] 5 mg PO DAILY Nystatin 100,000 Unit/ml Susp [Mycostatin Oral Susp] 5 ml PO QID Furosemide [Lasix] 40 mg PO BID@0900,1600 Discharge Medication List Albuterol Inhaler [Ventolin Hfa Inhaler] 2 puff INHALATION RT-QID PRN 06/15/20 [History] Budesonide-Formot 160-4.5 Mcg [Symbicort 160-4.5 Mcg Inhaler] 2 puff INHALATION RT-BID 06/15/20 [History] Escitalopram [Lexapro] 10 mg PO DAILY 03/13/22 [History] Spironolactone 25 mg PO DAILY 03/13/22 [History] Warfarin Sodium 2 mg PO DAILY@1600 03/13/22 [History] Budesonide 1 mg INHALATION BID #60 each 03/22/22 [Rx] Ipratropium-Albuterol Nebulize [Duoneb 0.5 mg-3 mg/3 ml Soln] 3 ml INHALATION TID #90 ml 03/22/22 [Rx] Metoprolol Succinate (ER) [Toprol Xl] 50 mg PO DAILY #30 tab 03/22/22 [Rx] Potassium Chloride ER [K-Dur 20] 20 meq PO DAILY #30 tab 03/22/22 [Rx] Torsemide [Demadex] 40 mg PO BID@0900,1600 #60 tab 03/22/22 [Rx] Follow up Appointment(s)/Referral(s): [facility] [NON-STAFF] - Jayme Mora DO [STAFF PHYSICIAN] - 2 Weeks (Appt 04/03 09:20am) Patrick Lopez MD [STAFF PHYSICIAN] - 1 Week (Appt 03/29 2:45pm) Alden Brooks MD [STAFF PHYSICIAN] - 2 Weeks (Appt April 13, 2022 @ 10:30am) Mike Garcia MD [Primary Care Provider] - 1-2 days (Appt 04/06 10:30am) Activity/Diet/Wound Care/Special Instructions: Patient requires a hospital bed at discharge to keep the head of bed elevated >30 degrees most of the time to manage orthopnea from COPD Call [facility] when you are getting discharged to set up delivery of hospital bed - [phone] Fluid restriction: 1800 cc a day Discharge Disposition: HOME SELF-CARE
[2022-03-22] MEDS ORDERED: WARFARIN 2 MG TAB PO ONE (18:00)
--- NOTE | 2022-03-26 10:56 | CDI ---
Documentation Clarification Form Date: 03/26/22 From: Sondra Kuhn Admit Date: 03/13/2022 07:48:00 PM Patient Name: Sarah Bridges Visit Number: [id number] Discharge Date: 03/22/2022 03:07:00 PM ATTENTION: The Clinical Documentation Specialists (CDI) and [facility] Coding Staff appreciate your assistance in clarifying documentation. Please respond to the clarification below the line at the bottom and electronically sign. The CDI & [facility] Coding staff will review the response and follow-up if needed. Please note: Queries are made part of the Legal Health Record. If you have any questions, please contact the author of this message via ITS. Dr. William Conde, Unspecified CKD is documented in the DS as cardiorenal syndrome. Additional clarification regarding the stage of CKD is requested. History/Risk Factors:CHF, COPD, DVT, factor V Leyden insufficiency, home oxygen 5 L, Clinical indicators: Per renal consult - Hypervolemic hyponatremia, continue to diurese patient. I will give one dose of tolvaptan as well. Check urine osmolality and random urine sodium. Agree with Lasix drip. Acute kidney injury, mostly cardiorenal. Rule out urine retention. Patient has an external catheter. / PN - Patient has had good urine output. No urine retention. Current BUN: 65, 64, 62, 62, 58, 5 .9, 59, 61, 61, 56 Current CR: 1.47, 1.34, 1.27, 1.33,1.23, 1.17,1.17, 1.13, 1.04, 1.10, 1.22, 1.05 Current GFR: 37, 41, 44, 42, 46, 49, 49, 51, 56, 56, 53, 46, 55 Treatment: IV Lasix Please clarify the stage of the CKD, if known: [ ] CKD Stage 1 (GFR > 90) [ ] CKD Stage 2 (GFR 60-89) [ ] CKD Stage 3 (GFR 30-59) [ ] CKD Stage 3a (GFR 45-59) [ ] CKD Stage 3b (GFR 30-44) [ ] CKD Stage 4 (GFR 15-29) [ ] CKD Stage 5 (GFR <15) [ ] ESRD [ ] Other, please specify [ ] Unable to determine No CKD. MTDD
== END 2022-03-22 15:07 | disposition home health service (06) | DRG 291 ==
LOC: EC 16:32 → 3SCARD 19:48
PROVIDERS: ADMIT Hospitalist; ATTEND Hospitalist
PROC: 5A0955A Assistance with Respiratory Ventilation, Greater than 96 Consecutive Hours, High Flow/Velocity Cannula (ICD-10-PCS; principal; 2022-03-14)
PROC: 5A09557 Assistance with Respiratory Ventilation, Greater than 96 Consecutive Hours, Continuous Positive Airway Pressure (ICD-10-PCS; 2022-03-14)
DX: I11.0 Hypertensive heart disease with heart failure (principal); I50.33 Acute on chronic diastolic (congestive) heart failure; J96.21 Acute and chronic respiratory failure with hypoxia; J96.22 Acute and chronic respiratory failure with hypercapnia; I44.2 Atrioventricular block, complete; E87.1 Hypo-osmolality and hyponatremia; Z68.43 Body mass index [BMI] 50.0-59.9, adult; J44.1 Chronic obstructive pulmonary disease with (acute) exacerbation; N17.9 Acute kidney failure, unspecified; D68.51 Activated protein C resistance; I27.29 Other secondary pulmonary hypertension; E66.01 Morbid (severe) obesity due to excess calories; Z20.822 Contact with and (suspected) exposure to COVID-19; E87.6 Hypokalemia; I08.8 Other rheumatic multiple valve diseases; J98.4 Other disorders of lung; G47.33 Obstructive sleep apnea (adult) (pediatric); F32.A Depression, unspecified; R04.0 Epistaxis; D72.829 Elevated white blood cell count, unspecified; T50.1X5A Adverse effect of loop [high-ceiling] diuretics, initial encounter; T45.515A Adverse effect of anticoagulants, initial encounter; Z99.81 Dependence on supplemental oxygen; Z79.51 Long term (current) use of inhaled steroids; Z79.01 Long term (current) use of anticoagulants; Z79.899 Other long term (current) drug therapy; Z95.0 Presence of cardiac pacemaker; Z86.718 Personal history of other venous thrombosis and embolism; Z90.49 Acquired absence of other specified parts of digestive tract; Z87.19 Personal history of other diseases of the digestive system; Z90.710 Acquired absence of both cervix and uterus; Z90.89 Acquired absence of other organs; Z87.81 Personal history of (healed) traumatic fracture; Z87.42 Personal history of other diseases of the female genital tract; Z87.891 Personal history of nicotine dependence; Z98.890 Other specified postprocedural states; Z71.3 Dietary counseling and surveillance; Z82.49 Family history of ischemic heart disease and other diseases of the circulatory system; Z83.2 Family history of diseases of the blood and blood-forming organs and certain disorders involving the immune mechanism; Z82.79 Family history of other congenital malformations, deformations and chromosomal abnormalities; Z80.1 Family history of malignant neoplasm of trachea, bronchus and lung
CPT/HCPCS: 36415; 71045; 71046; 76770; 80048; 80053; 81001; 82533; 83519; 83605; 83735; 83880; 83930; 83935; 84295; 84300; 84439; 84443; 84484; 85025; 85610; 85730; 87635; 93005; 93306; 94640; 94760; 96374; 99285

== ENCOUNTER 2022-03-28 17:22 | Emergency (ER) | payer MEDICARE ==
--- NOTE | 2022-03-28 18:37 | XR ---
EXAMINATION TYPE: XR chest 1V portable DATE OF EXAM: 03/28/2022 6:31 PM COMPARISON: Chest radiographs from 03/13/2022, 03/17/2022 TECHNIQUE: XR chest 1V portable Frontal view of the chest. CLINICAL INDICATION:Female, 66 years old with history of dyspnea; FINDINGS: Lungs/Pleura: There is no evidence of pleural effusion, focal consolidation, or pneumothorax. Pulmonary vascularity: Minimally improved pulmonary vascular congestion when compared to 03/17/2022. Heart/mediastinum: Cardiomediastinal silhouette is obscured due to overlying and adjacent opacities. Atherosclerotic calcifications are seen in the aorta. Three lead cardiac conduction device overlying the left hemithorax with lead tips projecting over the right ventricle, right atrium and coronary si nus. Musculoskeletal: No acute osseous pathology. IMPRESSION: Minimally improved pulmonary vascular congestion. Stable cardiomegaly. Correlate with BNP for congest shonna heart failure.
[2022-03-28 19:26] VITALS: TEMP 98.5
--- NOTE | 2022-03-28 19:26 | ED ---
General Adult HPI - General Chief complaint: Shortness of Breath Stated complaint: CHF exacerbation Time Seen by Provider: 03/28/22 18:05 Source: patient Mode of arrival: ambulatory Limitations: no limitations - History of Present Illness Initial comments: Dictation was produced using [employer] 2000 dictation software. please excuse any grammatical, word or spelling errors. Chief Complaint: 66-year-old female with multiple comorbidities presents to the emergency department for 17 pound weight gain History of Present Illness: Patient 66-year-old female she was recently admitted to the hospital for several days. She is evaluated with cardiology and pulmonology. She was diagnosed with CHF exacerbation. She is placed on diuretics and diuresed for several days. Patient states her breathing is better. She has been at home for the last 6 days. Since being discharged every day she is been trending downward and her weight patient weighs himself every morning. This morning she woke ut she was 17 pounds heavier than the previous morning. Patient states however her breathing is better. Yesterday she had a stressful day with physical therapy and doing to and from her appointments. She had a conversation with her primary care physician's office who instructed her to come to the emergency department to be evaluated. The ROS documented in this emergency department record has been reviewed and confirmed by me. Those systems with pertinent positive or negative responses have been documented in the HPI. All other systems are other negative and/or noncontributory. PHYSICAL EXAM: General Impression: Alert and oriented x3, not in acute distress HEENT: Normocephalic atraumatic, extra-ocular movements intact, pupils equal and reactive to light bilaterally, mucous membranes moist. Cardiovascular: Heart regular rate and rhythm Chest: Able to complete full sentences, no retractions, no tachypnea Abdomen: abdomen soft, non-tender, non-distended, no organomegaly Musculoskeletal: Pulses present and equal in all extremities, no peripheral edema Motor: no focal deficits noted Neurological: CN II-XII grossly intact, no focal motor or sensory deficits noted Skin: Intact with no visualized rashes Psych: Normal affect and mood ED course: 66-year-old female presents emergency department for 17 pound weight gain. Patient has multiple cardio and pulmonary comorbidities. She was recently hospitalized several days for heart failure. Patient's been on diuretics. States that her breathing is better. Physical exam is unremarkable. EKG shows no acute changes. Laboratory evaluation obtained. CBC unremarkable. Coag panel is within acceptable limits. Metabolic panel shows findings within acceptable limits. Chest x-ray is significantly improved. Patient observed in emergency department for approximately 3 hours she is reevaluated at bedside at 8:25 PM on a similar condition. Patient states her breathing has never been this good. She feels well and her oxygen levels have been significantly improved today compared to the past. At this point patient is stable for discharge. She is advised to follow-up with her outpatient doctors for further care. Return precautions discussed. Patient is agreeable with discharge. EKG interpretation: Ventricular rate 73, paced rhythm,. 139, QS 149, QTc 460. No KS prolongation, no QTC prolongation, no ST or T-wave changes noted. EKG compared to 03/13/2022 showing no changes. Overall, this EKG is unremarkable - Related Data Home Medications Medication Instructions Recorded Confirmed Albuterol Inhaler [Ventolin Hfa 2 puff INHALATION RT-QID PRN 06/15/20 03/28/22 Inhaler] Budesonide-Formot 160-4.5 Mcg 2 puff INHALATION RT-BID 06/15/20 03/28/22 [Symbicort 160-4.5 Mcg Inhaler] Escitalopram [Lexapro] 10 mg PO DAILY 03/13/22 03/28/22 Spironolactone 25 mg PO DAILY 03/13/22 03/28/22 Warfarin Sodium 2 mg PO DAILY@1600 03/13/22 03/28/22 Budesonide 1 mg INHALATION RT-BID 03/28/22 03/28/22 Ipratropium-Albuterol Nebulize 3 ml INHALATION RT-TID 03/28/22 03/28/22 [Duoneb 0.5 mg-3 mg/3 ml Soln] Previous Rx's Medication Instructions Recorded Metoprolol Succinate (ER) [Toprol 50 mg PO DAILY #30 tab 03/22/22 Xl] Potassium Chloride ER [K-Dur 20] 20 meq PO DAILY #30 tab 03/22/22 Torsemide [Demadex] 40 mg PO BID@0900,1600 #60 tab 03/22/22 Allergies Allergy/AdvReac Type Severity Reaction Status Date / Time No Known Allergies Allergy Verified 03/28/22 19:38 Review of Systems ROS Statement: Those systems with pertinent positive or pertinent negative responses have been documented in the HPI. ROS Other: All systems not noted in ROS Statement are negative. Past Medical History Past Medical History: Blood Disorder, Heart Failure, COPD, Deep Vein Thrombosis (DVT), Hypertension Additional Past Medical History / Comment(s): factor 5 Leiden insufficiency, DVT left leg 5 yrs. ago, uses oxygen @3l cont. since pacemaker inserted during recent hospital stay, mitral valve problem per pt. History of Any Multi-Drug Resistant Organisms: None Reported Past Surgical History: Appendectomy, Cholecystectomy, Hysterectomy, Orthopedic Surgery, Pacemaker, Tonsillectomy Additional Past Surgical History / Comment(s): D & C, left ankle ORIF Past Anesthesia/Blood Transfusion Reactions: No Reported Reaction Type of Cardiac Device: Permanent Pacemaker Device Placement Date:: April 2020 Past Psychological History: No Psychological Hx Reported Smoking Status: Former smoker Past Alcohol Use History: None Reported Past Drug Use History: None Reported - Past Family History Father Family Medical History: Congestive Heart Failure (CHF) Additional Family Medical History / Comment(s): congenital , CARDOIOMYAPTHY Mother Family Medical History: Cancer, Deep Vein Thrombosis (DVT) Additional Family Medical History / Comment(s): lung cancer General Exam Limitations: no limitations Course Vital Signs 03/28/22 03/28/22 17:57 18:11 Temperature 98.5 F Pulse Rate 76 Respiratory 16 20 Rate Blood Pressure 114/67 O2 Sat by Pulse 92 L 91 L Oximetry Medical Decision Making - Lab Data Result diagrams: 03/28/22 19:20 03/28/22 19:20 Lab Results 03/28/22 03/28/22 03/28/22 Range/Units 19:20 19:20 19:20 WBC 9.9 (3.8-10.6) k/uL RBC 5.50 H (3.80-5.40) m/uL Hgb 13.9 (11.4-16.0) gm/dL Hct 44.2 (34.0-46.0) % MCV 80.5 (80.0-100.0) fL MCH 25.3 (25.0-35.0) pg MCHC 31.5 (31.0-37.0) g/dL RDW 19.1 H (11.5-15.5) % Plt Count 299 (150-450) k/uL MPV 7.5 Neutrophils % 81 % Lymphocytes % 8 % Monocytes % 7 % Eosinophils % 2 % Basophils % 1 % Neutrophils # 8.0 H (1.3-7.7) k/uL Lymphocytes # 0.8 L (1.0-4.8) k/uL Monocytes # 0.7 (0-1.0) k/uL Eosinophils # 0.2 (0-0.7) k/uL Basophils # 0.1 (0-0.2) k/uL Hypochromasia Moderate Poikilocytosis Slight Anisocytosis Slight Microcytosis Slight PT 22.3 H (9.0-12.0) sec INR 2.2 H (<1.2) APTT 28.6 (22.0-30.0) sec Sodium 130 L (137-145) mmol/L Potassium 4.2 (3.5-5.1) mmol/L Chloride 95 L (98-107) mmol/L Carbon Dioxide 28 (22-30) mmol/L Anion Gap 7 mmol/L BUN 37 H (7-17) mg/dL Creatinine 1.16 H (0.52-1.04) mg/dL Est GFR (CKD-EPI)AfAm 57 (>60 ml/min/1.73 sqM) Est GFR (CKD-EPI)NonAf 49 (>60 ml/min/1.73 sqM) Glucose 99 (74-99) mg/dL Calcium 8.2 L (8.4-10.2) mg/dL Total Bilirubin 1.8 H (0.2-1.3) mg/dL AST 23 (14-36) U/L ALT 16 (4-34) U/L Alkaline Phosphatase 103 (38-126) U/L Troponin I (0.000-0.034) ng/mL Total Protein 6.4 (6.3-8.2) g/dL Albumin 3.3 L (3.5-5.0) g/dL 03/28/22 Range/Units 19:20 WBC (3.8-10.6) k/uL RBC (3.80-5.40) m/uL Hgb (11.4-16.0) gm/dL Hct (34.0-46.0) % MCV (80.0-100.0) fL MCH (25.0-35.0) pg MCHC (31.0-37.0) g/dL RDW (11.5-15.5) % Plt Count (150-450) k/uL MPV Neutrophils % % Lymphocytes % % Monocytes % % Eosinophils % % Basophils % % Neutrophils # (1.3-7.7) k/uL Lymphocytes # (1.0-4.8) k/uL Monocytes # (0-1.0) k/uL Eosinophils # (0-0.7) k/uL Basophils # (0-0.2) k/uL Hypochromasia Poikilocytosis Anisocytosis Microcytosis PT (9.0-12.0) sec INR (<1.2) APTT (22.0-30.0) sec Sodium (137-145) mmol/L Potassium (3.5-5.1) mmol/L Chloride (98-107) mmol/L Carbon Dioxide (22-30) mmol/L Anion Gap mmol/L BUN (7-17) mg/dL Creatinine (0.52-1.04) mg/dL Est GFR (CKD-EPI)AfAm (>60 ml/min/1.73 sqM) Est GFR (CKD-EPI)NonAf (>60 ml/min/1.73 sqM) Glucose (74-99) mg/dL Calcium (8.4-10.2) mg/dL Total Bilirubin (0.2-1.3) mg/dL AST (14-36) U/L ALT (4-34) U/L Alkaline Phosphatase (38-126) U/L Troponin I 0.017 (0.000-0.034) ng/mL Total Protein (6.3-8.2) g/dL Albumin (3.5-5.0) g/dL Disposition Clinical Impression: Weight gain Disposition: HOME SELF-CARE Condition: Fair Instructions (If sedation given, give patient instructions): Furosemide (By mouth) Is patient prescribed a controlled substance at d/c from ED?: No Referrals: Mike Garcia MD [Primary Care Provider] - 1-2 days Time of Disposition: 20:23
[2022-03-28 19:44] LABS: INR 2.2 (<1.2); Partial Thromboplastin Time 28.6 sec (22.0-30.0); Prothrombin Time 22.3 sec (9.0-12.0)
[2022-03-28 19:48] LABS: Albumin 3.3 g/dL (3.5-5.0); Calcium 8.2 mg/dL (8.4-10.2); Potassium 4.2 mmol/L (3.5-5.1); Total Bilirubin 1.8 mg/dL (0.2-1.3); Total Protein 6.4 g/dL (6.3-8.2)
[2022-03-28 19:52] LABS: Anisocytosis Slight; Basophils # (A) 0.1 k/uL (0-0.2); Basophils % (A) 1 %; Eosinophils # (A) 0.2 k/uL (0-0.7); Eosinophils % (A) 2 %; HCT 44.2 % (34.0-46.0); HGB 13.9 gm/dL (11.4-16.0); Hypochromasia Moderate; Lymphocytes # (A) 0.8 k/uL (1.0-4.8); Lymphocytes % (A) 8 %; MCH 25.3 pg (25.0-35.0); MCHC 31.5 g/dL (31.0-37.0); MCV 80.5 fL (80.0-100.0); Mean Platelet Volume 7.5; Microcytosis Slight; Monocytes # (A) 0.7 k/uL (0-1.0); Monocytes % (A) 7 %; Neutrophils % (A) 81 %; Platelet Count 299 k/uL (150-450); Poikilocytosis Slight; RDW 19.1 % (11.5-15.5); WBC 9.9 k/uL (3.8-10.6)
[2022-03-28 22:30] VITALS: BP 97/85; PULSE 70; RESP 16
== END 2022-03-28 21:10 | disposition home or self-care (01) ==
LOC: EC 17:22
DX: R63.5 Abnormal weight gain (principal); J44.9 Chronic obstructive pulmonary disease, unspecified; I10 Essential (primary) hypertension; Z87.891 Personal history of nicotine dependence
CPT/HCPCS: 36415; 71045; 80053; 83880; 84484; 85025; 85610; 85730; 93005; 99285

== ENCOUNTER 2022-04-17 15:55 | Inpatient (IN) | payer MEDICARE ==
[2022-04-17] MEDS ORDERED: MORPHINE SULFATE 2 MG/ML SYRINGE IVP STA (16:17)
[2022-04-17 16:47] LABS: Anisocytosis Slight; Basophils # (A) 0.1 k/uL (0-0.2); Basophils % (A) 1 %; Eosinophils # (A) 0.1 k/uL (0-0.7); Eosinophils % (A) 1 %; HCT 47.8 % (34.0-46.0); HGB 14.8 gm/dL (11.4-16.0); Hypochromasia Marked; Lymphocytes # (A) 0.8 k/uL (1.0-4.8); Lymphocytes % (A) 6 %; MCH 25.1 pg (25.0-35.0); MCHC 30.9 g/dL (31.0-37.0); MCV 81.3 fL (80.0-100.0); Mean Platelet Volume 7.1; Microcytosis Slight; Monocytes # (A) 1.1 k/uL (0-1.0); Monocytes % (A) 8 %; Neutrophils # (A) 10.9 k/uL (1.3-7.7); Neutrophils % (A) 83 %; Platelet Count 283 k/uL (150-450); Poikilocytosis Slight; RBC 5.87 m/uL (3.80-5.40); RDW 19.9 % (11.5-15.5); WBC 13.1 k/uL (3.8-10.6)
[2022-04-17 16:56] LABS: Albumin 3.1 g/dL (3.5-5.0); Calcium 8.2 mg/dL (8.4-10.2); Magnesium 2.5 mg/dL (1.6-2.3); Phosphorus 5.3 mg/dL (2.5-4.5); Potassium 5.1 mmol/L (3.5-5.1); Total Bilirubin 1.8 mg/dL (0.2-1.3); Total Protein 6.5 g/dL (6.3-8.2)
--- NOTE | 2022-04-17 16:57 | ED ---
Weakness HPI - General Source: patient Mode of arrival: EMS Limitations: physical limitation <Walter Jewell - Last Filed: 04/18/22 00:57> <Dayne Pimentel - Last Filed: 04/20/22 19:36> - General Chief complaint: Weakness Stated complaint: Weakness, Cellulitis and Swelling on legs Time Seen by Provider: 04/17/22 16:04 - History of Present Illness Initial comments: Patient is a 66-year-old female with history of CHF, COPD, hypertension, pacemaker presenting with chief complaint of weakness. Patient states that over the last few weeks she has had increasing leg weakness and swelling. Patient is on spironolactone. Patient denies chest pain, shortness of breath, cough, fever, chills, palpitations. She is also complaining of sores to her buttocks that has become increasingly painful. Patient states that today she fell when trying to get out of bed and could not get back up, she had to call the amb ulance who brought her here. She denies any abdominal pain, nausea, vomiting, diaphoresis, dysuria, hematuria, urgency, frequency. (Walter Jewell) - Related Data Home Medications Medication Instructions Recorded Confirmed Albuterol Inhaler [Ventolin Hfa 2 puff INHALATION RT-QID PRN 06/15/20 04/17/22 Inhaler] Budesonide-Formot 160-4.5 Mcg 2 puff INHALATION RT-BID 06/15/20 04/17/22 [Symbicort 160-4.5 Mcg Inhaler] Escitalopram [Lexapro] 10 mg PO DAILY 03/13/22 04/17/22 Spironolactone 25 mg PO DAILY 03/13/22 04/17/22 Warfarin Sodium 2 mg PO DAILY@1600 03/13/22 04/17/22 Budesonide 1 mg INHALATION RT-BID 03/28/22 04/17/22 Ipratropium-Albuterol Nebulize 3 ml INHALATION RT-TID 03/28/22 04/17/22 [Duoneb 0.5 mg-3 mg/3 ml Soln] Previous Rx's Medication Instructions Recorded Metoprolol Succinate (ER) [Toprol 50 mg PO DAILY #30 tab 03/22/22 Xl] Potassium Chloride ER [K-Dur 20] 20 meq PO DAILY #30 tab 03/22/22 Torsemide [Demadex] 40 mg PO BID@0900,1600 #60 tab 03/22/22 Allergies Allergy/AdvReac Type Severity Reaction Status Date / Time No Known Allergies Allergy Verified 04/17/22 18:26 Review of Systems ROS Other: All systems not noted in ROS Statement are negative. <Walter Jewell - Last Filed: 04/18/22 00:57> ROS Other: All systems not noted in ROS Statement are negative. <LorenDayne - Last Filed: 04/20/22 19:36> ROS Statement: Those systems with pertinent positive or pertinent negative responses have been documented in the HPI. Past Medical History Past Medical History: Blood Disorder, Heart Failure, COPD, Deep Vein Thrombosis (DVT), Hypertension Additional Past Medical History / Comment(s): factor 5 Leiden insufficiency, DVT left leg 5 yrs. ago, uses oxygen @3l cont. since pacemaker inserted during recent hospital stay, mitral valve problem per pt. History of Any Multi-Drug Resistant Organisms: None Reported Past Surgical History: Appendectomy, Cholecystectomy, Hysterectomy, Orthopedic Surgery, Pacemaker, Tonsillectomy Additional Past Surgical History / Comment(s): D & C, left ankle ORIF Past Anesthesia/Blood Transfusion Reactions: No Reported Reaction Type of Cardiac Device: Permanent Pacemaker Device Placement Date:: April 2020 Past Psychological History: No Psychological Hx Reported Smoking Status: Former smoker Past Alcohol Use History: None Reported Past Drug Use History: None Reported - Past Family History Father Family Medical History: Congestive Heart Failure (CHF) Additional Family Medical History / Comment(s): congenital , CARDOIOMYAPTHY Mother Family Medical History: Cancer, Deep Vein Thrombosis (DVT) Additional Family Medical History / Comment(s): lung cancer <Walter Jewell - Last Filed: 04/18/22 00:57> General Exam Limitations: physical limitation General appearance: alert, in no apparent distress Head exam: Present: atraumatic, normocephalic, normal inspection Eye exam: Present: normal appearance, EOMI. Absent: scleral icterus, periorbital swelling Neck exam: Present: normal inspection, full ROM Respiratory exam: Present: normal lung sounds bilaterally. Absent: respiratory distress, wheezes, rales, rhonchi, stridor Cardiovascular Exam: Present: regular rate, normal rhythm, normal heart sounds. Absent: systolic murmur, diastolic murmur, rubs, gallop, clicks Extremities exam: Present: pedal edema Neurological exam: Present: alert, oriented X3, CN II-XII intact Psychiatric exam: Present: normal affect, normal mood Skin exam: Present: warm, dry, normal color, other (3 stage II pressure sores to the buttocks). Absent: rash <Walter Jewell - Last Filed: 04/18/22 00:57> Course Vital Signs 04/17/22 04/17/22 04/17/22 15:59 18:36 19:35 Temperature 97.0 F L Pulse Rate 79 82 80 Respiratory 16 18 16 Rate Blood Pressure 114/82 132/86 126/79 O2 Sat by Pulse 94 L 93 L 92 L Oximetry 04/17/22 04/17/22 04/17/22 20:07 21:00 22:00 Temperature Pulse Rate Respiratory 16 16 16 Rate Blood Pressure O2 Sat by Pulse 93 L 93 L Oximetry 04/17/22 04/17/22 04/18/22 23:00 23:58 01:00 Temperature Pulse Rate 78 82 Respiratory 16 Rate Blood Pressure 100/89 96/83 O2 Sat by Pulse 93 L 95 Oximetry EKG Findings - EKG Comments: EKG Findings:: Electronic ventricular pacemaker. Rate of 77. WV interval 136. QRS duration 150. No acute ischemic changes when compared to previous EKG. <Walter Jewell - Last Filed: 04/18/22 00:57> Medical Decision Making - Lab Data Result diagrams: 04/17/22 16:32 04/17/22 16:32 <Walter Jewell - Last Filed: 04/18/22 00:57> - Lab Data Result diagrams: 04/18/22 03:39 04/19/22 16:12 <Dayne Pimentel - Last Filed: 04/20/22 19:36> - Medical Decision Making Patient is a 66-year-old female with history of CHF presenting with chief complaint of lower extremity swelling and weakness. Patient states that due to the increased swelling in her legs, she has had increasing difficulty getting around. She is also complaining of sores on her buttocks that are increasingly painful. On examination there is 4+ pitting edema to the bilateral lower extremities. There are several stage II pressure ulcer is to the buttocks. WBC is 13.1 INR is 4.1. Sodium is 131. Creatinine is 1.43 and BUN is 40. Lactic acid is 2.5, patient appears quite dry. Calcium is 8.2 phosphorus is 5.3 and m agnesium is 2.5. Troponin is 0.047, this is likely due to poor renal function, given that she is already on anticoagulation with warfarin and has an INR 4.1, we will not further anticoagulate. Chest x-ray confirms CHF. Patient is hydrated and provided with pain control. I spoke with Dr. Conde who agreed to admit the patient. Cardiology is consulted. Patient conveyed verbal understanding and is in agreement with the plan. I discussed this case with my attending Dr. Pimentel. (Walter Jewell) - Lab Data Lab Results 04/17/22 04/17/22 04/17/22 Range/Units 16:32 16:32 16:32 WBC 13.1 H (3.8-10.6) k/uL RBC 5.87 H (3.80-5.40) m/uL Hgb 14.8 (11.4-16.0) gm/dL Hct 47.8 H (34.0-46.0) % MCV 81.3 (80.0-100.0) fL MCH 25.1 (25.0-35.0) pg MCHC 30.9 L (31.0-37.0) g/dL RDW 19.9 H (11.5-15.5) % Plt Count 283 (150-450) k/uL MPV 7.1 Neutrophils % 83 % Lymphocytes % 6 % Monocytes % 8 % Eosinophils % 1 % Basophils % 1 % Neutrophils # 10.9 H (1.3-7.7) k/uL Lymphocytes # 0.8 L (1.0-4.8) k/uL Monocytes # 1.1 H (0-1.0) k/uL Eosinophils # 0.1 (0-0.7) k/uL Basophils # 0.1 (0-0.2) k/uL Hypochromasia Marked Poikilocytosis Slight Anisocytosis Slight Microcytosis Slight PT 40.5 H (9.0-12.0) sec INR 4.1 H (<1.2) APTT 34.1 H (22.0-30.0) sec Sodium (137-145) mmol/L Potassium (3.5-5.1) mmol/L Chloride (98-107) mmol/L Carbon Dioxide (22-30) mmol/L Anion Gap mmol/L BUN (7-17) mg/dL Creatinine (0.52-1.04) mg/dL Est GFR (CKD-EPI)AfAm (>60 ml/min/1.73 sqM) Est GFR (CKD-EPI)NonAf (>60 ml/min/1.73 sqM) Glucose (74-99) mg/dL Lactic Ac Sepsis Rflx Plasma Lactic Acid Aristides (0.7-2.0) mmol/L Calcium (8.4-10.2) mg/dL Phosphorus (2.5-4.5) mg/dL Magnesium (1.6-2.3) mg/dL Total Bilirubin (0.2-1.3) mg/dL AST (14-36) U/L ALT (4-34) U/L Alkaline Phosphatase (38-126) U/L Troponin I (0.000-0.034) ng/mL NT-Pro-B Natriuret Pep pg/mL Total Protein (6.3-8.2) g/dL Albumin (3.5-5.0) g/dL Urine Color Yellow Urine Appearance Clear (Clear) Urine pH 6.5 (5.0-8.0) Ur Specific Kulm 1.010 (1.001-1.035) Urine Protein Negative (Negative) Urine Glucose (UA) Negative (Negative) Urine Ketones Negative (Negative) Urine Blood Trace H (Negative) Urine Nitrite Negative (Negative) Urine Bilirubin Negative (Negative) Urine Urobilinogen 4.0 (<2.0) mg/dL Ur Leukocyte Esterase Negative (Negative) Urine RBC 1 (0-5) /hpf Urine WBC 1 (0-5) /hpf Ur Squamous Epith Cells <1 (0-4) /hpf Hyaline Casts 23 H (0-2) /lpf Urine Mucus Rare H (None) /hpf 04/17/22 04/17/22 04/17/22 Range/Units 16:32 16:32 16:32 WBC (3.8-10.6) k/uL RBC (3.80-5.40) m/uL Hgb (11.4-16.0) gm/dL Hct (34.0-46.0) % MCV (80.0-100.0) fL MCH (25.0-35.0) pg MCHC (31.0-37.0) g/dL RDW (11.5-15.5) % Plt Count (150-450) k/uL MPV Neutrophils % % Lymphocytes % % Monocytes % % Eosinophils % % Basophils % % Neutrophils # (1.3-7.7) k/uL Lymphocytes # (1.0-4.8) k/uL Monocytes # (0-1.0) k/uL Eosinophils # (0-0.7) k/uL Basophils # (0-0.2) k/uL Hypochromasia Poikilocytosis Anisocytosis Microcytosis PT (9.0-12.0) sec INR (<1.2) APTT (22.0-30.0) sec Sodium 131 L (137-145) mmol/L Potassium 5.1 (3.5-5.1) mmol/L Chloride 96 L (98-107) mmol/L Carbon Dioxide 22 (22-30) mmol/L Anion Gap 13 mmol/L BUN 40 H (7-17) mg/dL Creatinine 1.43 H (0.52-1.04) mg/dL Est GFR (CKD-EPI)AfAm 44 (>60 ml/min/1.73 sqM) Est GFR (CKD-EPI)NonAf 38 (>60 ml/min/1.73 sqM) Glucose 97 (74-99) mg/dL Lactic Ac Sepsis Rflx Plasma Lactic Acid Aristides 2.5 H* (0.7-2.0) mmol/L Calcium 8.2 L (8.4-10.2) mg/dL Phosphorus 5.3 H (2.5-4.5) mg/dL Magnesium 2.5 H (1.6-2.3) mg/dL Total Bilirubin 1.8 H (0.2-1.3) mg/dL AST 37 H (14-36) U/L ALT 26 (4-34) U/L Alkaline Phosphatase 182 H (38-126) U/L Troponin I 0.047 H* (0.000-0.034) ng/mL NT-Pro-B Natriuret Pep pg/mL Total Protein 6.5 (6.3-8.2) g/dL Albumin 3.1 L (3.5-5.0) g/dL Urine Color Urine Appearance (Clear) Urine pH (5.0-8.0) Ur Specific Kulm (1.001-1.035) Urine Protein (Negative) Urine Glucose (UA) (Negative) Urine Ketones (Negative) Urine Blood (Negative) Urine Nitrite (Negative) Urine Bilirubin (Negative) Urine Urobilinogen (<2.0) mg/dL Ur Leukocyte Esterase (Negative) Urine RBC (0-5) /hpf Urine WBC (0-5) /hpf Ur Squamous Epith Cells (0-4) /hpf Hyaline Casts (0-2) /lpf Urine Mucus (None) /hpf 04/17/22 04/17/22 Range/Units 16:32 16:59 WBC (3.8-10.6) k/uL RBC (3.80-5.40) m/uL Hgb (11.4-16.0) gm/dL Hct (34.0-46.0) % MCV (80.0-100.0) fL MCH (25.0-35.0) pg MCHC (31.0-37.0) g/dL RDW (11.5-15.5) % Plt Count (150-450) k/uL MPV Neutrophils % % Lymphocytes % % Monocytes % % Eosinophils % % Basophils % % Neutrophils # (1.3-7.7) k/uL Lymphocytes # (1.0-4.8) k/uL Monocytes # (0-1.0) k/uL Eosinophils # (0-0.7) k/uL Basophils # (0-0.2) k/uL Hypochromasia Poikilocytosis Anisocytosis Microcytosis PT (9.0-12.0) sec INR (<1.2) APTT (22.0-30.0) sec Sodium (137-145) mmol/L Potassium (3.5-5.1) mmol/L Chloride (98-107) mmol/L Carbon Dioxide (22-30) mmol/L Anion Gap mmol/L BUN (7-17) mg/dL Creatinine (0.52-1.04) mg/dL Est GFR (CKD-EPI)AfAm (>60 ml/min/1.73 sqM) Est GFR (CKD-EPI)NonAf (>60 ml/min/1.73 sqM) Glucose (74-99) mg/dL Lactic Ac Sepsis Rflx Y Plasma Lactic Acid Aristides (0.7-2.0) mmol/L Calcium (8.4-10.2) mg/dL Phosphorus (2.5-4.5) mg/dL Magnesium (1.6-2.3) mg/dL Total Bilirubin (0.2-1.3) mg/dL AST (14-36) U/L ALT (4-34) U/L Alkaline Phosphatase (38-126) U/L Troponin I (0.000-0.034) ng/mL NT-Pro-B Natriuret Pep 68072 pg/mL Total Protein (6.3-8.2) g/dL Albumin (3.5-5.0) g/dL Urine Color Urine Appearance (Clear) Urine pH (5.0-8.0) Ur Specific Kulm (1.001-1.035) Urine Protein (Negative) Urine Glucose (UA) (Negative) Urine Ketones (Negative) Urine Blood (Negative) Urine Nitrite (Negative) Urine Bilirubin (Negative) Urine Urobilinogen (<2.0) mg/dL Ur Leukocyte Esterase (Negative) Urine RBC (0-5) /hpf Urine WBC (0-5) /hpf Ur Squamous Epith Cells (0-4) /hpf Hyaline Casts (0-2) /lpf Urine Mucus (None) /hpf Disposition Time of Disposition: 17:56 Decision to Admit Reason: Admit from EC Decision Date: 04/17/22 Decision Time: 17:56 <Walter Jewell - Last Filed: 04/18/22 00:57> <Dayne Pimentel - Last Filed: 04/20/22 19:36> Clinical Impression: CHF (congestive heart failure), Elevated troponin Disposition: ADMITTED IP TO THIS HOSP Condition: Fair
[2022-04-17 17:07] LABS: INR 4.1 (<1.2); Partial Thromboplastin Time 34.1 sec (22.0-30.0); Prothrombin Time 40.5 sec (9.0-12.0)
[2022-04-17] MEDS ORDERED: SODIUM CHLORIDE 0.9% 1,000 ML IV SCH (17:45)
[2022-04-17 17:48] LABS: Appearance,Urine Clear (Clear); Bilirubin,Urine Negative (Negative); Blood,Urine Trace (Negative); Color,Urine Yellow; Glucose,Urine (UA) Negative (Negative); Hyaline Casts,Urine 23 /lpf (0-2); Ketones,Urine Negative (Negative); Leukocyte Esterase,Urine Negative (Negative); Mucus,Urine Rare /hpf; Nitrite,Urine Negative (Negative); PH, Urine 6.5 (5.0-8.0); Protein,Urine Negative (Negative); RBC,Urine 1 /hpf (0-5); Squamous Epithelial Cell,Urine <1 /hpf (0-4); WBC,Urine 1 /hpf (0-5)
--- NOTE | 2022-04-17 17:49 | XR ---
EXAMINATION TYPE: XR chest 2V DATE OF EXAM: 04/17/2022 COMPARISON: 04/13/2022 HISTORY: Weakness TECHNIQUE: 2 views FINDINGS: There is some blunting of the costophrenic angles. Heart is enlarged. No heart failure. Tho racic aorta is atheromatous. There is left axillary pacemaker. There are chest leads. IMPRESSION: Minimal pleural reaction at the lung bases. No heart failure or pulmonary consolidation.
[2022-04-17] MEDS ORDERED: NALOXONE 0.4 MG/ML 1 ML VIAL IV PRN (17:51)
[2022-04-17] MEDS: HYDROcodone/APAP 5-325MG 1 EACH TAB PO PRN (18:34)
[2022-04-17] MEDS ORDERED: SODIUM CHLORIDE 0.9% 500 ML 500 ML IV ONE (20:07)
[2022-04-18] MEDS ORDERED: ALBUTEROL NEBULIZED 2.5 MG/3 ML INHALATION PRN (00:58)
[2022-04-18] MEDS: HYDROcodone/APAP 5-325MG 1 EACH TAB PO PRN ×2 (01:58→06:31)
[2022-04-18 03:54] LABS: Anisocytosis Slight; Basophils # (A) 0.2 k/uL (0-0.2); Basophils % (A) 1 %; Eosinophils # (A) 0.2 k/uL (0-0.7); Eosinophils % (A) 1 %; HCT 49.9 % (34.0-46.0); HGB 14.9 gm/dL (11.4-16.0); Hypochromasia Marked; Lymphocytes % (A) 7 %; MCH 24.7 pg (25.0-35.0); MCHC 29.8 g/dL (31.0-37.0); MCV 82.8 fL (80.0-100.0); Mean Platelet Volume 7.3; Microcytosis Slight; Monocytes # (A) 1.3 k/uL (0-1.0); Monocytes % (A) 9 %; Neutrophils # (A) 11.4 k/uL (1.3-7.7); Neutrophils % (A) 80 %; Platelet Count 292 k/uL (150-450); Poikilocytosis Slight; RBC 6.03 m/uL (3.80-5.40); RDW 19.7 % (11.5-15.5); WBC 14.2 k/uL (3.8-10.6)
[2022-04-18 04:05] LABS: Calcium 8.3 mg/dL (8.4-10.2); Magnesium 2.5 mg/dL (1.6-2.3); Potassium 5.3 mmol/L (3.5-5.1); Total Bilirubin 2.2 mg/dL (0.2-1.3); Total Protein 6.5 g/dL (6.3-8.2)
--- NOTE | 2022-04-18 07:50 | XR ---
EXAMINATION TYPE: XR chest 1V portable DATE OF EXAM: 04/18/2022 CLINICAL HISTORY: Difficulty breathing and hypoxia progress study. TECHNIQUE: Single AP portable upright view of the chest is obtained. COMPARISON: Chest x-ray from one day earlier and older studies. FINDINGS: Persistent cardiomegaly with multi lead pacemaker/defibrillator. Increasing right basilar opacity. No pleural effusion or pneumothorax is seen bilaterally. Osseous structures are intact. IMPRESSION: Cardiomegaly with worsening right basilar acute infiltrate and/or atelectasis.
[2022-04-18] MEDS ORDERED: SYMBICORT 160-4.5 MCG INHALER INHALATION SCH (08:00)
[2022-04-18] MEDS: METOPROLOL SUCCINATE (ER) 50 MG TAB.ER.24H PO SCH (08:27)
[2022-04-18] MEDS: ESCITALOPRAM 10 MG TAB PO SCH (08:27)
[2022-04-18] MEDS: BUDESONIDE 1 MG/2 ML NEBU INHALATION SCH ×2 (08:43→19:36)
[2022-04-18 08:48] LABS: Appearance,Urine Clear (Clear); Bilirubin,Urine Negative (Negative); Blood,Urine Negative (Negative); Color,Urine Yellow; Glucose,Urine (UA) Negative (Negative); Ketones,Urine Negative (Negative); Leukocyte Esterase,Urine Negative (Negative); Nitrite,Urine Negative (Negative); Protein,Urine Negative (Negative); Specific Gravity,Urine 1.013 (1.001-1.035); Urobilinogen,Urine <2.0 mg/dL (<2.0)
[2022-04-18] MEDS ORDERED: TORSEMIDE 20 MG TAB PO SCH (09:00)
[2022-04-18] MEDS ORDERED: SPIRONOLACTONE 25 MG TAB PO SCH (09:00)
--- NOTE | 2022-04-18 09:52 | P.CONS ---
History of Present Illness - Reason for Consult Consult date: 04/18/22 wound care - History of Present Illness This is a 66-year-old patient seen on 3 [facility] for nonhealing ulcerations to the left and right hip the buttocks and thigh. Patient's past medical history significant for heart failure, DVT, COPD, former smoker. Due to patient's conditions the ulcerations were reviewed via camera. Patient has multiple ulcerations with minimal granulation and slough noted within the wound beds. P atient is unable to tolerate lying flat returning. Review Of Systems: Constitutional: No fever, no chills, no night sweats. No weight change. No weakness, fatigue or lethargy. No daytime sleepiness. Integumentary:reports wounds, no lesions. No rash or pruritus. No unusual bruising. No change in hair or nails. Physical exam: General Appearance: Alert, cooperative, no distress, appears stated age. Skin: See HPI all other Skin color, texture, tugor normal, no rashes or lesions. Neurologic: Alert oriented x3 Assessment: 1. Stage II pressure ulcer left hip 2. Stage II pressure ulcer right hip 3. Stage II pressure ulcer right buttocks 4. Stage II pressure ulcer left buttocks Plan: 1. Apply triad to the site daily. Term patient every 2 hours as tolerated. Patient would benefit from advance wound care when she is discharged. Thank you for the consultation any questions contact the wound care center DNP note has been reviewed and discussed with Dr. Crook and the impression and plan of care has been directed as dictated. Past Medical History Past Medical History: Blood Disorder, Heart Failure, COPD, Deep Vein Thrombosis (DVT), Hypertension Additional Past Medical History / Comment(s): factor 5 Leiden insufficiency, DVT left leg 5 yrs. ago, uses oxygen @3l cont. since pacemaker inserted during recent hospital stay, mitral valve problem per pt. History of Any Multi-Drug Resistant Organisms: None Reported Past Surgical History: Appendectomy, Cholecystectomy, Hysterectomy, Orthopedic Surgery, Pacemaker, Tonsillectomy Additional Past Surgical History / Comment(s): D & C, left ankle ORIF Past Anesthesia/Blood Transfusion Reactions: No Reported Reaction Type of Cardiac Device: Permanent Pacemaker Device Placement Date:: April 2020 Past Psychological History: No Psychological Hx Reported Smoking Status: Former smoker Past Alcohol Use History: None Reported Past Drug Use History: None Reported - Past Family History Father Family Medical History: Congestive Heart Failure (CHF) Additional Family Medical History / Comment(s): congenital , CARDOIOMYAPTHY Mother Family Medical History: Cancer, Deep Vein Thrombosis (DVT) Additional Family Medical History / Comment(s): lung cancer Medications and Allergies Home Medications Medication Instructions Recorded Confirmed Type Albuterol Inhaler [Ventolin Hfa 2 puff INHALATION RT-QID PRN 06/15/20 04/17/22 History Inhaler] Budesonide-Formot 160-4.5 Mcg 2 puff INHALATION RT-BID 06/15/20 04/17/22 History [Symbicort 160-4.5 Mcg Inhaler] Escitalopram [Lexapro] 10 mg PO DAILY 03/13/22 04/17/22 History Spironolactone 25 mg PO DAILY 03/13/22 04/17/22 History Warfarin Sodium 2 mg PO DAILY@1600 03/13/22 04/17/22 History Metoprolol Succinate (ER) [Toprol 50 mg PO DAILY #30 tab 03/22/22 04/17/22 Rx Xl] Potassium Chloride ER [K-Dur 20] 20 meq PO DAILY #30 tab 03/22/22 04/17/22 Rx Torsemide [Demadex] 40 mg PO BID@0900,1600 #60 tab 03/22/22 04/17/22 Rx Budesonide 1 mg INHALATION RT-BID 03/28/22 04/17/22 History Ipratropium-Albuterol Nebulize 3 ml INHALATION RT-TID 03/28/22 04/17/22 History [Duoneb 0.5 mg-3 mg/3 ml Soln] Allergies Allergy/AdvReac Type Severity Reaction Status Date / Time No Known Allergies Allergy Verified 04/17/22 18:26 Physical Exam Vitals: Vital Signs Temp Pulse Pulse Resp BP BP Pulse Ox 04/18/22 09:02 80 04/18/22 08:43 80 04/18/22 08:00 97.4 F L 80 30 H 101/80 92 L 04/18/22 05:28 93 L 04/18/22 03:42 97.8 F 81 20 105/74 91 L 04/18/22 01:00 82 96/83 04/17/22 23:58 95 04/17/22 23:00 78 16 100/89 93 L 04/17/22 22:00 16 93 L 04/17/22 21:00 16 93 L 04/17/22 20:07 16 04/17/22 19:35 80 16 126/79 92 L 04/17/22 18:36 82 18 132/86 93 L 04/17/22 15:59 97.0 F L 79 16 114/82 94 L Intake and Output 04/17/22 04/18/22 04/18/22 22:59 06:59 14:59 Output Total 300 350 Balance -300 -350 Output: Urine 300 350 Other: Voiding Method External Catheter Indwelling Catheter Weight 126.552 kg 124 kg Results CBC & Chem 7: 04/18/22 03:39 04/18/22 03:39 Labs: Abnormal Lab Results - Last 24 Hours (Table) 04/17/22 04/17/22 04/17/22 Range/Units 16:32 16:32 16:32 WBC 13.1 H (3.8-10.6) k/uL RBC 5.87 H (3.80-5.40) m/uL Hct 47.8 H (34.0-46.0) % MCH (25.0-35.0) pg MCHC 30.9 L (31.0-37.0) g/dL RDW 19.9 H (11.5-15.5) % Neutrophils # 10.9 H (1.3-7.7) k/uL Lymphocytes # 0.8 L (1.0-4.8) k/uL Monocytes # 1.1 H (0-1.0) k/uL PT 40.5 H (9.0-12.0) sec INR 4.1 H (<1.2) APTT 34.1 H (22.0-30.0) sec Sodium (137-145) mmol/L Potassium (3.5-5.1) mmol/L Chloride (98-107) mmol/L Carbon Dioxide (22-30) mmol/L BUN (7-17) mg/dL Creatinine (0.52-1.04) mg/dL Plasma Lactic Acid Aristides (0.7-2.0) mmol/L Calcium (8.4-10.2) mg/dL Phosphorus (2.5-4.5) mg/dL Magnesium (1.6-2.3) mg/dL Total Bilirubin (0.2-1.3) mg/dL AST (14-36) U/L Alkaline Phosphatase (38-126) U/L Troponin I (0.000-0.034) ng/mL Albumin (3.5-5.0) g/dL Urine Blood Trace H (Negative) Hyaline Casts 23 H (0-2) /lpf Urine Mucus Rare H (None) /hpf 04/17/22 04/17/22 04/17/22 Range/Units 16:32 16:32 16:32 WBC (3.8-10.6) k/uL RBC (3.80-5.40) m/uL Hct (34.0-46.0) % MCH (25.0-35.0) pg MCHC (31.0-37.0) g/dL RDW (11.5-15.5) % Neutrophils # (1.3-7.7) k/uL Lymphocytes # (1.0-4.8) k/uL Monocytes # (0-1.0) k/uL PT (9.0-12.0) sec INR (<1.2) APTT (22.0-30.0) sec Sodium 131 L (137-145) mmol/L Potassium (3.5-5.1) mmol/L Chloride 96 L (98-107) mmol/L Carbon Dioxide (22-30) mmol/L BUN 40 H (7-17) mg/dL Creatinine 1.43 H (0.52-1.04) mg/dL Plasma Lactic Acid Aristides 2.5 H* (0.7-2.0) mmol/L Calcium 8.2 L (8.4-10.2) mg/dL Phosphorus 5.3 H (2.5-4.5) mg/dL Magnesium 2.5 H (1.6-2.3) mg/dL Total Bilirubin 1.8 H (0.2-1.3) mg/dL AST 37 H (14-36) U/L Alkaline Phosphatase 182 H (38-126) U/L Troponin I 0.047 H* (0.000-0.034) ng/mL Albumin 3.1 L (3.5-5.0) g/dL Urine Blood (Negative) Hyaline Casts (0-2) /lpf Urine Mucus (None) /hpf 04/17/22 04/17/22 04/17/22 Range/Units 19:35 19:35 22:25 WBC (3.8-10.6) k/uL RBC (3.80-5.40) m/uL Hct (34.0-46.0) % MCH (25.0-35.0) pg MCHC (31.0-37.0) g/dL RDW (11.5-15.5) % Neutrophils # (1.3-7.7) k/uL Lymphocytes # (1.0-4.8) k/uL Monocytes # (0-1.0) k/uL PT (9.0-12.0) sec INR (<1.2) APTT (22.0-30.0) sec Sodium (137-145) mmol/L Potassium (3.5-5.1) mmol/L Chloride (98-107) mmol/L Carbon Dioxide (22-30) mmol/L BUN (7-17) mg/dL Creatinine (0.52-1.04) mg/dL Plasma Lactic Acid Aristides 3.3 H* 3.1 H* (0.7-2.0) mmol/L Calcium (8.4-10.2) mg/dL Phosphorus (2.5-4.5) mg/dL Magnesium (1.6-2.3) mg/dL Total Bilirubin (0.2-1.3) mg/dL AST (14-36) U/L Alkaline Phosphatase (38-126) U/L Troponin I 0.050 H* (0.000-0.034) ng/mL Albumin (3.5-5.0) g/dL Urine Blood (Negative) Hyaline Casts (0-2) /lpf Urine Mucus (None) /hpf 04/18/22 04/18/22 04/18/22 Range/Units 01:12 03:39 03:39 WBC 14.2 H (3.8-10.6) k/uL RBC 6.03 H (3.80-5.40) m/uL Hct 49.9 H (34.0-46.0) % MCH 24.7 L (25.0-35.0) pg MCHC 29.8 L (31.0-37.0) g/dL RDW 19.7 H (11.5-15.5) % Neutrophils # 11.4 H (1.3-7.7) k/uL Lymphocytes # (1.0-4.8) k/uL Monocytes # 1.3 H (0-1.0) k/uL PT (9.0-12.0) sec INR (<1.2) APTT (22.0-30.0) sec Sodium 130 L (137-145) mmol/L Potassium 5.3 H (3.5-5.1) mmol/L Chloride (98-107) mmol/L Carbon Dioxide 19 L (22-30) mmol/L BUN 40 H (7-17) mg/dL Creatinine 1.51 H (0.52-1.04) mg/dL Plasma Lactic Acid Aristides 3.0 H* (0.7-2.0) mmol/L Calcium 8.3 L (8.4-10.2) mg/dL Phosphorus 6.0 H (2.5-4.5) mg/dL Magnesium 2.5 H (1.6-2.3) mg/dL Total Bilirubin 2.2 H (0.2-1.3) mg/dL AST (14-36) U/L Alkaline Phosphatase 180 H (38-126) U/L Troponin I (0.000-0.034) ng/mL Albumin 3.0 L (3.5-5.0) g/dL Urine Blood (Negative) Hyaline Casts (0-2) /lpf Urine Mucus (None) /hpf 04/18/22 04/18/22 Range/Units 03:39 06:36 WBC (3.8-10.6) k/uL RBC (3.80-5.40) m/uL Hct (34.0-46.0) % MCH (25.0-35.0) pg MCHC (31.0-37.0) g/dL RDW (11.5-15.5) % Neutrophils # (1.3-7.7) k/uL Lymphocytes # (1.0-4.8) k/uL Monocytes # (0-1.0) k/uL PT (9.0-12.0) sec INR (<1.2) APTT (22.0-30.0) sec Sodium (137-145) mmol/L Potassium (3.5-5.1) mmol/L Chloride (98-107) mmol/L Carbon Dioxide (22-30) mmol/L BUN (7-17) mg/dL Creatinine (0.52-1.04) mg/dL Plasma Lactic Acid Aristides 3.4 H* 3.3 H* (0.7-2.0) mmol/L Calcium (8.4-10.2) mg/dL Phosphorus (2.5-4.5) mg/dL Magnesium (1.6-2.3) mg/dL Total Bilirubin (0.2-1.3) mg/dL AST (14-36) U/L Alkaline Phosphatase (38-126) U/L Troponin I (0.000-0.034) ng/mL Albumin (3.5-5.0) g/dL Urine Blood (Negative) Hyaline Casts (0-2) /lpf Urine Mucus (None) /hpf Assessment and Plan (1) Stage II pressure ulcer of right buttock Current Visit: Yes Status: Acute Code(s): L89.312 - PRESSURE ULCER OF RIGHT BUTTOCK, STAGE 2 SNOMED Code(s): 25160014535006523 (2) Stage II pressure ulcer of right hip Current Visit: Yes Status: Acute Code(s): L89.212 - PRESSURE ULCER OF RIGHT HIP, STAGE 2 SNOMED Code(s): 71570049075769 (3) Stage II pressure ulcer of left buttock Current Visit: Yes Status: Acute Code(s): L89.322 - PRESSURE ULCER OF LEFT BUTTOCK, STAGE 2 SNOMED Code(s): 84972387240466210 (4) Stage II pressure ulcer of left hip Current Visit: Yes Status: Acute Code(s): L89.222 - PRESSURE ULCER OF LEFT HIP, STAGE 2 SNOMED Code(s): 80393602472143
[2022-04-18] MEDS ORDERED: FUROSEMIDE 10 MG/ML 4 ML VIAL IV SCH (10:00)
[2022-04-18 10:15] LABS: Albumin 3.3 g/dL (3.5-5.0); Calcium 8.5 mg/dL (8.4-10.2); Magnesium 2.6 mg/dL (1.6-2.3); Potassium 5.5 mmol/L (3.5-5.1); Total Bilirubin 2.5 mg/dL (0.2-1.3); Total Protein 6.9 g/dL (6.3-8.2)
--- NOTE | 2022-04-18 10:42 | P.NPCON ---
History of Present Illness - Reason for Consult acute renal failure, chronic renal failure - History of Present Illness Reason for consultation: Acute kidney injury on chronic kidney disease History of present illness: Patient is a 66-year-old female seen in renal consultation for acute kidney injury on chronic kidney disease. Patient has chronic kidney disease stage IIIA with baseline creatinine in the range of 1.1-1.2. Patient presented to the hospital with generalized weakness. She also complains of swelling in her lower extremity as well as generalized pain in her lower cavities. Patient has history of diastolic CHF with severe pulmonary hypertension. She does take Lasix as well as spironolactone at home. Patient's potassium today is 5.5 and creatinine 1.55. I do see potassium supplementation and her home medication list. UA is noted to be benign. Patient is not a very reliable historian. She falls asleep after speaking a sentence. She currently has a Hugo catheter. About 300 mL of urine was obtained when Hugo catheter was inserted. Denies vomiting or diarrhea. I don't see any nonsteroidals in her home medication list. No history of diabetes. She is also being followed by wound care due to buttock wounds. Vital signs are stable. General: Awake. Lethargic. HEENT: Head exam is unremarkable. LUNGS: Breath sounds decreased. HEART: Rate and Rhythm are regular. ABDOMEN: Soft, obese. EXTREMITITES: 1+ edema. Past Medical History Past Medical History: Blood Disorder, Heart Failure, COPD, Deep Vein Thrombosis (DVT), Hypertension Additional Past Medical History / Comment(s): factor 5 Leiden insufficiency, DVT left leg 5 yrs. ago, uses oxygen @3l cont. since pacemaker inserted during recent hospital stay, mitral valve problem per pt. History of Any Multi-Drug Resistant Organisms: None Reported Past Surgical History: Appendectomy, Cholecystectomy, Hysterectomy, Orthopedic Surgery, Pacemaker, Tonsillectomy Additional Past Surgical History / Comment(s): D & C, left ankle ORIF Past Anesthesia/Blood Transfusion Reactions: No Reported Reaction Type of Cardiac Device: Permanent Pacemaker Device Placement Date:: April 2020 Past Psychological History: No Psychological Hx Reported Smoking Status: Former smoker Past Alcohol Use History: None Reported Past Drug Use History: None Reported - Past Family History Father Family Medical History: Congestive Heart Failure (CHF) Additional Family Medical History / Comment(s): congenital , CARDOIOMYAPTHY Mother Family Medical History: Cancer, Deep Vein Thrombosis (DVT) Additional Family Medical History / Comment(s): lung cancer Medications and Allergies Home Medications Medication Instructions Recorded Confirmed Type Albuterol Inhaler [Ventolin Hfa 2 puff INHALATION RT-QID PRN 06/15/20 04/17/22 History Inhaler] Budesonide-Formot 160-4.5 Mcg 2 puff INHALATION RT-BID 06/15/20 04/17/22 History [Symbicort 160-4.5 Mcg Inhaler] Escitalopram [Lexapro] 10 mg PO DAILY 03/13/22 04/17/22 History Spironolactone 25 mg PO DAILY 03/13/22 04/17/22 History Warfarin Sodium 2 mg PO DAILY@1600 03/13/22 04/17/22 History Metoprolol Succinate (ER) [Toprol 50 mg PO DAILY #30 tab 03/22/22 04/17/22 Rx Xl] Potassium Chloride ER [K-Dur 20] 20 meq PO DAILY #30 tab 03/22/22 04/17/22 Rx Torsemide [Demadex] 40 mg PO BID@0900,1600 #60 tab 03/22/22 04/17/22 Rx Budesonide 1 mg INHALATION RT-BID 03/28/22 04/17/22 History Ipratropium-Albuterol Nebulize 3 ml INHALATION RT-TID 03/28/22 04/17/22 History [Duoneb 0.5 mg-3 mg/3 ml Soln] Allergies Allergy/AdvReac Type Severity Reaction Status Date / Time No Known Allergies Allergy Verified 04/17/22 18:26 Physical Exam Vitals: Vital Signs Temp Pulse Pulse Resp BP BP Pulse Ox 04/18/22 09:02 80 04/18/22 08:43 80 04/18/22 08:00 97.4 F L 80 30 H 101/80 92 L 04/18/22 05:28 93 L 04/18/22 03:42 97.8 F 81 20 105/74 91 L 04/18/22 01:00 82 96/83 04/17/22 23:58 95 04/17/22 23:00 78 16 100/89 93 L 04/17/22 22:00 16 93 L 04/17/22 21:00 16 93 L 04/17/22 20:07 16 04/17/22 19:35 80 16 126/79 92 L 04/17/22 18:36 82 18 132/86 93 L 04/17/22 15:59 97.0 F L 79 16 114/82 94 L Intake and Output 04/17/22 04/18/22 04/18/22 22:59 06:59 14:59 Output Total 300 350 Balance -300 -350 Output: Urine 300 350 Other: Voiding Method External Catheter Indwelling Catheter Weight 126.552 kg 124 kg Results - Lab Results Most recent lab results Calcium 8.5 mg/dL (8.4-10.2) 04/18/22 09:42 Phosphorus 6.0 mg/dL (2.5-4.5) H 04/18/22 03:39 Magnesium 2.6 mg/dL (1.6-2.3) H 04/18/22 09:42 04/18/22 03:39 04/18/22 09:42 Assessment and Plan Plan: Assessment: 1. Acute kidney injury mostly prerenal secondary to cardiorenal syndrome. Creatinine was 1.43 on admission and is 1.55 today. UA benign. No evidence of urinary retention. Renal ultrasound from March 2022 showed no evidence of hydronephrosis. 2. Chronic kidney disease stage III with baseline creatinine in the range of 1.1-1.2 secondary to nephrosclerosis. 3. Volume overload. 4. Nonhealing wounds. Wound care following. 5. Acute on chronic diastolic CHF with severe pulmonary hypertension. 6. Hyperkalemia secondary to potassium supplementation and spironolactone. 7. Hypervolemic hyponatremia. Plan: Start IV Lasix 40 mg twice daily. 1200 mL fluid restriction. Hold potassium supplementation and spironolactone for now. Check a.m. cortisol level. Avoid nephrotoxins. Continue to monitor renal function and urine output. Thank you for the consultation. I will continue to follow the patient with you during her hospital stay.
[2022-04-18] MEDS ORDERED: FUROSEMIDE 100 MG in SODIUM CHLORIDE 0.9% 90 ML IV SCH (12:00)
[2022-04-18 12:52] VITALS: BMI 48.4
[2022-04-18] MEDS ORDERED: IPRATROPIUM-ALBUTEROL 3 ML NEB INHALATION SCH (13:00)
--- NOTE | 2022-04-18 13:28 | P.CNPUL ---
History of Present Illness Consult date: 04/18/22 Requesting physician: William Conde Reason for consult: dyspnea, other Chief complaint: Dyspnea, fall History of present illness: 66-year-old white female patient with extensive medical history, including chronic CHF with diastolic dysfunction, obstructive sleep apnea on CPAP on a regular basis, severe pulmonary hypertension, COPD, morbid obesity, chronic hypoxic respiratory failure on home oxygen at 5 L, history of factor V deficiency, prior history of DVT, permanent pacemaker and mitral valve disease who follows with Dr. Gaines at the pulmonary clinic. She was recently hospitalized in March for acute exacerbation of CHF, she was discharged home on home diuretics including Demadex and Aldactone. She was seen in the office for outpatient follow-up by Dr. Gaines, she was still significantly fluid overloaded, and she continued on oral diuretics. On 04/17/2022 patient presen rae to the emergency department after sustaining a fall while walking at home, patient states she normally walks with a walker, she has a generalized weakness and difficulty ambulating. She denied any injury. She reports increased leg weakness and swelling. Patient has been on Demadex and Aldactone. She denied any worsening shortness of breath, cough, no fever or chills, no chest pain. She was also complaining of sores to her buttocks that had been increasingly painful. Patient could not get back up, and she had to call the ambulance who brought her to the hospital. Chest x-ray showed minimal pleural reaction at the lung bases, some blunting of the costophrenic angles, enlarged heart, no pulmonary consolidation. Admission blood work showed white blood cell count 13.1, hemoglobin of 14.8, INR 4.1, the patient takes Coumadin for history of factor V deficiency. Sodium of 131, potassium is 5.1, BUN of 40 creatinine is 1.43, lactic acid was 3.1, troponin was 0.050, proBNP was 17,008 100, urinalysis showed trace blood, some mucus, but no definite sign of urinary tract infection. Patient's vitals have been stable, she was afebrile, she remained on her usual home dose O2 at 5 L, satting 92-94%. EKG showed paced rhythm. Patient has significant swelling in bilateral lower extremities. She was started on Lasix infusion at 10 mg per hour. Aldactone has been discontinued, nephrology services have been consulted. Is currently resting comfortably in bed, she is answering questions appropriately, denies any worsening dyspnea. She states the only reason she came in is because she had a fall at home Review of Systems All systems: negative Constitutional: Denies chills, Denies fever Eyes: denies blurred vision, denies pain Ears, nose, mouth and throat: Denies headache, Denies sore throat Cardiovascular: Reports decreased exercise tolerance, Reports edema, Reports leg edema, Denies chest pain, Denies shortness of breath Respiratory: Denies cough Gastrointestinal: Denies abdominal pain, Denies diarrhea, Denies nausea, Denies vomiting Genitourinary: Denies dysuria, Denies hematuria Musculoskeletal: Denies myalgias Integumentary: Denies pruritus, Denies rash Neurological: Denies numbness, Denies weakness Psychiatric: Denies anxiety, Denies depression Endocrine: Denies fatigue, Denies weight change Past Medical History Past Medical History: Blood Disorder, Heart Failure, COPD, Deep Vein Thrombosis (DVT), Hypertension Additional Past Medical History / Comment(s): factor 5 Leiden insufficiency, DVT left leg 5 yrs. ago, uses oxygen @3l cont. since pacemaker inserted during recent hospital stay, mitral valve problem per pt. History of Any Multi-Drug Resistant Organisms: None Reported Past Surgical History: Appendectomy, Cholecystectomy, Hysterectomy, Orthopedic Surgery, Pacemaker, Tonsillectomy Additional Past Surgical History / Comment(s): D & C, left ankle ORIF Past Anesthesia/Blood Transfusion Reactions: No Reported Reaction Type of Cardiac Device: Permanent Pacemaker Device Placement Date:: April 2020 Past Psychological History: No Psychological Hx Reported Smoking Status: Former smoker Past Alcohol Use History: None Reported Past Drug Use History: None Reported - Past Family History Father Family Medical History: Congestive Heart Failure (CHF) Additional Family Medical History / Comment(s): congenital , CARDOIOMYAPTHY Mother Family Medical History: Cancer, Deep Vein Thrombosis (DVT) Additional Family Medical History / Comment(s): lung cancer Medications and Allergies Home Medications Medication Instructions Recorded Confirmed Type Albuterol Inhaler [Ventolin Hfa 2 puff INHALATION RT-QID PRN 06/15/20 04/17/22 History Inhaler] Budesonide-Formot 160-4.5 Mcg 2 puff INHALATION RT-BID 06/15/20 04/17/22 History [Symbicort 160-4.5 Mcg Inhaler] Escitalopram [Lexapro] 10 mg PO DAILY 03/13/22 04/17/22 History Spironolactone 25 mg PO DAILY 03/13/22 04/17/22 History Warfarin Sodium 2 mg PO DAILY@1600 03/13/22 04/17/22 History Metoprolol Succinate (ER) [Toprol 50 mg PO DAILY #30 tab 03/22/22 04/17/22 Rx Xl] Potassium Chloride ER [K-Dur 20] 20 meq PO DAILY #30 tab 03/22/22 04/17/22 Rx Torsemide [Demadex] 40 mg PO BID@0900,1600 #60 tab 03/22/22 04/17/22 Rx Budesonide 1 mg INHALATION RT-BID 03/28/22 04/17/22 History Ipratropium-Albuterol Nebulize 3 ml INHALATION RT-TID 03/28/22 04/17/22 History [Duoneb 0.5 mg-3 mg/3 ml Soln] Allergies Allergy/AdvReac Type Severity Reaction Status Date / Time No Known Allergies Allergy Verified 04/17/22 18:26 Physical Exam Vitals: Vital Signs Temp Pulse Pulse Resp BP BP Pulse Ox 04/18/22 11:59 80 04/18/22 11:47 80 04/18/22 09:02 80 04/18/22 08:43 80 04/18/22 08:00 97.4 F L 80 30 H 101/80 92 L 04/18/22 05:28 93 L 04/18/22 03:42 97.8 F 81 20 105/74 91 L 04/18/22 01:00 82 96/83 04/17/22 23:58 95 04/17/22 23:00 78 16 100/89 93 L 04/17/22 22:00 16 93 L 04/17/22 21:00 16 93 L 04/17/22 20:07 16 04/17/22 19:35 80 16 126/79 92 L 04/17/22 18:36 82 18 132/86 93 L 04/17/22 15:59 97.0 F L 79 16 114/82 94 L Intake and Output 04/17/22 04/18/22 04/18/22 22:59 06:59 14:59 Output Total 300 350 Balance -300 -350 Output: Urine 300 350 Other: Voiding Method External Catheter Indwelling Catheter Weight 126.552 kg 124 kg 124 kg GENERAL EXAM: Alert, pleasant, morbidly obese 66-year-old white female, on 5 L of oxygen pulse ox is 92%, comfortable in no apparent distress. HEAD: Normocephalic/atraumatic. EYES: Normal reaction of pupils, equal size. Conjunctiva pink, sclera white. NOSE: Clear with pink turbinates. THROAT: No erythema or exudates. NECK: No masses, no JVD, no thyroid enlargement, no adenopathy. CHEST: No chest wall deformity. Symmetrical expansion. LUNGS: Equal air entry with no crackles, wheeze, rhonchi or dullness. CVS: Regular rate and rhythm, normal S1 and S2, no gallops, no murmurs, no rubs ABDOMEN: Soft, nontender. No hepatosplenomegaly, normal bowel sounds, no guarding or rigidity. EXTREMITIES: No clubbing, 2+ bilateral lower extremity edema no cyanosis, 2+ pulses and upper and lower extremities. MUSCULOSKELETAL: Muscle strength and tone normal. SPINE: No scoliosis or deformity SKIN: No rashes CENTRAL NERVOUS SYSTEM: Alert and oriented -3. No focal deficits, tone is normal in all 4 extremities. PSYCHIATRIC: Alert and oriented -3. Appropriate affect. Intact judgment and insight. Results - Laboratory Findings CBC and BMP: 04/18/22 03:39 04/18/22 09:42 PT/INR, D-dimer PT 40.5 sec (9.0-12.0) H 04/17/22 16:32 INR 4.1 (<1.2) H 04/17/22 16:32 Abnormal lab findings: Abnormal Labs 04/17/22 04/17/22 04/17/22 16:32 16:32 16:32 WBC 13.1 H RBC 5.87 H Hct 47.8 H MCH MCHC 30.9 L RDW 19.9 H Neutrophils # 10.9 H Lymphocytes # 0.8 L Monocytes # 1.1 H PT 40.5 H INR 4.1 H APTT 34.1 H Sodium Potassium Chloride Carbon Dioxide BUN Creatinine Plasma Lactic Acid Aristides Calcium Phosphorus Magnesium Total Bilirubin AST Alkaline Phosphatase Troponin I Albumin Urine Blood Trace H Hyaline Casts 23 H Urine Mucus Rare H 04/17/22 04/17/22 04/17/22 16:32 16:32 16:32 WBC RBC Hct MCH MCHC RDW Neutrophils # Lymphocytes # Monocytes # PT INR APTT Sodium 131 L Potassium Chloride 96 L Carbon Dioxide BUN 40 H Creatinine 1.43 H Plasma Lactic Acid Aristides 2.5 H* Calcium 8.2 L Phosphorus 5.3 H Magnesium 2.5 H Total Bilirubin 1.8 H AST 37 H Alkaline Phosphatase 182 H Troponin I 0.047 H* Albumin 3.1 L Urine Blood Hyaline Casts Urine Mucus 04/17/22 04/17/22 04/17/22 19:35 19:35 22:25 WBC RBC Hct MCH MCHC RDW Neutrophils # Lymphocytes # Monocytes # PT INR APTT Sodium Potassium Chloride Carbon Dioxide BUN Creatinine Plasma Lactic Acid Aristides 3.3 H* 3.1 H* Calcium Phosphorus Magnesium Total Bilirubin AST Alkaline Phosphatase Troponin I 0.050 H* Albumin Urine Blood Hyaline Casts Urine Mucus 04/18/22 04/18/22 04/18/22 01:12 03:39 03:39 WBC 14.2 H RBC 6.03 H Hct 49.9 H MCH 24.7 L MCHC 29.8 L RDW 19.7 H Neutrophils # 11.4 H Lymphocytes # Monocytes # 1.3 H PT INR APTT Sodium 130 L Potassium 5.3 H Chloride Carbon Dioxide 19 L BUN 40 H Creatinine 1.51 H Plasma Lactic Acid Aristides 3.0 H* Calcium 8.3 L Phosphorus 6.0 H Magnesium 2.5 H Total Bilirubin 2.2 H AST Alkaline Phosphatase 180 H Troponin I Albumin 3.0 L Urine Blood Hyaline Casts Urine Mucus 04/18/22 04/18/22 04/18/22 03:39 06:36 09:42 WBC RBC Hct [facility] MCHC RDW Neutrophils # Lymphocytes # Monocytes # PT INR APTT Sodium 134 L Potassium 5.5 H Chloride 95 L Carbon Dioxide BUN 42 H Creatinine 1.55 H Plasma Lactic Acid Aristides 3.4 H* 3.3 H* Calcium Phosphorus Magnesium 2.6 H Total Bilirubin 2.5 H AST 46 H Alkaline Phosphatase 201 H Troponin I Albumin 3.3 L Urine Blood Hyaline Casts Urine Mucus 04/18/22 09:42 WBC RBC Hct MCH MCHC RDW Neutrophils # Lymphocytes # Monocytes # PT INR APTT Sodium Potassium Chloride Carbon Dioxide BUN Creatinine Plasma Lactic Acid Aristides 3.5 H* Calcium Phosphorus Magnesium Total Bilirubin AST Alkaline Phosphatase Troponin I Albumin Urine Blood Hyaline Casts Urine Mucus - Diagnostic Findings Chest x-ray: report reviewed, image reviewed Additional studies: EKG reviewed Assessment and Plan Plan: Assessment: #1. Acute exacerbation of chronic CHF with diastolic dysfunction #2. Fall at home, leg weakness and swelling, no evidence of injury #3. Chronic CHF with diastolic dysfunction #4. Obstructive sleep apnea on CPAP at 13 cm of water and patient is very compliant with her device #5. Chronic hypoxic respiratory failure patient is on 5 L of oxygen on a regular basis #6. Secondary pulmonary hypertension, multifactorial, related to chronic heart and lung disease, sleep apnea syndrome, restrictive lung disease, and morbid obesity #7. COPD, secondary to previous tobacco use, on home oxygen at 5 L #8. Morbid obesity with BMI 48.8 kg/m #9. History of factor V deficiency and prior history of DVT maintained on Coumadin #10. Hypertension #11. Permanent pacemaker implantation #12. History of mitral valve disease Plan: Continue with diuretics per nephrology recommendations, and patient is currently on IV Lasix infusion Continue home oxygen at 5 L, CPAP at night at 13 cm of water Continue monitoring electrolytes and renal profile, daily PT/INR continue Coumadin Local wound care to sacral wounds We'll continue to follow patient's clinical course I have personally seen and examined the patient, performed the documentation and the assessment and plan as written. Number of minutes spent on the visit: [15] Time with Patient: Greater than 30
--- NOTE | 2022-04-18 13:56 | P.CRDCN ---
"History of Present Illness History of present illness: This is a pleasant 66-year-old female past medical history significant for complete heart block status post permanent pacemaker implantation 04/2020, chronic heart failure with preserved ejection fraction, mitral stenosis, hypertension, factor V Leiden, morbid obesity, COPD, severe pulmonary hypertension,History of DVT on coumadin. She follows in the office with Dr. Lopez. We have been asked to see in consultation for congestive heart failure. Patient presents emergency department with worsening shortness of breath, bilateral lower extremity edema, she unsure of weight gain. She states that she recently saw her PCP. She also endorses generalized weakness, mostly in her bilateral legs and did have a fall a few days ago secondary to her legs feeling weak and unable to stand long. She denies any chest pain, lightheadedness, dizziness, syncope, palpitations. She does have symptoms of orthopnea. She denies any change in her diet. She has been taking [place] outpatient and has been compliant with medications She did undergo workup for her mitral stenosis at [facility] 10/2020. She underwent right heart cath which revealed severely elevated RA pressures, severely elevated RV pressure. Severely elevated PA pressure. Moderately elevated PCWP pressure. Severe Pulmonary hypertension present. (PVR 6.55, LVEDP 18mmHg) Normal cardiac output. Moderate mitral valve stenosis. DIAGNOSTICS EKG reveals ventricular paced rhythm, heart rate 77 Recent echocardiogram in the office 03/2022 revealed EF 55-60%, severely dilated right ventricle, mild mitral regurgitation, severe tricuspid regurgitation, severe pulmonary hypertension RVSP 64mmHg, mild aortic stenosis Cardiac catheterization 07/2020 revealed normal coronary arteries Chest xray cardiomegaly, pulmonary vascular congestion Laboratory reviewed sodium 134, potassium 5.5, BUN 42, serum creatinine 1.5, lactate 3.5, WBC 14.2, hemoglobin 14.9, plt 292, Trop 0.04 0.05 Current home cardiac medications include Lasix 40 mg twice a day, Coumadin 2 mg to 4 mg daily, metolazone 5 mg daily, spironolactone 25 mg daily, metoprolol titrate 25 mg daily, amlodipine 10 mg daily REVIEW OF SYSTEMS At the time of my exam: CONSTITUTIONAL: Denies fever or chills. CARDIOVASCULAR: Denies chest pain, +shortness of breath, +orthopnea, Denies PND or palpitations. +|edema RESPIRATORY: + cough. GASTROINTESTINAL: Denies abdominal pain, diarrhea, constipation, nausea or vomiting. MUSCULOSKELETAL: Denies myalgias. NEUROLOGIC: Denies numbness, tingling, headacbe or weakness. ENDOCRINE: Denies fatigue, weight change, polydipsia or polyurina. GENITOURINARY: Denies burning, hematuria or urgency with micturation. HEMATOLOGIC: Denies history of anemia or bleeding. PHYSICAL EXAMINATION Blood pressure 124/79, heart 89, afebrile, saturations 91% on 14 L high flow CONSTITUTIONAL: Short of breath HEENT: Head is normocephalic. Pupils are equal, round. Sclerae anicteric. Mucous membranes of the mouth are moist. + JVD present . No carotid bruit. CHEST EXAMINATION: Lungs are crackles bilaterally to auscultation. No chest wall tenderness is noted on palpation or with deep breathing. HEART EXAMINATION: Regular rate and rhythm. S1, S2 heard. Murmur noted at apex. ABDOMEN: Soft, nontender. Positive bowel sounds. EXTREMITIES: 3+ bilateral lower extremity edema NEUROLOGIC EXAMINATION: Patient is awake, alert and oriented x3. ASSESSMENT Acute on chronic heart failure with preserved ejection fraction, EF on echo 12/2021 55% Severe pulmonary hypertension, RV failure Supratherapeutic INR Hypokalemia Hyponatremia Acute kidney injury Complete heart block status post permanent pacemaker implantation 04/2020 Mitral stenosis Hypertension Factor V Leiden Morbid obesity COPD History of DVT on coumadin PLAN Patient with not much urine output after IV Lasix. Recommend IV Bumex 2mg Q8hr Monitor I/Os, daily weights renal function and electrolytes Coumadin on hold secondary to supratherapeutic INR, check INR daily Metoprolol succinate 50mg daily Nephrology following as well Further recommendations based on clinical course Nurse practitioner note has been reviewed by physician. Signing provider agrees with the documented findings, assessment, and plan of care. Past Medical History Past Medical History: Blood Disorder, Heart Failure, COPD, Deep Vein Thrombosis (DVT), Hypertension Additional Past Medical History / Comment(s): factor 5 Leiden insufficiency, DVT left leg 5 yrs. ago, uses oxygen @3l cont. since pacemaker inserted during recent hospital stay, mitral valve problem per pt. History of Any Multi-Drug Resistant Organisms: None Reported Past Surgical History: Appendectomy, Cholecystectomy, Hysterectomy, Orthopedic Surgery, Pacemaker, Tonsillectomy Additional Past Surgical History / Comment(s): D & C, left ankle ORIF Past Anesthesia/Blood Transfusion Reactions: No Reported Reaction Type of Cardiac Device: Permanent Pacemaker Device Placement Date:: April 2020 Past Psychological History: No Psychological Hx Reported Smoking Status: Former smoker Past Alcohol Use History: None Reported Past Drug Use History: None Reported - Past Family History Father Family Medical History: Congestive Heart Failure (CHF) Additional Family Medical History / Comment(s): congenital , CARDOIOMYAPTHY Mother Family Medical History: Cancer, Deep Vein Thrombosis (DVT) Additional Family Medical History / Comment(s): lung cancer Medications and Allergies Home Medications Medication Instructions Recorded Confirmed Type Albuterol Inhaler [Ventolin Hfa 2 puff INHALATION RT-QID PRN 06/15/20 04/17/22 History Inhaler] Budesonide-Formot 160-4.5 Mcg 2 puff INHALATION RT-BID 06/15/20 04/17/22 History [Symbicort 160-4.5 Mcg Inhaler] Escitalopram [Lexapro] 10 mg PO DAILY 03/13/22 04/17/22 History Spironolactone 25 mg PO DAILY 03/13/22 04/17/22 History Warfarin Sodium 2 mg PO DAILY@1600 03/13/22 04/17/22 History Metoprolol Succinate (ER) [Toprol 50 mg PO DAILY #30 tab 03/22/22 04/17/22 Rx Xl] Potassium Chloride ER [K-Dur 20] 20 meq PO DAILY #30 tab 03/22/22 04/17/22 Rx Torsemide [Demadex] 40 mg PO BID@0900,1600 #60 tab 03/22/22 04/17/22 Rx Budesonide 1 mg INHALATION RT-BID 03/28/22 04/17/22 History Ipratropium-Albuterol Nebulize 3 ml INHALATION RT-TID 03/28/22 04/17/22 History [Duoneb 0.5 mg-3 mg/3 ml Soln] Allergies Allergy/AdvReac Type Severity Reaction Status Date / Time No Known Allergies Allergy Verified 04/17/22 18:26 Physical Exam Vitals: Vital Signs Temp Pulse Pulse Resp BP BP Pulse Ox 04/18/22 09:02 80 04/18/22 08:43 80 04/18/22 08:00 97.4 F L 80 30 H 101/80 92 L 07/06/22 05:28 93 L 04/18/22 03:42 97.8 F 81 20 105/74 91 L 04/18/22 01:00 82 96/83 04/17/22 23:58 95 04/17/22 23:00 78 16 100/89 93 L 04/17/22 22:00 16 93 L 04/17/22 21:00 16 93 L 04/17/22 20:07 16 04/17/22 19:35 80 16 126/79 92 L 04/17/22 18:36 82 18 132/86 93 L 04/17/22 15:59 97.0 F L 79 16 114/82 94 L Intake and Output 04/17/22 04/18/22 04/18/22 22:59 06:59 14:59 Output Total 300 350 Balance -300 -350 Output: Urine 300 350 Other: Voiding Method External Catheter Indwelling Catheter Weight 126.552 kg 124 kg Results 04/18/22 03:39 04/18/22 09:42 Cardiac Enzymes 04/17/22 04/17/22 04/17/22 Range/Units 16:32 16:32 19:35 AST 37 H (14-36) U/L Troponin I 0.047 H* 0.050 H* (0.000-0.034) ng/mL 04/18/22 04/18/22 Range/Units 03:39 09:42 AST 34 46 H (14-36) U/L Troponin I (0.000-0.034) ng/mL Coagulation 04/17/22 Range/Units 16:32 PT 40.5 H (9.0-12.0) sec APTT 34.1 H (22.0-30.0) sec CBC 04/17/22 04/18/22 Range/Units 16:32 03:39 WBC 13.1 H 14.2 H (3.8-10.6) k/uL RBC 5.87 H 6.03 H (3.80-5.40) m/uL Hgb 14.8 14.9 (11.4-16.0) gm/dL Hct 47.8 H 49.9 H (34.0-46.0) % Plt Count 283 292 (150-450) k/uL Comprehensive Metabolic Panel 07/03/0404/18/22 04/18/22 Range/Units 16:32 03:39 09:42 Sodium 131 L 130 L 134 L (137-145) mmol/L Potassium 5.1 5.3 H 5.5 H (3.5-5.1) mmol/L Chloride 96 L 98 95 L (98-107) mmol/L Carbon Dioxide 22 19 L 24 (22-30) mmol/L BUN 40 H 40 H 42 H (7-17) mg/dL Creatinine 1.43 H 1.51 H 1.55 H (0.52-1.04) mg/dL Glucose 97 96 93 (74-99) mg/dL Calcium 8.2 L 8.3 L 8.5 (8.4-10.2) mg/dL AST 37 H 34 46 H (14-36) U/L ALT 26 29 33 (4-34) U/L Alkaline Phosphatase 182 H 180 H 201 H (38-126) U/L Total Protein 6.5 6.5 6.9 (6.3-8.2) g/dL Albumin 3.1 L 3.0 L 3.3 L (3.5-5.0) g/dL Current Medications Generic Name Dose Route Start Last Admin Trade Name Freq PRN Reason Stop Dose Admin Hydrocodone Bitart/Acetaminophen 1 each 04/17/22 18:25 04/18/22 06:31 Hydrocodone/Apap 5-325mg 1 Each Tab PO 1 each Q4HR PRN Administration Moderate Pain Albuterol Sulfate 2.5 mg 04/18/22 00:58 04/18/22 08:42 Albuterol Nebulized 2.5 Mg/3 Ml INHALATION 2.5 mg RT-QID PRN Administration Shortness Of Breath Albuterol/Ipratropium 3 ml 04/18/22 13:00 Ipratropium-Albuterol 3 Ml Neb INHALATION RT-TID ROSELYN Budesonide 1 mg 04/18/22 08:00 04/18/22 08:43 Budesonide 1 Mg/2 Ml Nebu INHALATION 1 mg RT-BID ROSELYN Administration Escitalopram Oxalate 10 mg 04/18/22 09:00 04/18/22 08:27 Escitalopram 10 Mg Tab PO 10 mg DAILY ROSELYN Administration Furosemide 40 mg 04/18/22 10:00 04/18/22 10:34 Furosemide 10 Mg/Ml 4 Ml Vial IV 40 mg Q12HR ROSELYN Administration Metoprolol Succinate 50 mg 04/18/22 09:00 04/18/22 08:27 Metoprolol Succinate (Er) 50 Mg Tab.Er.24h PO 50 mg DAILY ROSELYN Administration Miscellaneous Information 1 each 04/18/22 10:54 Warfarin Per Pharmacy MISCELLANE DIRECTED PRN Per Protocol Protocol Naloxone HCl 0.2 mg 04/17/22 17:51 Naloxone 0.4 Mg/Ml 1 Ml Vial IV Q2M PRN Opioid Reversal Warfarin Sodium 2 mg 04/18/22 16:00 Warfarin 2 Mg Tab PO DAILY@1600 [facility] Protocol Intake and Output 04/17/22 04/18/22 04/18/22 22:59 06:59 14:59 Output Total 300 350 Balance -300 -350 Output: Urine 300 350 Other: Voiding Method External Catheter Indwelling Catheter Weight 126.552 kg 124 kg 04/18/22 03:39 04/18/22 09:42"
[2022-04-18 14:33] LABS: Prothrombin Time 63.4 sec (9.0-12.0)
[2022-04-18 14:36] LABS: INR 6.3 (<1.2)
[2022-04-18] MEDS ORDERED: WARFARIN 2 MG TAB PO SCH (16:00)
[2022-04-18] MEDS ORDERED: PHYTONADIONE ORAL 5 MG/5 ML ORAL.SYRG PO STA (16:06)
[2022-04-18] MEDS: BUMETANIDE 0.25 MG/ML 10 ML VIAL IV SCH ×2 (16:09→19:45)
--- NOTE | 2022-04-18 16:18 | P.HPIM ---
History of Present Illness H&P Date: 04/18/22 Chief Complaint: Short of breath This is a pleasant 66-year-old patient, follows with Dr. Mike Garcia. Chronic stable medical conditions include COPD, hypertension, factor V Leyden insufficiency, DVT in the left leg 5 years ago, home oxygen 5 L, pacemaker, uses walker. Patient was admitted to the hospital here about a month ago was treated for COPD and CHF exacerbation. Patient now presents with increasing shortness of breath. No cough no fever. Decreased appetite. Increased lower extremity swelling. Tired. No chills. No urinary symptoms. Admitted with CHF exacerbation. Review of systems: GEN.: Tired EYES: None HEENT: None NECK: None RESPIRATORY: As above CARDIOVASCULAR: As above GASTROINTESTINAL: None GENITOURINARY: None MUSCULOSKELETAL: Joint pains LYMPHATICS: None HEMATOLOGICAL: None PSYCHIATRY: None NEUROLOGICAL: Uses walker Past medical history to include: COPD, DVT, factor V Leyden insufficiency, home oxygen 5 L. A sneaker. Mitral v alve issues. CHF Social history: Patient smoked off and on for about 25 years stopped about 9 years ago. Averaged a pack a day. No alcohol. . Family history: Congestive heart failure. Physical examination: VITAL SIGNS: 97, 79, 16, 114/82, 94% on 5 L upon presentation GENERAL: BMI 40.4, reclining in bed, awake tired EYES: Pupils equal. Conjunctiva normal. HEENT: External appearance of nose and ears normal, oral cavity grossly normal. NECK: JVD not raised; masses not palpable. HEART: First and second heart sounds are normal; edema present LUNGS: Respiratory rate increased; diminished breath sounds. ABDOMEN: Soft, nontender, liver spleen not palpable, no masses palpable. PSYCH: Alert and oriented x3; mood and affect normal. MUSCULOSKELETAL:No Clubbing/cyanosis;muscles-grossly intact. OA NEUROLOGICAL: Cranial nerves grossly intact; no facial asymmetry, power and sensation grossly intact. LYMPHATICS: No lymph nodes palpable in the axilla and neck INVESTIGATIONS, reviewed in the clinical context: March 19: Sodium 134 potassium 5.5 BUN 42 creatinine 1.55 AST 36 ALT 33. INR 6.3 UA: Negative Admission labs: WBC 13.1 hemoglobin 14.8 platelets 23 INR 4.1 potassium 5.1 BUN 40 creatinine 1.43 lactic acid 2.5 Troponin I 0.047 EKG tracing personally reviewed by -brett paced rhythm. Chest x-ray film personally reviewed by me-cardiomegaly. Venous prominence. Pleural effusion. Previous testin-D echocardiogram [03/14/2022] EF 55-60%. Severe pulmonary hypertension. Moderate to severe mitral annular calcification. Moderate aortic sclerosis. Tricuspid regurgitation. BUN 56 creatinine 1.05 [04/01/2022] Assessment and plan: - acute congestive heart failure exacerbation from diastolic dysfunction EF 55- 60%. IV diuretic.. Follow I's and O's. Fluid restriction. -Coumadin toxicity with no bleeding. By mouth vitamin K 2.5 mg. Follow INR -Chronic hypoxic respiratory failure from COPD Currently on 5 L nasal cannula -Acute COPD exacerbation in the previous smoker: Better DuoNeb 4 times a day. Nebulized Pulmicort and Perforomist. -Severe secondary pulmonary hypertension secondary to COPD -Cor pulmonale, chronic from COPD -Depression otherwise specified Lexapro 10 mg a day -Essential hypertension Toprol-XL 50 mg a day -Morbid obesity BMI 48.4 Weight loss measures - hyponatremia, hypoosmolar Fluid restriction -Acute kidney injury mostly cardiorenal. Follow with nephrology -Hyperkalemia secondary to acute kidney injury -Chronic kidney disease stage III secondary to nephrosclerosis with baseline creatinine of 1.05 IV diuretics. Fluid restriction. Strict I's and O's. Admin K by mouth 2.5 mg. Continue oxygen. DuoNeb, nebulized Pulmicort and Perforomist. Discussed with patient. Consultation to pulmonary and nephrology and cardiology Past Medical History Past Medical History: Blood Disorder, Heart Failure, COPD, Deep Vein Thrombosis (DVT), Hypertension Additional Past Medical History / Comment(s): factor 5 Leiden insufficiency, DVT left leg 5 yrs. ago, uses oxygen @3l cont. since pacemaker inserted during recent hospital stay, mitral valve problem per pt. History of Any Multi-Drug Resistant Organisms: None Reported Past Surgical History: Appendectomy, Cholecystectomy, Hysterectomy, Orthopedic Surgery, Pacemaker, Tonsillectomy Additional Past Surgical History / Comment(s): D & C, left ankle ORIF Past Anesthesia/Blood Transfusion Reactions: No Reported Reaction Type of Cardiac Device: Permanent Pacemaker Device Placement Date:: April 2020 Past Psychological History: No Psychological Hx Reported Smoking Status: Former smoker Past Alcohol Use History: None Reported Past Drug Use History: None Reported - Past Family History Father Family Medical History: Congestive Heart Failure (CHF) Additional Family Medical History / Comment(s): congenital , CARDOIOMYAPTHY Mother Family Medical History: Cancer, Deep Vein Thrombosis (DVT) Additional Family Medical History / Comment(s): lung cancer Medications and Allergies Home Medications Medication Instructions Recorded Confirmed Type Albuterol Inhaler [Ventolin Hfa 2 puff INHALATION RT-QID PRN 06/15/20 04/17/22 History Inhaler] Budesonide-Formot 160-4.5 Mcg 2 puff INHALATION RT-BID 06/15/20 04/17/22 History [Symbicort 160-4.5 Mcg Inhaler] Escitalopram [Lexapro] 10 mg PO DAILY 03/13/22 04/17/22 History Spironolactone 25 mg PO DAILY 03/13/22 04/17/22 History Warfarin Sodium 2 mg PO DAILY@1600 03/13/22 04/17/22 History Metoprolol Succinate (ER) [Toprol 50 mg PO DAILY #30 tab 03/22/22 04/17/22 Rx Xl] Potassium Chloride ER [K-Dur 20] 20 meq PO DAILY #30 tab 03/22/22 04/17/22 Rx Torsemide [Demadex] 40 mg PO BID@0900,1600 #60 tab 03/22/22 04/17/22 Rx Budesonide 1 mg INHALATION RT-BID 03/28/22 04/17/22 History Ipratropium-Albuterol Nebulize 3 ml INHALATION RT-TID 03/28/22 04/17/22 History [Duoneb 0.5 mg-3 mg/3 ml Soln] Allergies Allergy/AdvReac Type Severity Reaction Status Date / Time No Known Allergies Allergy Verified 04/17/22 18:26 Physical Exam Vitals: Vital Signs Temp Pulse Pulse Resp BP BP Pulse Ox 04/18/22 09:02 80 04/18/22 08:43 80 04/18/22 08:00 97.4 F L 80 30 H 101/80 92 L 04/18/22 05:28 93 L 04/18/22 03:42 97.8 F 81 20 105/74 91 L 04/18/22 01:00 82 96/83 04/17/22 23:58 95 04/17/22 23:00 78 16 100/89 93 L 04/17/22 22:00 16 93 L 04/17/22 21:00 16 93 L 04/17/22 20:07 16 04/17/22 19:35 80 16 126/79 92 L 04/17/22 18:36 82 18 132/86 93 L 04/17/22 15:59 97.0 F L 79 16 114/82 94 L Intake and Output 04/17/22 04/18/22 04/18/22 22:59 06:59 14:59 Output Total 300 350 Balance -300 -350 Output: Urine 300 350 Other: Voiding Method External Catheter Indwelling Catheter Weight 126.552 kg 124 kg Results CBC & Chem 7: 04/18/22 03:39 04/18/22 09:42 Labs: Abnormal Lab Results - Last 24 Hours (Table) 04/17/22 04/17/22 04/17/22 Range/Units 16:32 16:32 16:32 WBC 13.1 H (3.8-10.6) k/uL RBC 5.87 H (3.80-5.40) m/uL Hct 47.8 H (34.0-46.0) % MCH (25.0-35.0) pg MCHC 30.9 L (31.0-37.0) g/dL RDW 19.9 H (11.5-15.5) % Neutrophils # 10.9 H (1.3-7.7) k/uL Lymphocytes # 0.8 L (1.0-4.8) k/uL Monocytes # 1.1 H (0-1.0) k/uL PT 40.5 H (9.0-12.0) sec INR 4.1 H (<1.2) APTT 34.1 H (22.0-30.0) sec Sodium (137-145) mmol/L Potassium (3.5-5.1) mmol/L Chloride (98-107) mmol/L Carbon Dioxide (22-30) mmol/L BUN (7-17) mg/dL Creatinine (0.52-1.04) mg/dL Plasma Lactic Acid Aristides (0.7-2.0) mmol/L Calcium (8.4-10.2) mg/dL Phosphorus (2.5-4.5) mg/dL Magnesium (1.6-2.3) mg/dL Total Bilirubin (0.2-1.3) mg/dL AST (14-36) U/L Alkaline Phosphatase (38-126) U/L Troponin I (0.000-0.034) ng/mL Albumin (3.5-5.0) g/dL Urine Blood Trace H (Negative) Hyaline Casts 23 H (0-2) /lpf Urine Mucus Rare H (None) /hpf 04/17/22 04/17/22 04/17/22 Range/Units 16:32 16:32 16:32 WBC (3.8-10.6) k/uL RBC (3.80-5.40) m/uL Hct (34.0-46.0) % MCH (25.0-35.0) pg MCHC (31.0-37.0) g/dL RDW (11.5-15.5) % Neutrophils # (1.3-7.7) k/uL Lymphocytes # (1.0-4.8) k/uL Monocytes # (0-1.0) k/uL PT (9.0-12.0) sec INR (<1.2) APTT (22.0-30.0) sec Sodium 131 L (137-145) mmol/L Potassium (3.5-5.1) mmol/L Chloride 96 L (98-107) mmol/L Carbon Dioxide (22-30) mmol/L BUN 40 H (7-17) mg/dL Creatinine 1.43 H (0.52-1.04) mg/dL Plasma Lactic Acid Aristides 2.5 H* (0.7-2.0) mmol/L Calcium 8.2 L (8.4-10.2) mg/dL Phosphorus 5.3 H (2.5-4.5) mg/dL Magnesium 2.5 H (1.6-2.3) mg/dL Total Bilirubin 1.8 H (0.2-1.3) mg/dL AST 37 H (14-36) U/L Alkaline Phosphatase 182 H (38-126) U/L Troponin I 0.047 H* (0.000-0.034) ng/mL Albumin 3.1 L (3.5-5.0) g/dL Urine Blood (Negative) Hyaline Casts (0-2) /lpf Urine Mucus (None) /hpf 04/17/22 04/17/22 04/17/22 Range/Units 19:35 19:35 22:25 WBC (3.8-10.6) k/uL RBC (3.80-5.40) m/uL Hct (34.0-46.0) % MCH (25.0-35.0) pg MCHC (31.0-37.0) g/dL RDW (11.5-15.5) % Neutrophils # (1.3-7.7) k/uL Lymphocytes # (1.0-4.8) k/uL Monocytes # (0-1.0) k/uL PT (9.0-12.0) sec INR (<1.2) APTT (22.0-30.0) sec Sodium (137-145) mmol/L Potassium (3.5-5.1) mmol/L Chloride (98-107) mmol/L Carbon Dioxide (22-30) mmol/L BUN (7-17) mg/dL Creatinine (0.52-1.04) mg/dL Plasma Lactic Acid Aristides 3.3 H* 3.1 H* (0.7-2.0) mmol/L Calcium (8.4-10.2) mg/dL Phosphorus (2.5-4.5) mg/dL Magnesium (1.6-2.3) mg/dL Total Bilirubin (0.2-1.3) mg/dL AST (14-36) U/L Alkaline Phosphatase (38-126) U/L Troponin I 0.050 H* (0.000-0.034) ng/mL Albumin (3.5-5.0) g/dL Urine Blood (Negative) Hyaline Casts (0-2) /lpf Urine Mucus (None) /hpf 04/18/22 04/18/22 04/18/22 Range/Units 01:12 03:39 03:39 WBC 14.2 H (3.8-10.6) k/uL RBC 6.03 H (3.80-5.40) m/uL Hct 49.9 H (34.0-46.0) % MCH 24.7 L (25.0-35.0) pg MCHC 29.8 L (31.0-37.0) g/dL RDW 19.7 H (11.5-15.5) % Neutrophils # 11.4 H (1.3-7.7) k/uL Lymphocytes # (1.0-4.8) k/uL Monocytes # 1.3 H (0-1.0) k/uL PT (9.0-12.0) sec INR (<1.2) APTT (22.0-30.0) sec Sodium 130 L (137-145) mmol/L Potassium 5.3 H (3.5-5.1) mmol/L Chloride (98-107) mmol/L Carbon Dioxide 19 L (22-30) mmol/L BUN 40 H (7-17) mg/dL Creatinine 1.51 H (0.52-1.04) mg/dL Plasma Lactic Acid Aristides 3.0 H* (0.7-2.0) mmol/L Calcium 8.3 L (8.4-10.2) mg/dL Phosphorus 6.0 H (2.5-4.5) mg/dL Magnesium 2.5 H (1.6-2.3) mg/dL Total Bilirubin 2.2 H (0.2-1.3) mg/dL AST (14-36) U/L Alkaline Phosphatase 180 H (38-126) U/L Troponin I (0.000-0.034) ng/mL Albumin 3.0 L (3.5-5.0) g/dL Urine Blood (Negative) Hyaline Casts (0-2) /lpf Urine Mucus (None) /hpf 04/18/22 04/18/22 04/18/22 Range/Units 03:39 06:36 09:42 WBC (3.8-10.6) k/uL RBC (3.80-5.40) m/uL Hct (34.0-46.0) % MCH (25.0-35.0) pg MCHC (31.0-37.0) g/dL RDW (11.5-15.5) % Neutrophils # (1.3-7.7) k/uL Lymphocytes # (1.0-4.8) k/uL Monocytes # (0-1.0) k/uL PT (9.0-12.0) sec INR (<1.2) APTT (22.0-30.0) sec Sodium 134 L (137-145) mmol/L Potassium 5.5 H (3.5-5.1) mmol/L Chloride 95 L (98-107) mmol/L Carbon Dioxide (22-30) mmol/L BUN 42 H (7-17) mg/dL Creatinine 1.55 H (0.52-1.04) mg/dL Plasma Lactic Acid Aristides 3.4 H* 3.3 H* (0.7-2.0) mmol/L Calcium (8.4-10.2) mg/dL Phosphorus (2.5-4.5) mg/dL Magnesium 2.6 H (1.6-2.3) mg/dL Total Bilirubin 2.5 H (0.2-1.3) mg/dL AST 46 H (14-36) U/L Alkaline Phosphatase 201 H (38-126) U/L Troponin I (0.000-0.034) ng/mL Albumin 3.3 L (3.5-5.0) g/dL Urine Blood (Negative) Hyaline Casts (0-2) /lpf Urine Mucus (None) /hpf 04/18/22 Range/Units 09:42 WBC (3.8-10.6) k/uL RBC (3.80-5.40) m/uL Hct (34.0-46.0) % MCH (25.0-35.0) pg MCHC (31.0-37.0) g/dL RDW (11.5-15.5) % Neutrophils # (1.3-7.7) k/uL Lymphocytes # (1.0-4.8) k/uL Monocytes # (0-1.0) k/uL PT (9.0-12.0) sec INR (<1.2) APTT (22.0-30.0) sec Sodium (137-145) mmol/L Potassium (3.5-5.1) mmol/L Chloride (98-107) mmol/L Carbon Dioxide (22-30) mmol/L BUN (7-17) mg/dL Creatinine (0.52-1.04) mg/dL Plasma Lactic Acid Aristides 3.5 H* (0.7-2.0) mmol/L Calcium (8.4-10.2) mg/dL Phosphorus (2.5-4.5) mg/dL Magnesium (1.6-2.3) mg/dL Total Bilirubin (0.2-1.3) mg/dL AST (14-36) U/L Alkaline Phosphatase (38-126) U/L Troponin I (0.000-0.034) ng/mL Albumin (3.5-5.0) g/dL Urine Blood (Negative) Hyaline Casts (0-2) /lpf Urine Mucus (None) /hpf Thrombosis Risk Factor Assmnt - Choose All That Apply Any of the Below Risk Factors Present?: Yes Each Factor Represents 1 point: Obesity (BMI >25) Each Risk Factor Represents 2 Points: Age 61-74 years Each Risk Factor Represents 3 Points: History of DVT/PE Thrombosis Risk Factor Assessment Total Risk Factor Score: 6 Thrombosis Risk Factor Assessment Level: High Risk
[2022-04-18] MEDS ORDERED: WARFARIN 0.5 MG TAB PO ONE (18:00)
[2022-04-18] MEDS: IPRATROPIUM-ALBUTEROL 3 ML NEB INHALATION SCH (19:36)
[2022-04-18] MEDS: FORMOTEROL FUMARATE 20 MCG/2 ML NEBU INHALATION SCH (19:36)
[2022-04-18] MEDS ORDERED: INSULIN REGULAR 100 UNIT/ML VIAL (IV) IV ONE (22:05)
[2022-04-18] MEDS ORDERED: DEXTROSE 50% SYRINGE 50 ML IVP STA (22:05)
[2022-04-18] MEDS ORDERED: SODIUM ZIRCONIUM CYCLOSILICATE 10 GM PACKET PO ONE (22:30)
[2022-04-18] MEDS ORDERED: CALCIUM GLUCONATE IN NACL 1 GM in SALINE 1 100ML.BAG IVPB ONE (22:30)
[2022-04-18] MEDS: HYDROPHILIC CREAM 180 GM TUBE TOPICAL SCH (22:42)
[2022-04-19] MEDS: HYDROcodone/APAP 5-325MG 1 EACH TAB PO PRN ×2 (02:25→09:09)
[2022-04-19] MEDS: BUMETANIDE 0.25 MG/ML 10 ML VIAL IV SCH (05:57)
[2022-04-19] MEDS: FORMOTEROL FUMARATE 20 MCG/2 ML NEBU INHALATION SCH ×2 (08:01→19:19)
[2022-04-19] MEDS: BUDESONIDE 1 MG/2 ML NEBU INHALATION SCH ×2 (08:01→19:19)
[2022-04-19] MEDS: IPRATROPIUM-ALBUTEROL 3 ML NEB INHALATION SCH ×4 (08:01→19:19)
[2022-04-19 08:10] LABS: Calcium 8.7 mg/dL (8.4-10.2); Magnesium 2.6 mg/dL (1.6-2.3); Potassium 5.9 mmol/L (3.5-5.1)
[2022-04-19 09:07] LABS: INR 4.3 (<1.2); Prothrombin Time 43.4 sec (9.0-12.0)
[2022-04-19] MEDS: ESCITALOPRAM 10 MG TAB PO SCH (09:10)
[2022-04-19] MEDS: METOPROLOL SUCCINATE (ER) 50 MG TAB.ER.24H PO SCH (09:10)
[2022-04-19] MEDS: HYDROPHILIC CREAM 180 GM TUBE TOPICAL SCH (09:10)
[2022-04-19] MEDS ORDERED: SODIUM BICARB 8.4% 50 ML SYR (1 MEQ/ML) IV STA (10:40)
[2022-04-19] MEDS ORDERED: INSULIN REGULAR 100 UNIT/ML VIAL (IV) IV ONE ×2 (10:41→17:30)
[2022-04-19] MEDS ORDERED: DEXTROSE 50% SYRINGE 50 ML IVP STA (10:41)
--- NOTE | 2022-04-19 10:44 | P.PN ---
Subjective Patient is seen in follow-up for acute kidney injury on chronic kidney disease. Creatinine is fairly stable. Urine output 400 mL overnight. Maintained on IV Bumex. Potassium 5.9 this morning. Oral intake poor. Vital signs are stable. General: Awake. Lethargic. HEENT: Head exam is unremarkable. LUNGS: Breath sounds decreased. HEART: Rate and Rhythm are regular. ABDOMEN: Soft, obese. EXTREMITITES: 2+ edema. Objective - Vital Signs Vital signs: Vital Signs Temp 98.1 F 04/19/22 08:00 Pulse 97 04/19/22 08:26 Resp 8 L 04/19/22 08:00 BP 100/74 04/19/22 08:00 Pulse Ox 92 L 04/19/22 08:00 FiO2 45 04/19/22 03:45 Intake & Output 04/18/22 04/19/22 04/19/22 18:59 06:59 18:59 Intake Total 290 540 Output Total 550 400 Balance -260 140 Weight 124 kg 127.5 kg Intake: IV 10 Invasive Line 2 10 Oral 280 540 Output: Urine 550 400 Uretheral (Hugo) 200 Other: Voiding Method Indwelling Catheter Indwelling Catheter Indwelling Catheter - Labs CBC & Chem 7: 04/18/22 03:39 04/19/22 07:31 Labs: Abnormal Lab Results - Last 24 Hours (Table) 04/18/22 04/18/22 04/18/22 Range/Units 09:42 14:02 14:02 PT 63.4 H (9.0-12.0) sec INR 6.3 H* (<1.2) Sodium (137-145) mmol/L Potassium (3.5-5.1) mmol/L Carbon Dioxide (22-30) mmol/L BUN (7-17) mg/dL Creatinine (0.52-1.04) mg/dL Plasma Lactic Acid Aristides 3.5 H* 3.6 H* (0.7-2.0) mmol/L Magnesium (1.6-2.3) mg/dL 04/18/22 04/19/22 04/19/22 Range/Units 21:08 00:43 07:31 PT (9.0-12.0) sec INR (<1.2) Sodium 131 L (137-145) mmol/L Potassium 6.0 H 5.4 H 5.9 H (3.5-5.1) mmol/L Carbon Dioxide 13 L (22-30) mmol/L BUN 47 H (7-17) mg/dL Creatinine 1.58 H (0.52-1.04) mg/dL Plasma Lactic Acid Aristides (0.7-2.0) mmol/L Magnesium 2.6 H (1.6-2.3) mg/dL 04/19/22 Range/Units 07:51 PT 43.4 H (9.0-12.0) sec INR 4.3 H (<1.2) Sodium (137-145) mmol/L Potassium (3.5-5.1) mmol/L Carbon Dioxide (22-30) mmol/L BUN (7-17) mg/dL Creatinine (0.52-1.04) mg/dL Plasma Lactic Acid Aristides (0.7-2.0) mmol/L Magnesium (1.6-2.3) mg/dL Assessment and Plan Plan: Assessment: 1. Acute kidney injury mostly prerenal secondary to cardiorenal syndrome. Creatinine was 1.43 on admission and is 1.58 today. UA benign. No evidence of urinary retention. Renal ultrasound from March 2022 showed no evidence of hydronephrosis. 2. Chronic kidney disease stage III with baseline creatinine in the range of 1.1-1.2 secondary to nephrosclerosis. 3. Volume overload. 4. Nonhealing wounds. Wound care following. 5. Acute on chronic diastolic CHF with severe pulmonary hypertension. 6. Hyperkalemia secondary to acute kidney injury, acidosis, potassium supplementation and spironolactone. 7. Hypervolemic hyponatremia. 8. Metabolic acidosis secondary to acute kidney injury. Plan: Start Bumex drip. 1200 mL fluid restriction. Continue to hold potassium supplementation and spironolactone for now. Follow-up cortisol level. Avoid nephrotoxins. Continue to monitor renal function and urine output. 2 A of sodium bicarb IV push now. Add oral bicarb as well. 10 units IV insulin with amp of D50 now. Lokelma 10 g daily. Repeat BMP this evening. Continue to assess daily for need for renal placement therapy. Discussed with patient.
[2022-04-19] MEDS ORDERED: SODIUM ZIRCONIUM CYCLOSILICATE 10 GM PACKET PO SCH (10:45)
[2022-04-19] MEDS ORDERED: metOLazone 5 MG TAB PO SCH (11:00)
[2022-04-19] MEDS ORDERED: BUMETANIDE 10 MG in DEXTROSE 5% IN WATER 60 ML IV SCH ×2 (11:00)
[2022-04-19] MEDS: SODIUM BICARBONATE TAB 650 MG TAB PO SCH ×2 (11:56→17:02)
--- NOTE | 2022-04-19 13:16 | P.PN ---
Subjective Progress Note Date: 04/19/22 Principal diagnosis: Shortness of breath, acute on chronic CHF 66-year-old white female patient with extensive medical history, including chronic CHF with diastolic dysfunction, obstructive sleep apnea on CPAP on a regular basis, severe pulmonary hypertension, COPD, morbid obesity, chronic hypoxic respiratory failure on home oxygen at 5 L, history of factor V deficiency, prior history of DVT, permanent pacemaker and mitral valve disease who follows with Dr. Gaines at the pulmonary clinic. She was recently hospitalized in March for acute exacerbation of CHF, she was discharged home on home diuretics including Demadex and Aldactone. She was seen in the office for outpatient follow-up by Dr. Gaines, she was still significantly fluid overloaded, and she continued on oral diuretics. On 04/17/2022 patient presented to the emergency department after sustaining a fall while walking at home, patient states she normally walks with a walker, she has a generalized w eakness and difficulty ambulating. She denied any injury. She reports increased leg weakness and swelling. Patient has been on Demadex and Aldactone. She denied any worsening shortness of breath, cough, no fever or chills, no chest pain. She was also complaining of sores to her buttocks that had been increasingly painful. Patient could not get back up, and she had to call the ambulance who brought her to the hospital. Chest x-ray showed minimal pleural reaction at the lung bases, some blunting of the costophrenic angles, enlarged heart, no pulmonary consolidation. Admission blood work showed white blood cell count 13.1, hemoglobin of 14.8, INR 4.1, the patient takes Coumadin for history of factor V deficiency. Sodium of 131, potassium is 5.1, BUN of 40 creatinine is 1.43, lactic acid was 3.1, troponin was 0.050, proBNP was 17,008 100, urinalysis showed trace blood, some mucus, but no definite sign of urinary tract infection. Patient's vitals have been stable, she was afebrile, she remained on her usual home dose O2 at 5 L, satting 92-94%. EKG showed paced rhythm. Patient has significant swelling in bilateral lower extremities. She was started on Lasix infusion at 10 mg per hour. Aldactone has been discontinued, nephrology services have been consulted. Is currently resting comfortably in bed, she is answering questions appropriately, denies any worsening dyspnea. She states the only reason she came in is because she had a fall at home On 04/19/2022 patient is seen in follow-up on selective care unit. She is resting in bed, appears to be more dyspneic than yesterday's exam, using accessory muscles of breathing including abdominal muscles. She is currently on 5 L of oxygen, pulse ox is 91%, she has worn BiPAP at bedtime with pressures of 14 and 6 and FiO2 of 45%. She had been on Lasix drip for the past 24 hours however her urinary output has been quite low, and patient still remains massively fluid overload. She has not had a very good response with IV Lasix. Nephrology is following, and has recommended transitioning patient to IV Bumex, also Zaroxolyn has been added. Cardiology is following. Today's labs have been reviewed, sodium is 131, potassium is 5.9, chloride is 98, CO2 is 20, BUN is 47, creatinine is 1.58. Cortisol level is 79, troponins were 0.050, 0.047. BNP is 17,800. Objective - Vital Signs Vital signs: Vital Signs Temp 97.2 F L 04/19/22 11:45 Pulse 108 H 04/19/22 11:45 Resp 26 H 04/19/22 11:45 BP 100/74 04/19/22 08:00 Pulse Ox 94 L 04/19/22 11:45 FiO2 45 04/19/22 11:05 Intake & Output 04/18/22 04/19/22 04/19/22 18:59 06:59 18:59 Intake Total 290 540 Output Total 550 400 Balance -260 140 Weight 124 kg 127.5 kg Intake: IV 10 Invasive Line 2 10 Oral 280 540 Output: Urine 550 400 Uretheral (Hugo) 200 Other: Voiding Method Indwelling Catheter Indwelling Catheter Indwelling Catheter - Exam GENERAL EXAM: Alert, pleasant, morbidly obese 66-year-old white female, on 6 L of oxygen pulse ox is 92%, patient is noted to be dyspneic at rest, using accessory muscles of breathing, she was subsequently placed on BiPAP support with pressures of 14/6 and FiO2 of 45% HEAD: Normocephalic/atraumatic. EYES: Normal reaction of pupils, equal size. Conjunctiva pink, sclera white. NOSE: Clear with pink turbinates. THROAT: No erythema or exudates. NECK: No masses, no JVD, no thyroid enlargement, no adenopathy. CHEST: No chest wall deformity. Symmetrical expansion. LUNGS: Equal air entry with no crackles, wheeze, rhonchi or dullness. CVS: Regular rate and rhythm, normal S1 and S2, no gallops, no murmurs, no rubs ABDOMEN: Soft, nontender. No hepatosplenomegaly, normal bowel sounds, no guarding or rigidity. EXTREMITIES: No clubbing, 2+ bilateral lower extremity edema no cyanosis, 2+ pulses and upper and lower extremities. MUSCULOSKELETAL: Muscle strength and tone normal. SPINE: No scoliosis or deformity SKIN: No rashes CENTRAL NERVOUS SYSTEM: Alert and oriented -3. No focal deficits, tone is normal in all 4 extremities. PSYCHIATRIC: Alert and oriented -3. Appropriate affect. Intact judgment and insight. - Labs CBC & Chem 7: 04/18/22 03:39 04/19/22 07:31 Labs: Abnormal Lab Results - Last 24 Hours (Table) 04/18/22 04/18/22 04/18/22 Range/Units 14:02 14:02 21:08 PT 63.4 H (9.0-12.0) sec INR 6.3 H* (<1.2) Sodium (137-145) mmol/L Potassium 6.0 H (3.5-5.1) mmol/L Carbon Dioxide (22-30) mmol/L BUN (7-17) mg/dL Creatinine (0.52-1.04) mg/dL Plasma Lactic Acid Aristides 3.6 H* (0.7-2.0) mmol/L Magnesium (1.6-2.3) mg/dL 04/19/22 04/19/22 04/19/22 Range/Units 00:43 07:31 07:51 PT 43.4 H (9.0-12.0) sec INR 4.3 H (<1.2) Sodium 131 L (137-145) mmol/L Potassium 5.4 H 5.9 H (3.5-5.1) mmol/L Carbon Dioxide 13 L (22-30) mmol/L BUN 47 H (7-17) mg/dL Creatinine 1.58 H (0.52-1.04) mg/dL Plasma Lactic Acid Aristides (0.7-2.0) mmol/L Magnesium 2.6 H (1.6-2.3) mg/dL Assessment and Plan Plan: Assessment: #1. Acute exacerbation of chronic CHF with diastolic dysfunction #2. Fall at home, leg weakness and swelling, no evidence of injury #3. Chronic CHF with diastolic dysfunction #4. Obstructive sleep apnea on CPAP at 13 cm of water and patient is very compliant with her device #5. Chronic hypoxic respiratory failure patient is on 5 L of oxygen on a regula r basis #6. Secondary pulmonary hypertension, multifactorial, related to chronic heart and lung disease, sleep apnea syndrome, restrictive lung disease, and morbid obesity #7. COPD, secondary to previous tobacco use, on home oxygen at 5 L #8. Morbid obesity with BMI 48.8 kg/m #9. History of factor V deficiency and prior history of DVT maintained on Coumadin #10. Hypertension #11. Permanent pacemaker implantation #12. History of mitral valve disease Plan: Place patient on BiPAP support with pressures of 14 and 6 and FiO2 of 45% She is noted to be more dyspneic today, Patient's switched over to Bumex, she is still massively fluid overloaded CODE STATUS was discussed with the patient by the attending physician in CODE STATUS is DO NOT RESUSCITATE We will continue supportive measures for now and continue to evaluate patient's clinical response Overall prognosis is quite guarded We'll continue to follow Follow-up chest x-ray and labs tomorrow I have personally seen and examined the patient, performed the documentation and the assessment and plan as written. Number of minutes spent on the visit: [15] Time with Patient: Less than 30
--- NOTE | 2022-04-19 14:27 | P.PN ---
Subjective This is a pleasant 66-year-old female past medical history significant for complete heart block status post permanent pacemaker implantation 04/2020, chronic heart failure with preserved ejection fraction, mitral stenosis, hypertension, factor V Leiden, morbid obesity, COPD, severe pulmonary hypertension,History of DVT on coumadin. She follows in the office with Dr. Lopez. We have been asked to see in consultation for congestive heart failure. Patient presents emergency department with worsening shortness of breath, bilateral lower extremity edema, she unsure of weight gain. She states that she recently saw her PCP. She also endorses generalized weakness, mostly in her bilateral legs and did have a fall a few days ago secondary to her legs feeling weak and unable to stand long. She denies any chest pain, lightheadedness, dizziness, syncope, palpitations. She does have symptoms of orthopnea. She denies any change in her diet. She has been taking [place] outpatient and has been compliant with medications DIAGNOSTICS * She did undergo workup for her mitral stenosis at [facility] 10/2020. She underwent right heart cath which revealed severely elevated RA pressures, severely elevated RV pressure. Severely elevated PA pressure. Moderately elevated PCWP pressure. Severe Pulmonary hypertension present. (PVR 6.55, LVEDP 18mmHg) Normal cardiac output. Moderate mitral valve stenosis. * Recent echocardiogram in the office 03/2022 revealed EF 55-60%, severely dilated right ventricle, mild mitral regurgitation, severe tricuspid r egurgitation, severe pulmonary hypertension RVSP 64mmHg, mild aortic stenosis * Cardiac catheterization 07/2020 revealed normal coronary arteries 04/19/2022 Patient seen and examined at bedside. She has increased shortness of breath, tachypnea. Also hypotensive. She is more dyspneic than yesterday on exam. She wore BIPAP at night. She currently on 10L high flow nasal cannula with SpO2 91- 92%. Patient did not have good response to IV lasix yesterday, transitioned to IV Bumex yesterday and this morning Nephrology transitioned patient to IV Bumex drip. I/Os only documented 950mL urine output. She denies any chest pain. Labs, sodium is 131, potassium is 5.9, chloride is 98, CO2 is 20, BUN is 47, creatinine is 1.58 PHYSICAL EXAMINATION Vitals reviewed CONSTITUTIONAL: Short of breath HEENT: Head is normocephalic. Pupils are equal, round. Sclerae anicteric. Mucous membranes of the mouth are moist. + JVD present CHEST EXAMINATION: Lungs are crackles bilaterally to auscultation. No chest wall tenderness is noted on palpation or with deep breathing. HEART EXAMINATION: Regular rate and rhythm. S1, S2 heard. Murmur noted at apex. ABDOMEN: Soft, nontender. Positive bowel sounds. EXTREMITIES: 3+ bilateral lower extremity edema NEUROLOGIC EXAMINATION: Patient is awake, alert and oriented x3. ASSESSMENT Acute on chronic heart failure with preserved ejection fraction, EF on echo 0 12/2021 55% Severe pulmonary hypertension, RV failure Supratherapeutic INR Hypokalemia Hyponatremia Acute kidney injury Complete heart block status post permanent pacemaker implantation 04/2020 Mitral stenosis Hypertension Factor V Leiden Morbid obesity COPD History of DVT on coumadin PLAN IV Bumex drip Add metolazone Monitor I/Os, daily weights renal function and electrolytes Coumadin on hold secondary to supratherapeutic INR Metoprolol succinate 50mg daily Nephrology and pulmonary following Primary has discussed code status with patient and code status is DNR Prognosis is guarded Further recommendations based on clinical course Nurse practitioner note has been reviewed by physician. Signing provider agrees with the documented findings, assessment, and plan of care. Objective - Vital Signs Vital signs: Vital Signs Temp 97.2 F L 04/19/22 11:45 Pulse 108 H 04/19/22 11:45 Resp 26 H 04/19/22 11:45 BP 100/74 04/19/22 08:00 Pulse Ox 94 L 04/19/22 11:45 FiO2 45 04/19/22 11:05 Intake & Output 04/18/22 04/19/22 04/19/22 18:59 06:59 18:59 Intake Total 290 540 Output Total 550 400 Balance -260 140 Weight 124 kg 127.5 kg Intake: IV 10 Invasive Line 2 10 Oral 280 540 Output: Urine 550 400 Uretheral (Hugo) 200 Other: Voiding Method Indwelling Catheter Indwelling Catheter Indwelling Catheter - Labs CBC & Chem 7: 04/18/22 03:39 04/19/22 07:31 Labs: Abnormal Lab Results - Last 24 Hours (Table) 04/18/22 04/18/22 04/18/22 Range/Units 14:02 14:02 21:08 PT 63.4 H (9.0-12.0) sec INR 6.3 H* (<1.2) Sodium (137-145) mmol/L Potassium 6.0 H (3.5-5.1) mmol/L Carbon Dioxide (22-30) mmol/L BUN (7-17) mg/dL Creatinine (0.52-1.04) mg/dL Plasma Lactic Acid Aristides 3.6 H* (0.7-2.0) mmol/L Magnesium (1.6-2.3) mg/dL 04/19/22 04/19/22 04/19/22 Range/Units 00:43 07:31 07:51 PT 43.4 H (9.0-12.0) sec INR 4.3 H (<1.2) Sodium 131 L (137-145) mmol/L Potassium 5.4 H 5.9 H (3.5-5.1) mmol/L Carbon Dioxide 13 L (22-30) mmol/L BUN 47 H (7-17) mg/dL Creatinine 1.58 H (0.52-1.04) mg/dL Plasma Lactic Acid Aristides (0.7-2.0) mmol/L Magnesium 2.6 H (1.6-2.3) mg/dL
[2022-04-19] MEDS ORDERED: MORPHINE CONC SOLN 10mg/0.5mL ORAL SYRG SL PRN (15:48)
--- NOTE | 2022-04-19 16:29 | P.PN ---
Progress Note - Text Progress Note Date: 04/19/22 Chief Complaint: Short of breath This is a pleasant 66-year-old patient, follows with Dr. Mike Garcia. Chronic stable medical conditions include COPD, hypertension, factor V Leyden insufficiency, DVT in the left leg 5 years ago, home oxygen 5 L, pacemaker, uses walker. Patient was admitted to the hospital here about a month ago was treated for COPD and CHF exacerbation. Patient now presents with increasing shortness of breath. No cough no fever. Decreased appetite. Increased lower extremity swelling. Tired. No chills. No urinary symptoms. Admitted with CHF exacerbation. Admitted with acute COPD exacerbation, acute CHF exacerbation, cor pulmonale exa cerbation, Coumadin toxicity with no bleeding. Patient is put on IV diuretics. Bronchodilators, steroids. April 19: Patient short of breath. Placed on a BiPAP. Later Bumex drip was ordered by cardiology. Patient barely making urine. about 400 mL overnight. Discussed with the patient. Agreeable to DO NOT RESUSCITATE. Also discussed with cardiology and pulmonary. Prognosis is poor. Later spoke to the at the bedside. Keep the patient comfortable. Other family members present. Active Medications Hydrocodone Bitart/Acetaminophen (Hydrocodone/Apap 5-325mg 1 Each Tab) 1 each PO Q4HR PRN PRN Reason: Moderate Pain Last Admin: 04/19/22 09:09 Dose: 1 each Albuterol Sulfate (Albuterol Nebulized 2.5 Mg/3 Ml) 2.5 mg INHALATION RT-QID PRN PRN Reason: Shortness Of Breath Last Admin: 04/18/22 08:42 Dose: 2.5 mg Albuterol/Ipratropium (Ipratropium-Albuterol 3 Ml Neb) 3 ml INHALATION RT-QID [facility] Last Admin: 04/19/22 15:19 Dose: 3 ml Budesonide (Budesonide 1 Mg/2 Ml Nebu) 1 mg INHALATION RT-BID [facility] Last Admin: 04/19/22 08:01 Dose: 1 mg Escitalopram Oxalate (Escitalopram 10 Mg Tab) 10 mg PO DAILY [facility] Last Admin: 04/19/22 09:10 Dose: 10 mg Formoterol Fumarate (Formoterol Fumarate 20 Mcg/2 Ml Nebu) 20 mcg INHALATION RT-BID [facility] Last Admin: 04/19/22 08:01 Dose: 20 mcg Bumetanide 10 mg/ Dextrose/ (Water) 100 mls @ 5 mls/hr IV .Q20H [facility] Last Admin: 04/19/22 11:55 Dose: 0.5 mg/hr, 5 mls/hr Metolazone (Metolazone 5 Mg Tab) 5 mg PO DAILY [facility] Last Admin: 04/19/22 11:56 Dose: 5 mg Metoprolol Succinate (Metoprolol Succinate (Er) 50 Mg Tab.Er.24h) 50 mg PO DAILY [facility] Last Admin: 04/19/22 09:10 Dose: 50 mg Miscellaneous Information (Warfarin Per Pharmacy) 1 each MISCELLANE DIRECTED PRN; Protocol PRN Reason: Per Protocol Morphine Sulfate (Morphine Conc Soln 10mg/0.5ml Oral Syrg) 0.25 mg SL Q4HR PRN PRN Reason: Pain Control Multi-Ingred Cream/Lotion/Oil/Oint (Hydrophilic Cream 180 Gm Tube) 1 applic TOPICAL DAILY [facility]; Protocol Last Admin: 04/19/22 09:10 Dose: 1 applic Naloxone HCl (Naloxone 0.4 Mg/Ml 1 Ml Vial) 0.2 mg IV Q2M PRN PRN Reason: Opioid Reversal Sodium Bicarbonate (Sodium Bicarbonate Tab 650 Mg Tab) 650 mg PO TID [facility] Last Admin: 04/19/22 11:56 Dose: 650 mg Sodium Zirconium Cyclosilicate (Sodium Zirconium Cyclosilicate 10 Gm Packet) 10 gm PO DAILY [facility] Last Admin: 04/19/22 11:55 Dose: 10 gm Warfarin Sodium (Warfarin 0.5 Mg Tab) 0 mg PO ONCE@1800 ONE Stop: 04/19/22 18:01 Past medical history to include: COPD, DVT, factor V Leyden insufficiency, home oxygen 5 L. A sneaker. Mitral valve issues. CHF Social history: Patient smoked off and on for about 25 years stopped about 9 years ago. Averaged a pack a day. No alcohol. . Family history: Congestive heart failure. Physical examination: VITAL SIGNS: 7.2, 108, 26, blood pressure in the 60-70 systolic GENERAL: reclining in bed, tired, with BiPAP EYES: Pupils equal. Conjunctiva normal. HEENT: External appearance of nose and ears normal, oral cavity grossly normal. NECK: JVD not raised; masses not palpable. HEART: First and second heart sounds are normal; edema present LUNGS: Respiratory rate increased; diminished breath sounds. ABDOMEN: Soft, nontender, liver spleen not palpable, no masses palpable. PSYCH: Alert and oriented x3; mood and affect tired MUSCULOSKELETAL:No Clubbing/cyanosis;muscles-grossly intact. OA INVESTIGATIONS, reviewed in the clinical context: March 20: Potassium 5.9 BUN 47 creatinine 1.58 INR 4.3 March 19: Sodium 134 potassium 5.5 BUN 42 creatinine 1.55 AST 36 ALT 33. INR 6.3 UA: Negative Admission labs: WBC 13.1 hemoglobin 14.8 platelets 23 INR 4.1 potassium 5.1 BUN 40 creatinine 1.43 lactic acid 2.5 Troponin I 0.047 EKG tracing personally reviewed by me-ventricle paced rhythm. Chest x-ray film personally reviewed by me-cardiomegaly. Venous prominence. Pleural effusion. Previous testin-D echocardiogram [03/14/2022] EF 55-60%. Severe pulmonary hypertension. Moderate to severe mitral annular calcification. Moderate aortic sclerosis. Tricuspid regurgitation. BUN 56 creatinine 1.05 [04/01/2022] Assessment and plan: - acute congestive heart failure exacerbation from diastolic dysfunction EF 55- 60%. IV diuretic.. Follow I's and O's. Fluid restriction. -Coumadin toxicity with no bleeding. By mouth vitamin K 2.5 mg. Follow INR -Chronic hypoxic respiratory failure from COPD : Worsening Currently on 5 L nasal cannula -Acute COPD exacerbation in the previous smoker: Better DuoNeb 4 times a day. Nebulized Pulmicort and Perforomist. -Severe secondary pulmonary hypertension secondary to COPD -Acute on chronic Cor pulmonale, COPD -Depression otherwise specified Lexapro 10 mg a day -Essential hypertension Toprol-XL 50 mg a day -Morbid obesity BMI 48.4 Weight loss measures - hyponatremia, hypoosmolar Fluid restriction -Acute kidney injury mostly cardiorenal. Follow with nephrology -Hyperkalemia secondary to acute kidney injury: Worsening from renal failure -Chronic kidney disease stage III secondary to nephrosclerosis with baseline creatinine of 1.05 -Hypotension from volume loss. -DO NOT RESUSCITATE Patient will Bumex drip earlier today. Part make any urine. Spoke to the patient and the . Agreeable to DO NOT RESUSCITATE. Bumex drip discontinued. Care was discussed thoroughly with pulmonary and cardiology. [place] patient's prognosis is very poor. Advanced care planning: This was discussed with the patient related with the at the bedside. They understand patient's prognosis is poor. Very advanced cardiac condition. Has had previous workup at [facility]. Accupril to proceed with DO NOT RESUSCITATE. No heroic measures. We'll continue with current treatment. Bumex drip discontinued. We'll see how patient does overnight. Depending on symptoms for the course of action. Also discussed about hospice depending on clinical course and symptoms. About 25 minutes was spent for this
[2022-04-19 16:42] LABS: Calcium 8.7 mg/dL (8.4-10.2)
[2022-04-19 16:43] LABS: Potassium 6.4 mmol/L (3.5-5.1)
[2022-04-19 16:52] LABS: Glucose,Whole Blood 42 mg/dL (70-110)
[2022-04-19] MEDS ORDERED: DEXTROSE 50% SYRINGE 50 ML IVP ONE (16:54)
[2022-04-19 17:05] VITALS: BP 110/65; TEMP 98
[2022-04-19 17:19] LABS: Glucose,Whole Blood 124 mg/dL (70-110)
[2022-04-19 17:33] LABS: Glucose,Whole Blood 95 mg/dL (70-110)
[2022-04-19] MEDS ORDERED: WARFARIN 0.5 MG TAB PO ONE (18:00)
[2022-04-19] MEDS ORDERED: MORPHINE SULFATE 2 MG/ML SYRINGE IVP PRN (20:49)
[2022-04-19 23:25] VITALS: PULSE 97; RESP 28
--- NOTE | 2022-04-20 18:16 | P.DS ---
Providers Date of admission: 04/17/22 17:37 Expected date of discharge: 04/19/22 Attending physician: William Conde Consults: 04/17/22 17:54 Consult Physician Urgent Consulting Provider: [facility] Consult Reason/Comments: chf with elevated troponin Do you want consulting provider notified?: Yes 04/18/22 04:40 Consult Physician Urgent Consulting Provider: Jayme Mora Consult Reason/Comments: elevated BUN/CR Do you want consulting provider notified?: Yes 04/18/22 07:26 Consult Physician Urgent Consulting Provider: Alden Brooks Consult Reason/Comments: hypoxia, turns blue and desats when rolling in bed Do you want consulting provider notified?: Yes Primary care physician: Mike Garcia [facility] Course: Chief Complaint: Short of breath This is a pleasant 66-year-old patient, follows with Dr. Mike Garcia. Chronic stable medical conditions include COPD, hypertension, factor V Leyden insufficiency, DVT in the left leg 5 years ago, home oxygen 5 L, pacemaker, uses walker. Patient was admitted to the hospital here about a month ago was treated for COPD and CHF exacerbation. Patient now presents with increasing shortness of breath. No cough no fever. Decreased appetite. Increased lower extremity swelling. Tired. No chills. No urinary symptoms. Admitted with CHF exacerbation. Admitted with acute COPD exacerbation, acute CHF exacerbation, cor pulmonale exacerbation, Coumadin toxicity with no bleeding. Patient is put on IV diuretics. Bronchodilators, steroids. April 19: Patient short of breath. Placed on a BiPAP. Later Bumex drip was ordered by cardiology. Patient barely making urine. about 400 mL overnight. Discussed with the patient. Agreeable to DO NOT RESUSCITATE. Also discussed with cardiology and pulmonary. Prognosis is poor. Later spoke to the at the bedside. Keep the patient comfortable. Other family members present. Late in the day patient is being comfortable. Bumex drip was discontinued. Patient agreed to be no code, comfort measures. Patient later in the day. Past medical history to include: COPD, DVT, factor V Leyden insufficiency, home oxygen 5 L. A sneaker. Mitral valve issues. CHF Social history: Patient smoked off and on for about 25 years stopped about 9 years ago. Averaged a pack a day. No alcohol. . Family history: Congestive heart failure. INVESTIGATIONS, reviewed in the clinical context: March 20: Potassium 5.9 BUN 47 creatinine 1.58 INR 4.3 March 19: Sodium 134 potassium 5.5 BUN 42 creatinine 1.55 AST 36 ALT 33. INR 6.3 UA: Negative Admission labs: WBC 13.1 hemoglobin 14.8 platelets 23 INR 4.1 potassium 5.1 BUN 40 creatinine 1.43 lactic acid 2.5 Troponin I 0.047 EKG tracing personally reviewed by me-ventricle paced rhythm. Chest x-ray film personally reviewed by me-cardiomegaly. Venous prominence. Pleural effusion. Previous testin-D echocardiogram [03/14/2022] EF 55-60%. Severe pulmonary hypertension. Moderate to severe mitral annular calcification. Moderate aortic sclerosis. Tricuspid regurgitation. BUN 56 creatinine 1.05 [04/01/2022] Cause of : Severe pulmonary hypertension Assessment and plan: - acute congestive heart failure exacerbation from diastolic dysfunction EF 55- 60%. IV diuretic.. Follow I's and O's. Fluid restriction. -Coumadin toxicity with no bleeding. By mouth vitamin K 2.5 mg. Follow INR -Chronic hypoxic respiratory failure from COPD : Worsening Currently on 5 L nasal cannula -Acute COPD exacerbation in the previous smoker: Better DuoNeb 4 times a day. Nebulized Pulmicort and Perforomist. -Severe secondary pulmonary hypertension secondary to COPD -Acute on chronic Cor pulmonale, COPD -Depression otherwise specified Lexapro 10 mg a day -Essential hypertension Toprol-XL 50 mg a day -Morbid obesity BMI 48.4 Weight loss measures - hyponatremia, hypoosmolar Fluid restriction -Acute kidney injury mostly cardiorenal. Follow with nephrology -Hyperkalemia secondary to acute kidney injury: Worsening from renal failure -Chronic kidney disease stage III secondary to nephrosclerosis with baseline creatinine of 1.05 -Hypotension from volume loss. -DO NOT RESUSCITATE Disposition: Patient Patient Condition at Discharge: Fair Plan - Discharge Summary Discharge Rx Participant: No New Discharge Prescriptions: No Action Budesonide-Formot 160-4.5 Mcg [Symbicort 160-4.5 Mcg Inhaler] 2 puff INHALATION RT-BID Albuterol Inhaler [Ventolin Hfa Inhaler] 2 puff INHALATION RT-QID PRN PRN Reason: Shortness Of Breath Warfarin Sodium 2 mg PO DAILY@1600 Torsemide [Demadex] 40 mg PO BID@0900,1600 #60 tab Metoprolol Succinate (ER) [Toprol Xl] 50 mg PO DAILY #30 tab Ipratropium-Albuterol Nebulize [Duoneb 0.5 mg-3 mg/3 ml Soln] 3 ml INHALATION RT-TID Spironolactone 25 mg PO DAILY Escitalopram [Lexapro] 10 mg PO DAILY Potassium Chloride ER [K-Dur 20] 20 meq PO DAILY #30 tab Budesonide 1 mg INHALATION RT-BID Discharge Medication List Albuterol Inhaler [Ventolin Hfa Inhaler] 2 puff INHALATION RT-QID PRN 06/15/20 [History] Budesonide-Formot 160-4.5 Mcg [Symbicort 160-4.5 Mcg Inhaler] 2 puff INHALATION RT-BID 06/15/20 [History] Escitalopram [Lexapro] 10 mg PO DAILY 03/13/22 [History] Spironolactone 25 mg PO DAILY 03/13/22 [History] Warfarin Sodium 2 mg PO DAILY@1600 03/13/22 [History] Metoprolol Succinate (ER) [Toprol Xl] 50 mg PO DAILY #30 tab 03/22/22 [Rx] Potassium Chloride ER [K-Dur 20] 20 meq PO DAILY #30 tab 03/22/22 [Rx] Torsemide [Demadex] 40 mg PO BID@0900,1600 #60 tab 03/22/22 [Rx] Budesonide 1 mg INHALATION RT-BID 03/28/22 [History] Ipratropium-Albuterol Nebulize [Duoneb 0.5 mg-3 mg/3 ml Soln] 3 ml INHALATION RT-TID 03/28/22 [History] Follow up Appointment(s)/[facility]erral(s): [facility] - [place] [NON-STAFF] - (Check with [facility] for a wider commode. ) Mike Garcia MD [Primary Care Provider] - 1-2 days Discharge Disposition: - Preliminary Cause of Preliminary Cause of : Severe pulmonary hypertension, secondary
--- NOTE | 2022-05-04 15:11 | CDI ---
Documentation Clarification Form Date: 05/04/2022 02:56:28 PM From: Rosalind Hickey RN, CCDS Email: [email or web address] Admit Date: 04/17/2022 05:37:00 PM Patient Name: Sarah Bridges Visit Number: [id number] Discharge Date: 04/19/2022 09:16:00 PM ATTENTION: The Clinical Documentation Specialists (CDI) and [facility] Coding Staff appreciate your assistance in clarifying documentation. Please respond to the clarification below the line at the bottom and electronically sign. The CDI & [facility] Coding staff will review the response and follow-up if needed. Please note: Queries are made part of the Legal Health Record. If you have any questions, please contact the author of this message via ITS. Dr. William Conde Your patient had chronic respiratory failure that worsened. Patient on 04/19. Based on this information and the findings below, is there an additional diagnosis that is clinically appropriate for this patient? History/Risk Factors: COPD, hypertension, factor V Leyden insufficiency, DVT in the left leg 5 years ago, home oxygen 5 L, pacemaker, uses walker. Patient was admitted to the hospital here about a month ago was treated for COPD and CHF exacerbation. Patient presented with increasing shortness of breath. Admitted with CHF and COPD exacerbation. Tobacco use: previous smoker of 25 years Home oxygen: yes 5LNC Clinical Indicators: increased shortness of breath, 2+ lower extremity edema 04/19 Vital signs: HR 102, RR high of 54, BP 96/83 04/19 Pulse oximetry: 91% on Bipap 04/19 Lung/Breathing assessment: using accessory muscles of breathing including abdominal muscles. Treatment: IV Lasix 100mg Q10H, A/A TID, Symbicort 2 puffs BID, Bumex 2mg IV x4, Bumex 5ml/hr Q20H O2/BiPap: 5LNC to Bipap Is there an additional diagnosis that is clinically appropriate for this patient? [ ] Acute on Chronic Respiratory Failure [ ] Other Diagnosis, please specify [ ] Unable to determine Acute on chronic respiratory failure MTDD
== END 2022-04-19 21:16 | disposition expired | DRG 291 ==
LOC: EC 15:55 → 3SCARD 17:37
PROVIDERS: ADMIT Hospitalist; ATTEND Hospitalist
PROC: 5A09357 Assistance with Respiratory Ventilation, Less than 24 Consecutive Hours, Continuous Positive Airway Pressure (ICD-10-PCS; principal; 2022-04-17)
PROC: 5A0935A Assistance with Respiratory Ventilation, Less than 24 Consecutive Hours, High Flow/Velocity Cannula (ICD-10-PCS; 2022-04-19)
DX: I13.0 Hypertensive heart and chronic kidney disease with heart failure and stage 1 through stage 4 chronic kidney disease, or unspecified chronic kidney disease (principal); I50.33 Acute on chronic diastolic (congestive) heart failure; J96.21 Acute and chronic respiratory failure with hypoxia; D68.51 Activated protein C resistance; J44.1 Chronic obstructive pulmonary disease with (acute) exacerbation; I44.2 Atrioventricular block, complete; N17.9 Acute kidney failure, unspecified; E87.2 Acidosis; E87.1 Hypo-osmolality and hyponatremia; Z68.42 Body mass index [BMI] 45.0-49.9, adult; I27.23 Pulmonary hypertension due to lung diseases and hypoxia; I27.81 Cor pulmonale (chronic); E66.01 Morbid (severe) obesity due to excess calories; N18.31 Chronic kidney disease, stage 3a; F32.A Depression, unspecified; I08.3 Combined rheumatic disorders of mitral, aortic and tricuspid valves; Z66 Do not resuscitate; Z51.5 Encounter for palliative care; L89.212 Pressure ulcer of right hip, stage 2; L89.322 Pressure ulcer of left buttock, stage 2; L89.312 Pressure ulcer of right buttock, stage 2; L89.222 Pressure ulcer of left hip, stage 2; I95.9 Hypotension, unspecified; T45.515A Adverse effect of anticoagulants, initial encounter; T50.0X5A Adverse effect of mineralocorticoids and their antagonists, initial encounter; G47.33 Obstructive sleep apnea (adult) (pediatric); W18.30XA Fall on same level, unspecified, initial encounter; R26.2 Difficulty in walking, not elsewhere classified; E87.6 Hypokalemia; E87.5 Hyperkalemia; Z79.01 Long term (current) use of anticoagulants; Z99.81 Dependence on supplemental oxygen; Z79.899 Other long term (current) drug therapy; Z79.51 Long term (current) use of inhaled steroids; Z86.718 Personal history of other venous thrombosis and embolism; Z95.0 Presence of cardiac pacemaker; Z90.710 Acquired absence of both cervix and uterus; Z87.891 Personal history of nicotine dependence; Z90.49 Acquired absence of other specified parts of digestive tract; Z90.89 Acquired absence of other organs; Y92.009 Unspecified place in unspecified non-institutional (private) residence as the place of occurrence of the external cause; Z87.81 Personal history of (healed) traumatic fracture; Z82.49 Family history of ischemic heart disease and other diseases of the circulatory system; Z80.1 Family history of malignant neoplasm of trachea, bronchus and lung; Z82.79 Family history of other congenital malformations, deformations and chromosomal abnormalities
CPT/HCPCS: 36410; 36415; 71045; 71046; 80048; 80053; 81001; 81003; 82533; 83605; 83735; 83880; 84100; 84132; 84484; 85025; 85610; 85730; 93005; 94640; 94660; 94760; 96361; 96374; 99285